=== PATIENT | female | born 1950 | race African-American/Black ===

== ENCOUNTER 2016-09-04 05:52 | Inpatient (IN) | payer MEDICARE, MEDICAID ==
--- NOTE | 2016-08-27 12:26 | HP ---
HISTORY AND PHYSICAL: * ADDENDUM: PHYSICAL EXAMINATION HEENT: Head is NC/AT. LUNGS: Clear with distant sounds. HEART: Regular. S1, S2 normal. No murmurs or gallops. ABDOMEN: Round, soft and nontender. I do not appreciate organomegaly. EXTREMITIES: She is able to do a straight leg raise on the right and the left. The right is painful. The right knee on extension 0 degrees slowly with pain, on flexion 90 degrees with pain. MCL and LCL were stable. The overall alignment is satisfactory and the dorsalis pedis pulse is 2+. NEUROLOGIC: Cranial nerves are grossly intact. IMPRESSION: Painful right total knee replacement. PLAN: Revision right total knee replacement and removal of extra bone lateral to the right patella. [id number] #: [id number] MTDD
--- NOTE | 2016-08-27 12:26 | HP ---
ADDENDUM NOW INCLUDED ON THIS REPORT HISTORY AND PHYSICAL: DATE OF ADMISSION: 09/04/16 She is coming in to the [facility] on 09/04/16. CHIEF COMPLAINT: Right knee pain, swelling, and limp. HISTORY OF PRESENT ILLNESS: This nice 66-year-old woman had a right total knee replacement years ago and in the past year it has become increasingly painful with pain anterior and anterolateral. A workup of the knee has included a negative culture for routine bacteria, AFB, and fungus. Her serum white blood count has been 7000, her sedimentation rate 38 and her C-reactive protein 5. A recent bone scan showed some positivity in the right patella region compared to the left and no findings consistent with infection. The plan is for a right total knee replacement revision of the patellar component and the tibial component, possibly the femoral component and there is some extra bone that may be causing problems lateral to the right patella that will be removed. PAST MEDICAL HISTORY: She has had a lot of medical problems with COPD, sleep apnea, obesity, diastolic heart failure, adrenal tumor, hypertension, type 2 diabetes, chronic pain, hyperlipidemia. She has not had a heart attack. She is not troubled with chest pain. She recently saw a physician learning support assistant, Kar, for her clearance. No bleeding tendencies. No smoking. No drinking. ALLERGIES: She has multiple allergies include PREDNISONE, but she has had Keflex and cefazolin in the past. REVIEW OF SYSTEMS: No abdominal pain. No recent stomach problems. PHYSICAL EXAMINATION GENERAL: She is overweight, not acutely distressed, but is limping on the right. VITAL SIGNS: Temperature 96.2 degrees. She is 5 feet 4 inches, 261 pounds. Blood pressure 190/90, pulse is 76. EXTREMITIES: The right knee has satisfactory overall alignment with marked tenderness anteriorly and anterolaterally. MCL and LCL are stable. Knee extension is near 0, flexion 90. The thigh and calf are soft. Dorsalis pedis pulses 2+. She has some swelling of her leg, ankle and foot on the right and left. IMPRESSION AND PLAN: Right total knee replacement that has been painful. The plan is for revision of the patellar component, possible revision of the tibial component and removal of extra bone lateral to the right patella. Risks and complications of surgical care have been reviewed with her and her questions were answered. Plans as above. ADDENDUM TO PHYSICAL EXAMINATION: HEENT: Head is NC/AT. LUNGS: Clear with distant sounds. HEART: Regular. S1, S2 normal. No murmurs or gallops. ABDOMEN: Round, soft and nontender. I do not appreciate organomegaly. EXTREMITIES: She is able to do a straight leg raise on the right and the left. The right is painful. The right knee on extension 0 degrees slowly with pain, on flexion 90 degrees with pain. MCL and LCL were stable. The overall alignment is satisfactory and the dorsalis pedis pulse is 2+. NEUROLOGIC: Cranial nerves are grossly intact. IMPRESSION: Painful right total knee replacement. PLAN: Revision right total knee replacement and removal of extra bone lateral to the right patella. [id number] #: [id number]/CPS #: [id number] MTDD
[~2016-09-04 05:52] MED LIST: Buffered Lidocaine 0.9% SYRIN* 5 ML/SYR SYRINGE INTRADERM ONE
[2016-09-04] MEDS ORDERED: Clindamycin 900 MG IVPREMIX(* 0 MG/0 ML SDV IV ONE (05:59)
[2016-09-04] MEDS ORDERED: Buffered Lidocaine 0.9% SYRIN* 5 ML/SYR SYRINGE ONE (05:59)
[2016-09-04] MEDS ORDERED: NS 0.9% 1000 ML* 1,000 ML IV SCH (06:00)
[2016-09-04] MEDS ORDERED: Midazolam* 1 MG/ML 2 ML VIAL (2 MG) ONE (07:08)
[2016-09-04] MEDS ORDERED: ceFAZolin 2 GM PREMIX(*) 2 GM/50 ML BAG IVPB ONE (07:15)
[2016-09-04] MEDS ORDERED: Lidocaine 2% PF * 5 ML VIAL ONE (07:35)
[2016-09-04] MEDS ORDERED: Dexamethasone IV* 4 MG/ML 1 ML (4 MG) ONE (07:35)
[2016-09-04] MEDS ORDERED: Succinylcholine* 20 MG/ML 10 ML VIAL ONE (07:35)
[2016-09-04] MEDS ORDERED: Propofol* 10 MG/ML 20 ML BTL IV PUSH ONE (07:35)
[2016-09-04] MEDS ORDERED: Famotidine IV* 10 MG/ML 2 ML (20 mg) ONE (07:35)
[2016-09-04] MEDS ORDERED: Cisatracurium* 2 MG/ML MDV 5 ML ONE (07:47)
[2016-09-04] MEDS ORDERED: HYDROmorphone* 1 MG/ML 1 ML SYR ONE ×3 (07:56→11:02)
[2016-09-04] MEDS ORDERED: Bupivacaine 0.5% W/EPI SDV* 30 ML VIAL ONE (08:14)
[2016-09-04] MEDS ORDERED: EPHEDrine (Pressors)* 50 MG/ML VIAL ONE (08:23)
[2016-09-04] MEDS ORDERED: Dexmedetomidine* 200 MCG/2 ML 2 ML VIAL ONE (08:56)
[2016-09-04] MEDS ORDERED: Ondansetron INJ* 2 MG/ML VIAL ONE (09:48)
[2016-09-04] MEDS ORDERED: Ketorolac INJ* 30 MG/ML 1 ML VIAL ONE (09:48)
[2016-09-04] MEDS ORDERED: oxyCODONE TAB* 5 MG TAB PO PRN (09:50)
[2016-09-04] MEDS ORDERED: oxyCODONE/Acetamin 5/325 MG* TAB PO PRN (09:50)
[2016-09-04] MEDS ORDERED: Nalbuphine* 20 MG/ML 1 ML VIAL IV PRN (09:50)
[2016-09-04] MEDS ORDERED: PROCHLORPERAZINE INJ 5 MG/ML 2 ML VIAL IV PRN (09:50)
[2016-09-04] MEDS ORDERED: Levalbuterol 0.63MG/3ML NEB INH PRN (09:50)
[2016-09-04] MEDS ORDERED: Ondansetron INJ* 2 MG/ML VIAL IV PRN ×2 (09:50→10:58)
[2016-09-04] MEDS ORDERED: HYDROmorphone* 1 MG/ML 1 ML SYR IV PRN (09:50)
[2016-09-04] MEDS ORDERED: diPHENhydraMINE IV* 50 MG/ML 1 ml VIAL (BENADRYL) IV PRN (09:50)
[2016-09-04] MEDS ORDERED: Acetaminophen TAB* 325 MG PO SCH (10:00)
[2016-09-04] MEDS ORDERED: Acetaminophen TAB* 325 MG PO PRN (10:58)
[2016-09-04] MEDS ORDERED: diPHENhydraMINE PO* 25 MG PO PRN (10:58)
[2016-09-04] MEDS: HYDROmorphone* 1 MG/ML 1 ML SYR IV PRN ×10 (11:07→22:21)
[2016-09-04] MEDS ORDERED: oxyCODONE TAB* 5 MG TAB ONE (11:09)
[2016-09-04] MEDS ORDERED: Acetaminophen TAB* 325 MG ONE (11:10)
--- NOTE | 2016-09-04 11:44 | RAD ---
Indication: Right knee replacement 2 views of the right knee demonstrates right knee replacement in satisfactory position. No loosening is noted. IMPRESSION: Right knee replacement in satisfactory position.
[2016-09-04] MEDS ORDERED: Cyclobenzaprine TAB* 10 MG PO PRN (12:11)
[2016-09-04] MEDS ORDERED: Albuterol 2.5 MG/3 ML NEB.SOL* (0.083%) INH PRN (12:40)
[2016-09-04] MEDS ORDERED: Ipratropium 0.5MG/2.5ML NEB* 0.5 MG/2.5 ML NEB.SOLN INH PRN (12:40)
[2016-09-04] MEDS ORDERED: Dextrose 50% Syringe 50 ML* 25 GM/50 ML SYRINGE IV PUSH PRN (12:44)
[2016-09-04] MEDS: oxyCODONE/Acetamin 5/325 MG* TAB PO PRN ×3 (13:04→20:16)
[2016-09-04] MEDS: Insulin LISPRO* 1 UNITS UNIT SUBCUT SCH (18:03)
--- NOTE | 2016-09-04 18:22 | CONS ---
CC: QUANG Hernandez * MEDICINE CONSULTATION: DATE OF CONSULT: 09/04/16 PROVIDER: Kobe Weber NP. CONSULTING PHYSICIAN: Mitch Salcedo MD (as dictated by Kobe Weber NP). REQUESTING PHYSICIAN: Dr. Matteo Bustamante, Orthopedic Surgery. PRIMARY CARE PROVIDER: QUANG Hernandez and Dr. Donavan Lara. PRIMARY ADVANCE SEAL DELIVERY SYSTEM MAINTAINER: Dr. Kimberly Avalos. REASON FOR CONSULTATION: Co-medical management in the postoperative period following right total knee revision. HISTORY OF PRESENT ILLNESS: Ms. Mike Phelps is a 66-year-old female with a past medical history significant for COPD, sleep apnea, diastolic heart failure, hypertension, diabetes, morbid obesity, chronic pain, and obstructive sleep apnea as well as a previous right total knee replacement, who presented today for an elective revision of the previous right total knee replacement. At the time of my assessment examination, the patient reports having significant pain and has been recently medicated. She does report persistent pain to the extremity as well as difficulty walking on the extremity. She denies any recent illness, fever, or chills at home, any cold or flu symptoms. She denies any chest pain, shortness of breath, abdominal pain, nausea, vomiting. She states "I felt fine, I am just here for my knee." PAST MEDICAL HISTORY: Includes: 1. COPD with nocturnal oxygen use, 2 L. 2. Severe obstructive sleep apnea, the patient does not use CPAP by choice, again uses nocturnal O2. 3. Hypertension. 4. Diabetes. 5. Diastolic heart failure. 6. Morbid obesity, BMI is 46.2. 7. Hyperlipidemia. 8. Chronic pain. 9. History of adrenal tumor. 10. Osteoarthritis. 11. Vocal cord dysfunction. 12. History of small bowel obstruction. 13. 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 14. Vitamin D deficiency. PAST SURGICAL HISTORY: The patient has had previous abdominal surgery for 1. Small bowel obstruction. 2. Bilateral total knee replacements. 3. Two breast biopsies. HOME MEDICATIONS: 1. Percocet 10/325 one tab q.4 hours p.r.n. 2. Oxycodone SR 10 mg q.12 hours. 3. Metformin 500 mg q.a.m. 4. Zolpidem 5 to 10 mg at bedtime p.r.n. 5. Valsartan 320 mg q.a.m. 6. Simvastatin 40 mg q.a.m. 7. Nystatin 1 application topical b.i.d. p.r.n. 8. Bystolic 10 mg b.i.d. 9. Metolazone 2.5 mg to be taken 30 minutes before furosemide if weight gain is above 257 pounds. 10. Atrovent nebulizer q.4 hours p.r.n. 11. Furosemide 20 mg daily. The patient needs to increase to 1 tab daily if weight is above 250 pounds. 12. Advair 1 puff inhaled b.i.d. 13. Esomeprazole 40 mg q.a.m. 14. Ergocalciferol 50,000 units q.14 days. 15. Duloxetine 40 mg q.a.m. 16. Ciclopirox 1 application topical daily p.r.n. 17. Soma 350 mg t.i.d. p.r.n. 18. Aspirin 81 mg q.a.m. 19. Albuterol inhaler 2 puffs inhaled q.i.d. p.r.n. 20. Albuterol nebulizer q.6 hours p.r.n. 21. Alprazolam 1 mg t.i.d. p.r.n. ALLERGIES: Include MORPHINE and PENICILLIN, which cause hives; FENTANYL, which causes hallucinations, and BACTRIM which causes muscle aching. FAMILY HISTORY: Significant for mother with lung cancer, hypertension and diabetes. Father with lung cancer, hypertension, diabetes, and coronary artery disease. The patient has 2 brothers with diabetes, a sister with diabetes and a brother who at a young age from a heart attack. SOCIAL HISTORY: The patient reports being a former smoker with a 15 to 20 pack year history. She quit over 12 years ago. She denies any current alcohol use, but reports previous heavy alcohol use when she was younger. She denies any illicit drug use. She is single. She lives alone. Her sister Michaela Coleman and her brother, Ashely Mckeon are her emergency contacts and surrogate decision makers in the event of emergency. REVIEW OF SYSTEMS: As per HPI, a 12-point review of systems was completed and is negative except for what is noted in the HPI. PHYSICAL EXAM: General: Ms. Mike Phelps is an female. She is lying in the hospital bed. She does appear to be uncomfortable and is grimacing with pain. Vital signs: Temperature 97.7, heart rate 88, respiratory rate 15, blood pressure 122/69, and O2 saturation is 98% on 3 L nasal cannula. HEENT: Head is atraumatic, normo-cephalic. Face is symmetrical. Pupils are equal, round, and reactive to light. Oral mucosa appears somewhat dry. Neck: Supple. No lymphadenopathy appreciated. No JVD noted. Cardiac: S1 and S2 heart sounds. Regular rate and rhythm. No murmurs, rubs, or gallops. Respiratory: Lungs are clear to auscultation and are slightly diminished. Abdomen: Soft, nontender, and nondistended. Bowel sounds are present. The patient with healed abdominal scars. Extremities: The patient has a clean, dry, and intact Damian bandage to the right knee with cryotherapy cuff. The patient with good movement bilaterally to the lower extremities and sensation is intact. Distal pulses are present at 1 to 2+ to both feet. Neuro: The patient is alert and oriented x3. She is able to move all extremities. She is following commands. No focal weakness noted. Speech is clear and appropriate. ASSESSMENT AND PLAN: The patient is a 66-year-old female who is status post revision of right total knee replacement. Disposition is per Ortho. We will follow along for assistance of co-medical management in a patient with multiple comorbidity. Management for the right knee revision is per ortho. 1. Chronic obstructive pulmonary disease: Continue home inhalers and nebulizer treatments p.r.n. She does not appear to be in acute exacerbation. Lungs are clear and she is in no respiratory distress. The patient was cleared by Pulmonology prior to her surgery because the patient does have a history of severe sleep apnea, but does not use CPAP at home. Again, she is without any wheezing or rhonchi or any significant cough. We will continue her on her home inhalers and closely monitor her oxygen saturation and respiratory status. 2. History of severe obstructive sleep apnea: The patient is in ICU for close monitoring in a postoperative period. I did encourage the patient to use the hospital CPAP, which I will order and offer to the patient; however, she is going to continue to use her home nocturnal oxygen at 2 L as she continues to refuse CPAP. She is at higher risk for respiratory complications given previously untreated sleep apnea. Again, continue to closely monitor. 3. Hypertension: She is currently normotensive. Continue pain management and we will continue her home medications of Diovan. I will order daily weights to monitor for weight gain. If the patient increases any fluids, we will resume her furosemide and Zaroxolyn as the patient becomes more medically stable. We will closely monitor her renal function and again resume these medication when medically appropriate. 4. Type 2 diabetes: We will hold her metformin and continue the patient on lispro insulin sliding scale. We will check her fingerstick blood glucose q.a.c. and h.s. 5. History of chronic diastolic congestive heart failure. The patient appears to be euvolemic at this time. Again, I will hold her home oral Lasix and reevaluate tomorrow and resume when appropriate. Continue Bystolic and valsartan. 6. History of gastroesophageal reflux disease: Continue omeprazole. 7. Chronic pain: Continue home oxycodone SR b.i.d. as well as p.r.n. medications, which are available via anesthesia and the orthopedic surgery group. She is currently ordered Percocet, which we will continue. We will also continue the patient's home Cymbalta. 8. FEN: At this time, continue IV fluids per Anesthesia. Continue to monitor the patient's volume status. The patient is currently n.p.o., but as her diet advances, we will continue her on a consistent carbohydrate diet again with lispro sliding scale insulin. 9. DVT prophylaxis: Per Ortho, the patient is ordered aspirin 325 mg currently , as well as SCDs. 10. Code status: The patient is a full code. TIME SPENT: Time spent on this consultation was approximately 45 minutes with over half that time spent [id number] with the patient obtaining history and physical, performing physical examination, and reviewing the plan of care. Plan of care was also reviewed with my attending, Dr. Salcedo, who is in agreement. KOBE WEBER, TRIAGE CLINICIAN [id number]/[facility] #: [id number] JAY
[2016-09-04] MEDS: ALPRAZolam TAB* 0.5 MG PO PRN (20:16)
[2016-09-04] MEDS ORDERED: Mometasone/Formoter 100/5 MDI INH SCH (21:00)
[2016-09-04] MEDS ORDERED: CMCS Nebivolol TAB (NF) 2.5 MG TAB PO SCH (21:00)
[2016-09-04] MEDS: Docusate CAP* 100 MG PO SCH (21:24)
[2016-09-04] MEDS: oxyCODONE SR TAB(*) 10 MG TAB.SR PO SCH (21:24)
[2016-09-04] MEDS: CMC: Nebivolol TAB (NF) 2.5 MG TAB PO SCH (21:25)
[2016-09-04] MEDS: Mometasone/Formoter 200/5 MDI INH SCH (21:37)
[2016-09-05] MEDS ORDERED: HYDROmorphone* 1 MG/ML 1 ML SYR IV ONE (00:48)
[2016-09-05] MEDS ORDERED: HYDROmorphone* 1 MG/ML 1 ML SYR ONE (00:53)
[2016-09-05] MEDS: oxyCODONE/Acetamin 5/325 MG* TAB PO PRN ×6 (00:56→17:45)
[2016-09-05] MEDS: ALPRAZolam TAB* 0.5 MG PO PRN ×2 (04:12→21:46)
--- NOTE | 2016-09-05 04:26 | OP ---
CC: Dr. Donavan Lara * DATE OF OPERATION: 09/04/16 - ROOM #ICU-01 DATE OF : 48 SURGICAL CARE: Right knee. SURGEON: Matteo Bustamante MD ASSISTANTS: 1. JOHN Clark, parking assistant. 2. Kiah Montano, surgical resident. ANESTHESIOLOGIST: Dr. Pawan Latif. ANESTHESIA: Endotracheal tube general. PRE-OP DIAGNOSIS: Painful right total knee replacement with possible looseness of the patellar component and/or the tibial component. Painful loose bone fragment lateral to the patella POST-OP DIAGNOSIS: Painful right total knee replacement with possible looseness of the patellar component and/or the tibial component; the tibial component was not loose. OPERATIVE PROCEDURE: Right knee arthrotomy with revision of the patellar component, exchange of the articular surface on the tibia, NexGen Legacy articular surface and removal of loose bony fragment lateral to the patella. INDICATIONS: Severe knee pain, the workup included blood testing, knee aspiration that was negative, and bone scan that did not show any increased uptake in the tibia or the femur, but did show increased uptake in the right patella. COMPLICATIONS: There were no complications. DRAINS: There were no drains. ESTIMATED BLOOD LOSS: 30 to 50 mL. REPLACEMENT: Crystalloid fluids. DESCRIPTION OF PROCEDURE: The patient was brought to the operating room and placed on the operating room table in the supine position. Following the administration of the anesthetic, a Madrid catheter was inserted. The patient was positioned on the operating room table. The right proximal thigh was wrapped with a tourniquet. The dorsalis pedis pulse was noted to be 2+ on the right foot. The right leg was given a preliminary chlorhexidine prep and then prepped and draped and sealed off in the usual fashion for arthroplasty of the knee with ChloraPrep. After prepping, draping, and sealing off, we did our universal protocol time-out confirming Dilma Mckeon and plan for right total knee replacement. We all agreed and we proceeded with that. The surgical care was done without tourniquet. The leg was acutely flexed and the foot was on a padded foot piece. The skin incision that was used previously was utilized and it went from approximately two fingerbreadths proximal to superior pole of the patella to the medial aspect of the tibial tubercle. The skin and subcu tissues were opened and at the distal end of the incision, there was some yellow fluid that was in a small sac and this was cultured and the sac was irrigated and I thought it was okay to proceed with the surgical care. The immediately used instruments were handed off the table. The knee was entered, medial parapatellar, dividing the quadriceps tendon at the junction of the vastus medialis and the rectus femoris going 4 to 5 cm proximal to superior pole of the patella. The knee fluid was clear. The anteromedial soft tissues on the tibia were elevated subperiosteally starting around to the MCL and then we just went a couple of centimeters there. The patella was made so that it could be everted. The patellar component was seen to be immediately loose and it was being held in with a small piece of bone from the inferior patella that was rongeured off and the patellar fragment was taken out, all 3 of the patellar pegs had been sheared off and they were loose as well and removed. A fragmnet of bone lateral to the patella and somewhat within the lateral retinaculum and dissected out with the patella everted. It was 2.5 by 3.5 by 1 cms and was irregular. Synovectomy was completed around the patella. The patellar component had migrated a little bit medially and there was some medial bone loss. The tibia was then explored especially laterally where there appeared to be some subsidence on radiographs and there was no evidence of irritation or looseness. There was no ability to lift up the tibial tray and there was no ability to penetrate the tibial tray. Between the tibial tray and the bone, was a Bovie blade. So, I felt that the tibial component was satisfactorily intact that required surgery. The tibial articular surfaces that was in there, it was a size 12 for a 3 tibia to go within an E femur, was removed, a little bit of synovectomy was completed in the medial and lateral compartments posteriorly. We irrigated with 2 L of saline and then a new NexGen tibial component size 12 mm for the 3 tibia and for the E femur was carefully inserted and snapped into position. We were then finishing our preparations on the patella, the lateral release was completed. The patella was everted, then I concentrated on using the remaining lateral, superior, and inferior bone. The patellar cutting guide for _the Persona knee was snapped into position. The remaining patella was cut flat and 32 was chosen. Three drill holes were made into the patella and the area of bone loss medially was carefully curetted down to good bleeding bone. I felt that the new patella had five-eighths of its circumferential bone to support it laterally, superiorly, and inferiorly, and this bone was 1.5 to 2 cm in width. The patella was cleaned and then down to good bleeding bone. All bony surfaces were irrigated with pulsed saline. All surfaces were then dried. The cement was mixed and the 32 component was cemented into position packing cement medially and seeing that it was flush laterally, superiorly, and inferiorly. Once it was hard, the knee was put through a range of movement several times. The knee was irrigated with pulsed saline irrigation, 2 to 3 L. We infiltrated the pericapsular tissues posteromedially with Marcaine 0.5% with epinephrine, also laterally, straight medially, and then the skin and subcu all in the incision. We irrigated several times during the closure with saline. The patella appeared to be in satisfactory overall alignment. The quadriceps mechanism reapproximated with interrupted #1 Polysorb's in figure-of-8 fashion down past the medial retinaculum and then 0 Polysorb was used distal to that. The deep subcu and bursa closed with 0 Polysorb. The superficial subcu closed with 3-0 Polysorb and the john closed with skin. The skin was washed and dried and covered with Betadine-soaked release followed by sterile gauze, sterile Webril, cryotherapy cuff, ABD pads, and then a 6-inch Damian bandage loosely applied. The dorsalis pedis pulse was 2+. The knee had the same alignment as preoperatively with slight hyperextension, stable ligaments, and as stated, we flexed and extended the knee several times during the closure with satisfactory patellar positioning. The patient was returned to the recovery room in stable and satisfactory condition having tolerated the procedure very well. Because the patient has severe sleep apnea and she does not agree to utilize CPAP, she will be observed in the intensive care unit for the first night. [id number]/[facility] #: [id number] JAY
[2016-09-05] MEDS: HYDROmorphone* 1 MG/ML 1 ML SYR IV PRN ×5 (05:11→21:46)
[2016-09-05 06:31] LABS: Hematocrit 35 % (35-47); Hemoglobin 11.2 g/dl (12.0-16.0)
[2016-09-05 06:49] LABS: BUN/Creatinine Ratio 21.7 (8-20); Calcium 8.6 mg/dL (8.6-10.3); EGFR African American 88.2 (>60); EGFR Non-African American 68.6 (>60); Potassium 3.7 mmol/L (3.5-5.0)
[2016-09-05] MEDS ORDERED: ceFAZolin VIAL(*) 1 GM in NS 0.9% 50 ML* 50 ML IVPB ONE ×2 (07:00→11:00)
[2016-09-05] MEDS ORDERED: Enoxaparin(*) 30 MG/0.3 ML SYR SUBCUT ONE (08:00)
[2016-09-05] MEDS: oxyCODONE SR TAB(*) 10 MG TAB.SR PO SCH ×2 (08:34→21:46)
[2016-09-05] MEDS: CMC: Nebivolol TAB (NF) 2.5 MG TAB PO SCH ×2 (08:36→21:46)
[2016-09-05] MEDS: Valsartan TAB* 160 MG PO SCH (08:36)
[2016-09-05] MEDS: Omeprazole CAP* 20 MG PO SCH (08:36)
[2016-09-05] MEDS: Docusate CAP* 100 MG PO SCH ×2 (08:36→21:46)
[2016-09-05] MEDS: Atorvastatin* 10 MG TAB PO SCH (08:36)
[2016-09-05] MEDS: DULoxetine DR CAP* 20 MG CAP.DR PO SCH (08:36)
[2016-09-05] MEDS: Insulin LISPRO* 1 UNITS UNIT SUBCUT SCH ×3 (08:37→18:00)
[2016-09-05] MEDS ORDERED: Aspirin TAB* 325 MG PO SCH (09:00)
[2016-09-05] MEDS ORDERED: Valsartan TAB* 160 MG PO SCH (09:00)
[2016-09-05] MEDS: Mometasone/Formoter 200/5 MDI INH SCH ×2 (09:15→21:45)
[2016-09-05] MEDS: Albuterol HFA INHALER* 8 gm MDI INH PRN ×2 (10:54→18:52)
--- NOTE | 2016-09-05 11:27 | PN ---
Subjective Date of Service: 09/05/16 Interval History: Patient seen and examined at bedside. She denies fever/chills, chest pain, SOB, n/v. She reports 8/10 pain to RLE that does improve with pain medication. Patient reports hospital bed exacerbates her chronic back pain. Patient is very concerned about discharge planning. She has previously been a patient in [facility] and is highly motivated to return and participate with the therapists and physiatrists there. Family History: Unchanged from Admission Social History: Unchanged from Admission Past Medical History: Unchanged from Admission Objective Active Medications: Acetaminophen (Tylenol Tab*) 650 mg PO Q4H PRN PRN Reason: pain and temp Albuterol (Ventolin Hfa Inhaler*) 2 puff INH QID PRN PRN Reason: SOB/WHEEZING Last Admin: 09/05/16 10:54 Dose: 2 puff Alprazolam (Xanax Tab*) 1 mg PO TID PRN PRN Reason: ANXIETY Last Admin: 09/05/16 04:12 Dose: 1 mg Atorvastatin Calcium (Lipitor*) 10 mg PO QAM [facility] Last Admin: 09/05/16 08:36 Dose: 10 mg Cyclobenzaprine HCl (Flexeril Tab*) 10 mg PO TID PRN PRN Reason: SPASMS - MUSCLE Dextrose (D50w Syringe 50 Ml*) 12.5 gm IV PUSH .FOR FS < 60 - SS PRN PRN Reason: FS < 60 Diphenhydramine HCl (Benadryl Po*) 25 mg PO Q6H PRN PRN Reason: itching Docusate Sodium (Colace Cap*) 100 mg PO BID [facility] Last Admin: 09/05/16 08:36 Dose: 100 mg Duloxetine HCl (Cymbalta Cap*) 20 mg PO QAM [facility] Last Admin: 09/05/16 08:36 Dose: 20 mg Hydromorphone HCl (Dilaudid Iv*) 1 mg IV Q4H PRN PRN Reason: PAIN Last Admin: 09/05/16 09:32 Dose: 1 mg Lactated Ringer's (Lactated Ringers 1000 Ml Bag*) 1,000 mls @ 100 mls/hr IV PER RATE [facility] Last Admin: 09/04/16 22:19 Dose: 100 mls/hr Insulin Human Lispro (Humalog*) 0 units SUBCUT AC [facility] PRN Reason: Protocol Last Admin: 09/05/16 08:37 Dose: Not Given Mometasone Furoate/Formoterol Fumar (Dulera 200/5 Mdi*) 2 puff INH BID [facility] Last Admin: 09/05/16 09:15 Dose: 2 puff Nebivolol (Bystolic Tab (Nf)) 10 mg PO BID [facility] Last Admin: 09/05/16 08:36 Dose: 10 mg Omeprazole ([facility]ilosec Cap*) [facility] Reason: Protocol Last Admin: 09/05/16 08:36 Dose: 20 mg Ondansetron HCl (Zofran Inj*) 4 mg IV Q6H PRN PRN Reason: nausea Oxycodone HCl (Oxycontin(*)) 10 mg PO Q12HR [facility] Last Admin: 09/05/16 08:34 Dose: 10 mg Oxycodone/Acetaminophen (Percocet 5/325 Tab*) 2 tab PO Q3H PRN PRN Reason: PAIN - MODERATE Last Admin: 09/05/16 08:35 Dose: 2 tab Valsartan (Diovan Tab*) [facility] [place] Last Admin: 09/05/16 08:36 Dose: 320 mg Warfarin Sodium (Coumadin Tab(*)) 5 mg PO 1700 [facility] Stop: 09/06/16 17:01 Vital Signs 09/04/16 09/04/16 09/04/16 11:29 11:30 11:40 Temperature Pulse Rate 89 87 Respiratory 16 16 16 Rate Blood Pressure 135/70 133/60 (mmHg) O2 Sat by Pulse 100 98 Oximetry 09/04/16 09/04/16 09/04/16 11:45 11:54 12:27 Temperature Pulse Rate 90 88 88 Respiratory 12 16 14 Rate Blood Pressure 119/72 122/69 (mmHg) O2 Sat by Pulse 98 98 98 Oximetry 09/04/16 09/04/16 09/04/16 12:28 12:30 12:45 Temperature 98.5 F Pulse Rate 91 85 86 Respiratory 13 12 12 Rate Blood Pressure 126/82 99/56 110/69 (mmHg) O2 Sat by Pulse 99 98 98 Oximetry 09/04/16 09/04/16 09/04/16 13:00 13:04 13:15 Temperature Pulse Rate 88 86 Respiratory 16 14 20 Rate Blood Pressure 112/51 102/90 (mmHg) O2 Sat by Pulse 98 99 Oximetry 09/04/16 09/04/16 09/04/16 13:31 13:45 13:57 Temperature Pulse Rate 89 83 Respiratory 20 15 16 Rate Blood Pressure 125/66 126/67 (mmHg) O2 Sat by Pulse 97 98 Oximetry 09/04/16 09/04/16 09/04/16 14:00 14:15 15:00 Temperature Pulse Rate 84 81 81 Respiratory 18 15 20 Rate Blood Pressure 130/62 130/71 125/60 (mmHg) O2 Sat by Pulse 99 97 99 Oximetry 09/04/16 09/04/16 09/04/16 15:13 15:53 16:00 Temperature 97.1 F Pulse Rate 77 Respiratory 18 16 Rate Blood Pressure 126/66 (mmHg) O2 Sat by Pulse 99 Oximetry 09/04/16 09/04/16 09/04/16 16:23 16:42 17:00 Temperature Pulse Rate 76 Respiratory 20 17 Rate Blood Pressure 128/74 (mmHg) O2 Sat by Pulse 97 99 Oximetry 09/04/16 09/04/16 09/04/16 17:32 18:00 18:03 Temperature Pulse Rate 85 Respiratory 16 18 18 Rate Blood Pressure 132/64 (mmHg) O2 Sat by Pulse 100 Oximetry 09/04/16 09/04/16 09/04/16 19:00 19:43 20:00 Temperature 98.4 F Pulse Rate 91 86 Respiratory 22 18 Rate Blood Pressure 135/53 135/75 (mmHg) O2 Sat by Pulse 97 97 Oximetry 09/04/16 09/04/16 09/04/16 20:16 21:00 21:24 Temperature Pulse Rate 85 84 Respiratory 22 17 19 Rate Blood Pressure 144/72 137/67 (mmHg) O2 Sat by Pulse 99 98 Oximetry 09/04/16 09/04/16 09/04/16 21:39 21:40 22:00 Temperature Pulse Rate 86 82 Respiratory 28 Rate Blood Pressure 133/68 (mmHg) O2 Sat by Pulse 98 98 97 Oximetry 09/04/16 09/04/16 09/04/16 22:17 22:21 23:00 Temperature Pulse Rate 89 Respiratory 20 20 13 Rate Blood Pressure 116/71 (mmHg) O2 Sat by Pulse 96 Oximetry 09/04/16 09/04/16 09/05/16 23:09 23:33 00:00 Temperature 97.7 F Pulse Rate 91 86 Respiratory 24 13 Rate Blood Pressure (mmHg) O2 Sat by Pulse 97 98 Oximetry 09/05/16 09/05/16 09/05/16 00:01 00:20 00:56 Temperature Pulse Rate 86 Respiratory 13 16 22 Rate Blood Pressure 121/62 (mmHg) O2 Sat by Pulse 98 97 Oximetry 09/05/16 09/05/16 09/05/16 01:00 01:01 02:00 Temperature Pulse Rate 88 96 84 Respiratory 16 17 15 Rate Blood Pressure 107/58 (mmHg) O2 Sat by Pulse 97 97 99 Oximetry 09/05/16 09/05/16 09/05/16 02:01 03:00 04:00 Temperature 97.3 F Pulse Rate 85 87 79 Respiratory 14 19 16 Rate Blood Pressure 135/61 129/69 114/67 (mmHg) O2 Sat by Pulse 98 98 97 Oximetry 09/05/16 09/05/16 09/05/16 04:12 04:17 05:00 Temperature Pulse Rate 79 Respiratory 14 14 21 Rate Blood Pressure 130/65 (mmHg) O2 Sat by Pulse 98 Oximetry 09/05/16 09/05/16 09/05/16 05:11 06:00 06:02 Temperature Pulse Rate 78 78 Respiratory 20 17 20 Rate Blood Pressure 112/90 (mmHg) O2 Sat by Pulse 100 99 Oximetry 09/05/16 09/05/16 09/05/16 07:00 07:41 08:00 Temperature 97.8 F Pulse Rate 79 71 Respiratory 18 15 Rate Blood Pressure 130/78 144/129 (mmHg) O2 Sat by Pulse 98 100 Oximetry 09/05/16 09/05/16 09/05/16 08:34 08:35 09:00 Temperature Pulse Rate 73 Respiratory 15 15 18 Rate Blood Pressure 141/83 (mmHg) O2 Sat by Pulse 97 Oximetry 09/05/16 09/05/16 09/05/16 09:15 09:32 10:27 Temperature 98.5 F Pulse Rate 74 78 Respiratory 20 20 Rate Blood Pressure 132/61 (mmHg) O2 Sat by Pulse 97 94 Oximetry 09/05/16 10:35 Temperature 98.5 F Pulse Rate 78 Respiratory 20 Rate Blood Pressure 132/61 (mmHg) O2 Sat by Pulse 94 Oximetry Oxygen Devices in Use Now: None Appearance: Female patient, lying in bed, pleasant, NAD Eyes: PERRLA Ears/Nose/Mouth/Throat: Mucous Membranes Moist Neck: NL Appearance and Movements; NL JVP Respiratory: Symmetrical Chest Expansion and Respiratory Effort, Clear to Auscultation Cardiovascular: RRR Abdominal: NL Sounds; No Tenderness; No Distention Extremities: - - distal pulses 2+, distally nvi Neurological: Alert and Oriented x 3 Lines/Tubes/Other Access: Clean, Dry and Intact Peripheral IV Result Diagrams: 09/05/16 06:00 09/05/16 06:00 Microbiology and Other Data: Microbiology 09/04/16 12:37 Nasal Screen MRSA (PCR)([facility]) - Final Nasal Mrsa Positive 09/04/16 08:28 Gram Stain - Final Wound - Knee Right Assess/Plan/Problems-Billing Assessment: This is a 66 yo female with a PMH significant for COPD, LUPE, HTN, DM, diastolic HF, morbid obesity, HLD, and chronic pain who is s/p revision of right total knee replacement. - Patient Problems (1) Status post revision of total replacement of right knee Code(s): Z96.651 - PRESENCE OF RIGHT ARTIFICIAL KNEE JOINT Comment: POD #1, management per ortho PT/OT Pain management (2) COPD (chronic obstructive pulmonary disease) Code(s): J44.9 - CHRONIC OBSTRUCTIVE PULMONARY DISEASE, UNSPECIFIED Comment: Not in acute exacerbation Continue home inhalers and prn nebulizer treatments Continue nocturnal O2 (3) HTN (hypertension) Code(s): I10 - ESSENTIAL (PRIMARY) HYPERTENSION Comment: SBP 130s-140s Continue nebivolol and valsartan. (4) CHF (congestive heart failure) Code(s): I50.9 - HEART FAILURE, UNSPECIFIED Comment: Chronic, diastolic, not in acute exacerbation Continue daily weights Holding home furosemide and Zaroxlyn in postoperative period Will resume tomorrow (5) Diabetes mellitus type 2, noninsulin dependent Code(s): E11.9 - TYPE 2 DIABETES MELLITUS WITHOUT COMPLICATIONS Comment: Controlled. Continue Lispro SSI. Hold home metformin. (6) Chronic pain Code(s): G89.29 - OTHER CHRONIC PAIN Comment: Continue home duloxetine, oxycontin, Soma. (7) LUPE (obstructive sleep apnea) Code(s): G47.33 - OBSTRUCTIVE SLEEP APNEA (ADULT) (PEDIATRIC) Comment: Does not use home CPAP Will offer hospital equipment if patient willing to use, otherwise continue nocturnal O2 2Lnc (8) GERD (gastroesophageal reflux disease) Code(s): K21.9 - GASTRO-ESOPHAGEAL REFLUX DISEASE WITHOUT ESOPHAGITIS Comment : Continue omeprazole. (9) DVT prophylaxis Comment: Per ortho Status and Disposition: Inpatient admission. Dispo per ortho. Hospitalist co-medical management.
[2016-09-05] MEDS: Carisoprodol TAB* 350 MG PO PRN ×2 (14:26→23:58)
[2016-09-05] MEDS ORDERED: Warfarin TAB(*) 5 MG PO SCH (17:00)
[2016-09-05] MEDS ORDERED: NS 0.9% 500 ML BAG* 500 ML IV SCH (17:00)
[2016-09-05] MEDS ORDERED: Magnesium Hydroxide LIQ* 30 ML UDC ONE (23:56)
[2016-09-06] MEDS: Magnesium Hydroxide LIQ* 30 ML UDC PO SCH ×2 (00:37→05:13)
[2016-09-06] MEDS: oxyCODONE/Acetamin 5/325 MG* TAB PO PRN ×3 (01:15→09:01)
[2016-09-06] MEDS: Albuterol HFA INHALER* 8 gm MDI INH PRN (01:15)
[2016-09-06] MEDS: HYDROmorphone* 1 MG/ML 1 ML SYR IV PRN ×3 (01:51→11:13)
[2016-09-06] MEDS: Insulin LISPRO* 1 UNITS UNIT SUBCUT SCH (08:54)
[2016-09-06 08:59] LABS: Hematocrit 33 % (35-47); Hemoglobin 10.6 g/dl (12.0-16.0)
[2016-09-06] MEDS ORDERED: Furosemide TAB* 40 MG PO SCH (09:00)
[2016-09-06] MEDS ORDERED: Metolazone TAB* 5 MG PO SCH (09:00)
[2016-09-06] MEDS: Docusate CAP* 100 MG PO SCH (09:01)
[2016-09-06] MEDS: CMC: Nebivolol TAB (NF) 2.5 MG TAB PO SCH (09:01)
[2016-09-06] MEDS: Valsartan TAB* 160 MG PO SCH (09:01)
[2016-09-06] MEDS: oxyCODONE SR TAB(*) 10 MG TAB.SR PO SCH (09:02)
[2016-09-06] MEDS: DULoxetine DR CAP* 20 MG CAP.DR PO SCH (09:02)
[2016-09-06] MEDS: Atorvastatin* 10 MG TAB PO SCH (09:02)
[2016-09-06] MEDS: Omeprazole CAP* 20 MG PO SCH (09:02)
[2016-09-06] MEDS: Mometasone/Formoter 200/5 MDI INH SCH (09:03)
[2016-09-06 10:06] VITALS: BP 130/53
== END 2016-09-06 11:28 | DRG 467 ==
LOC: AA 05:52 → ICU 12:03 → SSU 09-05 10:22
PROVIDERS: ADMIT Orthopaedic Surgery; ATTEND Orthopaedic Surgery
PROC: 0SRV0J9 Replacement of Right Knee Joint, Tibial Surface with Synthetic Substitute, Cemented, Open Approach (ICD-10-PCS; 2016-09-04)
PROC: 0SPC0JC Removal of Synthetic Substitute from Right Knee Joint, Patellar Surface, Open Approach (ICD-10-PCS; 2016-09-04)
PROC: 0SUC09C Supplement Right Knee Joint with Liner, Patellar Surface, Open Approach (ICD-10-PCS; 2016-09-04)
PROC: 0SPV0JZ Removal of Synthetic Substitute from Right Knee Joint, Tibial Surface, Open Approach (ICD-10-PCS; principal; 2016-09-04 07:30)
DX: T84.84XA Pain due to internal orthopedic prosthetic devices, implants and grafts, initial encounter (principal); I50.32 Chronic diastolic (congestive) heart failure; Z68.42 Body mass index [BMI] 45.0-49.9, adult; J44.9 Chronic obstructive pulmonary disease, unspecified; I11.0 Hypertensive heart disease with heart failure; D62 Acute posthemorrhagic anemia; T84.032A Mechanical loosening of internal right knee prosthetic joint, initial encounter; E11.9 Type 2 diabetes mellitus without complications; G89.29 Other chronic pain; E78.5 Hyperlipidemia, unspecified; Z88.8 Allergy status to other drugs, medicaments and biological substances; Z88.1 Allergy status to other antibiotic agents; M54.9 Dorsalgia, unspecified; E66.01 Morbid (severe) obesity due to excess calories; G47.33 Obstructive sleep apnea (adult) (pediatric); K21.9 Gastro-esophageal reflux disease without esophagitis; M81.0 Age-related osteoporosis without current pathological fracture; Z96.653 Presence of artificial knee joint, bilateral; Z88.0 Allergy status to penicillin; Z88.5 Allergy status to narcotic agent; Z82.49 Family history of ischemic heart disease and other diseases of the circulatory system; Z83.3 Family history of diabetes mellitus; Z80.1 Family history of malignant neoplasm of trachea, bronchus and lung; Z87.891 Personal history of nicotine dependence; F41.9 Anxiety disorder, unspecified; F32.9 Major depressive disorder, single episode, unspecified; Y79.3 Surgical instruments, materials and orthopedic devices (including sutures) associated with adverse incidents; Y92.9 Unspecified place or not applicable
CPT/HCPCS: 36415; 80048; 85014; 85018; 85610; 87070; 87073; 87205; 87641; 88304; 94640; 94760; A9270-GY; C1776; J0330; J0690; J1100; J1170; J1650; J1885; J2250; J2405; J2704

== ENCOUNTER 2016-09-06 09:43 | Inpatient (IN) | payer MEDICARE, MEDICAID ==
[2016-09-06] MEDS ORDERED: Bisacodyl SUPP* 10 MG SUPP PR PRN (11:52)
[2016-09-06] MEDS ORDERED: Acetaminophen TAB* 325 MG PO PRN (11:52)
[2016-09-06] MEDS ORDERED: Albuterol HFA INHALER* 8 gm MDI INH PRN (11:57)
[2016-09-06] MEDS ORDERED: oxyCODONE/Acetamin 5/325 MG* TAB PO PRN (12:02)
[2016-09-06] MEDS ORDERED: Dextrose 50% Syringe 50 ML* 25 GM/50 ML SYRINGE IV PUSH PRN (12:04)
[2016-09-06] MEDS: oxyCODONE/Acetamin 5/325 MG* TAB PO PRN ×2 (15:34→19:36)
[2016-09-06] MEDS ORDERED: Warfarin TAB(*) 4 MG PO SCH (17:00)
[2016-09-06] MEDS: Insulin LISPRO* 1 UNITS UNIT SUBCUT SCH ×2 (17:17→20:56)
[2016-09-06] MEDS ORDERED: HEMORRHOIDAL PR PRN (17:38)
[2016-09-06] MEDS: Magnesium Hydroxide LIQ* 30 ML UDC PO PRN (20:48)
[2016-09-06] MEDS: Senna TAB PO SCH (20:48)
[2016-09-06] MEDS: Docusate CAP* 100 MG PO SCH (20:48)
[2016-09-06] MEDS: oxyCODONE SR TAB(*) 20 MG TAB.SR PO SCH (20:48)
[2016-09-06] MEDS: HYDROmorphone TAB* 4 MG PO PRN (20:55)
[2016-09-06 21:54] LABS: Urine Bacteria Absent (Absent); Urine Bilirubin Negative (Negative); Urine Glucose Negative (Negative); Urine Nitrite Negative (Negative)
[2016-09-06] MEDS: Mometasone/Formoter 200/5 MDI INH SCH (22:07)
[2016-09-06] MEDS: CMCS Nebivolol TAB (NF) 2.5 MG TAB PO SCH (22:10)
[2016-09-07] MEDS: oxyCODONE/Acetamin 5/325 MG* TAB PO PRN ×2 (00:15→05:19)
--- NOTE | 2016-09-07 02:33 | HP ---
ADMISSION HISTORY AND PHYSICAL: DATE OF ADMISSION: 09/06/16 REASON FOR ADMISSION: Revision, right total knee replacement. HISTORY OF PRESENT ILLNESS: Dilma Mckeon is a 66-year-old female. She has a medical history significant for chronic pain. Normally, she takes Percocet and OxyContin at home. She also has a history of diabetes. She had a right total knee replacement done 10 years ago at another hospital. The patient began to have significant pain and limping in her right leg starting about a year ago. She saw Dr. Bustamante. Initial x-rays were negative. A bone scan was done, which showed some positivity in the right patella region. It was decided that she would have a right total knee replacement revision of the patella and tibial component. The patient underwent medical clearance with her primary care provider as well as with her computing systems mechanic that she sees for COPD and sleep apnea. She was admitted to [facility] on September 04. She underwent a right total knee revision of the patellar component, exchange of the articular surface of the tibia and removal of a loose bony fragment lateral to the patella. Postoperatively, she was started on Coumadin for DVT prophylaxis. The patient otherwise was felt to have physical therapy and occupational therapy needs. She is now being admitted for inpatient rehab so that she might return to independent living. PAST MEDICAL HISTORY: Includes the aforementioned COPD as well as diabetes mellitus. She has hypertension and chronic pain as mentioned previously. CURRENT MEDICATIONS: 1. Albuterol inhalers. 2. Xanax. 3. Lipitor. 4. Soma. 5. Cymbalta. 6. Lasix. 7. Zaroxolyn. 8. Dulera inhaler. 9. Bystolic. 10. Prilosec. 11. Percocet for pain control. 12. Diovan. 13. Coumadin for DVT prophylaxis. ALLERGIES: The patient has allergies to MORPHINE, PENICILLIN, FENTANYL, although her difficulty with FENTANYL was that she got hallucinations, that was more like a side effect. She also had problems with BACTRIM. SOCIAL HISTORY: She lives by herself in [facility]. She is a nonsmoker. Does not drink any alcohol. REVIEW OF SYSTEMS: The patient reports mild difficulties with constipation. PHYSICAL EXAMINATION VITAL SIGNS: The patient's temperature is 98.4, blood pressure is 110/74, pulse is 74, and respirations 14. HEENT: Her extraocular movements are intact. Tongue is midline. NECK: Neck is supple. LUNGS: Clear to auscultation bilaterally. HEART: Heart sounds are regular, S1 and S2 are audible. ABDOMEN: Soft and nontender. EXTREMITIES: Her right knee has a wound, which is clean and dry. Peripheral pulses are intact. No edema is noted. NEUROLOGIC: The patient is awake, alert, and oriented. Muscle strength is about 5/5 except the right leg which is 3/5 secondary to pain. FUNCTIONAL EXAM: She transfers with min to mod assistance. ASSESSMENT: Revision right total knee replacement. PLAN: Integrate her into a comprehensive therapeutic rehab program with the following goals. 1. Physical Therapy will work with the patient. They are going to work on functional transfer training, ambulation training with a walker. 2. Occupational Therapy will see the patient, work on her activities of daily living including toileting and toilet transfers. 3. Coumadin for DVT prophylaxis. 4. Adequate analgesia. 5. Her bowels will be regulated. 6. Marking Stitcher will be closely involved to make sure that any services and equipment the patient requires are in place prior to discharge. 7. For diabetes, we are going to restart her metformin, continue fingersticks 4 times a day with appropriate sliding scale insulin coverage. 8. For her sleep apnea, we will use supplemental oxygen at night as well as continuing her inhalers. 9. Family training as appropriate. 10. Home with appropriate services. 11. Advance directives: The patient is a full code. ESTIMATED LENGTH OF STAY: 7 to 9 days. [id number]/CPS #: [id number] JAY
[2016-09-07] MEDS: Omeprazole CAP* 20 MG PO SCH (05:20)
[2016-09-07 07:32] LABS: Hematocrit 34 % (35-47); Hemoglobin 10.8 g/dl (12.0-16.0); Mean Corpuscular HGB Conc 32 g/dl (31-36); Mean Corpuscular Hemoglobin 27 pg (27-31); Mean Corpuscular Volume 86 fL (80-97); Mean Platelet Volume 9 um3 (7.4-10.4); Red Blood Count 3.94 10^6/ul (4.0-5.4); Red Cell Distribution Width 14 % (10.5-15); White Blood Count 11.6 10^3/ul (3.5-10.8)
[2016-09-07 07:47] LABS: Albumin 3.4 g/dL (3.2-5.2); Calcium 9.1 mg/dL (8.6-10.3); EGFR African American 123.5 (>60); Globulin 3.4 g/dL (2-4); Potassium 3.2 mmol/L (3.5-5.0); Total Bilirubin 0.4 mg/dL (0.2-1.0); Total Protein 6.8 g/dL (6.4-8.9)
[2016-09-07] MEDS: Insulin LISPRO* 1 UNITS UNIT SUBCUT SCH ×4 (08:30→20:48)
[2016-09-07] MEDS: oxyCODONE SR TAB(*) 20 MG TAB.SR PO SCH ×2 (08:45→21:49)
[2016-09-07] MEDS: Mometasone/Formoter 200/5 MDI INH SCH ×3 (08:45→22:30)
[2016-09-07] MEDS: DULoxetine DR CAP* 20 MG CAP.DR PO SCH (08:45)
[2016-09-07] MEDS: Furosemide TAB* 40 MG PO SCH (08:47)
[2016-09-07] MEDS: Metolazone TAB* 5 MG PO SCH (08:47)
[2016-09-07] MEDS: Docusate CAP* 100 MG PO SCH ×2 (08:47→21:49)
[2016-09-07] MEDS: CMCS Nebivolol TAB (NF) 2.5 MG TAB PO SCH ×2 (08:47→21:49)
[2016-09-07] MEDS: Valsartan TAB* 160 MG PO SCH (08:47)
[2016-09-07] MEDS: HYDROmorphone TAB* 4 MG PO PRN ×2 (12:27→19:13)
--- NOTE | 2016-09-07 12:49 | PMRUTEAM ---
PMRU: Goals Current Status: Nursing: Current Status Skin Deviations [Right Knee] Incision Skin Deviation Description [ Dressing changed during midnight assessment d/t Right Knee] drainage, covered with telfa, 4x4, and kerri wrap Physical Therapy: Current Status Bed Mobility Assistance Mod Assist Transfer Moblility Assistance Contact guard Transfer/Bed Mobility Rolling Walker Recommended Devices Ambulation Assistance Contatct guard Ambulation Assistive Devices Rolling Walker Occupational Therapy: Current Status Upper Body Dressing Supervision Lower Body Dressing Max Asst Bathing Mod Assist Toileting Mod Assist Toilet Transfer Mod Assist Shower Transfer Max Asst Eating Independent 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 Training pt's family is involved and supportive Anticipated Discharge Home Destination Discharge With home care svs and family support Goals: Physical Therapy: Initial Goals Bed Mobility Assistance Independent Transfer Mobility Assistance Independent Transfer/Bed Mobility Rolling Walker Recommended Devices Ambulation Independent Ambulation Recommended Devices Rolling Walker Ambulation Distance 150 Home Exercise Program Independent Assistance Physical Therapy: Updated Goals Transfer/Bed Mobility Rolling Walker Recommended Devices Occupational Therapy: Initial Goals Goals to be Completed in (Days 7-10 ) Upper Body Bathing Routine Independent Lower Body Bathing Routine Modified Independent with Upper Body Dressing Routine Independent Lower Body Dressing Routine Modified Independent with Toilet Hygeine and Clothing Modified Independent with Management Routine Toilet Transfer Routine Modified Independent with Step-In Shower Transfer Modified Independent with Routine Tub Transfer Routine Modified Independent with Functional Transfers for ADL Modified Independent with Grooming Routine Independent Feeding Routine Independent Light Housekeeping Tasks Modified Independent with Social Work: Goals Discharge Plan return home with home care svs and family support Potential for Family Training pt's family is involved and supportive Anticipated Discharge Home Destination Discharge With home care svs and family support Care Plan: Care Plan ADL's - Improve/Maintain Start: 09/06/16 22:39 Freq: QSHIFT Status: Active Target: Activity Type Activity Date Activity User E-Sign Co-Sign Detail Recorded Client Recorded Date Recorded By Document 09/07/16 07:44 [id number] 09/07/16 07:45 [id number] 09/07/16 07:44 PMRU Outcome: ADL's/ADL Transfers Orders/Interventions Occupational Therapy Evaluation & Treatment Device Yes Patient to receive OT 5x/wk for 60-120 Therex min/day Self Care Management Group Therapy Neuromuscular ReEducation UE/LE ADL's with Assist Yes ADL Transfers with Assist Yes Toileting: Transfers,Clothing Management Yes ,Hygeine w/Assist Light Kitchen/Laundry w/Assist Yes Progression Toward Outcome/Goals Progressing Outcome/Goals Met Continue with treatment to increae ADL performance after R knee sx DVT Prophylaxis- Improve/Maintain Start: 09/06/16 22:39 Freq: QSHIFT Status: Active Target: Activity Type Activity Date Activity User E-Sign Co-Sign Detail Recorded Client Recorded Date Recorded By Document 09/07/16 09:43 [id number] 09/07/16 09:43 [id number] 09/07/16 09:43 PMRU Outcome: DVT Prophylaxis Outcome/Goals Remains Free of DVT Complies with DVT Prophylaxis /Treatment Demonstrates Knowledge of DVT Prevention/ Treatment TEDS Stockings on Every AM, Off at HS Progression Toward Outcome/Goals Progressing Discharge Planning - Improve/Maintain Start: 09/06/16 22:39 Freq: QSHIFT Status: Active Target: Activity Type Activity Date Activity User E-Sign Co-Sign Detail Recorded Client Recorded Date Recorded By Document 09/07/16 06:35 [id number] 09/07/16 06:35 [id number] 09/07/16 06:35 PMRU Outcome: Discharge Planning Identify Patient Needs yes Update Patient Family No Outcome/Goals Demonstrates Understanding of Discharge Plan Homecare Referral - See Comment Progression Toward Outcome/Goals Progressing Education-Improve/Maintain Start: 09/06/16 22:39 Freq: QSHIFT Status: Active Target: Activity Type Activity Date Activity User E-Sign Co-Sign Detail Recorded Client Recorded Date Recorded By Document 09/07/16 09:43 [id number] 09/07/16 09:43 [id number] 09/07/16 09:43 PMRU Outcome: Education Outcome/Goals Demonstrate/ Verbalize Understanding of Written Discharge Instructions Demonstrates Skills Encourage Questions Progression Toward Outcome/Goals Progressing /GI-Improve/Maintain Start: 09/06/16 22:39 Freq: QSHIFT Status: Active Target: Activity Type Activity Date Activity User E-Sign Co-Sign Detail Recorded Client Recorded Date Recorded By Document 09/07/16 09:43 [id number] 09/07/16 09:43 [id number] 09/07/16 09:43 PMRU Outcome: Genitourinary/ Gastrointestinal Genitourinary- Outcome/Goals Maintain/ Achieve Urinary Continence Gastrointestinal-Outcome/Goals Maintain/ Achieve Bowel Regularity in Accordance with Pt's Baseline Prevent Constipation Progression Toward Outcome/Goals - Not Progressing Progression Toward Outcome/Goals - GI Progressing Metabolic Status- Improve/Maintain Start: 09/06/16 22:39 Freq: QSHIFT Status: Active Target: Activity Type Activity Date Activity User E-Sign Co-Sign Detail Recorded Client Recorded Date Recorded By Document 09/07/16 09:43 [id number] 09/07/16 09:43 [id number] 09/07/16 09:43 PMRU Outcome: Metabolic Status Have Fingersticks Been Ordered Yes Fingerstick Order Frequency AC & HS Outcome/Goals Maintain/ Improve Metabolic Status Demonstrate Knowledge of Prevention/ Treatment of Metabolic Imbalances Progression Toward Outcome/Goals Progressing Mobility- Improve/Maintain Start: 09/06/16 11:43 Freq: QSHIFT Status: Active Target: Activity Type Activity Date Activity User E-Sign Co-Sign Detail Recorded Client Recorded Date Recorded By Document 09/06/16 11:43 [id number] 09/06/16 11:44 [id number] 09/06/16 11:43 PMRU Outcome: Mobility Physical Therapy Evaluation and Yes Treatment Activity OOB with Assistance Yes WBAT Yes Device Yes Assistance Yes Patient to be seen 5x/wk for 60-120 min/ Therex day for: Mobility Training Gait Training Balance Other Therapy Comment ROM Outcome/Goals Maintain/ Achieve Baseline Mobility Status Improve Mobility Status Demonstrates Proper Use of Assistive Devices Free from Complications of Immobility Bed Mobility Yes: Independent Transfers Yes: Modified independent with RW Gait x ft Yes: Modified independent 150 ' with RW W/C Mobility x ft No Up/Down Stairs No With HEP Yes: Independent Pain/Comfort- Improve/Maintain Start: 09/06/16 22:39 Freq: QSHIFT Status: Active Target: Activity Type Activity Date Activity User E-Sign Co-Sign Detail Recorded Client Recorded Date Recorded By Document 09/07/16 09:43 [id number] 09/07/16 09:43 [id number] 09/07/16 09:43 PMRU Outcome: Pain/Comfort Outcome/Goals Demonstrates Knowledge and Use of Available Comfort Measures Achieves Acceptable Comfort/Pain Level as Determined by Patient/Condit Maintain Comfort Level Allowing Patient to Fully Participate in Rehab Progression Toward Outcome/Goals Progressing Respiratory - Improve/Maintain Start: 09/06/16 22:39 Freq: QSHIFT Status: Active Target: Activity Type Activity Date Activity User E-Sign Co-Sign Detail Recorded Client Recorded Date Recorded By Document 09/07/16 09:43 [id number] 09/07/16 09:43 [id number] 09/07/16 09:43 PMRU Outcome: Respiratory Does Patient Have a Trach No Outcome/Goals Maintain/ Improve O2 Sat per MD Order Maintain/ Improve Baseline Respiratory Status Maintain/ Improve Activity Tolerance Progression Toward Outcome/Goals Progressing Safety- Improve/Maintain Start: 09/06/16 22:39 Freq: QSHIFT Status: Active Target: Activity Type Activity Date Activity User E-Sign Co-Sign Detail Recorded Client Recorded Date Recorded By Document 09/07/16 09:43 [id number] 09/07/16 09:43 [id number] 09/07/16 09:43 PMRU Outcome: Safety Outcome/Goals Remain Free of Injury or Harm Cooperates with Safety Measures for Least Restrictive Environment Prevent Falls/ Injury Progression Toward Outcome/Goals Progressing Skin- Improve/Maintain Start: 09/06/16 22:39 Freq: QSHIFT Status: Active Target: Activity Type Activity Date Activity User E-Sign Co-Sign Detail Recorded Client Recorded Date Recorded By Document 09/07/16 09:43 [id number] 09/07/16 09:43 [id number] 09/07/16 09:43 PMRU Outcome: Skin Skin Risk Level Medium Skin Orders Turn/Position q2hr While in Bed Outcome/Goals Maintain/ Improve Skin Intergrity Free from Decubitus Surgical Incisions Healing Progression Toward Outcome/Goals Progressing Medicine Note: Length of Stay: 7 days Anticipated Discharge Destination: Home Tentative Discharge Date: 09/14/16 Discharged to: Home
[2016-09-07] MEDS: ALPRAZolam TAB* 0.5 MG PO PRN ×2 (15:24→21:53)
[2016-09-07] MEDS: Atorvastatin* 10 MG TAB PO SCH (17:13)
[2016-09-07] MEDS: Warfarin TAB(*) 3 MG PO SCH (17:13)
[2016-09-07] MEDS: Potassium Chlor TAB* 20 MEQ TAB.ER PO SCH (21:49)
[2016-09-07] MEDS: Senna TAB PO SCH (21:49)
[2016-09-07] MEDS: Carisoprodol TAB* 350 MG PO PRN (21:52)
[2016-09-08] MEDS: Magnesium Hydroxide LIQ* 30 ML UDC PO PRN (01:15)
[2016-09-08] MEDS: oxyCODONE/Acetamin 5/325 MG* TAB PO PRN ×3 (01:15→18:16)
[2016-09-08] MEDS: Omeprazole CAP* 20 MG PO SCH (05:53)
[2016-09-08] MEDS: Insulin LISPRO* 1 UNITS UNIT SUBCUT SCH ×4 (08:19→21:10)
[2016-09-08] MEDS: Mometasone/Formoter 200/5 MDI INH SCH ×2 (08:29→21:29)
[2016-09-08] MEDS: Potassium Chlor TAB* 20 MEQ TAB.ER PO SCH ×2 (08:31→21:24)
[2016-09-08] MEDS: Valsartan TAB* 160 MG PO SCH (08:31)
[2016-09-08] MEDS: Metolazone TAB* 5 MG PO SCH (08:32)
[2016-09-08] MEDS: CMCS Nebivolol TAB (NF) 2.5 MG TAB PO SCH ×2 (08:32→21:26)
[2016-09-08] MEDS: Docusate CAP* 100 MG PO SCH ×2 (08:33→21:11)
[2016-09-08] MEDS: DULoxetine DR CAP* 20 MG CAP.DR PO SCH (08:34)
[2016-09-08] MEDS: oxyCODONE SR TAB(*) 20 MG TAB.SR PO SCH ×2 (08:34→21:25)
[2016-09-08] MEDS: HYDROmorphone TAB* 4 MG PO PRN ×3 (08:35→22:26)
[2016-09-08] MEDS: Furosemide TAB* 40 MG PO SCH (09:00)
[2016-09-08] MEDS: Carisoprodol TAB* 350 MG PO PRN (10:17)
[2016-09-08] MEDS: Warfarin TAB(*) 3 MG PO SCH (16:49)
[2016-09-08] MEDS: Atorvastatin* 10 MG TAB PO SCH (16:49)
[2016-09-08] MEDS: ALPRAZolam TAB* 0.5 MG PO PRN (20:41)
[2016-09-08] MEDS: Senna TAB PO SCH (21:24)
[2016-09-09] MEDS: oxyCODONE/Acetamin 5/325 MG* TAB PO PRN ×4 (00:18→21:26)
[2016-09-09] MEDS ORDERED: diPHENhydraMINE PO* 25 MG PO ONE (00:30)
[2016-09-09] MEDS: Carisoprodol TAB* 350 MG PO PRN ×2 (01:53→22:57)
[2016-09-09] MEDS: HYDROmorphone TAB* 4 MG PO PRN ×3 (04:24→19:19)
[2016-09-09] MEDS: Omeprazole CAP* 20 MG PO SCH (06:29)
[2016-09-09] MEDS: Furosemide TAB* 40 MG PO SCH (08:23)
[2016-09-09] MEDS: metFORMIN* 500 MG TAB PO SCH (08:23)
[2016-09-09] MEDS: DULoxetine DR CAP* 20 MG CAP.DR PO SCH (08:23)
[2016-09-09] MEDS: Metolazone TAB* 5 MG PO SCH (08:23)
[2016-09-09] MEDS: Docusate CAP* 100 MG PO SCH ×2 (08:23→21:55)
[2016-09-09] MEDS: Valsartan TAB* 160 MG PO SCH (08:24)
[2016-09-09] MEDS: Potassium Chlor TAB* 20 MEQ TAB.ER PO SCH ×2 (08:24→21:26)
[2016-09-09] MEDS: CMCS Nebivolol TAB (NF) 2.5 MG TAB PO SCH ×2 (08:24→21:25)
[2016-09-09] MEDS: oxyCODONE SR TAB(*) 20 MG TAB.SR PO SCH ×2 (08:24→21:25)
[2016-09-09] MEDS: Insulin LISPRO* 1 UNITS UNIT SUBCUT SCH ×4 (08:25→21:30)
[2016-09-09] MEDS: Mometasone/Formoter 200/5 MDI INH SCH ×2 (08:42→21:32)
[2016-09-09] MEDS: diPHENhydraMINE PO* 25 MG PO PRN ×2 (14:05→23:36)
[2016-09-09] MEDS: Warfarin TAB(*) 7.5 MG PO SCH (17:00)
[2016-09-09] MEDS: Atorvastatin* 10 MG TAB PO SCH (17:00)
[2016-09-09] MEDS: Senna TAB PO SCH (21:55)
[2016-09-10] MEDS: HYDROmorphone TAB* 4 MG PO PRN ×3 (01:32→17:07)
[2016-09-10] MEDS: oxyCODONE/Acetamin 5/325 MG* TAB PO PRN ×3 (03:58→21:16)
[2016-09-10] MEDS: Omeprazole CAP* 20 MG PO SCH (06:35)
[2016-09-10] MEDS: ALPRAZolam TAB* 0.5 MG PO PRN ×3 (06:35→18:28)
[2016-09-10] MEDS: Insulin LISPRO* 1 UNITS UNIT SUBCUT SCH ×4 (08:25→21:15)
[2016-09-10] MEDS: Docusate CAP* 100 MG PO SCH ×2 (08:26→20:24)
[2016-09-10] MEDS: CMCS Nebivolol TAB (NF) 2.5 MG TAB PO SCH ×2 (08:26→20:01)
[2016-09-10] MEDS: Mometasone/Formoter 200/5 MDI INH SCH ×2 (08:26→20:04)
[2016-09-10] MEDS: DULoxetine DR CAP* 20 MG CAP.DR PO SCH (08:26)
[2016-09-10] MEDS: Metolazone TAB* 5 MG PO SCH (08:27)
[2016-09-10] MEDS: Valsartan TAB* 160 MG PO SCH (08:27)
[2016-09-10] MEDS: metFORMIN* 500 MG TAB PO SCH (08:27)
[2016-09-10] MEDS: Furosemide TAB* 40 MG PO SCH (08:28)
[2016-09-10] MEDS: oxyCODONE SR TAB(*) 20 MG TAB.SR PO SCH (08:28)
[2016-09-10] MEDS: diPHENhydraMINE PO* 25 MG PO PRN ×2 (09:11→22:38)
[2016-09-10] MEDS: Carisoprodol TAB* 350 MG PO PRN ×2 (10:57→18:28)
[2016-09-10] MEDS: Warfarin TAB(*) 7.5 MG PO SCH (17:07)
[2016-09-10] MEDS: Atorvastatin* 10 MG TAB PO SCH (17:08)
[2016-09-10] MEDS: oxyCODONE SR TAB(*) 10 MG TAB.SR PO SCH (20:01)
[2016-09-10] MEDS: Senna TAB PO SCH (20:24)
[2016-09-11] MEDS: HYDROmorphone TAB* 4 MG PO PRN ×4 (03:08→21:46)
[2016-09-11] MEDS: oxyCODONE/Acetamin 5/325 MG* TAB PO PRN ×4 (05:05→23:21)
[2016-09-11] MEDS: Omeprazole CAP* 20 MG PO SCH (05:16)
[2016-09-11] MEDS: Carisoprodol TAB* 350 MG PO PRN ×2 (07:10→22:47)
[2016-09-11] MEDS: Insulin LISPRO* 1 UNITS UNIT SUBCUT SCH ×4 (08:02→21:43)
[2016-09-11 08:32] LABS: Hematocrit 32 % (35-47); Hemoglobin 10.8 g/dl (12.0-16.0); Mean Corpuscular HGB Conc 33 g/dl (31-36); Mean Corpuscular Hemoglobin 28 pg (27-31); Mean Corpuscular Volume 85 fL (80-97); Red Blood Count 3.82 10^6/ul (4.0-5.4); Red Cell Distribution Width 13 % (10.5-15); White Blood Count 8.9 10^3/ul (3.5-10.8)
[2016-09-11 08:33] LABS: Add Diff/Slide Review? Slide Review Added; Comments Flag Yes
[2016-09-11] MEDS: Mometasone/Formoter 200/5 MDI INH SCH ×2 (08:46→21:47)
[2016-09-11] MEDS: CMCS Nebivolol TAB (NF) 2.5 MG TAB PO SCH ×2 (08:46→21:00)
[2016-09-11] MEDS: Docusate CAP* 100 MG PO SCH ×2 (08:46→20:57)
[2016-09-11] MEDS: Valsartan TAB* 160 MG PO SCH (08:47)
[2016-09-11] MEDS: DULoxetine DR CAP* 20 MG CAP.DR PO SCH (08:47)
[2016-09-11] MEDS: Furosemide TAB* 40 MG PO SCH (08:47)
[2016-09-11] MEDS: oxyCODONE SR TAB(*) 10 MG TAB.SR PO SCH (08:47)
[2016-09-11] MEDS: Metolazone TAB* 5 MG PO SCH (08:47)
[2016-09-11] MEDS: metFORMIN* 500 MG TAB PO SCH (08:47)
[2016-09-11] MEDS: ALPRAZolam TAB* 0.5 MG PO PRN ×2 (10:36→20:56)
--- NOTE | 2016-09-11 12:28 | PMRUTEAM ---
PMRU: Goals Current Status: Nursing: Current Status Skin Deviations [right mid Incision flank] Skin Deviations [Back] Other Skin Deviations [Right Knee] Incision Skin Deviation Description [ [place] like velcro coming apart when moving arm away right mid flank] from body according to pt. No redness or skin discoloration. Cleaned area because texture felt different. No change. Skin Deviation Description [ ithchy no redness noted Back] Skin Deviation Description [ john small open area Right Knee] Bladder Current Status Continent, self care Bowel Current Status Continent, self care Nutrition Current Status Adequate, consistant carb Medication Current Status Pain control- Dilaudid, Percocet, Soma Routine Oxycodone Pt states not controlled well this AM Physical Therapy: Current Status Bed Mobility Assistance Supervision Transfer Moblility Assistance Supervision Transfer/Bed Mobility Rolling Walker Recommended Devices Ambulation Assistance Supervision Ambulation Assistive Devices Rolling Walker Number of Feet Patient 150 Ambulated Ambulation Comment step to to step through very slow. Occupational Therapy: Current Status Upper Body Dressing Independent Lower Body Dressing Supervision Bathing Supervision Toileting Supervision Toilet Transfer Supervision Shower Transfer Supervision Eating Independent Rec Therapy: Current Status Summary of Assessment and RT assessment complete and pt. is aware of RT Clinical Impression services. Pt. is open to continued leisure visits on the unit. Treatment Goals Pt. will engage in leisure activities while on the unit. Treatment Plan Provide RT services and encourage involvement. 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 Anticipated Discharge Home Destination Discharge With home care svs and family support Goals: Physical Therapy: Initial Goals Bed Mobility Assistance Independent Transfer Mobility Assistance Independent Transfer/Bed Mobility Rolling Walker Recommended Devices Ambulation Independent Ambulation Recommended Devices Rolling Walker Ambulation Distance 150 Home Exercise Program Independent Assistance Physical Therapy: Updated Goals Bed Mobility Assistance Independent Transfer Mobility Assistance Independent Transfer/Bed Mobility Rolling Walker Recommended Devices Ambulation Assistance Independent Ambulation Assistive Devices Rolling Walker Ambulation Distance (ft) 150 Home Exercise Program Independent Assistance Occupational Therapy: Initial Goals Goals to be Completed in (Days 7-10 ) Upper Body Bathing Routine Independent Lower Body Bathing Routine Modified Independent with Upper Body Dressing Routine Independent Lower Body Dressing Routine Modified Independent with Toilet Hygeine and Clothing Modified Independent with Management Routine Toilet Transfer Routine Modified Independent with Step-In Shower Transfer Modified Independent with Routine Tub Transfer Routine Modified Independent with Functional Transfers for ADL Modified Independent with Grooming Routine Independent Feeding Routine Independent Light Housekeeping Tasks Modified Independent with Nursing: Goals Bladder Goal Continent, self care Bowel Goal continent, self care Nutrition Goal consistant carb, aware fo FS and monitoring what she is eating Medication Goal Pain control, self administering medications, self administering insuling Nutrition: Goals Intervention Goals 1. Maintain adequate glycemic control per inpatient parameters. 2. Maintain adequate intake to support maintenance of lean body mass w/o contributing to undesirable weight gain. 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 Anticipated Discharge Home Destination Discharge With home care svs and family support Care Plan: Care Plan ADL's - Improve/Maintain Start: 09/06/16 22:39 Freq: DAILY Status: Active Target: Activity Type Activity Date Activity User E-Sign Co-Sign Detail Recorded Client Recorded Date Recorded By Document 09/08/16 07:55 [id number] 09/08/16 07:56 [id number] 09/08/16 07:55 PMRU Outcome: ADL's/ADL Transfers Orders/Interventions Occupational Therapy Evaluation & Treatment Device Yes Patient to receive OT 5x/wk for 60-120 Therex min/day Self Care Management Group Therapy Neuromuscular ReEducation UE/LE ADL's with Assist Yes ADL Transfers with Assist Yes Toileting: Transfers,Clothing Management Yes ,Hygeine w/Assist Light Kitchen/Laundry w/Assist Yes Progression Toward Outcome/Goals Progressing Outcome/Goals Met pt tolerating therapy sessions every well. Increasing ADL performance. Continue with AD/AE training, ADL/self care training, and transfer training. DVT Prophylaxis- Improve/Maintain Start: 09/06/16 22:39 Freq: DAILY Status: Complete Target: Activity Type Activity Date Activity User E-Sign Co-Sign Detail Recorded Client Recorded Date Recorded By Document 09/10/16 19:29 [id number] 09/10/16 19:30 [id number] 09/10/16 19:29 PMRU Outcome: DVT Prophylaxis Outcome/Goals Remains Free of DVT Complies with DVT Prophylaxis /Treatment Demonstrates Knowledge of DVT Prevention/ Treatment TEDS Stockings on Every AM, Off at HS Outcome/Goals Met Remains Free of DVT TEDS Stockings on Every AM, Off at HS Discharge Planning - Improve/Maintain Start: 09/06/16 22:39 Freq: DAILY Status: Active Target: Activity Type Activity Date Activity User E-Sign Co-Sign Detail Recorded Client Recorded Date Recorded By Document 09/11/16 10:08 [email or web address] 09/11/16 10:09 09/11/16 10:08 PMRU Outcome: Discharge Planning Identify Patient Needs yes Update Patient Family No Outcome/Goals Demonstrates Understanding of Discharge Plan Homecare Referral - See Comment Progression Toward Outcome/Goals Progressing Education-Improve/Maintain Start: 09/06/16 22:39 Freq: DAILY Status: Active Target: Activity Type Activity Date Activity User E-Sign Co-Sign Detail Recorded Client Recorded Date Recorded By Document 09/11/16 10:08 [email or web address] 09/11/16 10:09 09/11/16 10:08 PMRU Outcome: Education Outcome/Goals Demonstrate/ Verbalize Understanding of Written Discharge Instructions Demonstrates Skills Encourage Questions Progression Toward Outcome/Goals Progressing /GI-Improve/Maintain Start: 09/06/16 22:39 Freq: DAILY Status: Active Target: Activity Type Activity Date Activity User E-Sign Co-Sign Detail Recorded Client Recorded Date Recorded By Document 09/11/16 10:08 [email or web address] 09/11/16 10:09 09/11/16 10:08 PMRU Outcome: Genitourinary/ Gastrointestinal Genitourinary- Outcome/Goals Maintain/ Achieve Urinary Continence Gastrointestinal-Outcome/Goals Maintain/ Achieve Bowel Regularity in Accordance with Pt's Baseline Prevent Constipation Other Outcome/Goals pt very pleased that she had a BM today Progression Toward Outcome/Goals - Progressing Progression Toward Outcome/Goals - GI Progressing Metabolic Status- Improve/Maintain Start: 09/06/16 22:39 Freq: DAILY Status: Active Target: Activity Type Activity Date Activity User E-Sign Co-Sign Detail Recorded Client Recorded Date Recorded By Document 09/11/16 10:08 [id number] 09/11/16 10:09 [id number] 09/11/16 10:08 PMRU Outcome: Metabolic Status Have Fingersticks Been Ordered Yes Fingerstick Order Frequency AC & HS Outcome/Goals Maintain/ Improve Metabolic Status Demonstrate Knowledge of Prevention/ Treatment of Metabolic Imbalances Progression Toward Outcome/Goals Progressing Mobility- Improve/Maintain Start: 09/06/16 11:43 Freq: DAILY Status: Active Target: Activity Type Activity Date Activity User E-Sign Co-Sign Detail Recorded Client Recorded Date Recorded By Document 09/10/16 12:19 [id number] 09/10/16 12:19 [id number] 09/10/16 12:19 PMRU Outcome: Mobility Physical Therapy Evaluation and Yes Treatment Activity OOB with Assistance Yes WBAT Yes Device Yes Assistance Yes Patient to be seen 5x/wk for 60-120 min/ Therex day for: Mobility Training Gait Training Balance Other Therapy Comment ROM Outcome/Goals Maintain/ Achieve Baseline Mobility Status Improve Mobility Status Demonstrates Proper Use of Assistive Devices Free from Complications of Immobility Progression Toward Outcome/Goals Progressing Bed Mobility Yes: Independent Transfers Yes: Modified independent with RW Gait x ft Yes: Modified independent 150 ' with RW W/C Mobility x ft No Up/Down Stairs No With HEP Yes: Independent Pain/Comfort- Improve/Maintain Start: 09/06/16 22:39 Freq: DAILY Status: Active Target: Activity Type Activity Date Activity User E-Sign Co-Sign Detail Recorded Client Recorded Date Recorded By Document 09/11/16 10:08 [id number] 09/11/16 10:09 [id number] 09/11/16 10:08 PMRU Outcome: Pain/Comfort Outcome/Goals Demonstrates Knowledge and Use of Available Comfort Measures Achieves Acceptable Comfort/Pain Level as Determined by Patient/Condit Maintain Comfort Level Allowing Patient to Fully Participate in Rehab Progression Toward Outcome/Goals Progressing Outcome/Goals Met Comment alternating pain medications to help manage pain Respiratory - Improve/Maintain Start: 09/06/16 22:39 Freq: DAILY Status: Active Target: Activity Type Activity Date Activity User E-Sign Co-Sign Detail Recorded Client Recorded Date Recorded By Document 09/11/16 10:08 [id number] 09/11/16 10:09 [id number] 09/11/16 10:08 PMRU Outcome: Respiratory Does Patient Have a Trach No Outcome/Goals Maintain/ Improve O2 Sat per MD Order Maintain/ Improve Baseline Respiratory Status Maintain/ Improve Activity Tolerance Progression Toward Outcome/Goals Progressing Outcome/Goals Met Comment o2 2L placed at bedtime Safety- Improve/Maintain Start: 09/06/16 22:39 Freq: DAILY Status: Active Target: Activity Type Activity Date Activity User E-Sign Co-Sign Detail Recorded Client Recorded Date Recorded By Document 09/11/16 10:08 [id number] 09/11/16 10:09 [id number] 09/11/16 10:08 PMRU Outcome: Safety Outcome/Goals Remain Free of Injury or Harm Cooperates with Safety Measures for Least Restrictive Environment Prevent Falls/ Injury Progression Toward Outcome/Goals Progressing Skin- Improve/Maintain Start: 09/06/16 22:39 Freq: DAILY Status: Active Target: Activity Type Activity Date Activity User E-Sign Co-Sign Detail Recorded Client Recorded Date Recorded By Document 09/11/16 10:08 [id number] [id number] 09/11/16 10:09 [id number] 09/11/16 10:08 PMRU Outcome: Skin Skin Risk Level Medium Skin Orders Turn/Position q2hr While in Bed Outcome/Goals Maintain/ Improve Skin Intergrity Free from Decubitus Surgical Incisions Healing Progression Toward Outcome/Goals Progressing Outcome/Goals Met Comment kerri wrap in place Medicine Note: Length of Stay: 3 days Anticipated Discharge Destination: Home Tentative Discharge Date: September 14, 2016 Discharged to: Home
[2016-09-11 12:48] LABS: Mean Platelet Volume 8 um3 (7.4-10.4)
[2016-09-11] MEDS: Atorvastatin* 10 MG TAB PO SCH (17:17)
[2016-09-11] MEDS: Warfarin TAB(*) 7.5 MG PO SCH (17:18)
[2016-09-11] MEDS: Senna TAB PO SCH (20:57)
[2016-09-11] MEDS: oxyCODONE SR TAB(*) 20 MG TAB.SR PO SCH (20:57)
[2016-09-12] MEDS: diPHENhydraMINE PO* 25 MG PO PRN ×2 (02:32→17:14)
[2016-09-12] MEDS: HYDROmorphone TAB* 4 MG PO PRN ×4 (03:04→20:37)
[2016-09-12] MEDS: ALPRAZolam TAB* 0.5 MG PO PRN ×2 (04:06→18:03)
[2016-09-12] MEDS: Omeprazole CAP* 20 MG PO SCH (05:56)
[2016-09-12] MEDS: oxyCODONE/Acetamin 5/325 MG* TAB PO PRN ×3 (06:42→20:34)
[2016-09-12] MEDS: Insulin LISPRO* 1 UNITS UNIT SUBCUT SCH ×4 (08:18→20:51)
[2016-09-12] MEDS: Mometasone/Formoter 200/5 MDI INH SCH ×2 (08:32→20:54)
[2016-09-12] MEDS: Metolazone TAB* 5 MG PO SCH (08:33)
[2016-09-12] MEDS: metFORMIN* 500 MG TAB PO SCH (08:34)
[2016-09-12] MEDS: CMCS Nebivolol TAB (NF) 2.5 MG TAB PO SCH ×2 (08:34→20:56)
[2016-09-12] MEDS: Furosemide TAB* 40 MG PO SCH (08:34)
[2016-09-12] MEDS: Docusate CAP* 100 MG PO SCH ×2 (08:34→20:34)
[2016-09-12] MEDS: Valsartan TAB* 160 MG PO SCH (08:34)
[2016-09-12] MEDS: DULoxetine DR CAP* 20 MG CAP.DR PO SCH (08:34)
[2016-09-12] MEDS: oxyCODONE SR TAB(*) 20 MG TAB.SR PO SCH ×2 (08:34→20:34)
[2016-09-12] MEDS: Carisoprodol TAB* 350 MG PO PRN (12:47)
[2016-09-12] MEDS: Atorvastatin* 10 MG TAB PO SCH (18:00)
[2016-09-12] MEDS: Warfarin TAB(*) 7.5 MG PO SCH (18:00)
[2016-09-12] MEDS: Senna TAB PO SCH (20:55)
[2016-09-13] MEDS: Carisoprodol TAB* 350 MG PO PRN ×3 (02:32→18:57)
[2016-09-13] MEDS: HYDROmorphone TAB* 4 MG PO PRN ×4 (02:32→21:35)
[2016-09-13] MEDS: Omeprazole CAP* 20 MG PO SCH (04:51)
[2016-09-13] MEDS: ALPRAZolam TAB* 0.5 MG PO PRN ×2 (04:51→18:55)
[2016-09-13] MEDS: oxyCODONE/Acetamin 5/325 MG* TAB PO PRN ×4 (04:52→23:53)
[2016-09-13] MEDS: Insulin LISPRO* 1 UNITS UNIT SUBCUT SCH ×4 (07:33→21:37)
[2016-09-13] MEDS: Metolazone TAB* 5 MG PO SCH (08:24)
[2016-09-13] MEDS: DULoxetine DR CAP* 20 MG CAP.DR PO SCH (08:25)
[2016-09-13] MEDS: metFORMIN* 500 MG TAB PO SCH (08:25)
[2016-09-13] MEDS: diPHENhydraMINE PO* 25 MG PO PRN ×2 (08:25→15:59)
[2016-09-13] MEDS: Mometasone/Formoter 200/5 MDI INH SCH ×2 (08:25→21:37)
[2016-09-13] MEDS: Furosemide TAB* 40 MG PO SCH (08:26)
[2016-09-13] MEDS: Valsartan TAB* 160 MG PO SCH (08:26)
[2016-09-13] MEDS: CMCS Nebivolol TAB (NF) 2.5 MG TAB PO SCH ×2 (08:26→21:36)
[2016-09-13] MEDS: oxyCODONE SR TAB(*) 20 MG TAB.SR PO SCH ×2 (08:26→21:36)
[2016-09-13] MEDS: Docusate CAP* 100 MG PO SCH ×2 (08:27→21:36)
[2016-09-13] MEDS: Warfarin TAB(*) 7.5 MG PO SCH (17:06)
[2016-09-13] MEDS: Atorvastatin* 10 MG TAB PO SCH (17:06)
[2016-09-13] MEDS: Senna TAB PO SCH (21:36)
[2016-09-14] MEDS: Carisoprodol TAB* 350 MG PO PRN ×2 (01:57→08:11)
[2016-09-14] MEDS: HYDROmorphone TAB* 4 MG PO PRN ×2 (03:13→09:44)
[2016-09-14] MEDS: oxyCODONE/Acetamin 5/325 MG* TAB PO PRN ×2 (05:02→12:30)
[2016-09-14] MEDS: Omeprazole CAP* 20 MG PO SCH (05:16)
[2016-09-14 05:52] LABS: Hematocrit 30 % (35-47); Hemoglobin 9.9 g/dl (12.0-16.0); Mean Corpuscular HGB Conc 33 g/dl (31-36); Mean Corpuscular Hemoglobin 29 pg (27-31); Mean Corpuscular Volume 86 fL (80-97); Mean Platelet Volume 8 um3 (7.4-10.4); Red Blood Count 3.48 10^6/ul (4.0-5.4); Red Cell Distribution Width 13 % (10.5-15); White Blood Count 7.7 10^3/ul (3.5-10.8)
[2016-09-14 06:09] LABS: Albumin 3.3 g/dL (3.2-5.2); BUN/Creatinine Ratio 45.7 (8-20); Calcium 8.9 mg/dL (8.6-10.3); EGFR African American 76.4 (>60); EGFR Non-African American 59.4 (>60); Globulin 3.4 g/dL (2-4); Potassium 3.5 mmol/L (3.5-5.0); Total Bilirubin 0.2 mg/dL (0.2-1.0); Total Protein 6.7 g/dL (6.4-8.9)
[2016-09-14 06:26] VITALS: BP 145/65
[2016-09-14] MEDS: metFORMIN* 500 MG TAB PO SCH (08:09)
[2016-09-14] MEDS: Docusate CAP* 100 MG PO SCH (08:09)
[2016-09-14] MEDS: Mometasone/Formoter 200/5 MDI INH SCH (08:09)
[2016-09-14] MEDS: Metolazone TAB* 5 MG PO SCH (08:10)
[2016-09-14] MEDS: DULoxetine DR CAP* 20 MG CAP.DR PO SCH (08:10)
[2016-09-14] MEDS: Valsartan TAB* 160 MG PO SCH (08:11)
[2016-09-14] MEDS: CMCS Nebivolol TAB (NF) 2.5 MG TAB PO SCH (08:11)
[2016-09-14] MEDS: Furosemide TAB* 40 MG PO SCH (08:11)
[2016-09-14] MEDS: Insulin LISPRO* 1 UNITS UNIT SUBCUT SCH ×2 (08:13→12:24)
[2016-09-14] MEDS: oxyCODONE SR TAB(*) 20 MG TAB.SR PO SCH (08:19)
--- NOTE | 2016-09-15 13:34 | DS ---
CC: Dr. Bustamante; Dr. Donavan Lara REHABILITATION DISCHARGE SUMMARY: DATE OF ADMISSION: 09/06/16 DATE OF DISCHARGE: 09/14/16 REASON FOR ADMISSION: Right total knee replacement. SURGEON: Dr. Bustamante. PRIMARY CARE PROVIDER: Dr. Donavan Lara. HISTORY OF PRESENT ILLNESS: For full details of her acute hospitalization leading up to her admission, please see the note dictated by Dr. Brothers on . REHABILITATION COURSE: During her time on the PMRU, she required additional pain medication of Dilaudid orally. This was added to her home regimen of OxyContin and Percocet 10/325. Actually for a period of time she was getting higher doses of OxyContin at 20 mg b.i.d., but that is going back to her home dose of 10 mg b.i.d. at discharge and she will resume prescriptions through Dr. Lara. She was given a prescription for Dilaudid 4 mg tablets, however. She did require 2 doses of lactulose for constipation. She participated well with physical therapy and at the time discharge was independent with bed mobility, transfers with a rollator or a quad cane. Ambulation with a rollator to 150 feet, but in the bathroom with a quad cane. She will work on stairs with home PT. She has a home exercise program. She also participated well with occupational therapy. At the time of discharge she is independent with eating, bathing, tub transfers, dressing, toileting, and toilet transfers. She does have an aide that comes to supervise for bathing on a regular basis and assist with home chores. She uses the quad cane to get in and out of her bathroom as the doorway is not wide enough for her walker. DISCHARGE MEDICATIONS: 1. Alprazolam 1 mg t.i.d. p.r.n. 2. Albuterol inhaler 2 puffs q.6 hours p.r.n. 3. Soma 350 mg t.i.d. p.r.n. 4. Duloxetine 40 mg daily. 5. Furosemide 40 mg daily. 6. Dilaudid 4 mg q.6 hours p.r.n., not to exceed 4 per day. 7. Preparation H hemorrhoid ointment as needed. 8. Zaroxolyn 2.5 mg daily. 9. Bystolic 10 mg b.i.d. 10. Valsartan 320 mg daily. 11. Warfarin currently 7.5 mg daily for DVT prophylaxis. Her INR today was 1.97. 12. Metformin 500 mg daily. 13. Ergocalciferol 50,000 units every 14 days. 14. Simvastatin 40 mg daily. 15. Nexium 40 mg daily. 16. Percocet 10/325 one tablet q.4 hours p.r.n. pain. 17. OxyContin 10 mg q.12 hours. 18. Advair 115/21 one puff b.i.d. 19. Albuterol nebulizer q.6 hours p.r.n. 20. Nystatin topically b.i.d. p.r.n. 21. Oxygen 2 L per minute p.r.n., typically at bedtime. She is off of aspirin while she is on Warfarin. DISCHARGE CONDITION: Good. DISCHARGE DIET: Consistent carbohydrate. DISCHARGE DISPOSITION: Home. FOLLOWUP: 1. A referral has been sent to visiting nurse services for home therapies, home health aide, and to have her john removed between 09/17/16 and 09/19/16. 2. She is to follow up with Dr. Bustamante on 10/03/[address] Lara as routine. DISCHARGE DIAGNOSES: 1. 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 2. Chronic obstructive pulmonary disease. 3. Diabetes mellitus. 4. Hypertension. 5. Chronic pain. [id number]/[facility] #: [id number] JAY
== END 2016-09-14 13:30 | disposition home health service (06) | DRG 561 ==
LOC: PMRU 11:28
PROVIDERS: ADMIT Physical Medicine & Rehabilitation; ATTEND Physical Medicine & Rehabilitation
PROC: F07Z5ZZ Bed Mobility Treatment (ICD-10-PCS; principal; 2016-09-06)
PROC: F07Z9ZZ Gait Training/Functional Ambulation Treatment (ICD-10-PCS; 2016-09-06)
PROC: F07Z8ZZ Transfer Training Treatment (ICD-10-PCS; 2016-09-06)
PROC: F08Z0ZZ Bathing/Showering Techniques Treatment (ICD-10-PCS; 2016-09-06)
PROC: F08Z1ZZ Dressing Techniques Treatment (ICD-10-PCS; 2016-09-06)
PROC: F08Z3ZZ Feeding/Eating Treatment (ICD-10-PCS; 2016-09-06)
DX: Z47.1 Aftercare following joint replacement surgery (principal); J44.9 Chronic obstructive pulmonary disease, unspecified; I10 Essential (primary) hypertension; Z96.651 Presence of right artificial knee joint; E11.9 Type 2 diabetes mellitus without complications; G89.29 Other chronic pain; G47.33 Obstructive sleep apnea (adult) (pediatric); Z79.84 Long term (current) use of oral hypoglycemic drugs; Z79.01 Long term (current) use of anticoagulants; Z79.899 Other long term (current) drug therapy; Z88.5 Allergy status to narcotic agent; Z88.0 Allergy status to penicillin; Z88.8 Allergy status to other drugs, medicaments and biological substances; K59.00 Constipation, unspecified
CPT/HCPCS: 36415; 80053; 81003; 81015; 85025; 85049; 85610; 94640; 94760; A9270-GY

== ENCOUNTER 2016-10-23 17:23 | Emergency (ER) | payer MEDICARE, MEDICAID ==
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
[2016-10-23 17:44] VITALS: BP 119/64
--- NOTE | 2016-10-23 18:35 | RAD ---
INDICATION: Right knee pain after multiple falls COMPARISON: Most recent knee radiograph is dated September 24, 2016 TECHNIQUE: 3 view radiograph of the right knee. FINDINGS: The right knee prosthesis is anatomically aligned in the AP and lateral projections. No large joint effusion is seen. There is no periprostatic fracture or signs of loosening. IMPRESSION: Anatomic alignment of right knee prosthesis. If the patient's symptoms persist, follow-up imaging is recommended.
== END 2016-10-23 19:05 | disposition home or self-care (01) ==
LOC: UCEAST 17:23
DX: M25.561 Pain in right knee (principal); Z88.5 Allergy status to narcotic agent; Z88.0 Allergy status to penicillin; E11.9 Type 2 diabetes mellitus without complications; J45.909 Unspecified asthma, uncomplicated; I25.10 Atherosclerotic heart disease of native coronary artery without angina pectoris; E78.00 Pure hypercholesterolemia, unspecified; I11.0 Hypertensive heart disease with heart failure; I50.9 Heart failure, unspecified; J44.9 Chronic obstructive pulmonary disease, unspecified; Z99.81 Dependence on supplemental oxygen; G47.33 Obstructive sleep apnea (adult) (pediatric); K21.9 Gastro-esophageal reflux disease without esophagitis; M17.0 Bilateral primary osteoarthritis of knee; E66.01 Morbid (severe) obesity due to excess calories; F41.9 Anxiety disorder, unspecified; F32.9 Major depressive disorder, single episode, unspecified; Z96.653 Presence of artificial knee joint, bilateral; Z87.891 Personal history of nicotine dependence
CPT/HCPCS: 99212; G0463

== ENCOUNTER 2016-11-08 11:41 | Emergency (ER) | payer MEDICARE, MEDICAID ==
[2016-11-08 12:24] VITALS: BP 150/74
[2016-11-08] MEDS ORDERED: methylPREDNISolone 125 MG* 2 ML VIAL IM ONE (13:18)
--- NOTE | 2016-11-08 13:53 | UC ---
Skin Complaint HPI - HPI Summary HPI Summary: YESTERDAY PT USED A NEW PRODUCT ON HER HAIR TO ENCOURAGE MORE HAIR GROWTH. SHORTLY THEREAFTER PT DEVELOPED AND ITCHY, RED RASH ON HER FACE. PT WASHED HER HAIR X2 TO REMOVE ANY OF THE PRODUCT. ITCH RASH PERSISTED AND THIS MORNING WAS SLIGHTLY WORSE WITH SWELLING AROUND HER LEFT EYE AND THE RASH SPREADING DOWN ONTO HER CHEST. PT DENIES SWELLING OF LIPS/TONGUE/THROAT, NAUSEA/VOMITING/ DIARRHEA/ABDOMINAL PAIN, DIZZINESS/CONFUSION, CHESTPAIN/DIFFICULTY BREATHING - History of Current Complaint Chief Complaint: UCRash Time Seen by Provider: 11/08/16 13:09 Stated Complaint: RASH Hx Obtained From: Patient Onset/Duration: Sudden Onset, Lasting Days - 1, Still Present, Worse Since - THIS AM Timing: Constant Onset Severity: Moderate Current Severity: Moderate Location: Face, Other - CHEST Character: Pruritus, Redness Aggravating: Nothing Alleviating: Nothing Associated Signs & Symptoms: Positive: Rash. Negative: Nausea, Vomiting, Difficulty Breathing, Fever, Chills, Cough, Wheezing, Chest Pain, Hoarseness, Throat Tightening, Abdominal Pain, Lightheadedness, Syncope, Drainage, Bruising , Tenderness - Allergy/Home Medications Allergies/Adverse Reactions: Allergies Allergy/AdvReac Type Severity Reaction Status Date / Time Morphine [From Sybil] Allergy Hives Verified 11/08/16 12:19 Penicillins Allergy Hives Verified 11/08/16 12:19 Ethanol AdvReac Hallucinati Verified 11/08/16 12:19 [From Duragesic Disc ons Transdermal System] Fentanyl AdvReac Hallucinati Verified 11/08/16 12:19 [From Duragesic Disc ons Transdermal System] Sulfamethoxazole AdvReac Muscle Ache Verified 11/08/16 12:19 w/Trimethoprim [From Bactrim] Home Medications: Home Medications diPHENhydraMINE PO* [Benadryl PO 25 MG TAB*] 11/08/16 [History] Review of Systems Constitutional: Negative Skin: Rash Eyes: Drainage - clear, Eye Redness, Other - itchy rt eye ENT: Negative Respiratory: Negative Cardiovascular: Negative Gastrointestinal: Negative Neurological: Negative All Other Systems Reviewed And Are Negative: Yes PMH/Surg Hx/FS Hx/Imm Hx Endocrine History: Diabetes Cardiovascular History: Hypertension Respiratory History: COPD, Asthma - Surgical History Surgical History: None Surgery Procedure, Year, and Place: 2000 & 2013 bowel obstruction [facility]. 2008 & 2014 bilateral total knee arthroplasty, [facility] [place]. [place] hysterectomy, [facility] [place]. 2005 LYSIS OF ADHESIONS. [facility] [place] - Family History Known Family History: Positive: Cardiac Disease, Hypertension, Diabetes - Social History Occupation: Retired Lives: Assisted Living Alcohol Use: None Substance Use Type: None Smoking Status (MU): Former Smoker Type: Cigarettes Amount Used/How Often: 1-2PP WEEK Length of Time of Smoking/Using Tobacco: off and on for 40 years Have You Smoked in the Last Year: No When Did the Patient Quit Smoking/Using Tobacco: 2007 - Immunization History Most Recent Influenza Vaccination: season Most Recent Tetanus Shot: UNK Most Recent Pneumonia Vaccination: 2012 Physical Exam Triage Information Reviewed: Yes Appearance: Well-Appearing, No Pain Distress, Obese Vital Signs: Initial Vital Signs Temp 98.7 F 11/08/16 12:22 Pulse 75 11/08/16 12:22 Resp 16 11/08/16 12:22 BP 150/74 11/08/16 12:22 Pulse Ox 97 11/08/16 12:22 Vital Signs Reviewed: Yes Eyes: Positive: Conjunctiva Inflamed - rt, Discharge - clear ENT: Positive: Hearing grossly normal, Pharynx normal, TMs normal. Negative: Nasal congestion, Nasal drainage, Tonsillar swelling, Trismus, Muffled/hoarse voice Neck: Positive: Supple, Nontender, No Lymphadenopathy Respiratory: Positive: Lungs clear, Normal breath sounds, Expiration - prolonged exp Cardiovascular: Positive: RRR, No Murmur Abdomen Description: Positive: Nontender, Soft Bowel Sounds: Positive: Present Musculoskeletal Exam: Normal Neurological: Positive: Alert, Muscle Tone Normal Psychological: Positive: Age Appropriate Behavior Skin: Positive: rashes - puritic erythemaous macular rash on face and chest Course/Dx - Differential Diagnoses - Skin Complaint Differential Diagnoses: Allergic Reaction, Drug Rash, Poison Marlyn, Urticaria - Diagnoses Provider Diagnoses: allergic reaction Discharge - Discharge Plan Condition: Stable Disposition: HOME Prescriptions: predniSONE TAB* [Deltasone TAB*] 40 mg PO DAILY #8 tab Patient Education Materials: General Allergic Reaction (ED), Diphenhydramine ( By mouth) Referrals: Donavan Lara MD [Primary Care Provider] - 3 Days (FOLLOW UP SOONER IF SYMPTOMS WORSEN OR NEW ONES DEVELOP - SWELLING OF LIPS/TONGUE/THROAT, NAUSEA/ VOMITING/DIARRHEA/ABDOMINAL PAIN, DIZZINESS/CONFUSION, CHESTPAIN/DIFFICULTY BREATHING.) Additional Instructions: CORTICOSTEROID MEDICATION: You have been given a medicine of the cortisone class. This medication is used to control inflammation or allergy. It is usually only given for a short period of time, until the acute process subsides. There are usually no side effects from short-term use of cortisone-like medications. Some persons feel an increased sense of well-being and are not sleepy at bedtime. Long-term use of cortisone medications is best avoided, unless required for a severe condition. If your condition does not remit, or relapses after the course of corticosteroid medication, you should consult your physician. Contact the physician if you develop lightheadedness, black or tarry stools , swelling of the legs, or significant rapid change in weight.
== END 2016-11-08 13:30 | disposition home or self-care (01) ==
LOC: UCEAST 11:41
DX: L23.89 Allergic contact dermatitis due to other agents (principal); I10 Essential (primary) hypertension; E11.9 Type 2 diabetes mellitus without complications; J44.9 Chronic obstructive pulmonary disease, unspecified
CPT/HCPCS: 96372; 99212; G0463; J2930

== ENCOUNTER 2017-03-03 12:03 | Inpatient (IN) | payer MEDICARE, MEDICAID ==
[2017-03-03] MEDS ORDERED: Dexamethasone IV* 4 MG/ML 1 ML (4 MG) ONE (12:14)
[2017-03-03] MEDS ORDERED: Furosemide IV* 10 MG/ML VIAL (40 MG) ONE (12:14)
[2017-03-03] MEDS ORDERED: Dexamethasone IV* 10 MG in NS 0.9% 50 ML* 50 ML IVPB ONE (12:20)
[2017-03-03] MEDS ORDERED: Albuterol/Ipratropium NEB.SOL* Albuterol 2.5 MG/Ipratropium 0.5 MG 3 ML INH ONE (12:20)
[2017-03-03] MEDS ORDERED: Furosemide IV* 10 MG/ML VIAL (40 MG) IV ONE (12:20)
[2017-03-03] MEDS ORDERED: Albuterol (2.5 MG) 0.5 % CONC 2.5 MG/0.5 ML NEB.SOLN (ICU and ED only) INH ONE (12:22)
[2017-03-03 12:49] LABS: Hematocrit 38 % (35-47); Hemoglobin 12.5 g/dl (12.0-16.0); Mean Corpuscular HGB Conc 33 g/dl (31-36); Mean Corpuscular Hemoglobin 28 pg (27-31); Mean Corpuscular Volume 84 fL (80-97); Mean Platelet Volume 9 um3 (7.4-10.4); Red Blood Count 4.46 10^6/ul (4.0-5.4); Red Cell Distribution Width 15 % (10.5-15); White Blood Count 8.8 10^3/ul (3.5-10.8)
--- NOTE | 2017-03-03 13:01 | RAD ---
HISTORY: Shortness of breath, cough COMPARISONS: August 28, 2016 VIEWS: 1: frontal portable view of the chest at 12:45 PM FINDINGS: LINES AND TUBES: None. CARDIOMEDIASTINAL SILHOUETTE: The cardiomediastinal silhouette is normal for portable technique. PLEURA: The costophrenic angles are sharp. No pleural abnormalities are noted. LUNG PARENCHYMA: The lung volumes are low. ABDOMEN: The upper abdomen is clear. There is no subphrenic gas. BONES AND SOFT TISSUES: Mild degenerative changes are noted. IMPRESSION: LOW LUNG VOLUMES. NO ACTIVE CARDIOPULMONARY DISEASE.
[2017-03-03 13:25] LABS: Albumin 4.3 g/dL (3.2-5.2); BUN/Creatinine Ratio 11.8 (8-20); C Reactive Protein 48.69 mg/L (< 5.00); Calcium 9.6 mg/dL (8.6-10.3); EGFR African American 77.1 (>60); Magnesium 1.4 mg/dL (1.9-2.7); Potassium 3.9 mmol/L (3.5-5.0); Total Bilirubin 0.4 mg/dL (0.2-1.0); Total Protein 8.3 g/dL (6.4-8.9)
[2017-03-03 13:27] LABS: Troponin I 0.01 ng/mL (<0.04)
[2017-03-03 13:40] LABS: TSH (Thyroid Stimulating Horm) 0.39 mcIU/mL (0.34-5.60)
[2017-03-03 14:25] LABS: Urine Bacteria Absent (Absent); Urine Bilirubin Negative (Negative); Urine Glucose Negative (Negative); Urine Nitrite Negative (Negative)
[2017-03-03] MEDS ORDERED: Ondansetron INJ* 2 MG/ML VIAL IV PRN (14:56)
[2017-03-03] MEDS ORDERED: Acetaminophen TAB* 325 MG PO PRN (14:56)
[2017-03-03] MEDS ORDERED: Ketorolac INJ* 30 MG/ML 1 ML VIAL IV PUSH ONE (14:56)
[2017-03-03] MEDS ORDERED: Ketorolac INJ* 30 MG/ML 1 ML VIAL IV PUSH PRN (14:56)
[2017-03-03] MEDS ORDERED: Dextrose 50% Syringe 50 ML* 25 GM/50 ML SYRINGE IV PUSH PRN (15:01)
[2017-03-03] MEDS ORDERED: Magnesium Sulf 4 GM/100 ML IV* 4,000 MG/100 ML BAG IVPB ONE (15:04)
--- NOTE | 2017-03-03 15:18 | RAD ---
HISTORY: Difficulty breathing, small bowel obstruction COMPARISONS: December 04, 2012 VIEWS: Frontal views of the abdomen. FINDINGS: BOWEL: There is a nonspecific bowel gas pattern, with nondilated small bowel gas noted. There is a large amount of stool within the colon. CALCULI: There are no abnormal calculi. BONES AND SOFT TISSUES: There are no osseous abnormalities. OTHER FINDINGS: The lung bases are clear. There is no subphrenic gas. IMPRESSION: NONSPECIFIC BOWEL GAS PATTERN. LARGE AMOUNT OF STOOL THROUGHOUT THE COLON.
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
[2017-03-03] MEDS: Polyethylene Glycol 3350* 17 GM PACKET PO SCH (16:16)
[2017-03-03] MEDS: Oseltamivir CAP* 75 MG PO SCH ×2 (16:39→20:54)
[2017-03-03] MEDS: Enoxaparin(*) 40 MG/0.4 ML SYR SUBCUT SCH (16:39)
[2017-03-03] MEDS: Insulin LISPRO* 1 UNITS UNIT SUBCUT SCH (17:19)
[2017-03-03] MEDS: HYDROmorphone INJ* 1 MG/ML CARPUJECT SYRINGE IV SLOW PU PRN ×2 (17:24→22:21)
[2017-03-03] MEDS ORDERED: Hemorrhoidal OINT PR PRN (18:16)
[2017-03-03] MEDS ORDERED: Carisoprodol TAB* 350 MG PO PRN (18:16)
[2017-03-03] MEDS ORDERED: ALPRAZolam TAB* 0.5 MG PO PRN (18:16)
[2017-03-03] MEDS: Albuterol/Ipratropium NEB.SOL* Albuterol 2.5 MG/Ipratropium 0.5 MG 3 ML INH SCH ×3 (18:48→23:21)
[2017-03-03] MEDS: Mometasone/Formoter 200/5 MDI INH SCH (19:31)
[2017-03-03] MEDS: Zolpidem TAB* 10 MG PO PRN (20:53)
[2017-03-03] MEDS: CMC:Nebivolol TAB (NF) 2.5 MG TAB PO SCH (20:55)
[2017-03-03] MEDS: oxyCODONE SR TAB(*) 10 MG TAB.SR PO SCH (20:55)
--- NOTE | 2017-03-03 23:09 | HP ---
CC: QUANG Hernandez * MEDICINE HISTORY AND PHYSICAL: DATE OF ADMISSION: 03/03/17 PROVIDER: Kobe Weber NP. ATTENDING PHYSICIAN: Dr. Smith Ortega * (dictated by Kobe Weber NP). PRIMARY CARE PROVIDER: Dr. Donavan Lara. PRIMARY DIRECTOR OF FIELD SALES: Dr. Kimberly Avalos. CHIEF COMPLAINT: Shortness of breath. HISTORY OF PRESENT ILLNESS: Ms. Mckeon is a 67-year-old female who came into the ED for evaluation of shortness of breath and cough for approximately 2 to 3 days. She states that she was seen by her primary care provider last week where she received prescription for Tessalon Perles and Robitussin. She says that these were ineffective for her cough. She also states that she was started on azithromycin, which she did finish, but states that that was also not effective as she feels no difference. She states that approximately 2 days ago, her shortness of breath and cough were worsened and she noticed that she had some subjective fever symptoms such as sweating as well as generalized achiness particularly in the head, chest and back and sore throat. She denies chest pain, but does endorse generalized achiness. She denies orthopnea, lower extremity edema or weight gain. She has a cough that is mostly nonproductive though occasionally she coughs up some sputum. She does endorse decreased p.o. intake, but she has been able to keep down liquids. She reports that she has had some left-sided abdominal discomfort that she attributes to coughing as well as a few episodes of diarrhea yesterday and today. Here in the ED, the patient's chest x-ray did not show any acute pathology. Her labs showed low magnesium of 1.4 and a CRP of 48. However, the patient has been audibly wheezing and requiring oxygen for comfort. At baseline, she does utilize oxygen at nighttime for her history of COPD and LUPE. She has received a DuoNeb and albuterol treatment here in the ER as well as Lasix 40 mg IV and Decadron, but states that she has not noticed any difference in her symptoms. PAST MEDICAL HISTORY: Includes: 1. COPD with nocturnal oxygen use, 2 L nasal cannula. 2. History of severe obstructive sleep apnea, but the patient does not use CPAP by choice, again uses nocturnal O2. 3. Diastolic heart failure. 4. Asthma. 5. Hypertension. 6. Type 2 diabetes. 7. Hyperlipidemia. 8. Chronic pain. 9. History of adrenal tumor. 10. Osteoarthritis. 11. Vocal cord dysfunction. 12. History of small bowel obstruction. 13. 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 14. Vitamin D deficiency. 15. Morbid obesity with a BMI of approximately 46. PAST SURGICAL HISTORY: Includes abdominal surgery in the past for small bowel obstruction, bilateral total knee replacements, and 2 breast biopsies. HOME MEDICATIONS: 1. Duloxetine 20 mg daily. 2. Ciclopirox 1 application topical daily p.r.n. 3. Carisoprodol 350 mg t.i.d. p.r.n. 4. Aspirin 81 mg q.a.m. 5. Albuterol inhaler 2 puffs inhaled q.6 hours p.r.n. 6. Albuterol nebulizer 1 inhalation q.6 hours p.r.n. 7. Alprazolam 1 mg t.i.d. p.r.n. 8. Nebivolol 10 mg b.i.d. 9. Hemorrhoid ointment 1 application per rectum q.i.d. p.r.n. 10. Furosemide 40 mg daily. 11. Advair 115/21 one puff inhaled b.i.d. 12. Esomeprazole 40 mg q.a.m. 13. Ergocalciferol 50,000 units q.14 days. 14. Metformin 500 mg daily. 15. Zolpidem 5 to 10 mg at bedtime p.r.n. 16. Valsartan 320 mg daily. 17. Simvastatin 40 mg q.a.m. 18. Prednisone 40 mg daily. 19. Percocet 10/325 one tab q. 4 hours p.r.n. 20. Oxycodone SR 10 mg q.12 hours. Please note that the patient's prednisone appears to be from a previous urgent care visit and this will need to be confirmed with her PCP office as I do not feel that she is on chronic prednisone at home. ALLERGIES: Include MORPHINE, PENICILLIN, ETHANOL, FENTANYL, and BACTRIM. FAMILY HISTORY: Significant for mother with lung cancer, hypertension and diabetes. Father has a history of lung cancer, hypertension, diabetes, and coronary artery disease. The patient has two brothers with diabetes, a sister with diabetes and a brothreyna who at a young age from heart attack. SOCIAL HISTORY: She is a former smoker with a 15 to 20 pack-year history, she quit over 12 years ago. She denies any current alcohol use. She denies any illicit drug use. She is single. She lives alone. Her sister Stephani Coleman and her brother, Ashely Mckeon are her emergency contacts and surrogate decision makers in the event of emergency. Stephani Coleman is the primary surrogate decision maker. REVIEW OF SYSTEMS: As per HPI, a 14-point review of systems was completed and all pertinent positives are included in the HPI. PHYSICAL EXAMINATION GENERAL: This is an female. She appears to be in mild-to- moderate distress. She is audibly wheezing. VITAL SIGNS: Temperature 98.7, heart rate 104, respiratory rate 24, blood pressure 120/67, and O2 saturation 97% on 2 L nasal cannula. HEENT: Head is atraumatic, normocephalic. Face is symmetrical. Pupils are equal, round and reactive to light. Extraocular movements are intact. Oral mucosa is moist. NECK: Supple. No lymphadenopathy appreciated. No JVD noted. LUNGS: Clear to auscultation, but there is expiratory wheezing noted throughout all lung sánchez. CARDIAC: S1 and S2 heart sounds, regular rate and rhythm. No murmurs, rubs, or gallops. ABDOMEN: Soft, nontender, nondistended. Bowel sounds are present and normoactive. There are healed abdominal scars to the patient's abdomen. No CVA tenderness. EXTREMITIES: Distal pulses are present. No clubbing or cyanosis noted. There is some trace pretibial edema to the lower extremities. SKIN: Limited assessment, but appears grossly intact. It is warm and dry. NEUROLOGIC: The patient is alert and oriented x3. She is able to move all extremities. Cranial nerves II through XII are grossly intact. The patient follows commands. No focal deficits or weakness noted. Speech is clear. LABORATORY DATA AND DIAGNOSTIC STUDIES: CBC: WBC 8.8, hemoglobin 12.5, hematocrit 38, and platelet count 252. INR is 0.98. Chemistry: Sodium 136, potassium 3.9, chloride 100, carbon dioxide 28, BUN 11, creatinine 0.93, glucose 111, lactic acid 1.9, calcium 9.6, magnesium 1.4. Total bilirubin 0.4, AST 17, ALT 8, alk phos 100. Troponin 0.01. CRP 48.69. BNP 114. Albumin 4.3. TSH 0.39. Urinalysis showed 2+ blood. Chest x-ray shows low lung volumes. No active cardiopulmonary disease. EKG was reviewed, shows sinus tachycardia, but no significant ST or T wave inversions or changes. Old medical records were reviewed. ASSESSMENT AND PLAN: This is a 67-year-old female who presents today with shortness of breath and respiratory distress that appears to be secondary to chronic obstructive pulmonary disease exacerbation, likely with a viral etiology. She will be admitted under observation to medicine floor. Plan is as follows: 1. Chronic obstructive pulmonary disease with exacerbation. I suspect that the patient has developing viral bronchitis and I do wonder with her reports of body aches and subjective fevers at home if she may have influenza. She does state that she had her flu shot earlier this year, but it may be beneficial to screen her for influenza and if she does indeed test positive, start her on Tamiflu. Again, I looked in her history for azithromycin prescription, which I do see she had in late January, but she does claim that she had azithromycin this past week. So, I will hold off on starting any azithromycin at this time and continue with supportive care. Again, the prednisone that I see at her med rec appears to be from the urgent care and she denies being started on steroids recently. The patient was not previously on steroid therapy in the past. So, we will continue her on prednisone 40 mg for a 5-day course as she does not have a history of long-term corticosteroid use. We will confirm this with her PCP tomorrow. Additionally, continue with nebulizers and home inhalers. 2. Acute hypoxic respiratory failure. This is likely secondary to the patient' s chronic obstructive pulmonary disease exacerbation and viral bronchitis. We should also consider that this may also represent pulmonary embolus if the patient fails to improve given her pleuritic reports, body aches, tachycardia and tachypnea. The patient is requiring daytime oxygen beyond her baseline to maintain her O2 sats. We will try to wean her from her oxygen. As stated, it is safe for the patient to do so. Again, we will continue with steroids and breathing treatments. 3. History of diastolic heart failure. The patient does not appear to be in acute exacerbation. She states that her weights have been stable. However, the patient does not weigh herself regularly at home. In any event, I do not note that she has any significant edema or rales to indicate severe congestive heart failure exacerbation. She did receive a dose of IV Lasix in the ED with good urinary output and she likely to be continued on her home furosemide dosing at this time. Continue to monitor. The patient is ordered daily weights. 4. Hypomagnesemia, likely secondary to home diuretic use. We will replete with IV magnesium. 5. Abdominal pain. The patient complains of left-sided abdominal pain that I cannot elicit with palpation, but it does appear that this may also be pleuritic in nature. However, she does report that she had a few episodes of diarrhea and she does have a history significant for small bowel obstructions with abdominal surgery. Given her lack of p.o. intake and recent illness, she may be at risk for further obstruction and may be leaking around obstruction. So , we will plan to check a KUB and follow up with these results. 6. For sleep apnea, continue nocturnal O2 per home settings. 7. Hypertension. Continue home medication regimen. 8. Diabetes. Hold home metformin and continue lispro sliding scale insulin with a.c. and h.s. blood sugar checks. 9. Chronic pain. Continue home medication regimen. 10. FEN. The patient is ordered consistent carbohydrate diet. 11. DVT prophylaxis. She is ordered SCDs and Lovenox. 12. Code status. She is a full code. TIME SPENT: Greater than 60 minutes was spent on this admission, with more than half of that time was spent [id number] with the patient obtaining history and physical, performing physical examination, and reviewing the plan of care. Plan of care was also reviewed with my attending, Dr. Ortega, he is in agreement. KOBE WEBER, TRANSITION ASSISTANT [id number]/[facility] #: [id number] JAY
[2017-03-04] MEDS: HYDROmorphone INJ* 1 MG/ML CARPUJECT SYRINGE IV SLOW PU PRN ×2 (02:38→06:47)
[2017-03-04] MEDS: Albuterol/Ipratropium NEB.SOL* Albuterol 2.5 MG/Ipratropium 0.5 MG 3 ML INH SCH ×3 (03:20→10:24)
[2017-03-04] MEDS: Albuterol 2.5 MG/3 ML NEB.SOL* (0.083%) INH PRN (05:05)
[2017-03-04 07:06] LABS: Hematocrit 35 % (35-47); Hemoglobin 11.4 g/dl (12.0-16.0); Mean Corpuscular HGB Conc 33 g/dl (31-36); Mean Corpuscular Hemoglobin 28 pg (27-31); Mean Corpuscular Volume 85 fL (80-97); Mean Platelet Volume 8 um3 (7.4-10.4); Red Blood Count 4.12 10^6/ul (4.0-5.4); Red Cell Distribution Width 15 % (10.5-15); White Blood Count 5.9 10^3/ul (3.5-10.8)
[2017-03-04 07:33] LABS: BUN/Creatinine Ratio 24.2 (8-20); EGFR African American 71.7 (>60); EGFR Non-African American 55.8 (>60); Potassium 4.2 mmol/L (3.5-5.0)
[2017-03-04] MEDS: CMC:Nebivolol TAB (NF) 2.5 MG TAB PO SCH ×2 (08:26→20:52)
[2017-03-04] MEDS: Omeprazole CAP* 20 MG PO SCH (08:28)
[2017-03-04] MEDS: Atorvastatin* 20 MG TAB PO SCH (08:28)
[2017-03-04] MEDS: DULoxetine DR CAP* 20 MG CAP.DR PO SCH (08:28)
[2017-03-04] MEDS: Valsartan TAB* 160 MG PO SCH (08:28)
[2017-03-04] MEDS: oxyCODONE/Acetamin 5/325 MG* TAB PO PRN (08:28)
[2017-03-04] MEDS: Furosemide TAB* 40 MG PO SCH (08:29)
[2017-03-04] MEDS: oxyCODONE TAB* 5 MG TAB PO PRN (08:29)
[2017-03-04] MEDS: Aspirin EC Low Dose* 81 MG TAB.EC PO SCH (08:29)
[2017-03-04] MEDS: predniSONE TAB* 20 MG PO SCH (08:30)
[2017-03-04] MEDS: Oseltamivir CAP* 75 MG PO SCH ×2 (08:30→20:53)
[2017-03-04] MEDS: Insulin LISPRO* 1 UNITS UNIT SUBCUT SCH ×3 (08:33→17:47)
[2017-03-04] MEDS: Polyethylene Glycol 3350* 17 GM PACKET PO SCH (08:35)
--- NOTE | 2017-03-04 09:12 | PN ---
Subjective Date of Service: 03/04/17 Interval History: Patient seen and examined at bedside. Denies fever, chills, chest discomfort, N /V/D. Pt states that she was sweaty this AM, continues to have shortness of breath. She reports moving her bowels twice yesterday, but continues to have abdominal discomfort from coughing. Tele: Sinus rhythm, rate 70's Family History: Unchanged from Admission Social History: Unchanged from Admission Past Medical History: Unchanged from Admission Objective Active Medications: Acetaminophen (Tylenol Tab*) 650 mg PO Q4H PRN Reason: FEVER/PAIN Albuterol (Ventolin 2.5 Mg/3 Ml Neb.Rosalie*) 2.5 mg INH Q2H PRN Reason: SOB/ WHEEZING Albuterol/Ipratropium (Duoneb (Albuterol 2.5 Mg/Ipratropium 0.5 Mg)) 1 neb INH RT.N0MI-PHERY AWAKE YUE Stop: 03/04/17 11:01 Alprazolam (Xanax Tab*) 1 mg PO TID PRN Reason: ANXIETY Aspirin (Aspirin Ec Low Dose*) 81 mg PO QAM YUE Atorvastatin Calcium (Lipitor*) 20 mg PO QAM [facility] Carisoprodol (Soma Tab*) 350 mg PO TID PRN Reason: SPASMS Dextrose (D50w Syringe 50 Ml*) 12.5 gm IV PUSH .FOR FS < 60 - SS PRN Reason: FS < 60 Duloxetine HCl (Cymbalta Cap*) 20 mg PO DAILY [facility] Enoxaparin Sodium (Lovenox(*)) 40 mg SUBCUT Q24H YUE Furosemide (Lasix Tab*) 40 mg PO DAILY [facility] Insulin Human Lispro (Humalog*) 0 units SUBCUT AC [facility] Ketorolac Tromethamine (Toradol Inj*) 15 mg IV PUSH Q6H PRN Reason: PAIN Mometasone Furoate/Formoterol Fumar (Dulera 200/5 Mdi*) 1 puff INH BID YUE Nebivolol (Bystolic Tab (Nf)) 10 mg PO BID YUE (Ciclopirox Olamine (1 Applic)) 1 applic TOPICAL DAILY PRN Reason: APPLY TO FEET Omeprazole (Prilosec Cap*) 20 mg PO QAM [facility] Ondansetron HCl (Zofran Inj*) 4 mg IV Q6H PRN Reason: NAUSEA/VOMITING Oseltamivir Phosphate (Tamiflu Cap*) 75 mg PO BID [facility] Stop: 03/07/17 21:01 Oxycodone HCl (Oxycontin(*)) 10 mg PO Q12HR [facility] Oxycodone HCl (Roxycodone Tab*) 5 mg PO Q4H PRN Reason: PAIN Oxycodone/Acetaminophen (Percocet 5/325 Tab*) 1 tab PO Q4HR PRN Reason: PAIN Phenyleph/Shark Oil/Min Oil/Petrol (Preparation H*) 1 applic UT QID PRN Reason : hemorrhoids Polyethylene Glycol/Electrolytes (Miralax*) 17 gm PO DAILY [facility] Prednisone (Deltasone Tab*) 40 mg PO DAILY [facility] Stop: 03/08/17 09:01 Valsartan (Diovan Tab*) 320 mg PO DAILY [facility] Zolpidem Tartrate (Ambien Tab*) 10 mg PO BEDTIME PRN Reason: INSOMNIA Vital Signs - 8 hr 03/04/17 03/04/17 03/04/17 01:40 02:23 02:38 Temperature 97.4 F Pulse Rate 81 Respiratory 16 22 16 Rate Blood Pressure 138/68 (mmHg) O2 Sat by Pulse 97 Oximetry 03/04/17 03/04/17 03/04/17 03:31 05:06 05:27 Temperature Pulse Rate 76 Respiratory 16 20 16 Rate Blood Pressure (mmHg) O2 Sat by Pulse 97 Oximetry 03/04/17 03/04/17 03/04/17 06:47 08:00 08:20 Temperature 97.7 F Pulse Rate 72 Respiratory 16 18 18 Rate Blood Pressure 141/74 (mmHg) O2 Sat by Pulse 98 Oximetry 03/04/17 03/04/17 08:28 08:29 Temperature Pulse Rate Respiratory 18 18 Rate Blood Pressure (mmHg) O2 Sat by Pulse Oximetry Oxygen Devices in Use Now: Nasal Cannula - 2L Appearance: NAD, laying in bed Ears/Nose/Mouth/Throat: Mucous Membranes Moist Respiratory: Symmetrical Chest Expansion and Respiratory Effort, - - Lungs dimminished with audible expiratory wheezing Cardiovascular: NL Sounds; No Murmurs; No JVD, RRR Abdominal: NL Sounds; No Tenderness; No Distention Extremities: No Edema Skin: No Rash or Ulcers Neurological: Alert and Oriented x 3, NL Muscle Strength and Tone Lines/Tubes/Other Access: Clean, Dry and Intact Peripheral IV - site benign Nutrition: Taking PO's Result Diagrams: 03/04/17 06:41 03/04/17 06:41 Additional Lab and Data: Microbiology and Other Data: Microbiology 03/03/17 15:36 Influenza Types A,B Antigen (OLIVER) - Final Nasal Specimen received for Influenza A/B Molecular testing Assess/Plan/Problems-Billing Assessment: Ms. Mckeon is a 67 yo female with PMH significant for COPD, diastolic HF, asthma, HTN, DM, HLD, chronic pain and morbid obesity who presented to the emergency room with complaints of shortness of breath and respiratory distress and was found to have a COPD exacerbation and Influenza A. - Patient Problems (1) COPD exacerbation Code(s): J44.1 - CHRONIC OBSTRUCTIVE PULMONARY DISEASE W (ACUTE) EXACERBATION SNOMED Code(s): 505279941398622 Comment: - Wean O2 as able as she was only on nocturnal oxygen at home. - Continue oral prednisone, ATC/prn nebs, spiriva. - Will start Azithromycin 500mg IV (2) Influenza A Code(s): J10.1 - FLU DUE TO OTH IDENT INFLUENZA VIRUS W OTH RESP MANIFEST SNOMED Code(s): 132222263 Comment: - Blood cultures 1/4 positive for gram positive cocci resembling staph, likely contaminate - Continue Tamiflu (3) Acute respiratory failure with hypoxia Code(s): J96.01 - ACUTE RESPIRATORY FAILURE WITH HYPOXIA SNOMED Code(s): 86608251 Comment: - Pt only uses O2 at night (4) Electrolyte abnormality Code(s): E87.8 - OTH DISORDERS OF ELECTROLYTE AND FLUID BALANCE, NEC SNOMED Code(s): 196023671 Comment: - Hypomagnesemia - Received magnesium yesterday, will add MG to this AM labs (5) Abdominal pain Code(s): R10.9 - UNSPECIFIED ABDOMINAL PAIN SNOMED Code(s): 34872277 Comment: - ABD xray shows large amount of stool throughout the colon - Suspect secondary to constipation and coughing - Will start a bowel regimen (6) HTN (hypertension) Code(s): I10 - ESSENTIAL (PRIMARY) HYPERTENSION SNOMED Code(s): 64203449 Comment: - Normotensive, SBP 130s-140s - Continue nebivolol and valsartan (7) CHF (congestive heart failure) Code(s): I50.9 - HEART FAILURE, UNSPECIFIED SNOMED Code(s): 23765949 Comment: - Chronic, diastolic, not in acute exacerbation - Continue daily weights and stric I+O's - Continue furosemide, valsartan, Bystolic (8) Chronic pain Code(s): G89.29 - OTHER CHRONIC PAIN SNOMED Code(s): 63512176 Comment: Continue home duloxetine, oxycontin, Soma. (9) Diabetes mellitus type 2, noninsulin dependent Code(s): E11.9 - TYPE 2 DIABETES MELLITUS WITHOUT COMPLICATIONS SNOMED Code(s) : 17097952 Comment: - Controlled, glucose 130-140's - Hold home metformin - Continue Lispro SSI (10) GERD (gastroesophageal reflux disease) Code(s): K21.9 - GASTRO-ESOPHAGEAL REFLUX DISEASE WITHOUT ESOPHAGITIS SNOMED Code(s): 494667499 Comment: - Continue omeprazole. (11) LUPE (obstructive sleep apnea) Code(s): G47.33 - OBSTRUCTIVE SLEEP APNEA (ADULT) (PEDIATRIC) SNOMED Code(s): 42604419 Comment: - Does not use home CPAP - Continue nocturnal O2 2Lnc (12) DVT prophylaxis Code(s): YWK6869 - SNOMED Code(s): 500597776 Comment: - Lovenox SQ and SCDs (13) Full code status Code(s): Z78.9 - OTHER SPECIFIED HEALTH STATUS SNOMED Code(s): 351724784 Status and Disposition: OBV to Inpatient. Discharge to home when medically stable.
[2017-03-04] MEDS: oxyCODONE SR TAB(*) 10 MG TAB.SR PO SCH ×2 (09:26→20:53)
[2017-03-04] MEDS ORDERED: Magnesium Hydroxide LIQ* 30 ML UDC PO PRN (09:59)
[2017-03-04] MEDS: Mometasone/Formoter 200/5 MDI INH SCH ×2 (10:26→21:24)
[2017-03-04] MEDS: guaiFENesin ER TAB 600 MG PO SCH ×2 (11:26→20:53)
[2017-03-04] MEDS: Azithromycin IV(*) 500 MG in NS 0.9% 250 ML* 250 ML IVPB SCH (11:27)
[2017-03-04] MEDS: HYDROmorphone INJ* 2 MG/ML CARPUJECT SYRINGE IV SLOW PU PRN ×3 (11:30→20:54)
[2017-03-04 13:35] LABS: Magnesium 2.4 mg/dL (1.9-2.7)
[2017-03-04] MEDS: Enoxaparin(*) 40 MG/0.4 ML SYR SUBCUT SCH (16:27)
[2017-03-05] MEDS: HYDROmorphone INJ* 2 MG/ML CARPUJECT SYRINGE IV SLOW PU PRN ×4 (01:00→21:07)
[2017-03-05] MEDS: Zolpidem TAB* 10 MG PO PRN (01:09)
[2017-03-05] MEDS: Aspirin EC Low Dose* 81 MG TAB.EC PO SCH (08:01)
[2017-03-05] MEDS: CMC:Nebivolol TAB (NF) 2.5 MG TAB PO SCH ×2 (08:01→20:10)
[2017-03-05] MEDS: Oseltamivir CAP* 75 MG PO SCH ×2 (08:01→20:09)
[2017-03-05] MEDS: oxyCODONE SR TAB(*) 10 MG TAB.SR PO SCH ×2 (08:02→20:09)
[2017-03-05] MEDS: Atorvastatin* 20 MG TAB PO SCH (08:02)
[2017-03-05] MEDS: predniSONE TAB* 20 MG PO SCH (08:03)
[2017-03-05] MEDS: DULoxetine DR CAP* 20 MG CAP.DR PO SCH (08:03)
[2017-03-05] MEDS: Valsartan TAB* 160 MG PO SCH (08:03)
[2017-03-05] MEDS: Omeprazole CAP* 20 MG PO SCH (08:03)
[2017-03-05] MEDS: Furosemide TAB* 40 MG PO SCH (08:03)
[2017-03-05] MEDS: Insulin LISPRO* 1 UNITS UNIT SUBCUT SCH ×3 (08:04→18:16)
[2017-03-05] MEDS: guaiFENesin ER TAB 600 MG PO SCH ×2 (08:04→20:10)
[2017-03-05] MEDS: Polyethylene Glycol 3350* 17 GM PACKET PO SCH (08:04)
[2017-03-05] MEDS: Mometasone/Formoter 200/5 MDI INH SCH ×2 (09:21→20:47)
[2017-03-05] MEDS: Azithromycin IV(*) 500 MG in NS 0.9% 250 ML* 250 ML IVPB SCH (11:17)
[2017-03-05] MEDS: Enoxaparin(*) 40 MG/0.4 ML SYR SUBCUT SCH (15:43)
--- NOTE | 2017-03-05 16:28 | PN ---
Subjective Date of Service: 03/05/17 Interval History: Patient seen and examined at bedside. Denies fever, chills, shortness of breath , chest discomfort, N/V/D. Pt states that her pain is not well controlled with her home medications. Pt continues to have upper ABD pain from coughing. Tele: Sinus rhythm, rate 60-80's. Family History: Unchanged from Admission Social History: Unchanged from Admission Past Medical History: Unchanged from Admission Objective Active Medications: Acetaminophen (Tylenol Tab*) 650 mg PO Q4H PRN Reason: FEVER/PAIN Albuterol (Ventolin 2.5 Mg/3 Ml Neb.Rosalie*) 2.5 mg INH Q2H PRN Reason: SOB/ WHEEZING Alprazolam (Xanax Tab*) 1 mg PO TID PRN Reason: ANXIETY Aspirin (Aspirin Ec Low Dose*) 81 mg PO QAM YUE Atorvastatin Calcium (Lipitor*) 20 mg PO QAM YUE Carisoprodol (Soma Tab*) 350 mg PO TID PRN Reason: SPASMS Dextrose (D50w Syringe 50 Ml*) 12.5 gm IV PUSH .FOR FS < 60 - SS PRN Reason: FS < 60 Duloxetine HCl (Cymbalta Cap*) 20 mg PO DAILY [facility] Enoxaparin Sodium (Lovenox(*)) 40 mg SUBCUT Q24H YUE Furosemide (Lasix Tab*) 40 mg PO DAILY YUE Guaifenesin (Mucinex*) 600 mg PO BID YUE Hydromorphone HCl (Dilaudid Inj*) 1 mg IV SLOW PU Q4H PRN Reason: PAIN - SEVERE Azithromycin 500 mg/ Sodium (Chloride) 250 mls @ 250 mls/hr IVPB Q24H YUE Insulin Human Lispro (Humalog*) 0 units SUBCUT AC YUE Ketorolac Tromethamine (Toradol Inj*) 15 mg IV PUSH Q6H PRN Reason: PAIN Magnesium Hydroxide (Milk Of Magnesia Liq*) 30 ml PO Q6H PRN Reason: CONSTIPATION Mometasone Furoate/Formoterol Fumar (Dulera 200/5 Mdi*) 1 puff INH BID YUE Nebivolol (Bystolic Tab (Nf)) 10 mg PO BID YUE (Ciclopirox Olamine (1 Applic)) 1 applic TOPICAL DAILY PRN Reason: APPLY TO FEET Omeprazole (Prilosec Cap*) 20 mg PO QAM [facility] Reason: Protocol Ondansetron HCl (Zofran Inj*) 4 mg IV Q6H PRN Reason: NAUSEA/VOMITING Oseltamivir Phosphate (Tamiflu Cap*) 75 mg PO BID [facility] Stop: 03/07/17 21:01 Oxycodone HCl (Oxycontin(*)) 10 mg PO Q12HR [facility] Oxycodone HCl (Roxycodone Tab*) 5 mg PO Q4H PRN Reason: PAIN Oxycodone/Acetaminophen (Percocet 5/325 Tab*) 1 tab PO Q4HR PRN Reason: PAIN Phenyleph/Shark Oil/Min Oil/Petrol (Preparation H*) 1 applic [place] QID PRN Reason : hemorrhoids Polyethylene Glycol/Electrolytes (Miralax*) 17 gm PO DAILY [facility] Prednisone (Deltasone Tab*) 40 mg PO DAILY [facility] Stop: 03/08/17 09:01 Valsartan (Diovan Tab*) 320 mg PO DAILY [facility] Zolpidem Tartrate (Ambien Tab*) 10 mg PO BEDTIME PRN Reason: INSOMNIA Vital Signs - 8 hr 03/05/17 03/05/17 03/05/17 09:24 11:56 12:28 Pulse Rate 66 Respiratory 22 20 20 Rate O2 Sat by Pulse 98 Oximetry Oxygen Devices in Use Now: Nasal Cannula Result Diagrams: 03/04/17 06:41 03/04/17 06:41 Additional Lab and Data: Microbiology and Other Data: Microbiology 03/03/17 15:36 Influenza Types A,B Antigen (OLIVER) - Final Nasal Specimen received for Influenza A/B Molecular testing Assess/Plan/Problems-Billing Assessment: Ms. Mckeon is a 67 yo female with PMH significant for COPD, diastolic HF, asthma, HTN, DM, HLD, chronic pain and morbid obesity who presented to the emergency room with complaints of shortness of breath and respiratory distress and was found to have a COPD exacerbation and Influenza A. - Patient Problems (1) COPD exacerbation Code(s): J44.1 - CHRONIC OBSTRUCTIVE PULMONARY DISEASE W (ACUTE) EXACERBATION SNOMED Code(s): 853473981387303 Comment: - Wean O2 as able as she was only on nocturnal oxygen at home. - Continue oral prednisone, ATC/prn nebs, spiriva. - Continue Azithromycin 500mg IV (2) Influenza A Code(s): J10.1 - FLU DUE TO OTH IDENT INFLUENZA VIRUS W OTH RESP MANIFEST SNOMED Code(s): 703581835 Comment: - Blood cultures 1/4 positive for gram positive staph epidermiditis and staph hominis, likely contaminate - Continue Tamiflu (3) Acute respiratory failure with hypoxia Code(s): J96.01 - ACUTE RESPIRATORY FAILURE WITH HYPOXIA SNOMED Code(s): 84106819 Comment: - Suspect in the setting of Influenza and COPD exacerbation - Wean O2 as able - Pt only uses O2 at night at home (4) Electrolyte abnormality Code(s): E87.8 - OTH DISORDERS OF ELECTROLYTE AND FLUID BALANCE, NEC SNOMED Code(s): 579122004 Comment: - Hypomagnesemia - Resolved (5) Abdominal pain Code(s): R10.9 - UNSPECIFIED ABDOMINAL PAIN SNOMED Code(s): 82332217 Comment: - ABD xray shows large amount of stool throughout the colon - Suspect secondary to constipation and coughing - Continue bowel regimen (6) HTN (hypertension) Code(s): I10 - ESSENTIAL (PRIMARY) HYPERTENSION SNOMED Code(s): 56626331 Comment: - Normotensive, SBP 100s-140s - Continue nebivolol and valsartan (7) CHF (congestive heart failure) Code(s): I50.9 - HEART FAILURE, UNSPECIFIED SNOMED Code(s): 01148525 Comment: - Chronic, diastolic, not in acute exacerbation - Continue daily weights and stric I+O's - Continue furosemide, valsartan, Bystolic (8) Chronic pain Code(s): G89.29 - OTHER CHRONIC PAIN SNOMED Code(s): 12017175 Comment: Continue home duloxetine, oxycontin, oxycodone and Soma. (9) Diabetes mellitus type 2, noninsulin dependent Code(s): E11.9 - TYPE 2 DIABETES MELLITUS WITHOUT COMPLICATIONS SNOMED Code(s) : 19684279 Comment: - Controlled, glucose 100-160's - Hold home metformin - Continue Lispro SSI (10) GERD (gastroesophageal reflux disease) Code(s): K21.9 - GASTRO-ESOPHAGEAL REFLUX DISEASE WITHOUT ESOPHAGITIS SNOMED Code(s): 875409532 Comment: - Continue omeprazole. (11) LUPE (obstructive sleep apnea) Code(s): G47.33 - OBSTRUCTIVE SLEEP APNEA (ADULT) (PEDIATRIC) SNOMED Code(s): 45841814 Comment: - Does not use home CPAP - Continue nocturnal O2 2Lnc (12) DVT prophylaxis Code(s): ZPE2057 - SNOMED Code(s): 929170679 Comment: - Lovenox SQ and SCDs (13) Full code status Code(s): Z78.9 - OTHER SPECIFIED HEALTH STATUS SNOMED Code(s): 851293284 Status and Disposition: Inpatient. Discharge to home when medically stable, likely in 1-2 day.
[2017-03-05] MEDS: Albuterol 2.5 MG/3 ML NEB.SOL* (0.083%) INH PRN (20:47)
[2017-03-05] MEDS: Ketorolac INJ* 15 MG/ML 1 ML VIAL IV PUSH PRN (22:23)
[2017-03-06] MEDS: HYDROmorphone INJ* 2 MG/ML CARPUJECT SYRINGE IV SLOW PU PRN ×2 (01:07→09:23)
[2017-03-06 08:27] LABS: Hematocrit 35 % (35-47); Hemoglobin 11.6 g/dl (12.0-16.0); Mean Corpuscular HGB Conc 33 g/dl (31-36); Mean Corpuscular Hemoglobin 28 pg (27-31); Mean Corpuscular Volume 85 fL (80-97); Mean Platelet Volume 8 um3 (7.4-10.4); Red Blood Count 4.15 10^6/ul (4.0-5.4); Red Cell Distribution Width 15 % (10.5-15); White Blood Count 5.8 10^3/ul (3.5-10.8)
[2017-03-06] MEDS: Mometasone/Formoter 200/5 MDI INH SCH ×2 (08:43→19:49)
[2017-03-06 08:44] LABS: BUN/Creatinine Ratio 36.4 (8-20); Calcium 8.7 mg/dL (8.6-10.3); EGFR African American 82.2 (>60); EGFR Non-African American 63.9 (>60); Potassium 4.4 mmol/L (3.5-5.0)
[2017-03-06] MEDS: guaiFENesin ER TAB 600 MG PO SCH ×2 (09:24→19:50)
[2017-03-06] MEDS: predniSONE TAB* 20 MG PO SCH (09:24)
[2017-03-06] MEDS: Furosemide TAB* 40 MG PO SCH (09:24)
[2017-03-06] MEDS: Atorvastatin* 20 MG TAB PO SCH (09:25)
[2017-03-06] MEDS: Aspirin EC Low Dose* 81 MG TAB.EC PO SCH (09:25)
[2017-03-06] MEDS: DULoxetine DR CAP* 20 MG CAP.DR PO SCH (09:25)
[2017-03-06] MEDS: Valsartan TAB* 160 MG PO SCH (09:25)
[2017-03-06] MEDS: CMC:Nebivolol TAB (NF) 2.5 MG TAB PO SCH ×2 (09:26→19:50)
[2017-03-06] MEDS: oxyCODONE SR TAB(*) 10 MG TAB.SR PO SCH ×2 (09:27→19:50)
[2017-03-06] MEDS: Omeprazole CAP* 20 MG PO SCH (09:27)
[2017-03-06] MEDS: Oseltamivir CAP* 75 MG PO SCH ×2 (09:27→19:51)
[2017-03-06] MEDS: Polyethylene Glycol 3350* 17 GM PACKET PO SCH (09:31)
[2017-03-06] MEDS: Azithromycin IV(*) 500 MG in NS 0.9% 250 ML* 250 ML IVPB SCH (09:31)
[2017-03-06] MEDS: Insulin LISPRO* 1 UNITS UNIT SUBCUT SCH ×3 (10:01→17:12)
--- NOTE | 2017-03-06 12:14 | PN ---
Subjective Date of Service: 03/06/17 Interval History: Patient seen and examined at bedside. Denies fever, chills, chest discomfort, N/ V/D. Pt states that she continues to have shortness of breath, but this is improving. Pt also continues to have upper ABD pain from coughing, but this is improving. Pt reports that she is very tired today. Pt will attempt to only use PO pain medication today in preparation for discharge in the AM. Tele: Sinus rhythm, rate 60-70's. Pt noted to have an 11 beat run of non- sustained V tach overnight. Family History: Unchanged from Admission Social History: Unchanged from Admission Past Medical History: Unchanged from Admission Objective Active Medications: Acetaminophen (Tylenol Tab*) 650 mg PO Q4H PRN Reason: FEVER/PAIN Albuterol (Ventolin 2.5 Mg/3 Ml Neb.Rosalie*) 2.5 mg INH Q2H PRN Reason: SOB/ WHEEZING Alprazolam (Xanax Tab*) 1 mg PO TID PRN Reason: ANXIETY Aspirin (Aspirin Ec Low Dose*) 81 mg PO QAM YUE Atorvastatin Calcium (Lipitor*) 20 mg PO QAM YUE Carisoprodol (Soma Tab*) 350 mg PO TID PRN Reason: SPASMS Dextrose (D50w Syringe 50 Ml*) 12.5 gm IV PUSH .FOR FS < 60 - SS PRN Reason: FS < 60 Duloxetine HCl (Cymbalta Cap*) 20 mg PO DAILY YUE Enoxaparin Sodium (Lovenox(*)) 40 mg SUBCUT Q24H YUE Furosemide (Lasix Tab*) 40 mg PO DAILY YUE Guaifenesin (Mucinex*) 600 mg PO BID YUE Hydromorphone HCl (Dilaudid Inj*) 1 mg IV SLOW PU Q4H PRN Reason: PAIN - SEVERE Azithromycin 500 mg/ Sodium (Chloride) 250 mls @ 250 mls/hr IVPB Q24H YUE Insulin Human Lispro (Humalog*) 0 units SUBCUT AC YUE Ketorolac Tromethamine (Toradol Inj*) 15 mg IV PUSH Q6H PRN Reason: PAIN Magnesium Hydroxide (Milk Of Magnesia Liq*) 30 ml PO Q6H PRN Reason: CONSTIPATION Mometasone Furoate/Formoterol Fumar (Dulera 200/5 Mdi*) 1 puff INH BID YUE Nebivolol (Bystolic Tab (Nf)) 10 mg PO BID YUE (Ciclopirox Olamine (1 Applic)) 1 applic TOPICAL DAILY PRN Reason: APPLY TO FEET Omeprazole (Prilosec Cap*) 20 mg PO QAM YUE Ondansetron HCl (Zofran Inj*) 4 mg IV Q6H PRN Reason: NAUSEA/VOMITING Oseltamivir Phosphate (Tamiflu Cap*) 75 mg PO BID YUE Stop: 03/07/17 21:01 Oxycodone HCl (Oxycontin(*)) 10 mg PO Q12HR YUE Oxycodone HCl (Roxycodone Tab*) 5 mg PO Q4H PRN Reason: PAIN Oxycodone/Acetaminophen (Percocet 5/325 Tab*) 1 tab PO Q4HR PRN Reason: PAIN Phenyleph/Shark Oil/Min Oil/Petrol (Preparation H*) 1 applic MT QID PRN Reason : hemorrhoids Polyethylene Glycol/Electrolytes (Miralax*) 17 gm PO DAILY [facility] Prednisone (Deltasone Tab*) 40 mg PO DAILY [facility] Stop: 03/08/17 09:01 Valsartan (Diovan Tab*) 320 mg PO DAILY [facility] Zolpidem Tartrate (Ambien Tab*) 10 mg PO BEDTIME PRN Reason: INSOMNIA Vital Signs - 8 hr 03/06/17 03/06/17 03/06/17 04:12 09:23 09:27 Temperature 98.1 F Pulse Rate 71 Respiratory 18 19 Rate Blood Pressure 131/63 (mmHg) O2 Sat by Pulse 92 Oximetry Oxygen Devices in Use Now: None, Nasal Cannula - 2L overnight Appearance: NAD, laying in bed Ears/Nose/Mouth/Throat: Mucous Membranes Moist Respiratory: Symmetrical Chest Expansion and Respiratory Effort, Clear to Auscultation - , diminished Cardiovascular: NL Sounds; No Murmurs; No JVD, RRR Abdominal: NL Sounds; No Tenderness; No Distention Extremities: No Edema Skin: No Rash or Ulcers Neurological: Alert and Oriented x 3, NL Muscle Strength and Tone Lines/Tubes/Other Access: Clean, Dry and Intact Peripheral IV - site benign Nutrition: Taking PO's Result Diagrams: 03/06/17 07:54 03/06/17 07:54 Additional Lab and Data: Microbiology and Other Data: Microbiology 03/03/17 15:36 Influenza Types A,B Antigen ([facility]IVER) - Final Nasal Specimen received for Influenza A/B Molecular testing Assess/Plan/Problems-Billing Assessment: Ms. Mckeon is a 67 yo female with PMH significant for COPD, diastolic HF, asthma, HTN, DM, HLD, chronic pain and morbid obesity who presented to the emergency room with complaints of shortness of breath and respiratory distress and was found to have a COPD exacerbation and Influenza A. - Patient Problems (1) COPD exacerbation Code(s): J44.1 - CHRONIC OBSTRUCTIVE PULMONARY DISEASE W (ACUTE) EXACERBATION SNOMED Code(s): 592761168698375 Comment: - Continue oral prednisone, ATC/prn nebs, spiriva. - Continue Azithromycin 500mg (change to PO), day 3/ (2) Influenza A Code(s): J10.1 - FLU DUE TO OTH IDENT INFLUENZA VIRUS W OTH RESP MANIFEST SNOMED Code(s): 466309126 Comment: - Blood cultures / positive for gram positive staph epidermiditis and staph hominis, likely contaminate - Continue Tamiflu (3) Acute respiratory failure with hypoxia Code(s): J96.01 - ACUTE RESPIRATORY FAILURE WITH HYPOXIA SNOMED Code(s): 05252968 Comment: - resolved - Suspect in the setting of Influenza and COPD exacerbation - Pt only uses O2 at night at home (4) Electrolyte abnormality Code(s): E87.8 - OTH DISORDERS OF ELECTROLYTE AND FLUID BALANCE, NEC SNOMED Code(s): 299023967 Comment: - Hypomagnesemia - Resolved (5) Abdominal pain Code(s): R10.9 - UNSPECIFIED ABDOMINAL PAIN SNOMED Code(s): 28575499 Comment: - Improving - ABD xray shows large amount of stool throughout the colon - Suspect secondary to constipation and coughing - Continue bowel regimen (6) HTN (hypertension) Code(s): I10 - ESSENTIAL (PRIMARY) HYPERTENSION SNOMED Code(s): 43403848 Comment: - Normotensive, SBP 110s-130s - Continue nebivolol and valsartan (7) CHF (congestive heart failure) Code(s): I50.9 - HEART FAILURE, UNSPECIFIED SNOMED Code(s): 18819219 Comment: - Chronic, diastolic, not in acute exacerbation - Continue daily weights and strict I+O's - Continue furosemide, valsartan, Bystolic (8) Chronic pain Code(s): G89.29 - OTHER CHRONIC PAIN SNOMED Code(s): 89237534 Comment: - Continue home duloxetine, oxycontin, oxycodone and Soma. (9) Diabetes mellitus type 2, noninsulin dependent Code(s): E11.9 - TYPE 2 DIABETES MELLITUS WITHOUT COMPLICATIONS SNOMED Code(s) : 94457514 Comment: - Controlled, glucose 90-130's - Hold home metformin - Continue Lispro SSI (10) GERD (gastroesophageal reflux disease) Code(s): K21.9 - GASTRO-ESOPHAGEAL REFLUX DISEASE WITHOUT ESOPHAGITIS SNOMED Code(s): 256601720 Comment: - Continue omeprazole. (11) LUPE (obstructive sleep apnea) Code(s): G47.33 - OBSTRUCTIVE SLEEP APNEA (ADULT) (PEDIATRIC) SNOMED Code(s): 11818198 Comment: - Does not use home CPAP - Continue nocturnal O2 2Lnc (12) DVT prophylaxis Code(s): NRG3183 - SNOMED Code(s): 464850121 Comment: - Lovenox SQ and SCDs (13) Full code status Code(s): Z78.9 - OTHER SPECIFIED HEALTH STATUS SNOMED Code(s): 266839410 Status and Disposition: Inpatient. Discharge to home when medically stable, likely in the AM.
[2017-03-06] MEDS: Enoxaparin(*) 40 MG/0.4 ML SYR SUBCUT SCH (17:12)
[2017-03-06] MEDS: oxyCODONE TAB* 5 MG TAB PO PRN (17:12)
[2017-03-06 19:06] LABS: Rapid HIV INT CONT QC Line Present
[2017-03-06] MEDS: Ketorolac INJ* 15 MG/ML 1 ML VIAL IV PUSH PRN (19:52)
[2017-03-06 20:26] LABS: Rapid HIV Kit Lot# H080007
[2017-03-06] MEDS: oxyCODONE/Acetamin 5/325 MG* TAB PO PRN (20:29)
[2017-03-06] MEDS: Zolpidem TAB* 10 MG PO PRN (21:34)
[2017-03-07] MEDS: Mometasone/Formoter 200/5 MDI INH SCH ×2 (08:27→19:52)
[2017-03-07] MEDS: guaiFENesin ER TAB 600 MG PO SCH ×2 (08:40→20:05)
[2017-03-07] MEDS: Atorvastatin* 20 MG TAB PO SCH (08:40)
[2017-03-07] MEDS: predniSONE TAB* 20 MG PO SCH (08:40)
[2017-03-07] MEDS: Omeprazole CAP* 20 MG PO SCH (08:40)
[2017-03-07] MEDS: CMC:Nebivolol TAB (NF) 2.5 MG TAB PO SCH ×2 (08:41→21:51)
[2017-03-07] MEDS: oxyCODONE SR TAB(*) 10 MG TAB.SR PO SCH ×2 (08:41→20:08)
[2017-03-07] MEDS: Aspirin EC Low Dose* 81 MG TAB.EC PO SCH (08:41)
[2017-03-07] MEDS: Valsartan TAB* 160 MG PO SCH (08:42)
[2017-03-07] MEDS: DULoxetine DR CAP* 20 MG CAP.DR PO SCH (08:42)
[2017-03-07] MEDS: Oseltamivir CAP* 75 MG PO SCH ×2 (08:42→20:06)
[2017-03-07] MEDS: Furosemide TAB* 40 MG PO SCH (08:42)
[2017-03-07] MEDS: Azithromycin TAB* 250 MG PO SCH (08:42)
[2017-03-07] MEDS: Insulin LISPRO* 1 UNITS UNIT SUBCUT SCH ×3 (08:47→17:07)
[2017-03-07] MEDS: Polyethylene Glycol 3350* 17 GM PACKET PO SCH (08:47)
[2017-03-07] MEDS: oxyCODONE/Acetamin 5/325 MG* TAB PO PRN ×3 (09:16→20:09)
[2017-03-07] MEDS: Ketorolac INJ* 15 MG/ML 1 ML VIAL IV PUSH PRN (09:17)
--- NOTE | 2017-03-07 10:33 | PN ---
Subjective Date of Service: 03/07/17 Interval History: Patient seen and examined at bedside. Ms. Mckeon reports improvement but is concerned that she feels short of breath and more wheezy this morning. She is afraid to go home this evening because no one will be able to check in on her. She denies fever/chills; body aches and abd pain are improving. She endorses a more productive cough. Denies CP. No other complaints. Family History: Unchanged from Admission Social History: Unchanged from Admission Past Medical History: Unchanged from Admission Objective Active Medications: Acetaminophen (Tylenol Tab*) 650 mg PO Q4H PRN PRN Reason: FEVER/PAIN Last Admin: 03/03/17 16:39 Dose: 650 mg Albuterol (Ventolin 2.5 Mg/3 Ml Neb.Rosalie*) 2.5 mg INH Q2H PRN PRN Reason: SOB/WHEEZING Last Admin: 03/05/17 20:47 Dose: 2.5 mg Alprazolam (Xanax Tab*) 1 mg PO TID PRN PRN Reason: ANXIETY Aspirin (Aspirin Ec Low Dose*) 81 mg PO QAM [facility] Last Admin: 03/07/17 08:41 Dose: 81 mg Atorvastatin Calcium (Lipitor*) 20 mg PO QAM [facility] Last Admin: 03/07/17 08:40 Dose: 20 mg Azithromycin (Zithromax Tab*) 500 mg PO DAILY [facility] Stop: 03/09/17 08:59 Last Admin: 03/07/17 08:42 Dose: 500 mg Carisoprodol (Soma Tab*) 350 mg PO TID PRN PRN Reason: SPASMS Dextrose (D50w Syringe 50 Ml*) 12.5 gm IV PUSH .FOR FS < 60 - SS PRN PRN Reason: FS < 60 Duloxetine HCl (Cymbalta Cap*) 20 mg PO DAILY [facility] Last Admin: 03/07/17 08:42 Dose: 20 mg Enoxaparin Sodium (Lovenox(*)) 40 mg SUBCUT Q24H [facility] Last Admin: 03/06/17 17:12 Dose: 40 mg Furosemide (Lasix Tab*) 40 mg PO DAILY [facility] Last Admin: 03/07/17 08:42 Dose: 40 mg Guaifenesin (Mucinex*) 600 mg PO BID [facility] Last Admin: 03/07/17 08:40 Dose: 600 mg Insulin Human Lispro (Humalog*) 0 units SUBCUT AC [facility] PRN Reason: Protocol Last Admin: 03/07/17 08:47 Dose: Not Given Ketorolac Tromethamine (Toradol Inj*) 15 mg IV PUSH Q6H PRN PRN Reason: PAIN Last Admin: 03/07/17 09:17 Dose: 15 mg Magnesium Hydroxide (Milk Of Magnesia Liq*) 30 ml PO Q6H PRN PRN Reason: CONSTIPATION Last Admin: 03/04/17 20:50 Dose: 30 ml Mometasone Furoate/Formoterol Fumar (Dulera 200/5 Mdi*) 1 puff INH BID [facility] PRN Reason: Protocol Last Admin: 03/07/17 08:27 Dose: Not Given Nebivolol (Bystolic Tab (Nf)) 10 mg PO BID [facility] Last Admin: 03/07/17 08:41 Dose: 10 mg (Ciclopirox Olamine (1 Applic)) 1 applic TOPICAL DAILY PRN PRN Reason: APPLY TO FEET Omeprazole (Prilosec Cap*) 20 mg PO QAM [facility] PRN Reason: Protocol Last Admin: 03/07/17 08:40 Dose: 20 mg Ondansetron HCl (Zofran Inj*) 4 mg IV Q6H PRN PRN Reason: NAUSEA/VOMITING Oseltamivir Phosphate (Tamiflu Cap*) 75 mg PO BID [facility] Stop: 03/07/17 21:01 Last Admin: 03/07/17 08:42 Dose: 75 mg Oxycodone HCl (Oxycontin(*)) 10 mg PO Q12HR [facility] Last Admin: 03/07/17 08:41 Dose: 10 mg Oxycodone HCl (Roxycodone Tab*) 5 mg PO Q4H PRN PRN Reason: PAIN Last Admin: 03/06/17 17:12 Dose: 5 mg Oxycodone/Acetaminophen (Percocet 5/325 Tab*) 1 tab PO Q4HR PRN PRN Reason: PAIN Last Admin: 03/07/17 09:16 Dose: 1 tab Phenyleph/Shark Oil/Min Oil/Petrol (Preparation H*) 1 applic UT QID PRN PRN Reason: hemorrhoids Polyethylene Glycol/Electrolytes (Miralax*) 17 gm PO DAILY [facility] Last Admin: 03/07/17 08:47 Dose: Not Given Prednisone (Deltasone Tab*) 40 mg PO DAILY [facility] Stop: 03/08/17 09:01 Last Admin: 03/07/17 08:40 Dose: 40 mg Valsartan (Diovan Tab*) 320 mg PO DAILY YUE Last Admin: 03/07/17 08:42 Dose: 320 mg Zolpidem Tartrate (Ambien Tab*) 10 mg PO BEDTIME PRN PRN Reason: INSOMNIA Last Admin: 03/06/17 21:34 Dose: 10 mg Vital Signs - 8 hr 03/07/17 03/07/17 03/07/17 08:08 08:41 09:16 Temperature 98.4 F Pulse Rate 75 Respiratory 16 16 18 Rate Blood Pressure 141/76 (mmHg) O2 Sat by Pulse 96 Oximetry Oxygen Devices in Use Now: Nasal Cannula - 2Lnc overnight Appearance: Older female, lying in bed, NAD Eyes: No Scleral Icterus Ears/Nose/Mouth/Throat: Clear Oropharnyx, Mucous Membranes Moist Neck: NL Appearance and Movements; NL JVP Respiratory: Symmetrical Chest Expansion and Respiratory Effort, Clear to Auscultation - diminished Cardiovascular: NL Sounds; No Murmurs; No JVD, RRR Abdominal: NL Sounds; No Tenderness; No Distention Extremities: No Edema, No Clubbing, Cyanosis Neurological: Alert and Oriented x 3 Lines/Tubes/Other Access: Clean, Dry and Intact Peripheral IV Nutrition: Taking PO's Result Diagrams: 03/06/17 07:54 03/06/17 07:54 Additional Lab and Data: Microbiology and Other Data: Microbiology 03/03/17 15:36 Influenza Types A,B Antigen ([facility]) - Final Nasal Specimen received for Influenza A/B Molecular testing Assess/Plan/Problems-Billing Assessment: Ms. Mckeon is a 67 yo female with PMH significant for COPD, diastolic HF, asthma, HTN, DM, HLD, chronic pain and morbid obesity who presented to the emergency room with complaints of shortness of breath and respiratory distress and was found to have a COPD exacerbation and Influenza A. - Patient Problems (1) COPD exacerbation Code(s): J44.1 - CHRONIC OBSTRUCTIVE PULMONARY DISEASE W (ACUTE) EXACERBATION Comment: - Continue oral prednisone, ATC/prn nebs, spiriva. - Continue Azithromycin 500mg (change to PO), day 4/5 (2) Influenza A Code(s): J10.1 - FLU DUE TO OTH IDENT INFLUENZA VIRUS W OTH RESP MANIFEST Comment: - Blood cultures 1/4 positive for gram positive staph epidermiditis and staph hominis, likely contaminate - Continue Tamiflu (3) Acute respiratory failure with hypoxia Code(s): J96.01 - ACUTE RESPIRATORY FAILURE WITH HYPOXIA Comment: - resolved - Suspect in the setting of Influenza and COPD exacerbation - Pt only uses O2 at night at home (4) Electrolyte abnormality Code(s): E87.8 - OTH DISORDERS OF ELECTROLYTE AND FLUID BALANCE, NEC Comment: - Hypomagnesemia - Resolved (5) Abdominal pain Code(s): R10.9 - UNSPECIFIED ABDOMINAL PAIN Comment: - Improving - ABD xray shows large amount of stool throughout the colon - Suspect secondary to constipation and coughing - Continue bowel regimen (6) HTN (hypertension) Code(s): I10 - ESSENTIAL (PRIMARY) HYPERTENSION Comment: - Normotensive, SBP 110s-130s - Continue nebivolol and valsartan (7) CHF (congestive heart failure) Code(s): I50.9 - HEART FAILURE, UNSPECIFIED Comment: - Chronic, diastolic, not in acute exacerbation - Continue daily weights and strict I+O's - Continue furosemide, valsartan, Bystolic (8) Chronic pain Code(s): G89.29 - OTHER CHRONIC PAIN Comment: - Continue home duloxetine, oxycontin, oxycodone and Soma. (9) Diabetes mellitus type 2, noninsulin dependent Code(s): E11.9 - TYPE 2 DIABETES MELLITUS WITHOUT COMPLICATIONS Comment: - Controlled, glucose 90-130's - Hold home metformin - Continue Lispro SSI (10) GERD (gastroesophageal reflux disease) Code(s): K21.9 - GASTRO-ESOPHAGEAL REFLUX DISEASE WITHOUT ESOPHAGITIS Comment : - Continue omeprazole. (11) LUPE (obstructive sleep apnea) Code(s): G47.33 - OBSTRUCTIVE SLEEP APNEA (ADULT) (PEDIATRIC) Comment: - Does not use home CPAP - Continue nocturnal O2 2Lnc (12) DVT prophylaxis Priority: Medium Comment: - Lovenox SQ and SCDs (13) Full code status Code(s): Z78.9 - OTHER SPECIFIED HEALTH STATUS Status and Disposition: Inpatient. Anticipate d/c to home tomorrow.
[2017-03-07] MEDS: oxyCODONE TAB* 5 MG TAB PO PRN ×2 (13:02→20:13)
[2017-03-07] MEDS: Enoxaparin(*) 40 MG/0.4 ML SYR SUBCUT SCH (15:54)
[2017-03-07] MEDS: Zolpidem TAB* 10 MG PO PRN (21:50)
[2017-03-08 07:56] VITALS: BP 158/75
[2017-03-08] MEDS: Mometasone/Formoter 200/5 MDI INH SCH (08:49)
[2017-03-08] MEDS: Insulin LISPRO* 1 UNITS UNIT SUBCUT SCH ×2 (08:57→12:56)
[2017-03-08] MEDS: oxyCODONE TAB* 5 MG TAB PO PRN (09:54)
[2017-03-08] MEDS: oxyCODONE/Acetamin 5/325 MG* TAB PO PRN (09:55)
[2017-03-08] MEDS: oxyCODONE SR TAB(*) 10 MG TAB.SR PO SCH (09:55)
[2017-03-08] MEDS: Atorvastatin* 20 MG TAB PO SCH (09:56)
[2017-03-08] MEDS: CMC:Nebivolol TAB (NF) 2.5 MG TAB PO SCH (09:56)
[2017-03-08] MEDS: guaiFENesin ER TAB 600 MG PO SCH (09:56)
[2017-03-08] MEDS: Valsartan TAB* 160 MG PO SCH (09:56)
[2017-03-08] MEDS: DULoxetine DR CAP* 20 MG CAP.DR PO SCH (09:56)
[2017-03-08] MEDS: Aspirin EC Low Dose* 81 MG TAB.EC PO SCH (09:56)
[2017-03-08] MEDS: Furosemide TAB* 40 MG PO SCH (09:56)
[2017-03-08] MEDS: Omeprazole CAP* 20 MG PO SCH (09:57)
[2017-03-08] MEDS: Azithromycin TAB* 250 MG PO SCH (09:57)
[2017-03-08] MEDS: predniSONE TAB* 20 MG PO SCH (09:57)
[2017-03-08] MEDS: Polyethylene Glycol 3350* 17 GM PACKET PO SCH (09:59)
--- NOTE | 2017-03-08 10:40 | DCNOTE ---
Subjective Date of Service: 03/08/17 Interval History: Patient seen and examined at bedside. Patient reports continued cough at time uncontrollable. She feels slight better than yesterday and agreeable for discharge. Family History: Unchanged from Admission Social History: Unchanged from Admission Past Medical History: Unchanged from Admission Objective Active Medications: Acetaminophen (Tylenol Tab*) 650 mg PO Q4H PRN Albuterol (Ventolin 2.5 Mg/3 Ml Neb.Rosalie*) 2.5 mg INH Q2H PRN Alprazolam (Xanax Tab*) 1 mg PO TID PRN Aspirin (Aspirin Ec Low Dose*) 81 mg PO QAM YUE Atorvastatin Calcium (Lipitor*) 20 mg PO QAM YUE Azithromycin (Zithromax Tab*) 500 mg PO DAILY YUE Carisoprodol (Soma Tab*) 350 mg PO TID PRN Duloxetine HCl (Cymbalta Cap*) 20 mg PO DAILY YUE Enoxaparin Sodium (Lovenox(*)) 40 mg SUBCUT Q24H YUE Furosemide (Lasix Tab*) 40 mg PO DAILY YUE Guaifenesin (Mucinex*) 600 mg PO BID YUE Insulin Human Lispro (Humalog*) 0 units SUBCUT AC YUE Ketorolac Tromethamine (Toradol Inj*) 15 mg IV PUSH Q6H PRN Magnesium Hydroxide (Milk Of Magnesia Liq*) 30 ml PO Q6H PRN Mometasone Furoate/Formoterol Fumar (Dulera 200/5 Mdi*) 1 puff INH BID YUE Nebivolol (Bystolic Tab (Nf)) 10 mg PO BID YUE (Ciclopirox Olamine (1 Applic)) 1 applic TOPICAL DAILY PRN Omeprazole (Prilosec Cap*) 20 mg PO QAM YUE Ondansetron HCl (Zofran Inj*) 4 mg IV Q6H PRN Oxycodone HCl (Oxycontin(*)) 10 mg PO Q12HR YEU Oxycodone HCl (Roxycodone Tab*) 5 mg PO Q4H PRN Oxycodone/Acetaminophen (Percocet 5/325 Tab*) 1 tab PO Q4HR PRN Phenyleph/Shark Oil/Min Oil/Petrol (Preparation H*) 1 applic HI QID PRN Polyethylene Glycol/Electrolytes (Miralax*) 17 gm PO DAILY YUE Valsartan (Diovan Tab*) 320 mg PO DAILY YUE Zolpidem Tartrate (Ambien Tab*) 10 mg PO BEDTIME PRN Vital Signs Temp Pulse Resp BP Pulse Ox 98.0 F 66 16 158/75 99 03/08/17 07:48 03/08/17 07:48 03/08/17 09:55 03/08/17 07:48 03/08/17 07:48 Oxygen Devices in Use Now: Nasal Cannula Appearance: sitting up in chair, NAD Eyes: No Scleral Icterus, PERRLA Ears/Nose/Mouth/Throat: NL Teeth, Lips, Gums Neck: NL Appearance and Movements; NL JVP Respiratory: Symmetrical Chest Expansion and Respiratory Effort, - - wheeze heard bilaterally Cardiovascular: NL Sounds; No Murmurs; No JVD, RRR Abdominal: NL Sounds; No Tenderness; No Distention Extremities: No Edema Skin: No Rash or Ulcers Neurological: Alert and Oriented x 3, NL Muscle Strength and Tone Lines/Tubes/Other Access: Clean, Dry and Intact Peripheral IV Nutrition: Taking PO's Result Diagrams: 03/06/17 07:54 03/06/17 07:54 Additional Lab and Data: . Microbiology and Other Data: . Assess/Plan/Problems-Billing Ms. Mckeon is a 67 yo female with PMH significant for COPD, diastolic HF, asthma, HTN, DM, HLD, chronic pain and morbid obesity who presented to the emergency room with complaints of shortness of breath and respiratory distress and was found to have a COPD exacerbation and Influenza A. - Patient Problems (1) COPD exacerbation (2) Influenza A Comment: Blood cultures 1/4 positive for gram positive staph epidermidis and staph hominis, likely contaminate. Continue Tamiflu (3) Acute respiratory failure with hypoxia Current Visit: Yes Comment: Resolved. Suspect in the setting of Influenza and COPD exacerbation. Pt only uses O2 at night at home (4) Abdominal pain Comment: Improved. Moving bowels. Continue bowel regimen. (5) Electrolyte abnormality Comment: Hypomagnesemia - Resolved (6) HTN (hypertension) Comment: Normotensive, SBP 110s-130s. Continue nebivolol and valsartan (7) CHF (congestive heart failure) Comment: Chronic, diastolic, not in acute exacerbation. Continue daily weights and strict I+O's. Continue furosemide, valsartan, Bystolic (8) Chronic pain Comment: Continue home duloxetine, oxycontin, oxycodone and Soma. (9) Diabetes mellitus type 2, noninsulin dependent Comment: Controlled, glucose 90-130's. Hold home metformin. Continue Lispro SSI (10) GERD (gastroesophageal reflux disease) Comment: Continue omeprazole. (11) LUPE (obstructive sleep apnea) Comment: Does not use home CPAP. Continue nocturnal O2 2Lnc (12) DVT prophylaxis Comment: Lovenox SQ and SCDs (13) Full code status Status and Disposition: Inpatient. Stable to be discharged home.
--- NOTE | 2017-03-09 02:50 | DS ---
CC: Dr. Lara; Dr. Avalos * DISCHARGE SUMMARY: DATE OF ADMISSION: 03/03/17 DATE OF DISCHARGE: 03/08/17 PRIMARY CARE PROVIDER: Dr. Donavan Lara. SECURITIES SUPERVISOR: Dr. Avalos. ATTENDING PHYSICIAN: Dr. Sharon Burton * (report dictated by Darshana Hogue NP) PRIMARY DIAGNOSES: 1. Chronic obstructive pulmonary disease exacerbation. 2. Influenza A. SECONDARY DIAGNOSES: 1. Severe obstructive sleep apnea on nocturnal oxygen. 2. Diastolic heart failure. 3. Asthma. 4. Hypertension. 5. Type 2 diabetes. 6. Hyperlipidemia. 7. Chronic pain. 8. Osteoarthritis. STUDIES WHILE IN THE HOSPITAL: 1. Chest x-ray portable 03/03/17: Low lung volumes, no active cardiopulmonary disease. 2. Abdomen KUB 03/03/17: Nonspecific bowel gas pattern with large amount of stool throughout the colon. MEDICATIONS AT DISCHARGE: New medications: 1. Mucinex 600 mg oral twice daily. 2. MiraLax 17 g oral daily. 3. Prednisone 10 mg tablets 4 tablets for 2 days, 3 tablets for 2 days, 2 tablets for 2 days and 1 tablet for 2 days and then stop. The following are medications the patient came in on: 1. Aspirin 81 mg oral daily. 2. Ambien 5-10 mg oral at bedtime as needed. 3. Drisdol 52009 units oral every 2 weeks. 4. Zocor 40 mg oral daily. 5. Nexium 40 mg oral daily. 6. Percocet 10/325 one tablet oral as needed. 7. OxyContin 10 mg oral 12 hours. 8. Advair HFA 115/21 one puff inhaled twice daily. 9. Ventolin nebulizer 1 neb every 6 hours as needed. 10. Ciclopirox olamine one application topical every day as needed. 11. Xanax 1 mg oral 3 times daily as needed. 12. Ventolin HFA 2 puffs inhaled every 6 hours as needed. 13. Soma 350 mg oral 3 times daily as needed. 14. Cymbalta 20 mg oral daily. 15. Lasix 40 mg oral daily. 16. Preparation H, one application rectal 4 times daily as needed. 17. Bystolic 10 mg oral twice daily. 18. Diovan 320 mg oral daily. HISTORY OF PRESENT ILLNESS AND HOSPITAL COURSE: Ms. Mckeon is a 67-year- old female with a history of COPD, who presented to the emergency room on with a complaint of worsening shortness of breath and cough. In the emergency room, the patient's chest x-ray did not show any acute pathology, yet she was hypoxic. She received DuoNeb and albuterol and Lasix and was admitted to the medical floor further treatment. The patient was hollingsworth cultured upon admission. The patient was found to be positive for influenza A and started on Tamiflu. In addition, the patient was also started on oral prednisone and Zithromax. The patient was supplied with supplemental oxygen as needed. The patient completed a 5-day course of Zithromax as well as 4 days of 40 mg of prednisone. With this therapy, the patient's respiratory rate and breathing gradually improved. She was continued on nebulizer treatment. She was given Mucinex to help with her cough. On 03/08, the patient's breathing had improved significantly and she was stable to be discharged home. During the patient's hospitalization, the patient was maintained on oral Lasix for diastolic heart failure. She was not in a heart failure exacerbation and weight remained stable. She was hypomagnesemic upon admission and magnesium was repleted. The patient also complained of left- sided abdominal pain and appeared to have severe constipation. She is at high risk of this given her regular use of narcotics. Milk of magnesia and MiraLax allowed her to start having regular bowel movements and I have recommended she continue MiraLax at home daily. For her hypertension, her Diovan was continued and blood pressure was controlled. For diabetes, oral medication regimen was held during the hospitalization and blood sugar was controlled with Lispro coverage. Oral medications will be started at discharge. For her chronic pain, OxyContin was continued and she received her home dose of Percocet as needed. On 03/08/17, vitals were as follows: Temperature 98, heart rate 99, respiratory rate 16, oxygen saturation 99% on room air, blood pressure 158/75. At this point, she was stable for discharge. DISCHARGE PLAN: The patient was discharged on a consistent carb diet. The patient can have activity as tolerated. The patient should follow up with her primary care provider Dr. Lara within 5 to 7 days. The patient has been instructed to return to the hospital if she experiences worsening shortness of breath or high fever. I have reviewed all the instructions with the patient, she is agreeable with her discharge today. This is a summarized report of a complex medical history and hospital stay. For more details, please see the entire medical record. TIME SPENT: Time for this discharge was 60 minutes and 35 minutes were spent with the patient discussing medications at discharge and followup instructions. CONDITION ON DISCHARGE: Stable. DARSHANA HOGUE NP [id number]/CPS #: [id number] JAY
== END 2017-03-08 12:35 | disposition home or self-care (01) | DRG 189 ==
LOC: ED 12:03 → MED 14:52 → OBSVTOIN 03-04 09:58
PROVIDERS: ADMIT Internal Medicine; ATTEND Hospitalist
DX: J96.01 Acute respiratory failure with hypoxia (principal); I50.32 Chronic diastolic (congestive) heart failure; I11.0 Hypertensive heart disease with heart failure; E66.01 Morbid (severe) obesity due to excess calories; Z99.81 Dependence on supplemental oxygen; Z68.42 Body mass index [BMI] 45.0-49.9, adult; J44.1 Chronic obstructive pulmonary disease with (acute) exacerbation; G47.33 Obstructive sleep apnea (adult) (pediatric); E11.9 Type 2 diabetes mellitus without complications; I25.10 Atherosclerotic heart disease of native coronary artery without angina pectoris; E78.00 Pure hypercholesterolemia, unspecified; M19.90 Unspecified osteoarthritis, unspecified site; K21.9 Gastro-esophageal reflux disease without esophagitis; Z96.653 Presence of artificial knee joint, bilateral; E55.9 Vitamin D deficiency, unspecified; M81.0 Age-related osteoporosis without current pathological fracture; F41.9 Anxiety disorder, unspecified; K59.00 Constipation, unspecified; F32.9 Major depressive disorder, single episode, unspecified; G89.29 Other chronic pain; M54.5 Low back pain; H26.9 Unspecified cataract; H91.90 Unspecified hearing loss, unspecified ear; E83.42 Hypomagnesemia; E78.5 Hyperlipidemia, unspecified; J10.1 Influenza due to other identified influenza virus with other respiratory manifestations; Z82.49 Family history of ischemic heart disease and other diseases of the circulatory system; Z83.3 Family history of diabetes mellitus; Z80.1 Family history of malignant neoplasm of trachea, bronchus and lung; Z88.5 Allergy status to narcotic agent; Z88.0 Allergy status to penicillin; Z88.2 Allergy status to sulfonamides; Z88.8 Allergy status to other drugs, medicaments and biological substances; Z87.891 Personal history of nicotine dependence
CPT/HCPCS: 36415; 71010; 74000; 80048; 80053; 81003; 81015; 83605; 83735; 83880; 84443; 84484; 85025; 85379; 85610; 85730; 86140; 86703; 86803; 87040; 87077; 87150; 87205; 87340; 87502; 93005; 94640; 94760; 96365; 96366; 96375; 96376; 99284; A9270-GY; G0378; J0456; J1100; J1170; J1650; J1885; J1940; J3475; J7512

== ENCOUNTER 2017-05-30 11:00 | Inpatient (IN) | payer MEDICARE, MEDICAID ==
[2017-05-30] MEDS ORDERED: methylPREDNISolone 125 MG* 2 ML VIAL IV ONE (11:45)
[2017-05-30] MEDS: Albuterol/Ipratropium NEB.SOL* Albuterol 2.5 MG/Ipratropium 0.5 MG 3 ML INH SCH ×2 (11:58→19:32)
[2017-05-30] MEDS ORDERED: Ketorolac INJ* 30 MG/ML 1 ML VIAL IV PUSH ONE (12:58)
[2017-05-30 13:00] LABS: ABS Basophils 0 10^3/ul (0-0.2); ABS Eosinophils 0.4 10^3/ul (0-0.6); ABS Lymphocytes 2.9 10^3/ul (1.0-4.8); ABS Monocytes 0.9 10^3/ul (0-0.8); ABS Neutrophils 4.8 10^3/ul (1.5-7.7); ABS Nucleated RBC 0 10^3/ul; Eosinophil % 3.9 % (0-6); Hematocrit 34 % (35-47); Hemoglobin 11.2 g/dl (12.0-16.0); Mean Corpuscular HGB Conc 33 g/dl (31-36); Mean Corpuscular Hemoglobin 28 pg (27-31); Mean Corpuscular Volume 87 fL (80-97); Mean Platelet Volume 8 um3 (7.4-10.4); Nucleated Red Blood Cells % 0; Platelet Count 217 10^3/ul (150-450); Red Blood Count 3.96 10^6/ul (4.0-5.4); Red Cell Distribution Width 14 % (10.5-15)
--- NOTE | 2017-05-30 13:00 | RAD ---
INDICATION: Short of breath COMPARISON: March 03, 2017 TECHNIQUE: An AP portable view obtained at 1230 hours is submitted. FINDINGS: Bones/Soft Tissues: There are no acute bony findings. Cardiomediastinal: The cardiomediastinal silhouette is normal. Lungs: There is mild bibasilar airspace disease likely related to hypoventilation. Pleura: There are no pleural effusions. Other: None IMPRESSION: MILD BIBASILAR HYPOVENTILATION. NO DEFINITE INFILTRATES.
[2017-05-30 13:17] LABS: EGFR Non-African American 71.3 (>60)
[2017-05-30] MEDS ORDERED: HYDROcodone/ACETAMIN 5-325 MG* 1 TAB PO ONE (13:37)
[2017-05-30] MEDS ORDERED: HYDROcodone/ACETAMIN 5-325 MG* 1 TAB ONE (14:47)
[2017-05-30] MEDS ORDERED: oxyCODONE/Acetamin 10/325(NF) TAB PO PRN (15:26)
[2017-05-30] MEDS ORDERED: Albuterol HFA INHALER* 8 gm MDI INH PRN (15:26)
[2017-05-30] MEDS ORDERED: Hemorrhoidal OINT PR PRN (15:26)
[2017-05-30] MEDS ORDERED: Dextrose 50% Syringe 50 ML* 25 GM/50 ML SYRINGE IV PUSH PRN (15:52)
[2017-05-30] MEDS: Levofloxacin 500 MG IVPREMIX(* 500 MG/100 ML BAG IVPB SCH (16:40)
[2017-05-30] MEDS: Heparin VIAL(*) 5000 UNITS/ML VIAL (FIVE THOUSAND) SUBCUT SCH ×2 (16:41→21:55)
[2017-05-30] MEDS: oxyCODONE TAB* 5 MG TAB PO PRN (16:42)
[2017-05-30] MEDS: Insulin LISPRO* 1 UNITS UNIT SUBCUT SCH ×2 (17:57→21:54)
[2017-05-30] MEDS: Mometasone/Formoter 200/5 MDI INH SCH (19:33)
--- NOTE | 2017-05-30 21:43 | HP ---
CC: Dr. Lara* ADMISSION HISTORY AND PHYSICAL: DATE OF ADMISSION: 05/30/17 ATTENDING FOR THIS ADMISSION: Smith Ortega MD* (dictated by Jeannie Witt NP). PRIMARY CARE PHYSICIAN: Donavan Lara MD PRIMARY GAS FITTER APPRENTICE: Kimberly Avalos MD CHIEF COMPLAINT: Shortness of breath x3 days. HISTORY OF PRESENT ILLNESS: This is a very pleasant -[place] female, age 67 years, who has a longstanding history of COPD and hypoxic respiratory failure. The patient is a known patient of Dr. Avalos. She is oxygen dependent at home at night; however, for the past 3 days, she felt like her shortness of breath was increasing as was her sputum production. She was having trouble sleeping. She does have documented obstructive sleep apnea, but has consistently refused CPAP. The patient states she did not increase her oxygen and start wearing it during the day. She was just trying to get through with increasing her albuterol treatments, nebulizer treatments, etc. The patient does state that she has had the flu 2 months ago and that she feels like her breathing has been a bit off since having the flu and being treated for that. She did have an exacerbation of COPD back in February of this year and then influenza 2 months ago and then now having some shortness of breath again. At this point, she reports significant shortness of breath with wheezing, relieved by nothing, aggravated with exertion. She denies any chest pain, although she did state she woke up this morning with a right-sided shoulder pain, which was new that was limiting her range of motion. She denies any stuffy nose of rhinorrhea. She does have a cough productive of sputum intermittently. Denies any fever, fatigue, or chills. Denies nausea, vomiting. No abdominal pain. No urinary complaints and no further constitutional complaints. The patient came to the emergency department to be evaluated because she stated that her shortness of breath was so bad that she could not remain at home. Her chest x- ray does not reveal any acute infectious process. It does not appear that she has any infiltrates. She does not have a white count and no fevers. It would seem that her increase in her shortness of breath is secondary to her COPD likely and acute exacerbation and also noncompliance with recommendations for use of CPAP at night. PAST MEDICAL HISTORY: Again significant for COPD; hypoxic respiratory rate with oxygen use 2 L of nasal cannula q.h.s.; obstructive sleep apnea, not using CPAP; heart failure with preserved systolic function; history of hypertension; type 2 diabetes; hyperlipidemia; chronic pain syndrome, does treat with pain management; chronic osteoarthritis, which is likely the culprit for her chronic pain; history of small bowel obstruction in the past; osteoporosis and morbid obesity with BMI of a 45.3. PAST SURGICAL HISTORY: Includes resection for bowel obstruction and bilateral total knee replacements and benign breast biopsies. MEDICATIONS: At home include: 1. Metolazone 2.5 mg daily. 2. Ipratropium 0.5 mg q.4 hours as needed. 3. Albuterol sulfate q.6 hours as needed. 4. Codeine with guaifenesin 5 to 10 mL p.o. q.4 hours as needed. 5. Mucinex tablets 600 mg 2 times a day as needed. 6. MiraLAX 17 g daily. 7. Preparation H 4 times a day as needed. 8. Low-dose aspirin 81 mg a day. 9. Albuterol metered dose inhaler 2 puffs q.6 hours as needed for shortness of breath. 10. Valsartan 320 mg daily. 11. Ergocalciferol 50,000 units every 14 days. 12. Nexium 40 mg daily. 13. Alendronate 70 mg p.o. weekly. 14. Lasix 40 mg daily. 15. Metformin 500 mg daily. 16. Bystolic 10 mg 2 times a day. 17. Zocor 40 mg daily. 18. Advair 115/21 one puff 2 times a day. 19. Cymbalta 40 mg daily. 20. Loprox 0.77% topical daily as needed. 21. Terbinafine 250 mg daily. 22. Xanax 1 mg 3 times a day as needed. 23. Oxycodone/acetaminophen dosage is 10/325 one tablet every 4 hours as needed. 24. Sustained release oxycodone 10 mg q.12 hours. 25. Ambien 5 mg at bedtime. 26. Soma 350 mg 3 times a day as needed. ALLERGIES: The patient has allergies to FENTANYL, MORPHINE, PENICILLIN, SULFAS , BACTRIM, and ETHANOL. SOCIAL HISTORY: The patient reports [id number] history in the past. She quit approximately 13 to 14 years ago. Denies any alcohol use. No illicit drug use. Her sister, Michaela, is her emergency contact and her surrogate decision maker. FAMILY HISTORY: Significant for mother with lung cancer, hypertension, diabetes. Father also with lung cancer, hypertension, and diabetes, also with coronary artery disease. Also, the patient has direct siblings with diabetes and a brother with sudden cardiac secondary to IA under the age of 50. REVIEW OF SYSTEMS: A 10-point review of systems is negative except as noted in the HPI. PHYSICAL EXAMINATION GENERAL: The patient is awake and alert, work of breath is increasing. She seems anxious and wheezy. VITAL SIGNS: Currently, blood pressure 119/63, heart rate 84, respiratory rate 14 to 20, satting at 98% on 4 L nasal cannula. HEENT: The patient is atraumatic, normocephalic. PERRLA with nonicteric sclerae. Of significance, her dentition is poor. She is edentulous. NECK: Supple, nontender. No JVD noted. No thyromegaly appreciated. LUNGS: Severely diminished bilaterally, half way up the bases with an audible wheeze up through the apices primarily upon expiration. CARDIOVASCULAR: S1, S2 are present. No murmurs, gallops, or rubs. Rate and rhythm are regular. No ectopy noted on telemetry. ABDOMEN: Soft, nontender, nondistended, obese. No organomegaly noted. No abdominal pains with palpation. : Deferred. MUSCULOSKELETAL: There is no clubbing and no cyanosis. She has trace bipedal edema. Some point tenderness bilaterally over the knees. This is her baseline. She has +2 distal pulses palpable. NEUROLOGIC: She is grossly intact with no focal deficits. She is alert and oriented x3. PSYCHIATRIC: She is cooperative and appropriate. LABORATORY DATA: Laboratories on this admission: WBC is 9.0, RBC is 3.96, hemoglobin 12.2, hematocrit 34, platelets 217. Sodium 138, potassium 4.3, chloride 103, CO2 29, BUN 18, creatinine 0.8, GFR is 91.7, glucose 119. Lactic acid 1.3. Calcium 8.8. Bilirubin 0.3, AST 20, ALT 11, alk phos 96. Creatine kinase 427, CK- MB is 2.6. Myoglobin 24.8. Troponin is negative at 0.00. CRP is 8.08. BNP is 46. Total protein 7.1. Albumin 3.9, globulin 3.2. IMAGING: Chest x-ray has noted no acute cardiopulmonary process. IMPRESSION: This is a 67-year-old female with severe restrictive lung disease and also history of diastolic heart disease. The patient has had consistent shortness of breath, which is likely due to exacerbation of her chronic obstructive pulmonary disease. PLAN: The patient has been admitted to inpatient service. She has received in the ER at this point 125 mg of Solu-Medrol, pain medication, and breathing treatment. At this point, I am not convinced that she has viral bronchitis; however, I think she is probably lingering since having her flu 2 months ago. As such and also with these body aches but without fever, I feel that it would be warranted to keep her on an antibiotic. She has been on azithromycin several times in the past, which has not helped her at all, so we will place her on Levaquin 500 mg daily IV. Continue her on IV steroids with Solu-Medrol 40 mg q.8 hours and then transition her to p.o. prednisone for taper dose. I will change her to DuoNebs q.6 hours scheduled, albuterol q.4 hours as needed for rescue inhaler. Continue her Mucinex 600 mg 2 times a day. Continue her on oxygen for her diagnosis of acute hypoxic respiratory failure. Again, the patient has refused CPAP in the past. I think it is warranted to continue to monitor her respiratory status closely for apnea and continue her on oxygen round the clock as opposed to just at nighttime and titrate and wean as we can. For her history of diastolic heart failure, she is on metolazone and Lasix. These will be continued. Her BNP is below 100 and her chest x-ray does not appear to be showing any pulmonary congestion. So, we will just continue her on her maintenance meds and follow her daily weights to ensure she does not have some flash failure. For her chronic pain, she will be continued on her home medications. For her diabetes, we will hold her metformin, place her on lispro sliding scale with consistent carb diet and blood sugars a.c., h.s. DVT prophylaxis: She will be on heparin 5000 q.8 hours and of significant note, she is a full code and as stated earlier, her sister, Michaela, is her medical proxy. The rest of the patient's course will be determined by further diagnostics, laboratories and any other input from other providers as warranted during this admission. We will continue to follow the patient closely. If she does not begin to improve in the next 24 hours, we should consider consulting Pulmonology to see if the patient's medications need to be titrated per Pulmonology recommendations. TIME SPENT: Time spent on this has been greater than 60 minutes, most of which has been [id number] with the patient, evaluating the chart and implementing plan of care. This plan of care has been discussed with Dr. Smith Ortega, the attending on this case, and he is in agreement with this plan. JEANNIE WITT NP [id number]/CPS #: [id number] MTDD
[2017-05-30] MEDS: oxyCODONE SR TAB(*) 10 MG TAB.SR PO SCH (21:54)
[2017-05-30] MEDS: methylPREDNISolone SOD 40 MG* 1 ML VIAL IV SCH (21:54)
[2017-05-30] MEDS: guaiFENesin ER TAB 600 MG PO SCH (21:54)
[2017-05-30] MEDS: NEBIVOLOL 10 MG PO SCH (21:56)
[2017-05-30] MEDS: oxyCODONE/Acetamin 5/325 MG* TAB PO PRN (22:07)
[2017-05-31] MEDS: Albuterol/Ipratropium NEB.SOL* Albuterol 2.5 MG/Ipratropium 0.5 MG 3 ML INH SCH ×4 (00:30→19:50)
[2017-05-31] MEDS ORDERED: CMCS: Melatonin (NF) 3 MG TAB PO PRN (01:31)
[2017-05-31] MEDS: oxyCODONE TAB* 5 MG TAB PO PRN ×3 (01:56→20:16)
[2017-05-31] MEDS: ALPRAZolam TAB* 0.5 MG PO PRN ×3 (02:04→22:03)
[2017-05-31] MEDS ORDERED: Benzocaine/Menthol LOZ* 1 LOZENGE MT PRN (02:14)
[2017-05-31] MEDS: methylPREDNISolone SOD 40 MG* 1 ML VIAL IV SCH (05:53)
[2017-05-31] MEDS: Heparin VIAL(*) 5000 UNITS/ML VIAL (FIVE THOUSAND) SUBCUT SCH ×3 (05:53→22:04)
[2017-05-31] MEDS: oxyCODONE/Acetamin 5/325 MG* TAB PO PRN ×3 (05:53→20:17)
[2017-05-31] MEDS: Mometasone/Formoter 200/5 MDI INH SCH ×2 (07:13→19:51)
[2017-05-31 07:34] LABS: Hematocrit 37 % (35-47); Hemoglobin 11.5 g/dl (12.0-16.0); Mean Corpuscular HGB Conc 31 g/dl (31-36); Mean Corpuscular Hemoglobin 29 pg (27-31); Mean Corpuscular Volume 92 fL (80-97); Mean Platelet Volume 9 um3 (7.4-10.4); Platelet Count 173 10^3/ul (150-450); Red Blood Count 3.99 10^6/ul (4.0-5.4); Red Cell Distribution Width 15 % (10.5-15); White Blood Count 7.2 10^3/ul (3.5-10.8)
[2017-05-31 08:07] LABS: EGFR Non-African American 75.7 (>60)
[2017-05-31 08:11] LABS: ABS Basophils 0 10^3/ul (0-0.2); ABS Eosinophils 0 10^3/ul (0-0.6); ABS Lymphocytes 0.9 10^3/ul (1.0-4.8); ABS Monocytes 0.3 10^3/ul (0-0.8); ABS Nucleated RBC 0 10^3/ul; Eosinophil % 0.1 % (0-6); Lymphocyte % 12.2 % (25-47); Nucleated Red Blood Cells % 0
[2017-05-31] MEDS ORDERED: Ergocalciferol CAP* 50000 UNIT PO SCH (09:00)
[2017-05-31] MEDS: Insulin LISPRO* 1 UNITS UNIT SUBCUT SCH ×4 (10:02→21:54)
[2017-05-31] MEDS: Valsartan TAB* 160 MG PO SCH (10:07)
[2017-05-31] MEDS: Metolazone TAB* 5 MG PO SCH (10:07)
[2017-05-31] MEDS: Aspirin EC Low Dose* 81 MG TAB.EC PO SCH (10:08)
[2017-05-31] MEDS: guaiFENesin ER TAB 600 MG PO SCH ×2 (10:08→20:18)
[2017-05-31] MEDS: DULoxetine DR CAP* 20 MG CAP.DR PO SCH (10:09)
[2017-05-31] MEDS: Furosemide TAB* 40 MG PO SCH (10:09)
[2017-05-31] MEDS: oxyCODONE SR TAB(*) 10 MG TAB.SR PO SCH ×2 (10:09→22:03)
[2017-05-31] MEDS: Polyethylene Glycol 3350* 17 GM PACKET PO SCH (10:11)
[2017-05-31 10:17] LABS: Urine Appearance Clear; Urine Blood Negative (Negative); Urine Color Yellow; Urine Ketones Negative (Negative); Urine Protein Negative (Negative); Urine Urobilinogen Negative (Negative)
[2017-05-31] MEDS: NEBIVOLOL 10 MG PO SCH ×2 (12:15→22:05)
--- NOTE | 2017-05-31 13:26 | PN ---
Subjective Date of Service: 05/31/17 Interval History: Non-productive cough. No subj change overnight. Objective Active Medications: Albuterol (Ventolin Hfa Inhaler*) 2 puff INH Q6H PRN PRN Reason: SOB/WHEEZING Albuterol/Ipratropium (Duoneb (Albuterol 2.5 Mg/Ipratropium 0.5 Mg)) 1 neb INH [id number] AWAKE [facility] Last Admin: 05/31/17 07:13 Dose: 1 neb Alprazolam (Xanax Tab*) 1 mg PO TID PRN PRN Reason: ANXIETY Last Admin: 05/31/17 02:04 Dose: 1 mg Aspirin (Aspirin Ec Low Dose*) 81 mg PO QAM [facility] Last Admin: 05/31/17 10:08 Dose: 81 mg Benzonatate (Tessalon Cap*) 200 mg PO BID [facility] Carisoprodol (Soma Tab*) 350 mg PO TID PRN PRN Reason: SPASMS Dextrose (D50w Syringe 50 Ml*) 12.5 gm IV PUSH .FOR FS < 60 - SS PRN PRN Reason: FS < 60 Duloxetine HCl (Cymbalta Cap*) 40 mg PO DAILY [facility] Last Admin: 05/31/17 10:09 Dose: 40 mg Ergocalciferol (Drisdol Cap*) 50,000 unit PO Q14D [facility] Last Admin: 05/31/17 10:10 Dose: 50,000 unit Furosemide (Lasix Tab*) 40 mg PO DAILY [facility] Last Admin: 05/31/17 10:09 Dose: 40 mg Guaifenesin (Mucinex*) 600 mg PO BID [facility] Last Admin: 05/31/17 10:08 Dose: 600 mg Heparin Sodium (Porcine) (Heparin Vial(*)) 5,000 units SUBCUT Q8HR [facility] Last Admin: 05/31/17 05:53 Dose: 5,000 units Levofloxacin/Dextrose (Levaquin 500 Mg Ivpremix(*)) 500 mg in 100 mls @ 100 mls /hr IVPB Q24H [facility] Last Admin: 05/30/17 16:40 Dose: 100 mls/hr Insulin Human Lispro (Humalog*) 0 units SUBCUT ACHS YUE PRN Reason: Protocol Last Admin: 05/31/17 13:03 Dose: 3 units Methylprednisolone Sodium Succinate (Solu-Medrol 40 Mg) 40 mg IV Q8H [facility] Last Admin: 05/31/17 05:53 Dose: 40 mg Metolazone (Zaroxolyn Tab*) 2.5 mg PO DAILY [facility] Last Admin: 05/31/17 10:07 Dose: 2.5 mg Mometasone Furoate/Formoterol Fumar (Dulera 200/5 Mdi*) 1 puff INH BID [facility] PRN Reason: Protocol Last Admin: 05/31/17 07:13 Dose: 1 puff Nebivolol (Bystolic (Nf)) 10 mg PO BID [facility] Last Admin: 05/31/17 12:15 Dose: Not Given (Terbinafine Hcl [ Terbinafine Hcl] 250 Mg) 250 mg PO DAILY [facility] Oxycodone HCl (Oxycontin(*)) 10 mg PO Q12HR [facility] Last Admin: 05/31/17 10:09 Dose: 10 mg Oxycodone HCl (Roxycodone Tab*) 5 mg PO Q4H PRN PRN Reason: PAIN Last Admin: 05/31/17 13:03 Dose: 5 mg Oxycodone/Acetaminophen (Percocet 5/325 Tab*) 1 tab PO Q4H PRN PRN Reason: PAIN Last Admin: 05/31/17 13:02 Dose: 1 tab Phenyleph/Shark Oil/Min Oil/Petrol (Preparation H*) 1 applic KS QID PRN PRN Reason: hemorrhoids Polyethylene Glycol/Electrolytes (Miralax*) 17 gm PO DAILY [facility] Last Admin: 05/31/17 10:11 Dose: Not Given Throat Lozenges (Chloraseptic Delphine*) 1 delphine MT Q6H PRN PRN Reason: SORE THROAT Last Admin: 05/31/17 03:03 Dose: 1 delphine Valsartan (Diovan Tab*) 320 mg PO DAILY [facility] Last Admin: 05/31/17 10:07 Dose: 320 mg Vital Signs - 8 hr 05/31/17 05/31/17 05/31/17 05:53 07:10 07:40 Temperature 97.4 F Pulse Rate 84 91 Respiratory 20 20 Rate Blood Pressure 146/80 (mmHg) O2 Sat by Pulse 97 99 Oximetry 05/31/17 05/31/17 05/31/17 08:00 10:09 10:16 Temperature Pulse Rate Respiratory 20 20 20 Rate Blood Pressure (mmHg) O2 Sat by Pulse Oximetry 05/31/17 05/31/17 05/31/17 13:02 13:03 13:05 Temperature Pulse Rate Respiratory 22 22 22 Rate Blood Pressure (mmHg) O2 Sat by Pulse Oximetry Oxygen Devices in Use Now: Nasal Cannula Appearance: Alert, partly up in bed enjoying her lunch. In good spirits. Looks comfortable. Eyes: No Scleral Icterus Neck: NL Appearance and Movements; NL JVP, No Thyroid Enlargement, Masses Respiratory: Symmetrical Chest Expansion and Respiratory Effort, Clear to Percussion, - - moderated wheezing ? from upper airway Extremities: No Edema, No Clubbing, Cyanosis, - Skin: No Rash or Ulcers, No Nodules or Sclerosis, - Neurological: Alert and Oriented x 3, NL Sensation Result Diagrams: 05/31/17 06:36 05/31/17 09:23 Assess/Plan/Problems-Billing Assessment: - Patient Problems (1) COPD exacerbation Current Visit: No Status: Acute Priority: High Onset Date: 05/29/14 Code (s): J44.1 - CHRONIC OBSTRUCTIVE PULMONARY DISEASE W (ACUTE) EXACERBATION SNOMED Code(s): 167749116432474 Comment: Continue bronchodilators, levofloxacin. Change to po prednisone. (2) LUPE (obstructive sleep apnea) Current Visit: No Status: Chronic Code(s): G47.33 - OBSTRUCTIVE SLEEP APNEA (ADULT) (PEDIATRIC) SNOMED Code(s): 82922954 Comment: Does not use home CPAP. Continue nocturnal O2 2Lnc (3) Diabetes mellitus type 2, noninsulin dependent Current Visit: No Status: Chronic Priority: Medium Code(s): E11.9 - TYPE 2 DIABETES MELLITUS WITHOUT COMPLICATIONS SNOMED Code(s): 34217940 Comment: Hold home metformin. Continue Lispro SSI (4) Chronic pain Current Visit: No Status: Chronic Priority: Medium Code(s): G89.29 - OTHER CHRONIC PAIN SNOMED Code(s): 45437050 Comment: Continue home duloxetine, oxycontin, oxycodone and Soma. (5) Morbid obesity Current Visit: Yes Status: Acute Code(s): E66.01 - MORBID (SEVERE) OBESITY DUE TO EXCESS CALORIES SNOMED Code(s): 764813211 Comment: BMI 47.4
[2017-05-31] MEDS: Levofloxacin 500 MG IVPREMIX(* 500 MG/100 ML BAG IVPB SCH (15:52)
[2017-05-31] MEDS: (Terbinafine Hcl [Terbinafine Hcl] 250 MG) PO SCH (15:58)
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
[2017-05-31] MEDS: Benzonatate CAP* 100 MG PO SCH (20:16)
[2017-05-31] MEDS ORDERED: MELATONIN 3 MG PO SCH (22:00)
[2017-06-01] MEDS: Albuterol/Ipratropium NEB.SOL* Albuterol 2.5 MG/Ipratropium 0.5 MG 3 ML INH SCH ×4 (00:58→19:25)
[2017-06-01] MEDS: oxyCODONE TAB* 5 MG TAB PO PRN ×5 (02:27→21:51)
[2017-06-01] MEDS: oxyCODONE/Acetamin 5/325 MG* TAB PO PRN ×5 (02:28→21:52)
[2017-06-01] MEDS: Heparin VIAL(*) 5000 UNITS/ML VIAL (FIVE THOUSAND) SUBCUT SCH ×3 (05:59→21:54)
[2017-06-01 07:07] LABS: EGFR Non-African American 84.6 (>60)
[2017-06-01 07:11] LABS: ABS Basophils 0 10^3/ul (0-0.2); ABS Eosinophils 0 10^3/ul (0-0.6); ABS Lymphocytes 1.3 10^3/ul (1.0-4.8); ABS Nucleated RBC 0 10^3/ul; Eosinophil % 0.5 % (0-6); Hematocrit 33 % (35-47); Hemoglobin 11.1 g/dl (12.0-16.0); Mean Corpuscular HGB Conc 34 g/dl (31-36); Mean Corpuscular Hemoglobin 29 pg (27-31); Mean Corpuscular Volume 85 fL (80-97); Mean Platelet Volume 8 um3 (7.4-10.4); Nucleated Red Blood Cells % 0.1; Platelet Count 223 10^3/ul (150-450); Red Blood Count 3.87 10^6/ul (4.0-5.4); Red Cell Distribution Width 14 % (10.5-15); White Blood Count 8.3 10^3/ul (3.5-10.8)
[2017-06-01] MEDS: Mometasone/Formoter 200/5 MDI INH SCH ×2 (07:38→19:25)
[2017-06-01] MEDS: Insulin LISPRO* 1 UNITS UNIT SUBCUT SCH ×4 (07:42→20:54)
[2017-06-01] MEDS ORDERED: predniSONE TAB* 20 MG PO SCH (09:00)
[2017-06-01] MEDS ORDERED: predniSONE TAB* 50 MG PO ONE (09:02)
--- NOTE | 2017-06-01 09:06 | PN ---
Subjective Date of Service: 06/01/17 Interval History: C/O annoying dry cough that interferes with her sleep. She has only gotten OOB to go to the [place]. Objective Active Medications: Albuterol (Ventolin Hfa Inhaler*) 2 puff INH Q6H PRN PRN Reason: SOB/WHEEZING Albuterol/Ipratropium (Duoneb (Albuterol 2.5 Mg/Ipratropium 0.5 Mg)) 1 neb INH [id number] AWAKE [facility] Last Admin: 06/01/17 07:37 Dose: 1 neb Alprazolam (Xanax Tab*) 1 mg PO TID PRN PRN Reason: ANXIETY Last Admin: 05/31/17 22:03 Dose: 1 mg Aspirin (Aspirin Ec Low Dose*) 81 mg PO QAM [facility] Last Admin: 05/31/17 10:08 Dose: 81 mg Benzonatate (Tessalon Cap*) 200 mg PO BID [facility] Last Admin: 05/31/17 20:16 Dose: 200 mg Carisoprodol (Soma Tab*) 350 mg PO TID PRN PRN Reason: SPASMS Dextrose (D50w Syringe 50 Ml*) 12.5 gm IV PUSH .FOR FS < 60 - SS PRN PRN Reason: FS < 60 Duloxetine HCl (Cymbalta Cap*) 40 mg PO DAILY [facility] Last Admin: 05/31/17 10:09 Dose: 40 mg Ergocalciferol (Drisdol Cap*) 50,000 unit PO Q14D [facility] Last Admin: 05/31/17 10:10 Dose: 50,000 unit Furosemide (Lasix Tab*) 40 mg PO DAILY [facility] Last Admin: 05/31/17 10:09 Dose: 40 mg Guaifenesin (Mucinex*) 600 mg PO BID [facility] Last Admin: 05/31/17 20:18 Dose: 600 mg Heparin Sodium (Porcine) (Heparin Vial(*)) 5,000 units SUBCUT Q8HR [facility] Last Admin: 06/01/17 05:59 Dose: 5,000 units Levofloxacin/Dextrose (Levaquin 500 Mg Ivpremix(*)) 500 mg in 100 mls @ 100 mls /hr IVPB Q24H [facility] Last Admin: 05/31/17 15:52 Dose: 100 mls/hr Insulin Human Lispro (Humalog*) 0 units SUBCUT ACHS [facility] PRN Reason: Protocol Last Admin: 06/01/17 07:42 Dose: Not Given Metolazone (Zaroxolyn Tab*) 2.5 mg PO DAILY [facility] Last Admin: 05/31/17 10:07 Dose: 2.5 mg Mometasone Furoate/Formoterol Fumar (Dulera 200/5 Mdi*) 1 puff INH BID [facility] PRN Reason: Protocol Last Admin: 06/01/17 07:38 Dose: 1 puff Nebivolol (Bystolic (Nf)) 10 mg PO BID [facility] Last Admin: 05/31/17 22:05 Dose: Not Given (Terbinafine Hcl [ Terbinafine Hcl] 250 Mg) 250 mg PO DAILY [facility] Last Admin: 05/31/17 15:58 Dose: Not Given Oxycodone HCl (Oxycontin(*)) 10 mg PO Q12HR [facility] Last Admin: 05/31/17 22:03 Dose: 10 mg Oxycodone HCl (Roxycodone Tab*) 5 mg PO Q4H PRN PRN Reason: PAIN Last Admin: 06/01/17 06:36 Dose: 5 mg Oxycodone/Acetaminophen (Percocet 5/325 Tab*) 1 tab PO Q4H PRN PRN Reason: PAIN Last Admin: 06/01/17 06:36 Dose: 1 tab Phenyleph/Shark Oil/Min Oil/Petrol (Preparation H*) 1 applic SD QID PRN PRN Reason: hemorrhoids Polyethylene Glycol/Electrolytes (Miralax*) 17 gm PO DAILY [facility] Last Admin: 05/31/17 10:11 Dose: Not Given Prednisone (Deltasone Tab*) 60 mg PO DAILY [facility] Throat Lozenges (Chloraseptic Delphine*) 1 delphine MT Q6H PRN PRN Reason: SORE THROAT Last Admin: 05/31/17 03:03 Dose: 1 delphine Valsartan (Diovan Tab*) 320 mg PO DAILY [facility] Last Admin: 05/31/17 10:07 Dose: 320 mg Vital Signs - 8 hr 06/01/17 06/01/17 06/01/17 02:23 02:27 02:28 Temperature 97.8 F Pulse Rate 94 Respiratory 20 16 16 Rate Blood Pressure 148/96 (mmHg) O2 Sat by Pulse 93 Oximetry 06/01/17 06/01/17 06/01/17 02:29 06:01 06:36 Temperature Pulse Rate Respiratory 16 16 16 Rate Blood Pressure (mmHg) O2 Sat by Pulse Oximetry 06/01/17 06/01/17 07:18 07:39 Temperature 97.8 F Pulse Rate 75 81 Respiratory 16 20 Rate Blood Pressure 146/80 (mmHg) O2 Sat by Pulse 97 96 Oximetry Oxygen Devices in Use Now: Nasal Cannula Appearance: Alert, partly up in bed. In fair spirits. Looks comfortable. Eyes: No Scleral Icterus Neck: NL Appearance and Movements; NL JVP, No Thyroid Enlargement, Masses Respiratory: Symmetrical Chest Expansion and Respiratory Effort, Clear to Percussion, - - upper airway wheezing sounds Cardiovascular: NL Sounds; No Murmurs; No JVD, RRR, No Edema, - Extremities: No Edema, No Clubbing, Cyanosis, - Skin: No Rash or Ulcers, No Nodules or Sclerosis, - Neurological: Alert and Oriented x 3, NL Sensation Result Diagrams: 06/01/17 06:44 06/01/17 06:40 Assess/Plan/Problems-Billing Assessment: - Patient Problems (1) COPD exacerbation Current Visit: No Status: Acute Priority: High Onset Date: 05/29/14 Code (s): J44.1 - CHRONIC OBSTRUCTIVE PULMONARY DISEASE W (ACUTE) EXACERBATION SNOMED Code(s): 762598293315847 Comment: Continue bronchodilators, levofloxacin. Rapid taper po prednisone. Add scheduled gauifenesin DM. (2) LUPE (obstructive sleep apnea) Current Visit: No Status: Chronic Code(s): G47.33 - OBSTRUCTIVE SLEEP APNEA (ADULT) (PEDIATRIC) SNOMED Code(s): 51837662 Comment: Does not use home CPAP. Continue nocturnal O2 2Lnc (3) Diabetes mellitus type 2, noninsulin dependent Current Visit: No Status: Chronic Priority: Medium Code(s): E11.9 - TYPE 2 DIABETES MELLITUS WITHOUT COMPLICATIONS SNOMED Code(s): 30979793 Comment: Hold home metformin. Continue Lispro SSI (4) Chronic pain Current Visit: No Status: Chronic Priority: Medium Code(s): G89.29 - OTHER CHRONIC PAIN SNOMED Code(s): 52574111 Comment: Continue home duloxetine, oxycontin, oxycodone and Soma. (5) Morbid obesity Current Visit: Yes Status: Acute Code(s): E66.01 - MORBID (SEVERE) OBESITY DUE TO EXCESS CALORIES SNOMED Code(s): 197882589 Comment: BMI 47.4
[2017-06-01] MEDS: guaiFENesin ER TAB 600 MG PO SCH ×2 (09:32→21:51)
[2017-06-01] MEDS: DULoxetine DR CAP* 20 MG CAP.DR PO SCH (09:33)
[2017-06-01] MEDS: Valsartan TAB* 160 MG PO SCH (09:33)
[2017-06-01] MEDS: Benzonatate CAP* 100 MG PO SCH ×2 (09:33→20:16)
[2017-06-01] MEDS: oxyCODONE SR TAB(*) 10 MG TAB.SR PO SCH ×2 (09:33→20:16)
[2017-06-01] MEDS: NEBIVOLOL 10 MG PO SCH ×2 (09:34→20:17)
[2017-06-01] MEDS: Metolazone TAB* 5 MG PO SCH (09:34)
[2017-06-01] MEDS: Aspirin EC Low Dose* 81 MG TAB.EC PO SCH (09:34)
[2017-06-01] MEDS: Furosemide TAB* 40 MG PO SCH (09:34)
[2017-06-01] MEDS: Polyethylene Glycol 3350* 17 GM PACKET PO SCH (09:39)
[2017-06-01] MEDS: (Terbinafine Hcl [Terbinafine Hcl] 250 MG) PO SCH (09:39)
[2017-06-01] MEDS: GuaiFENesin DM sugar free* 5 ML UDC PO SCH ×3 (11:20→21:51)
[2017-06-01] MEDS: Carisoprodol TAB* 350 MG PO PRN (12:31)
[2017-06-01] MEDS: Levofloxacin 500 MG IVPREMIX(* 500 MG/100 ML BAG IVPB SCH (16:14)
[2017-06-01] MEDS: Zolpidem TAB* 10 MG PO PRN (21:53)
[2017-06-01] MEDS: ALPRAZolam TAB* 0.5 MG PO PRN (21:53)
[2017-06-02] MEDS: Albuterol/Ipratropium NEB.SOL* Albuterol 2.5 MG/Ipratropium 0.5 MG 3 ML INH SCH ×4 (00:59→19:25)
[2017-06-02] MEDS: GuaiFENesin DM sugar free* 5 ML UDC PO SCH ×4 (03:27→22:03)
[2017-06-02] MEDS: oxyCODONE/Acetamin 5/325 MG* TAB PO PRN ×4 (03:28→21:28)
[2017-06-02] MEDS: oxyCODONE TAB* 5 MG TAB PO PRN ×4 (03:28→21:27)
[2017-06-02] MEDS: ALPRAZolam TAB* 0.5 MG PO PRN ×2 (04:42→21:27)
[2017-06-02] MEDS: Heparin VIAL(*) 5000 UNITS/ML VIAL (FIVE THOUSAND) SUBCUT SCH ×3 (05:32→21:28)
[2017-06-02] MEDS: Mometasone/Formoter 200/5 MDI INH SCH ×2 (07:26→19:26)
[2017-06-02] MEDS ORDERED: predniSONE TAB* 20 MG PO SCH (09:00)
[2017-06-02] MEDS: Insulin LISPRO* 1 UNITS UNIT SUBCUT SCH ×4 (09:04→22:01)
[2017-06-02] MEDS: NEBIVOLOL 10 MG PO SCH ×2 (09:16→21:26)
[2017-06-02] MEDS: Metolazone TAB* 5 MG PO SCH (09:17)
[2017-06-02] MEDS: Benzonatate CAP* 100 MG PO SCH ×2 (09:18→20:32)
[2017-06-02] MEDS: DULoxetine DR CAP* 20 MG CAP.DR PO SCH (09:19)
[2017-06-02] MEDS: Furosemide TAB* 40 MG PO SCH (09:19)
[2017-06-02] MEDS: guaiFENesin ER TAB 600 MG PO SCH ×2 (09:20→20:33)
[2017-06-02] MEDS: Valsartan TAB* 160 MG PO SCH (09:20)
[2017-06-02] MEDS: Aspirin EC Low Dose* 81 MG TAB.EC PO SCH (09:21)
[2017-06-02] MEDS: oxyCODONE SR TAB(*) 10 MG TAB.SR PO SCH ×2 (09:22→20:33)
[2017-06-02] MEDS: Polyethylene Glycol 3350* 17 GM PACKET PO SCH (09:24)
--- NOTE | 2017-06-02 10:14 | PN ---
Subjective Date of Service: 06/02/17 Interval History: Somewhat better today. Still some cough and chronic VILLA. No new c/o. Objective Active Medications: Albuterol (Ventolin Hfa Inhaler*) 2 puff INH Q6H PRN PRN Reason: SOB/WHEEZING Albuterol/Ipratropium (Duoneb (Albuterol 2.5 Mg/Ipratropium 0.5 Mg)) 1 neb INH [id number] [facility]WAKE [facility] Last Admin: 06/02/17 07:26 Dose: 1 neb Alprazolam (Xanax Tab*) 1 mg PO TID PRN PRN Reason: ANXIETY Last Admin: 06/02/17 04:42 Dose: 1 mg Aspirin (Aspirin Ec Low Dose*) 81 mg PO QAM [facility] Last Admin: 06/02/17 09:21 Dose: 81 mg Benzonatate (Tessalon Cap*) 200 mg PO BID [facility] Last Admin: 06/02/17 09:18 Dose: 200 mg Carisoprodol (Soma Tab*) 350 mg PO TID PRN PRN Reason: SPASMS Last Admin: 06/01/17 12:31 Dose: 350 mg Dextrose (D50w Syringe 50 Ml*) 12.5 gm IV PUSH .FOR FS < 60 - SS PRN PRN Reason: FS < 60 Duloxetine HCl (Cymbalta Cap*) 40 mg PO DAILY [facility] Last Admin: 06/02/17 09:19 Dose: 40 mg Ergocalciferol (Drisdol Cap*) 50,000 unit PO Q14D [facility] Last Admin: 05/31/17 10:10 Dose: 50,000 unit Furosemide (Lasix Tab*) 40 mg PO DAILY [facility] Last Admin: 06/02/17 09:19 Dose: 40 mg Guaifenesin (Mucinex*) 600 mg PO BID [facility] Last Admin: 06/02/17 09:20 Dose: 600 mg Guaifenesin/Dextromethorphan (Robitussin Dm Sugar Free*) 10 ml PO Q6H [facility] Last Admin: 06/02/17 09:23 Dose: 10 ml Heparin Sodium (Porcine) (Heparin Vial(*)) 5,000 units SUBCUT Q8HR [facility] Last Admin: 06/02/17 05:32 Dose: 5,000 units Insulin Human Lispro (Humalog*) 0 units SUBCUT ACHS [facility] PRN Reason: Protocol Last Admin: 06/02/17 09:04 Dose: Not Given Levofloxacin (Levaquin Tab*) 500 mg PO 1600 [facility] Metolazone (Zaroxolyn Tab*) 2.5 mg PO DAILY [facility] Last Admin: 06/02/17 09:17 Dose: 2.5 mg Mometasone Furoate/Formoterol Fumar (Dulera 200/5 Mdi*) 1 puff INH BID [facility] PRN Reason: Protocol Last Admin: 06/02/17 07:26 Dose: 1 puff Nebivolol (Bystolic (Nf)) 10 mg PO BID [facility] Last Admin: 06/02/17 09:16 Dose: 10 mg (Terbinafine Hcl [ Terbinafine Hcl] 250 Mg) 250 mg PO DAILY [facility] Last Admin: 06/01/17 09:39 Dose: Not Given Oxycodone HCl (Oxycontin(*)) 10 mg PO Q12HR [facility] Last Admin: 06/02/17 09:22 Dose: Not Given Oxycodone HCl (Roxycodone Tab*) 5 mg PO Q4H PRN PRN Reason: PAIN Last Admin: 06/02/17 03:28 Dose: 5 mg Oxycodone/Acetaminophen (Percocet 5/325 Tab*) 1 tab PO Q4H PRN PRN Reason: PAIN Last Admin: 06/02/17 03:28 Dose: 1 tab Phenyleph/Shark Oil/Min Oil/Petrol (Preparation H*) 1 applic AR QID PRN PRN Reason: hemorrhoids Polyethylene Glycol/Electrolytes (Miralax*) 17 gm PO DAILY [facility] Last Admin: 06/02/17 09:24 Dose: Not Given Prednisone (Deltasone Tab*) 40 mg PO DAILY [facility] Stop: 06/02/17 15:00 Last Admin: 06/02/17 09:22 Dose: 40 mg Prednisone (Deltasone Tab*) 30 mg PO DAILY [facility] Throat Lozenges (Chloraseptic Delphine*) 1 delphine MT Q6H PRN PRN Reason: SORE THROAT Last Admin: 05/31/17 03:03 Dose: 1 delphine Valsartan (Diovan Tab*) 320 mg PO DAILY [facility] Last Admin: 06/02/17 09:20 Dose: 320 mg Zolpidem Tartrate (Ambien Tab*) 5 mg PO BEDTIME PRN PRN Reason: INSOMNIA Last Admin: 06/01/17 21:53 Dose: 5 mg Vital Signs - 8 hr 06/02/17 06/02/17 06/02/17 03:10 03:28 04:42 Temperature 97.8 F Pulse Rate 74 Respiratory 20 16 16 Rate Blood Pressure 142/72 (mmHg) O2 Sat by Pulse 95 Oximetry 06/02/17 06/02/17 06/02/17 05:54 07:27 07:41 Temperature Pulse Rate 72 Respiratory 16 20 20 Rate Blood Pressure 123/68 (mmHg) O2 Sat by Pulse 99 Oximetry 06/02/17 09:03 Temperature Pulse Rate Respiratory 20 Rate Blood Pressure (mmHg) O2 Sat by Pulse Oximetry Oxygen Devices in Use Now: Nasal Cannula Appearance: Alert, partly up in bed. In good spirits. Looks comfortable. Eyes: No Scleral Icterus Respiratory: Symmetrical Chest Expansion and Respiratory Effort, Clear to Percussion, - - mild wheezing BL Cardiovascular: RRR Extremities: No Edema, No Clubbing, Cyanosis, - Skin: No Rash or Ulcers, No Nodules or Sclerosis, - Neurological: Alert and Oriented x 3, NL Sensation Result Diagrams: 06/01/17 06:44 06/01/17 06:40 Assess/Plan/Problems-Billing Assessment: - Patient Problems (1) COPD exacerbation Current Visit: No Status: Acute Priority: High Onset Date: 05/29/14 Code (s): J44.1 - CHRONIC OBSTRUCTIVE PULMONARY DISEASE W (ACUTE) EXACERBATION SNOMED Code(s): 595063319681019 Comment: Improving. Continue bronchodilators, levofloxacin. Continue rapid taper po prednisone. Continue scheduled benzonatae and gauifenesin DM. (2) LUPE (obstructive sleep apnea) Current Visit: No Status: Chronic Code(s): G47.33 - OBSTRUCTIVE SLEEP APNEA (ADULT) (PEDIATRIC) SNOMED Code(s): 77581271 Comment: Does not use home CPAP. Continue nocturnal O2 2Lnc (3) Diabetes mellitus type 2, noninsulin dependent Current Visit: No Status: Chronic Priority: Medium Code(s): E11.9 - TYPE 2 DIABETES MELLITUS WITHOUT COMPLICATIONS SNOMED Code(s): 75468534 Comment: Continue Lispro SSI. Resume home dose of metformin 06/03/17. (4) Chronic pain Current Visit: No Status: Chronic Priority: Medium Code(s): G89.29 - OTHER CHRONIC PAIN SNOMED Code(s): 80070525 Comment: Continue home duloxetine, oxycontin, oxycodone and Soma. (5) Morbid obesity Current Visit: Yes Status: Acute Code(s): E66.01 - MORBID (SEVERE) OBESITY DUE TO EXCESS CALORIES SNOMED Code(s): 271312252 Comment: BMI 47.4
[2017-06-02] MEDS: (Terbinafine Hcl [Terbinafine Hcl] 250 MG) PO SCH (13:46)
[2017-06-02] MEDS: Levofloxacin TAB* 500 MG PO SCH (17:01)
[2017-06-02] MEDS: Zolpidem TAB* 10 MG PO PRN (23:41)
[2017-06-03] MEDS: oxyCODONE/Acetamin 5/325 MG* TAB PO PRN ×5 (01:40→21:37)
[2017-06-03] MEDS: oxyCODONE TAB* 5 MG TAB PO PRN ×5 (01:40→21:37)
[2017-06-03] MEDS: Albuterol/Ipratropium NEB.SOL* Albuterol 2.5 MG/Ipratropium 0.5 MG 3 ML INH SCH ×4 (02:52→19:44)
[2017-06-03] MEDS: GuaiFENesin DM sugar free* 5 ML UDC PO SCH ×4 (05:08→21:35)
[2017-06-03] MEDS: Heparin VIAL(*) 5000 UNITS/ML VIAL (FIVE THOUSAND) SUBCUT SCH ×3 (05:41→21:38)
[2017-06-03] MEDS: Mometasone/Formoter 200/5 MDI INH SCH ×2 (07:50→19:44)
[2017-06-03] MEDS: Insulin LISPRO* 1 UNITS UNIT SUBCUT SCH ×4 (08:00→21:50)
[2017-06-03] MEDS: Polyethylene Glycol 3350* 17 GM PACKET PO SCH (08:01)
[2017-06-03] MEDS: metFORMIN* 500 MG TAB PO SCH (08:05)
[2017-06-03] MEDS: Valsartan TAB* 160 MG PO SCH (08:05)
[2017-06-03] MEDS: predniSONE TAB* 10 MG PO SCH (08:06)
[2017-06-03] MEDS: Aspirin EC Low Dose* 81 MG TAB.EC PO SCH (08:06)
[2017-06-03] MEDS: DULoxetine DR CAP* 20 MG CAP.DR PO SCH (08:06)
[2017-06-03] MEDS: guaiFENesin ER TAB 600 MG PO SCH ×2 (08:07→21:37)
[2017-06-03] MEDS: Benzonatate CAP* 100 MG PO SCH ×2 (08:07→21:36)
[2017-06-03] MEDS: oxyCODONE SR TAB(*) 10 MG TAB.SR PO SCH ×2 (08:08→21:37)
[2017-06-03] MEDS: Furosemide TAB* 40 MG PO SCH (08:08)
[2017-06-03] MEDS: Metolazone TAB* 5 MG PO SCH (08:08)
[2017-06-03] MEDS: NEBIVOLOL 10 MG PO SCH ×2 (08:10→21:35)
--- NOTE | 2017-06-03 09:58 | DCNOTE ---
Subjective Date of Service: 06/03/17 Interval History: Cough gradually improving. SL less SOB today. She states she only slept 2 hrs last night. She requests Mucinex by name. Objective Active Medications: Albuterol (Ventolin Hfa Inhaler*) 2 puff INH Q6H PRN PRN Reason: SOB/WHEEZING Albuterol/Ipratropium (Duoneb (Albuterol 2.5 Mg/Ipratropium 0.5 Mg)) 1 neb INH [id number] AWAKE [facility] Last Admin: 06/03/17 07:49 Dose: 1 neb Alprazolam (Xanax Tab*) 1 mg PO TID PRN PRN Reason: ANXIETY Last Admin: 06/02/17 21:27 Dose: 1 mg Aspirin (Aspirin Ec Low Dose*) 81 mg PO QAM [facility] Last Admin: 06/03/17 08:06 Dose: 81 mg Benzonatate (Tessalon Cap*) 200 mg PO BID [facility] Last Admin: 06/03/17 08:07 Dose: 200 mg Carisoprodol (Soma Tab*) 350 mg PO TID PRN PRN Reason: SPASMS Last Admin: 06/01/17 12:31 Dose: 350 mg Dextrose (D50w Syringe 50 Ml*) 12.5 gm IV PUSH .FOR FS < 60 - SS PRN PRN Reason: FS < 60 Duloxetine HCl (Cymbalta Cap*) 40 mg PO DAILY [facility] Last Admin: 06/03/17 08:06 Dose: 40 mg Ergocalciferol (Drisdol Cap*) 50,000 unit PO Q14D [facility] Last Admin: 05/31/17 10:10 Dose: 50,000 unit Furosemide (Lasix Tab*) 40 mg PO DAILY [facility] Last Admin: 06/03/17 08:08 Dose: 40 mg Guaifenesin (Mucinex*) 600 mg PO BID [facility] Last Admin: 06/03/17 08:07 Dose: 600 mg Guaifenesin/Dextromethorphan (Robitussin Dm Sugar Free*) 10 ml PO Q6H [facility] Last Admin: 06/03/17 05:08 Dose: Not Given Heparin Sodium (Porcine) (Heparin Vial(*)) 5,000 units SUBCUT Q8HR [facility] Last Admin: 06/03/17 05:41 Dose: 5,000 units Insulin Human Lispro (Humalog*) 0 units SUBCUT ACHS [facility] PRN Reason: Protocol Last Admin: 06/03/17 08:00 Dose: 2 units Levofloxacin (Levaquin Tab*) 500 mg PO 1600 [facility] Last Admin: 06/02/17 17:01 Dose: 500 mg Metformin HCl (Glucophage*) 500 mg PO DAILY [facility] Last Admin: 06/03/17 08:05 Dose: 500 mg Metolazone (Zaroxolyn Tab*) 2.5 mg PO DAILY [facility] Last Admin: 06/03/17 08:08 Dose: 2.5 mg Mometasone Furoate/Formoterol Fumar (Dulera 200/5 Mdi*) 1 puff INH BID [facility] PRN Reason: Protocol Last Admin: 06/03/17 07:50 Dose: 1 puff Nebivolol (Bystolic (Nf)) 10 mg PO BID [facility] Last Admin: 06/03/17 08:10 Dose: 10 mg (Terbinafine Hcl [ Terbinafine Hcl] 250 Mg) 250 mg PO DAILY [facility] Last Admin: 06/02/17 13:46 Dose: Not Given Oxycodone HCl (Oxycontin(*)) 10 mg PO Q12HR [facility] Last Admin: 06/03/17 08:08 Dose: 10 mg Oxycodone HCl (Roxycodone Tab*) 5 mg PO Q4H PRN PRN Reason: PAIN Last Admin: 06/03/17 05:43 Dose: 5 mg Oxycodone/Acetaminophen (Percocet 5/325 Tab*) 1 tab PO Q4H PRN PRN Reason: PAIN Last Admin: 06/03/17 05:41 Dose: 1 tab Phenyleph/Shark Oil/Min Oil/Petrol (Preparation H*) 1 applic DC QID PRN PRN Reason: hemorrhoids Polyethylene Glycol/Electrolytes (Miralax*) 17 gm PO DAILY [facility] Last Admin: 06/03/17 08:01 Dose: 17 gm Prednisone (Deltasone Tab*) 30 mg PO DAILY [facility] Last Admin: 06/03/17 08:06 Dose: 30 mg Throat Lozenges (Chloraseptic Delphine*) 1 delphine MT Q6H PRN PRN Reason: SORE THROAT Last Admin: 05/31/17 03:03 Dose: 1 delphine Valsartan (Diovan Tab*) 320 mg PO DAILY [facility] Last Admin: 06/03/17 08:05 Dose: 320 mg Zolpidem Tartrate (Ambien Tab*) 5 mg PO BEDTIME PRN PRN Reason: INSOMNIA Last Admin: 06/02/17 23:41 Dose: 5 mg Vital Signs - 8 hr 06/03/17 06/03/17 06/03/17 03:19 03:40 05:41 Temperature 98.3 F Pulse Rate 77 Respiratory 18 16 18 Rate Blood Pressure 107/64 (mmHg) O2 Sat by Pulse 96 Oximetry 06/03/17 06/03/17 06/03/17 05:43 07:20 07:55 Temperature 98.5 F Pulse Rate 71 88 Respiratory 18 20 Rate Blood Pressure 123/62 (mmHg) O2 Sat by Pulse 95 98 Oximetry 06/03/17 06/03/17 06/03/17 08:08 08:10 08:11 Temperature Pulse Rate Respiratory 20 20 20 Rate Blood Pressure (mmHg) O2 Sat by Pulse Oximetry Oxygen Devices in Use Now: Nasal Cannula Appearance: Alert, partly up in bed. In fair spirits. Looks comfortable. Eyes: No Scleral Icterus Neck: NL Appearance and Movements; NL JVP, No Thyroid Enlargement, Masses Respiratory: Symmetrical Chest Expansion and Respiratory Effort, Clear to Percussion, - - mild wheezing BL, sounds upper airway and also better than yesterday Cardiovascular: NL Sounds; No Murmurs; No JVD, RRR, No Edema, - Skin: No Rash or Ulcers, No Nodules or Sclerosis, - Neurological: Alert and Oriented x 3, NL Sensation Result Diagrams: 06/01/17 06:44 06/01/17 06:40 Assess/Plan/Problems-Billing Assessment: - Patient Problems (1) COPD exacerbation Current Visit: No Status: Acute Priority: High Onset Date: 05/29/14 Code (s): J44.1 - CHRONIC OBSTRUCTIVE PULMONARY DISEASE W (ACUTE) EXACERBATION SNOMED Code(s): 544831684089430 Comment: Improving. Continue bronchodilators, po levofloxacin 2 doses at home PM 06/04 and 06/05. Continue taper po prednisone, will get 20 mg 06/05, 10 mg 06/06 then d/c. She has benzonatate at home. Rx for guaifenesin ER transmitted (replaces the guaifenesin DM liquid here). (2) LUPE (obstructive sleep apnea) Current Visit: No Status: Chronic Code(s): G47.33 - OBSTRUCTIVE SLEEP APNEA (ADULT) (PEDIATRIC) SNOMED Code(s): 50483148 Comment: Does not use home CPAP. Continue nocturnal O2 2Lnc (3) Diabetes mellitus type 2, noninsulin dependent Current Visit: No Status: Chronic Priority: Medium Code(s): E11.9 - TYPE 2 DIABETES MELLITUS WITHOUT COMPLICATIONS SNOMED Code(s): 94229022 Comment: Continue Lispro SSI. Resume home dose of metformin 06/03/17. (4) Chronic pain Current Visit: No Status: Chronic Priority: Medium Code(s): G89.29 - OTHER CHRONIC PAIN SNOMED Code(s): 91232560 Comment: Continue home duloxetine, oxycontin, oxycodone and Soma. (5) Morbid obesity Current Visit: Yes Status: Acute Code(s): E66.01 - MORBID (SEVERE) OBESITY DUE TO EXCESS CALORIES SNOMED Code(s): 770424511 Comment: BMI 47.4 Status and Disposition: Plan discharge 06/04. Her sister will pick her up about 9:30 AM. Rx for prednisone, levofloxacin, and Mucinex transmitted.
--- NOTE | 2017-06-03 10:22 | PN ---
Progress Note - Progress Note Date of Service: 06/03/17 Note: Time spent on discharge 45 minutes.
[2017-06-03] MEDS: ALPRAZolam TAB* 0.5 MG PO PRN ×2 (10:37→21:36)
[2017-06-03] MEDS: (Terbinafine Hcl [Terbinafine Hcl] 250 MG) PO SCH (12:10)
[2017-06-03] MEDS: Levofloxacin TAB* 500 MG PO SCH (17:22)
[2017-06-03] MEDS: Carisoprodol TAB* 350 MG PO PRN (17:23)
[2017-06-03] MEDS: Zolpidem TAB* 10 MG PO PRN (21:38)
[2017-06-04] MEDS: oxyCODONE/Acetamin 5/325 MG* TAB PO PRN ×3 (01:48→10:10)
[2017-06-04] MEDS: oxyCODONE TAB* 5 MG TAB PO PRN ×3 (01:49→10:10)
[2017-06-04] MEDS: Albuterol/Ipratropium NEB.SOL* Albuterol 2.5 MG/Ipratropium 0.5 MG 3 ML INH SCH ×2 (01:51→07:26)
[2017-06-04] MEDS: GuaiFENesin DM sugar free* 5 ML UDC PO SCH ×2 (04:58→10:11)
[2017-06-04] MEDS: Heparin VIAL(*) 5000 UNITS/ML VIAL (FIVE THOUSAND) SUBCUT SCH (05:35)
[2017-06-04] MEDS: Insulin LISPRO* 1 UNITS UNIT SUBCUT SCH (07:39)
--- NOTE | 2017-06-04 08:25 | DS ---
CC: Dr. Donavan Lara. * DISCHARGE SUMMARY: DATE OF ADMISSION: 05/30/17 DATE OF DISCHARGE: 06/03/17 HOSPITAL COURSE: This 67-year-old woman presented with shortness of breath of 3 days duration. She has a long history of COPD using oxygen at home. She has sleep apnea, but does not tolerate CPAP. The rest of the history is detailed in the admission note. She received antibiotics, bronchodilators, glucocorticoids, and guaifenesin. She had gradual improvement. I note her wheezing in the past has been documented to be due to vocal cord dysfunction whether she has some true bronchoconstriction underlying that is difficult to say, certainly there may be an element that is present as well. I believe her clinical course in this hospitalization, the wheezing was predominantly due to vocal cord dysfunction. The patient has limited exercise capacity. She is morbidly obese and rather sedentary. I encouraged her to be more active. She will go home with 2 more days of oral levofloxacin, 2 more days of prednisone after discharge. She will have Mucinex that she requested and all of her other usual medications. FINAL DIAGNOSES: 1. Chronic obstructive pulmonary disease exacerbation. 2. Obstructive sleep apnea. 3. Diabetes. 4. Chronic pain. 5. Morbid obesity. DISCHARGE MEDICATIONS: 1. Benzonatate 200 mg b.i.d. 2. Levofloxacin 500 mg daily at 5 p.m. for 2 days after discharge. 3. Prednisone 10 mg 2 tablets on 06/05/17 and 1 tablet on 06/06/17. 4. Guaifenesin 600 mg b.i.d. 5. Aspirin 81 mg daily. 6. Zolpidem 5 to 10 mg at bedtime as prescribed. 7. Ergocalciferol 50,000 units every 14 days. 8. Simvastatin 40 mg daily. 9. Esomeprazole 40 mg daily. 10. Oxycodone and acetaminophen 10/325 one every 4 hours p.r.n. 11. Oxycodone SR 10 mg b.i.d. 12. Fluticasone salmeterol 115/21 one puff b.i.d. 13. Alprazolam 1 mg t.i.d. p.r.n. 14. Albuterol inhaler 2 puffs every 6 hours p.r.n. 15. Carisoprodol 350 mg t.i.d. p.r.n. 16. Furosemide 40 mg daily. 17. Hemorrhoidal ointment q.i.d. p.r.n. 18. Valsartan 320 mg daily. 19. Metformin 500 mg daily. 20. Alendronate 70 mg daily. 21. Nebivolol 10 mg b.i.d. 22. Ciclopirox topical 0.77% p.r.n. daily. 23. Terbinafine 250 mg p.o. daily. 24. Codeine/guaifenesin liquid as prescribed. 25. Metolazone 2.5 mg daily. 26. Lactose-free supplement 237 mL t.i.d. 27. Ipratropium 0.5 mg by nebulizer every 4 hours p.r.n. 28. Albuterol 0.63 mg inhalation every 6 hours p.r.n. 29. Polyethylene glycol 17 g daily p.r.n. 30. Duloxetine 40 mg daily. [id number]/[facility] #: [id number] MTDD
[2017-06-04] MEDS: Polyethylene Glycol 3350* 17 GM PACKET PO SCH (08:28)
[2017-06-04] MEDS: Metolazone TAB* 5 MG PO SCH (08:33)
[2017-06-04] MEDS: Benzonatate CAP* 100 MG PO SCH (08:33)
[2017-06-04] MEDS: metFORMIN* 500 MG TAB PO SCH (08:34)
[2017-06-04] MEDS: Furosemide TAB* 40 MG PO SCH (08:35)
[2017-06-04] MEDS: guaiFENesin ER TAB 600 MG PO SCH (08:35)
[2017-06-04] MEDS: DULoxetine DR CAP* 20 MG CAP.DR PO SCH (08:36)
[2017-06-04] MEDS: predniSONE TAB* 10 MG PO SCH (08:36)
[2017-06-04] MEDS: Aspirin EC Low Dose* 81 MG TAB.EC PO SCH (08:36)
[2017-06-04] MEDS: oxyCODONE SR TAB(*) 10 MG TAB.SR PO SCH (08:37)
[2017-06-04] MEDS: Valsartan TAB* 160 MG PO SCH (08:37)
[2017-06-04] MEDS: NEBIVOLOL 10 MG PO SCH (08:38)
[2017-06-04] MEDS: Mometasone/Formoter 200/5 MDI INH SCH (09:01)
[2017-06-04 09:21] VITALS: BP 121/71
[2017-06-04] MEDS: (Terbinafine Hcl [Terbinafine Hcl] 250 MG) PO SCH (10:09)
== END 2017-06-04 10:30 | disposition home or self-care (01) | DRG 190 ==
LOC: ED 11:00 → MED 15:43
PROVIDERS: ADMIT Internal Medicine; ATTEND Internal Medicine
DX: J44.1 Chronic obstructive pulmonary disease with (acute) exacerbation (principal); J96.01 Acute respiratory failure with hypoxia; I50.30 Unspecified diastolic (congestive) heart failure; Z68.41 Body mass index [BMI] 40.0-44.9, adult; I11.0 Hypertensive heart disease with heart failure; E66.01 Morbid (severe) obesity due to excess calories; Z99.81 Dependence on supplemental oxygen; G47.33 Obstructive sleep apnea (adult) (pediatric); E11.9 Type 2 diabetes mellitus without complications; G89.29 Other chronic pain; E78.5 Hyperlipidemia, unspecified; M19.90 Unspecified osteoarthritis, unspecified site; Z96.653 Presence of artificial knee joint, bilateral; Z79.84 Long term (current) use of oral hypoglycemic drugs; Z79.1 Long term (current) use of non-steroidal anti-inflammatories (NSAID); Z79.82 Long term (current) use of aspirin; Z79.891 Long term (current) use of opiate analgesic; Z79.899 Other long term (current) drug therapy; Z88.1 Allergy status to other antibiotic agents; Z88.5 Allergy status to narcotic agent; Z88.0 Allergy status to penicillin; Z88.2 Allergy status to sulfonamides; Z88.8 Allergy status to other drugs, medicaments and biological substances; Z87.891 Personal history of nicotine dependence; Z80.1 Family history of malignant neoplasm of trachea, bronchus and lung; Z83.3 Family history of diabetes mellitus; Z82.49 Family history of ischemic heart disease and other diseases of the circulatory system
CPT/HCPCS: 36415; 71045; 80048; 80053; 81003; 82550; 82553; 83605; 83874; 83880; 84484; 85025; 85730; 86140; 94640; 94760; 99284; A9270-GY; J1644; J1885; J1956; J2920; J2930; J7512

== ENCOUNTER 2017-10-15 12:40 | Inpatient (IN) | payer MEDICARE, MEDICAID ==
[2017-10-15] MEDS ORDERED: Albuterol/Ipratropium NEB.SOL* Albuterol 2.5 MG/Ipratropium 0.5 MG 3 ML ONE (12:46)
[2017-10-15] MEDS ORDERED: Albuterol/Ipratropium NEB.SOL* Albuterol 2.5 MG/Ipratropium 0.5 MG 3 ML INH ONE ×2 (12:48→13:14)
[2017-10-15] MEDS ORDERED: Ketorolac INJ* 30 MG/ML 1 ML VIAL IV PUSH ONE (13:17)
[2017-10-15] MEDS ORDERED: methylPREDNISolone 125 MG* 2 ML VIAL IV ONE (13:17)
[2017-10-15 14:03] LABS: ABS Basophils 0.1 10^3/ul (0-0.2); ABS Eosinophils 0.2 10^3/ul (0-0.6); ABS Lymphocytes 1.5 10^3/ul (1.0-4.8); ABS Monocytes 0.7 10^3/ul (0-0.8); ABS Neutrophils 4.9 10^3/ul (1.5-7.7); ABS Nucleated RBC 0 10^3/ul; Eosinophil % 2.9 % (0-6); Hematocrit 31 % (35-47); Hemoglobin 10.5 g/dl (12.0-16.0); Lymphocyte % 20.3 % (25-47); Mean Corpuscular HGB Conc 34 g/dl (31-36); Mean Corpuscular Hemoglobin 30 pg (27-31); Mean Corpuscular Volume 87 fL (80-97); Mean Platelet Volume 8.8 um3 (7.4-10.4); Nucleated Red Blood Cells % 0; Platelet Count 212 10^3/ul (150-450); Red Blood Count 3.55 10^6/ul (4.00-5.40); Red Cell Distribution Width 13 % (10.5-15); White Blood Count 7.4 10^3/ul (3.5-10.8)
--- NOTE | 2017-10-15 14:11 | RAD ---
Indication: Shortness of breath. Single frontal view of the chest performed at 1350 hours was reviewed. Comparison is made with previous exam dated May 30, 2017. No mediastinal shift is noted. Heart is of normal size and configuration. Lung sánchez appear clear. IMPRESSION: NO ACTIVE CARDIOPULMONARY DISEASE IS NOTED.
[2017-10-15 14:21] LABS: EGFR Non-African American 16.7 (>60)
[2017-10-15] MEDS ORDERED: HYDROcodone/ACETAMIN 5-325 MG* 1 TAB PO ONE (14:57)
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
[2017-10-15] MEDS ORDERED: oxyCODONE/Acetamin 5/325 MG* TAB PO PRN (17:07)
[2017-10-15] MEDS ORDERED: oxyCODONE/Acetamin 10/325(NF) TAB PO PRN (17:07)
[2017-10-15] MEDS ORDERED: oxyCODONE TAB* 5 MG TAB PO PRN (17:07)
[2017-10-15] MEDS ORDERED: oxyCODONE/Acetamin 5/325 MG* TAB PO ONE (17:18)
--- NOTE | 2017-10-15 18:00 | RAD ---
INDICATION: Back pain and renal failure COMPARISON: Similar renal ultrasound dated June 26, 2011 TECHNIQUE: Real-time ultrasound examination of the bilateral kidneys and urinary bladder including grayscale and Doppler color flow analysis. FINDINGS: The left kidney measures 10.5 x 5.5 x 5.2 cm. Left kidney is normal in echogenicity without suspicious masses or hydronephrosis. The right kidney measures 11.2 x 5.1 x 6.0 cm. Superior to the right kidney there is an anechoic and avascular structure measuring 3.5 x 3.6 x 3.5 cm, previously 3.6 x 3.8 x 3.3 cm. IMPRESSION: 1. Stable, likely cystic structure superior to the right kidney when compared to the June 26, 2011 renal ultrasound. 2. Sonographically normal-appearing kidneys.
[2017-10-15] MEDS: Mometasone/Formoter 200/5 MDI INH SCH (19:20)
[2017-10-15] MEDS ORDERED: Magnesium Sulfate IV* 3 GM in NS 0.9% 100 ML* 100 ML IVPB ONE (20:02)
--- NOTE | 2017-10-15 20:47 | PN ---
Progress Note - Progress Note Date of Service: 10/15/17 Note: Paged that patient takes 20 mg of percocet q4-6 hours at home. She does not take oxycontin because it does not work for her. Will d/c percocet and oxycontin and start dilaudid. Recommend discussing the role of long acting oxycontin in the AM.
[2017-10-15] MEDS ORDERED: oxyCODONE SR TAB(*) 10 MG TAB.SR PO SCH (21:00)
[2017-10-15] MEDS: Heparin VIAL(*) 5000 UNITS/ML VIAL (FIVE THOUSAND) SUBCUT SCH (21:26)
[2017-10-15] MEDS: HYDROmorphone TAB* 2 MG PO PRN (21:26)
[2017-10-15] MEDS: methylPREDNISolone SOD 40 MG* 1 ML VIAL IV SCH (21:26)
--- NOTE | 2017-10-15 22:01 | HP ---
HISTORY AND PHYSICAL: DATE OF ADMISSION: 10/15/17 PROVIDER: Thu Mayo NP ATTENDING PHYSICIAN: Dr. Burton * (report dictated by Thu Mayo NP). PRIMARY CARE PROVIDER: Dr. Donavan Lara. CHIEF COMPLAINT: Worsening shortness of breath over the past 2 weeks, wheezing and dizziness. HISTORY OF PRESENT ILLNESS: Ms. Mckeon is a 67-year-old female with a past medical history of COPD, on 2 L /; obstructive sleep apnea; non-insulin- dependent type 2 diabetes; chronic pain; morbid obesity; congestive heart failure; history of hypoxic respiratory failure; hypertension; hyperlipidemia, who presents to the emergency department today in recommendation from her primary care provider. The patient reports that she underwent pulmonary function tests today here at the hospital with the respiratory therapist and at that time the respiratory therapist had concern due to her shortness of breath and wheezing and recommended she come to the emergency department and which the patient refused. At that time, she was given nebulizer and the patient went home instead of going to the ER. The patient then went home and was seen by her visiting nurse who sees her once a week and the nurse had concern for some wheezing, gave the patient nebulizer and discussed the patient with Dr. Lara, who recommended the patient come to the emergency department. At the patient's baseline, the patient reports that she has "lots of wheezing" and denies any increase in her wheezing and has no cough or sputum production. She does report she has had worsening shortness of breath over the past 2 weeks. She reports that she has gained 30 pounds over the past several weeks and approximately a week ago Dr. Lara increased her diuretics, both her Zaroxolyn and her Lasix. She does not think she has lost much weight over the past week since increasing her diuretics and states that she does weigh herself daily. She denies lower extremity edema or orthopnea, but feels that she has gained weight in her upper inner thighs as well as her abdomen. Today, she also complains of worsening chronic low back pain as well as she complains of intermittent frequent dizziness over the past 1 to 2 months where she states that she feels lightheaded for 1 to 2 seconds and then this resolves; however, she does report that she feels this several times throughout the day and does not depend on position change, but can happen at rest and/or with position change. The patient reports that she took her blood pressure yesterday at [facility] and was noted to be systolically in the low 80s. She thought it was a mistake and did not report it to her visiting nurse or PCP. Today, she was noted to have a systolic blood pressure on arrival to the emergency department of 84/68 and currently her blood pressure has come up to 124/77. In the emergency department, the patient was noted to be short of breath when she arrived with some wheezing and was given Solu-Medrol 125 mg IV x1. The patient has no notable leukocytosis. Again, she denies any increase in sputum production and denies a cough. She denies fever or chills at home. She is noted to have an elevated creatinine of 2.81, which is significantly above her baseline of 0.86. She denies urinary symptoms such as burning with urination, increased frequency. No suprapubic pain, but does report the increase in low back pain. She denies hematuria. PAST MEDICAL HISTORY: 1. COPD, on 2 L nasal cannula 08/10. 2. History of hypoxic respiratory failure. 3. Sleep apnea, not using CPAP. 4. Heart failure with preserved systolic function. 5. Hypertension. 6. Jax-tjrmqhu-zeyuomuow type 2 diabetes. 7. Hyperlipidemia. 8. Chronic pain syndrome, on chronic opiates. 9. Osteoarthritis. 10. History of small bowel obstruction. 11. Osteoporosis. 12. Morbid obesity with a BMI of 45. 13. Anemia. 14. Insomnia. PAST SURGICAL HISTORY: 1. Resection for bowel obstruction. 2. Bilateral total knee replacements. 3. Benign breast biopsies. CURRENT MEDICATIONS: 1. Oxycodone/acetaminophen 10/325 one tab p.o. q.4 hours p.r.n. 2. OxyContin 10 mg p.o. q.12 hours. 3. Metformin 500 mg p.o. daily. 4. Mucinex 600 mg p.o. b.i.d. 5. Ambien 10 mg p.o. at bedtime. 6. Terbinafine HCl 250 mg p.o. daily. 7. Simvastatin 40 mg p.o. q.a.m. 8. MiraLAX 17 g p.o. daily p.r.n. 9. Bystolic 10 mg p.o. b.i.d. 10. Zaroxolyn 2.5 mg p.o. daily. Recently last week, this was increased to 5 mg p.o. daily if weight is over 267 pounds, which the patient reports she has been taking daily for approximately 7 to 10 days. 11. Atrovent 0.5 mg neb solution q.4 hours p.r.n. 12. Preparation H hemorrhoidal ointment 1 application p.r. q.i.d. p.r.n. 13. Lasix 80 mg p.o. in the a.m. and 40 mg p.o. at nighttime. 14. Advair 115/21 one puff INH b.i.d. 15. Nexium 40 mg p.o. q.a.m. 16. Drisdol 50,000 units p.o. q.14 days. 17. Loprox 0.77% topical daily p.r.n. 18. Soma 350 mg p.o. t.i.d. p.r.n. 19. Aspirin 81 mg p.o. daily. 20. Fosamax 70 mg p.o. weekly. 21. Albuterol sulfate inhaler 2 puffs INH q.6 hours p.r.n. 22. Lyrica 300 mg p.o. t.i.d. (please note this is a new medication started within 1 to 2 weeks ago). 23. Xanax 1 mg p.o. t.i.d. p.r.n. ALLERGIES: BACTRIM, SULFA, PENICILLIN, MORPHINE, FENTANYL. FAMILY HISTORY: Mother had history of lung cancer, hypertension, and diabetes. Father had a history of lung cancer, hypertension, diabetes, and coronary artery disease. The patient has siblings with diabetes. Brother had sudden cardiac secondary to [place] under the age of 50. SOCIAL HISTORY: The patient reports a 20-pack year history, quitting about 14 years ago. Denies alcohol use or recreational drug use. Her sister, Michaela, is her surrogate decision maker. REVIEW OF SYSTEMS: A 14-point review of systems was performed. All the pertinent positives and negatives are mentioned in the history of present illness. Otherwise are negative. PHYSICAL EXAMINATION GENERAL APPEARANCE: Morbidly obese female, alert and oriented x3, sitting up on the emergency department stretcher, in no acute distress, good historian. VITAL SIGNS: Temperature 97.4, heart rate 78, respirations 18, pulse oximetry is 96% on 2 L nasal cannula, blood pressure is 124/77. HEENT: Head is normocephalic, atraumatic. Pupils are equal and reactive to light. Oropharynx is clear. Moist mucous membranes. LUNGS: Expiratory wheezes bilaterally, otherwise good aeration throughout. No accessory muscle use. CARDIAC: S1, S2. Regular rate and rhythm. No murmur, rub, or gallop appreciated. Trace bilateral lower extremity edema noted. ABDOMEN: Obese, soft, nontender, nondistended. Normal bowel sounds throughout. No CVA tenderness. EXTREMITIES: Moves all extremities. Strength is 5/5 throughout. NEURO: Cranial nerves II through XII are grossly intact. No focal deficits noted. SKIN: Warm, dry. No rashes, lesions, or wounds noted. DIAGNOSTIC STUDIES/LAB DATA: WBC is 7.4, RBC 3.55, HGB 10.5, HCT 31, MCV 87, MCH 30, MCHC 34, RDW 13, platelet count 212. Sodium 142, potassium 4.7, chloride 104, carbon dioxide 31, anion gap 7, BUN 56, creatinine 2.81, glucose 109, lactic acid 1.2, calcium 7.7. Total bilirubin 0.20, AST 15, ALT 7, alkaline phosphatase 97. Total creatine kinase 282, troponin 0.00. C-reactive protein 9.72. BNP 49. Total protein 7.4, albumin 4.0. Chest x-ray, impression: No active cardiopulmonary disease is noted. EKG: Sinus rhythm with a rate of 80. No acute ST changes noted. In comparison to prior EKG, there are no acute changes noted. ASSESSMENT AND PLAN: Ms. Mckeon is a 67-year-old female with a past medical history of morbid obesity; chronic obstructive pulmonary disease, on 2 L nasal cannula 08/10; history of hypoxic respiratory failure; history of heart failure with preserved EF; hypertension; cql-lznlkst-eivskybgz type 2 diabetes; chronic pain syndrome, who presents in recommendation from primary care provider for increased worsening shortness of breath, 30-pound weight gain, dizziness. 1. Shortness of breath. The patient does not appear to have a chronic obstructive pulmonary disease exacerbation. She is noted to have some wheezing , but no increase in sputum production. At this time, we will treat her with q.4 hour DuoNebs while awake and we will start her on a steroid taper. It does not appear she has fluid in her lungs, her BNP is not elevated, and I do not think this is congestive heart failure. The patient already feels better in the emergency department. 2. Acute renal failure. The patient's creatinine is quite elevated above her baseline. Most likely, this is secondary to her increase in diuretics 7 to 10 days ago. The patient reports a 30-pound weight gain in her thighs and abdomen ; however, she reports since starting the diuretics she has not really lose much weight; therefore, it could possibly just be a weight gain due to excess calories. I will discuss with the primary care provider, Dr. Lara to see what his thoughts are. The patient does not have any orthopnea or lower extremity swelling. I do think it is worth getting an echocardiogram. At this time, I will hold her diuretics. We will continue daily weights, recheck creatinine in the morning. We will send urine creatinine and sodium to calculate a FENA. Send urinalysis. We will obtain renal ultrasound due to the patient reports increase in her low back pain from her baseline. Otherwise, the patient has no urinary symptoms. 3. Hypotension. The patient's hypotension resolved quickly in the emergency department without treatment. I suspect this was secondary to her increase in diuretics and could be also causing some of the dizziness she has been experiencing. At this time, it is stable. We will hold home antihypertensive medications and continue to monitor. 4. Chronic pain. Continue the patient on OxyContin home dose of 10 mg p.o. b.i.d. and Percocet 10/325 one tab q.4 hours p.r.n. 5. Insomnia. Continue Ambien 10 mg p.o. at bedtime. 6. Dizziness. We will obtain orthostatic vital signs. Unclear etiology. Her neuro exam is normal. I am going to add on a B12, which has not been checked since 2012, as her tongue does look a little beefy red. 7. Anemia. Appears to be at her baseline. We will add on iron studies and we will obtain stool for occult blood. 8. Ruj-jxvaamc-npxxaiffe type 2 diabetes. Last hemoglobin A1c was in January 2017 with hemoglobin A1c of 6.6. We will add on a hemoglobin A1c. 9. DVT prophylaxis: Heparin subcu. 10. Hospital status: Inpatient for acute renal failure, shortness of breath. THU MAYO NP [id number]/[facility] #: [id number] [facility]OSPITALIsaiah
[2017-10-15] MEDS: ALPRAZolam TAB* 0.5 MG PO PRN (22:37)
[2017-10-15] MEDS: Carisoprodol TAB* 350 MG PO PRN (22:37)
[2017-10-16] MEDS: HYDROmorphone TAB* 2 MG PO PRN ×4 (02:00→14:58)
[2017-10-16] MEDS: methylPREDNISolone SOD 40 MG* 1 ML VIAL IV SCH ×3 (05:55→21:25)
[2017-10-16] MEDS: Heparin VIAL(*) 5000 UNITS/ML VIAL (FIVE THOUSAND) SUBCUT SCH ×3 (05:55→21:23)
[2017-10-16 07:12] LABS: Urine Appearance Clear; Urine Blood Negative (Negative); Urine Color Yellow; Urine Ketones Negative (Negative); Urine Protein Negative (Negative); Urine Specific Gravity 1.014 (1.010-1.030); Urine Urobilinogen Negative (Negative)
[2017-10-16] MEDS: Mometasone/Formoter 200/5 MDI INH SCH ×2 (07:36→19:32)
[2017-10-16 10:16] LABS: ABS Basophils 0 10^3/ul (0-0.2); ABS Eosinophils 0 10^3/ul (0-0.6); ABS Lymphocytes 0.9 10^3/ul (1.0-4.8); ABS Monocytes 0.3 10^3/ul (0-0.8); ABS Neutrophils 5.7 10^3/ul (1.5-7.7); ABS Nucleated RBC 0 10^3/ul; Eosinophil % 0 % (0-6); Hematocrit 32 % (35-47); Hemoglobin 10.5 g/dl (12.0-16.0); Lymphocyte % 12.9 % (25-47); Mean Corpuscular HGB Conc 34 g/dl (31-36); Mean Corpuscular Hemoglobin 29 pg (27-31); Mean Corpuscular Volume 86 fL (80-97); Mean Platelet Volume 8.8 um3 (7.4-10.4); Nucleated Red Blood Cells % 0; Platelet Count 203 10^3/ul (150-450); Red Blood Count 3.66 10^6/ul (4.00-5.40); Red Cell Distribution Width 14 % (10.5-15); White Blood Count 6.9 10^3/ul (3.5-10.8)
[2017-10-16] MEDS: ALPRAZolam TAB* 0.5 MG PO PRN ×3 (10:27→21:26)
[2017-10-16] MEDS: Aspirin EC TAB* 81 MG TAB.EC PO SCH (10:28)
[2017-10-16 10:37] LABS: EGFR Non-African American 41.5 (>60)
--- NOTE | 2017-10-16 11:08 | ECHO ---
Patient: JUAN MAN [facility] Rec#: [id number] : 1950 Date: 10/16/2017 Age: 67y Height: 163 cm / 64.2 in Weight: 121 kg / 266.7 lbs Sex: F BSA: 2.22 Room#: [facility] Admit Date#: 10/15/2017 Type: Inpatient Referring: Latasha Solo Reading: Anthony Antunez DO Chemical Educator: Afshan Shay RDCS,RDMS CC: Donavan Lara MD Transthoracic Echocardiogram Indication: CHF BP: 119/62 HR: 78 Rhythm: NSR Findings History: COPD, LUPE, DM, CHF, HTN, HLD Technical Comments: The study quality is fair. Left Ventricle: The left ventricular chamber size is normal. Mild concentric left ventricular hypertrophy is observed. Global left ventricular wall motion and contractility are within normal limits. There is normal left ventricular systolic function. The estimated ejection fraction is greater than 65%. Abnormal left ventricular diastolic function is observed. Left Atrium: The left atrium is mildly dilated. Right Ventricle: The right ventricular chamber size and systolic function are within normal limits. Right Atrium: The right atrium is slightly dilated. Aortic Valve: The aortic valve leaflets are mildly thickened. Mild aortic leaflet calcification is visualized. Systolic excursion of the aortic valve is normal. There is no evidence of aortic regurgitation. There is no evidence of aortic stenosis. Mitral Valve: Moderate mitral annular calcification present. The mitral valve leaflets are mildly thickened. There is a trace of mitral regurgitation. There is no evidence of mitral stenosis. Tricuspid Valve: The tricuspid valve leaflets are normal. There is trace tricuspid regurgitation. Unable to estimate the right ventricular systolic pressure. Pulmonic Valve: The pulmonic valve structure is not well visualized. Pericardium: There is no significant pericardial effusion. Aorta: The aortic root appears normal. The aortic arch is not well visualized. Pulmonary Artery: The main pulmonary artery is not well visualized. Venous: The inferior vena cava is dilated. There is less than 50% respiratory change in the inferior vena cava dimension. Conclusions The left ventricular chamber size is normal. Mild concentric left ventricular hypertrophy is observed. Global left ventricular wall motion and contractility are within normal limits. There is normal left ventricular systolic function. The estimated ejection fraction is 70-75% The left atrium is mildly dilated. The right ventricular chamber size and systolic function are within normal limits. Moderate mitral annular calcification present. Unable to estimate the right ventricular systolic pressure. The pulmonic valve structure is not well visualized. No other functionally significant valvular abnormalities noted. Compared to prior study from 09/2013, no clinically significant changes noted. Measurements Name Value Normal Range RVIDd (AP) 2D 3 cm (0.9 - 2.6) RVDdMajor (2D) 2.8 cm (2.2 - 4.4) RAd ISD 4CH 5.4 cm (3.4 - 4.9) RA (A4C)W 3.9 cm (2.9 - 4.6) IVSd (2D) 1.2 cm (0.6 - 1) LVPWd (2D) 1.3 cm (0.6 - 1) LVIDd (2D) 4.5 cm (3.6 - 5.4) LVIDs (2D) 2.6 cm - LV FS (2D) 43 % (25 - 45) Aortic Annulus 2.1 cm (1.4 - 2.6) Ao root diameter (2D) 2.8 cm (2.1 - 3.5) Ascending Ao 3.2 cm (2.1 - 3.4) LA dimension (AP) 2D 4.4 cm (2.3 - 3.8) LAd ISD 4CH 6.6 cm (2.9 - 5.3) LA ISD 4CH W 4.8 cm (2.5 - 4.5) Name Value Normal Range LA ESV BP (A/L) index 35 ml/m2 - Name Value Normal Range MV E-wave Vmax 0.8 m/sec - MV deceleration time 119 msec - MV A-wave Vmax 1.1 m/sec - MV E:A ratio 0.7 ratio - LV septal e' Vmax 0.06 m/sec - LV lateral e' Vmax 0.09 m/sec - LV E:e' septal ratio 12 ratio - LV E:e' lateral ratio 9 ratio - Name Value Normal Range AV Vmax 1.4 m/sec - AV VTI 30 cm - AV peak gradient 8 mmHg - AV mean gradient 4 mmHg - LVOT Vmax 1.3 m/sec - LVOT VTI 31 cm - LVOT peak gradient 7 mmHg - LVOT mean gradient 4 mmHg - GIBSON Vmax 0.8 m/sec - Name Value Normal Range MV Vmax 1.3 m/sec - MV VTI 29 cm - MV peak gradient 7 mmHg - MV mean gradient 4 mmHg - MV PHT 37 msec - MVA (PHT) 6 cm2 - Name Value Normal Range RAP 8 mmHg - IVC diameter 2.5 cm - Name Value Normal Range PV Vmax 1 m/sec - PV peak gradient 4 mmHg -
[2017-10-16] MEDS: Carisoprodol TAB* 350 MG PO PRN ×2 (13:58→21:26)
[2017-10-16] MEDS: Azithromycin IV(*) 500 MG in NS 0.9% 250 ML* 250 ML IVPB SCH (13:58)
[2017-10-16] MEDS: Polyethylene Glycol 3350* 17 GM PACKET PO PRN (14:58)
[2017-10-16] MEDS ORDERED: Dextrose 50% Syringe 50 ML* 25 GM/50 ML SYRINGE IV PUSH PRN (17:14)
[2017-10-16] MEDS: Atorvastatin* 20 MG TAB PO SCH (17:49)
[2017-10-16] MEDS: oxyCODONE/Acetamin 5/325 MG* TAB PO PRN ×2 (17:49→23:08)
--- NOTE | 2017-10-16 20:31 | PN ---
Subjective Date of Service: 10/16/17 Interval History: patient reports she feels better today. She has developed increase coughing with sputum production. Continues to have wheezing. No fevers/chills. Reports good appetite. No SOB/CP. Reports intermittent dizziness for the past 3-4 months. Reports 1 sec episodes and experienced a few episodes today, denies spinning of room and reports it feels like lightheadedness, no hx of vertigo. reports these episodes happen at rest Objective Active Medications: Alprazolam (Xanax Tab*) 1 mg PO TID PRN PRN Reason: ANXIETY Last Admin: 10/16/17 13:58 Dose: 1 mg Aspirin (Aspirin Ec Tab*) 81 mg PO QAM [facility] Last Admin: 10/16/17 10:28 Dose: 81 mg Atorvastatin Calcium (Lipitor*) 20 mg PO 1700 [facility] Last Admin: 10/16/17 17:49 Dose: 20 mg Carisoprodol (Soma Tab*) 350 mg PO TID PRN PRN Reason: SPASMS Last Admin: 10/16/17 13:58 Dose: 350 mg Dextrose (D50w Syringe 50 Ml*) 12.5 gm IV PUSH .FOR FS < 60 - SS PRN PRN Reason: FS < 60 Heparin Sodium (Porcine) (Heparin Vial(*)) 5,000 units SUBCUT Q8HR [facility] Last Admin: 10/16/17 13:59 Dose: 5,000 units Azithromycin 500 mg/ Sodium (Chloride) 250 mls @ 250 mls/hr IVPB Q24H [facility] Last Admin: 10/16/17 13:58 Dose: 250 mls/hr Insulin Human Lispro (Humalog*) 0 units SUBCUT ACHS [facility]; Protocol Methylprednisolone Sodium Succinate (Solu-Medrol 40 Mg) 40 mg IV Q8H [facility] Last Admin: 10/16/17 13:59 Dose: 40 mg Mometasone Furoate/Formoterol Fumar (Dulera 200/5 Mdi*) 1 puff INH BID [facility]; Protocol Last Admin: 10/16/17 19:32 Dose: 1 puff Oxycodone HCl (Oxycontin(*)) 10 mg PO BID [facility] Oxycodone/Acetaminophen (Percocet 5/325 Tab*) 2 tab PO Q4H PRN PRN Reason: PAIN Last Admin: 10/16/17 17:49 Dose: 2 tab Polyethylene Glycol/Electrolytes (Miralax*) 17 gm PO DAILY PRN PRN Reason: CONSTIPATION Last Admin: 10/16/17 14:58 Dose: 17 gm Pregabalin (Lyrica Cap(*)) 100 mg PO BID YUE Valsartan (Diovan Tab*) 320 mg PO DAILY YUE Zolpidem Tartrate (Ambien Tab*) 10 mg PO BEDTIME PRN PRN Reason: INSOMNIA Vital Signs - 8 hr 10/16/17 10/16/17 10/16/17 13:58 14:58 15:47 Temperature 97.5 F Pulse Rate 91 Respiratory 16 18 18 Rate Blood Pressure 144/53 (mmHg) O2 Sat by Pulse 100 Oximetry 10/16/17 10/16/17 10/16/17 15:58 16:58 17:49 Temperature Pulse Rate Respiratory 20 20 20 Rate Blood Pressure (mmHg) O2 Sat by Pulse Oximetry 10/16/17 10/16/17 18:22 19:34 Temperature Pulse Rate 96 Respiratory 16 20 Rate Blood Pressure (mmHg) O2 Sat by Pulse 99 Oximetry Oxygen Devices in Use Now: Nasal Cannula Appearance: morbidly obese female A+O x3 in NAD Eyes: No Scleral Icterus, PERRLA Ears/Nose/Mouth/Throat: NL Teeth, Lips, Gums, Mucous Membranes Moist Neck: NL Appearance and Movements; NL JVP Respiratory: Symmetrical Chest Expansion and Respiratory Effort, - - bilaterally with expiratory wheezes throughout Cardiovascular: NL Sounds; No Murmurs; No JVD, RRR, No Edema Abdominal: NL Sounds; No Tenderness; No Distention Extremities: No Edema, No Clubbing, Cyanosis Skin: No Rash or Ulcers, No Nodules or Sclerosis Neurological: Alert and Oriented x 3, NL Sensation, NL Muscle Strength and Tone Lines/Tubes/Other Access: Clean, Dry and Intact Peripheral IV Nutrition: Taking PO's Result Diagrams: 10/16/17 10:00 10/16/17 10:00 Additional Lab and Data: Lab Results 10/15/17 10/15/17 10/15/17 Range/Units 13:50 13:50 13:50 WBC 7.4 (3.5-10.8) 10^3/ul RBC 3.55 L (4.00-5.40) 10^6/ul Hgb 10.5 L (12.0-16.0) g/dl Hct 31 L (35-47) % MCV 87 (80-97) fL MCH 30 (27-31) pg MCHC 34 (31-36) g/dl RDW 13 (10.5-15) % Plt Count 212 (150-450) 10^3/ul MPV 8.8 (7.4-10.4) um3 Neut % (Auto) 66.5 (38-83) % Lymph % (Auto) 20.3 L (25-47) % Wilkes % (Auto) 9.1 H (0-7) % Eos % (Auto) 2.9 (0-6) % Baso % (Auto) 1.2 (0-2) % Absolute Neuts (auto) 4.9 (1.5-7.7) 10^3/ul Absolute Lymphs (auto) 1.5 (1.0-4.8) 10^3/ul Absolute Monos (auto) 0.7 (0-0.8) 10^3/ul Absolute Eos (auto) 0.2 (0-0.6) 10^3/ul Absolute Basos (auto) 0.1 (0-0.2) 10^3/ul Absolute Nucleated RBC 0 10^3/ul Nucleated RBC % 0 Sodium 142 (135-145) mmol/L Potassium 4.7 (3.5-5.0) mmol/L Chloride 104 (101-111) mmol/L Carbon Dioxide 31 (22-32) mmol/L Anion Gap 7 (2-11) mmol/L BUN 56 H (6-24) mg/dL Creatinine 2.81 H (0.51-0.95) mg/dL Est GFR ( Amer) 20.2 (>60) Est GFR (Non-Af Amer) 16.7 (>60) BUN/Creatinine Ratio 19.9 (8-20) Glucose 109 H (70-100) mg/dL Lactic Acid 1.2 (0.5-2.0) mmol/L Calcium 7.7 L (8.6-10.3) mg/dL Total Bilirubin 0.20 (0.2-1.0) mg/dL AST 15 (13-39) U/L ALT 7 (7-52) U/L Alkaline Phosphatase 97 (34-104) U/L Total Creatine Kinase 282 H (10-223) U/L Troponin I 0.00 (<0.04) ng/mL C-Reactive Protein 9.72 H (<8.01) mg/L B-Natriuretic Peptide ( - 100) pg/mL Total Protein 7.1 (6.4-8.9) g/dL Albumin 4.0 (3.2-5.2) g/dL Globulin 3.1 (2-4) g/dL Albumin/Globulin Ratio 1.3 (1-3) 10/15/17 Range/Units 13:50 WBC (3.5-10.8) 10^3/ul RBC (4.00-5.40) 10^6/ul Hgb (12.0-16.0) g/dl Hct (35-47) % MCV (80-97) fL MCH (27-31) pg MCHC (31-36) g/dl RDW (10.5-15) % Plt Count (150-450) 10^3/ul MPV (7.4-10.4) um3 Neut % (Auto) (38-83) % Lymph % (Auto) (25-47) % Wilkes % (Auto) (0-7) % Eos % (Auto) (0-6) % Baso % (Auto) (0-2) % Absolute Neuts (auto) (1.5-7.7) 10^3/ul Absolute Lymphs (auto) (1.0-4.8) 10^3/ul Absolute Monos (auto) (0-0.8) 10^3/ul Absolute Eos (auto) (0-0.6) 10^3/ul Absolute Basos (auto) (0-0.2) 10^3/ul Absolute Nucleated RBC 10^3/ul Nucleated RBC % Sodium (135-145) mmol/L Potassium (3.5-5.0) mmol/L Chloride (101-111) mmol/L Carbon Dioxide (22-32) mmol/L Anion Gap (2-11) mmol/L BUN (6-24) mg/dL Creatinine (0.51-0.95) mg/dL Est GFR ( Amer) (>60) Est GFR (Non-Af Amer) (>60) BUN/Creatinine Ratio (8-20) Glucose (70-100) mg/dL Lactic Acid (0.5-2.0) mmol/L Calcium (8.6-10.3) mg/dL Total Bilirubin (0.2-1.0) mg/dL AST (13-39) U/L ALT (7-52) U/L Alkaline Phosphatase (34-104) U/L Total Creatine Kinase (10-223) U/L Troponin I (<0.04) ng/mL C-Reactive Protein (<8.01) mg/L B-Natriuretic Peptide 49 ( - 100) pg/mL Total Protein (6.4-8.9) g/dL Albumin (3.2-5.2) g/dL Globulin (2-4) g/dL Albumin/Globulin Ratio (1-3) Microbiology and Other Data: Microbiology 10/15/17 14:20 Aerobic Blood Culture - Preliminary Blood Venous No Growth Day 1 Anaerobic Blood Culture - Preliminary No Growth Day 1 Assess/Plan/Problems-Billing Assessment: Ms. Mckeon is a 67 yo female with a PMH of morbid obesity, COPD on 2L [place] 08/10, hx of hypoxic respiratory failure, hx of heart failure with a preserved EF, HTN, non-insulin DM II, chronic pain syndrome who presented in recommendation from PCP office for increasing SOB, weight gain and dizziness. - Patient Problems (1) COPD exacerbation Comment: Initiate anitbiotics today due to increased cough and sputum production. continue azithromycin continue solumedrol decrtease to 40 mg Q12 (from Q8hr) continue duonebs q4hr while awake sputum culture pending Blood cx NTD (2) Acute renal failure Comment: improving. Pre-renal per FENA suspect secondary to overdiuresing (3) Dizziness Comment: - uclear etiology, does not appear to be vertigo. Possible medication related? pt is followed by her PCP for this per pt. mildy orthostatic last night. She may be intravascularly dry and most likely is overdiuresed however this dizziness has been going on for months. Neuro exam intact. anemia?? noted to be iron deficient anemia (4) Anemia, iron deficiency Comment: - iron deficiency anemia. start of ferrous sulfate - send stool for occult blood (5) CHF (congestive heart failure) Comment: Chronic, diastolic, does not appear to be in acute exacerbation. PCP has been following for reported weight gain which pt reports to be in her upper legs and abdomen. BNP normal on exam. Does not appear to be in failure. Continue daily weights. Hold diuretics in the setting of ARF. (6) HTN (hypertension) Comment: Normotensive. Continue nebivolol and valsartan (autosub for olmesartan ) (7) Electrolyte abnormality Comment: Hypomagnesemia - Resolved (8) Morbid obesity Comment: BMI 48 (9) Chronic pain Comment: Discussed with patient and recieved med list from M[facility] santos patient does take oxycontin q12 hour and percocet prn. Continue SOMA (10) Diabetes mellitus type 2, noninsulin dependent Comment: Continue Lispro SSI. Hold metformin (11) GERD (gastroesophageal reflux disease) Comment: Continue omeprazole. (12) LUPE (obstructive sleep apnea) Comment: Does not use home CPAP. Continue nocturnal O2 2Lnc (13) DVT prophylaxis Comment: HSQ (14) Full code status Status and Disposition: Inpatient with copd exacerbation, ARF. DC home when clinically stable.
[2017-10-16] MEDS: Insulin LISPRO* 1 UNITS UNIT SUBCUT SCH (21:22)
[2017-10-16] MEDS: Pregabalin CAP(*) 100 MG PO SCH (21:25)
[2017-10-16] MEDS: oxyCODONE SR TAB(*) 10 MG TAB.SR PO SCH (21:26)
--- NOTE | 2017-10-16 22:13 | PN ---
Progress Note - Progress Note Date of Service: 10/16/17 Note: Patient states she takes 4 tabs of oxycodone every 4-6 hours at home. Will order oxycodone 10 mg q4 hr prn in addition to the percocet that she is already taking. Patient should discontinue her home regimen as it can go up to almost 8 gm if she is truly taking 4 tabs every 4 hours.
[2017-10-16] MEDS: oxyCODONE TAB* 5 MG TAB PO PRN (23:08)
[2017-10-17] MEDS: Zolpidem TAB* 10 MG PO PRN (01:54)
[2017-10-17] MEDS: Heparin VIAL(*) 5000 UNITS/ML VIAL (FIVE THOUSAND) SUBCUT SCH ×3 (05:52→21:14)
[2017-10-17 07:46] LABS: ABS Basophils 0 10^3/ul (0-0.2); ABS Eosinophils 0 10^3/ul (0-0.6); ABS Lymphocytes 0.9 10^3/ul (1.0-4.8); ABS Monocytes 0.7 10^3/ul (0-0.8); ABS Neutrophils 10.8 10^3/ul (1.5-7.7); ABS Nucleated RBC 0 10^3/ul; Eosinophil % 0 % (0-6); Hematocrit 30 % (35-47); Mean Corpuscular HGB Conc 33 g/dl (31-36); Mean Corpuscular Hemoglobin 29 pg (27-31); Mean Corpuscular Volume 87 fL (80-97); Mean Platelet Volume 9.1 um3 (7.4-10.4); Nucleated Red Blood Cells % 0.1; Platelet Count 195 10^3/ul (150-450); Red Blood Count 3.44 10^6/ul (4.00-5.40); Red Cell Distribution Width 14 % (10.5-15); White Blood Count 12.4 10^3/ul (3.5-10.8)
[2017-10-17] MEDS: Mometasone/Formoter 200/5 MDI INH SCH ×2 (07:46→19:53)
[2017-10-17] MEDS: Valsartan TAB* 160 MG PO SCH (08:48)
[2017-10-17] MEDS: Aspirin EC TAB* 81 MG TAB.EC PO SCH (08:48)
[2017-10-17] MEDS: Ferrous Sulfate TAB* 325 MG PO SCH (08:48)
[2017-10-17 08:50] LABS: EGFR Non-African American 57.8 (>60)
[2017-10-17] MEDS: Pregabalin CAP(*) 100 MG PO SCH ×2 (08:50→21:13)
[2017-10-17] MEDS: oxyCODONE SR TAB(*) 10 MG TAB.SR PO SCH ×2 (08:51→21:13)
[2017-10-17] MEDS: Insulin LISPRO* 1 UNITS UNIT SUBCUT SCH ×4 (08:52→21:13)
[2017-10-17] MEDS: methylPREDNISolone SOD 40 MG* 1 ML VIAL IV SCH ×2 (08:52→21:13)
[2017-10-17] MEDS ORDERED: Simvastatin (NF) 40 MG TAB PO SCH (09:00)
[2017-10-17] MEDS: oxyCODONE/Acetamin 5/325 MG* TAB PO PRN ×3 (09:05→21:12)
[2017-10-17] MEDS: oxyCODONE TAB* 5 MG TAB PO PRN ×3 (09:06→21:12)
[2017-10-17] MEDS: Azithromycin IV(*) 500 MG in NS 0.9% 250 ML* 250 ML IVPB SCH (12:40)
--- NOTE | 2017-10-17 14:28 | PN ---
Subjective Date of Service: 10/17/17 Interval History: Ms. Mckeon states that she is not feeling much better. She continues to be very dyspneic with exertion with wheezing. She has back pain but reports this is a chronic problem for her. She also describes episodes that can happen up to 15 times a day where she suddenly feels lightheaded which last about a second. She denies dizziness. These episodes can happen at rest; there is no particular pattern. Objective Active Medications: Alprazolam (Xanax Tab*) 1 mg PO TID PRN Aspirin (Aspirin Ec Tab*) 81 mg PO QAM [facility] Atorvastatin Calcium (Lipitor*) 20 mg PO 1700 [facility] Carisoprodol (Soma Tab*) 350 mg PO TID PRN Dextrose (D50w Syringe 50 Ml*) 12.5 gm IV PUSH .FOR FS < 60 - SS PRN Ferrous Sulfate (Ferrous Sulfate Tab*) 325 mg PO DAILY [facility] Heparin Sodium (Porcine) (Heparin Vial(*)) 5,000 units SUBCUT Q8HR [facility] Azithromycin 500 mg/ Sodium (Chloride) 250 mls @ 250 mls/hr IVPB Q24H [facility] Insulin Human Lispro (Humalog*) 0 units SUBCUT ACHS [facility]; Protocol Methylprednisolone Sodium Succinate (Solu-Medrol 40 Mg) 40 mg IV Q12H [facility] Mometasone Furoate/Formoterol Fumar (Dulera 200/5 Mdi*) 1 puff INH BID [facility]; Protocol Oxycodone HCl (Oxycontin(*)) 10 mg PO BID [facility] Oxycodone HCl (Roxycodone Tab*) 10 mg PO Q4H PRN Oxycodone/Acetaminophen (Percocet 5/325 Tab*) 2 tab PO Q4H PRN Polyethylene Glycol/Electrolytes (Miralax*) 17 gm PO DAILY PRN Pregabalin (Lyrica Cap(*)) 100 mg PO BID [facility] Valsartan (Diovan Tab*) 320 mg PO DAILY [facility] Zolpidem Tartrate (Ambien Tab*) 10 mg PO BEDTIME PRN Vital Signs: Temp Pulse Resp BP Pulse Ox 97.8 F 72 16 155/87 97 10/17/17 11:13 10/17/17 11:13 10/17/17 11:33 10/17/17 11:13 08/02/18 07:47 Oxygen Devices in Use Now: Nasal Cannula Appearance: Female lying in bed in NAD Eyes: No Scleral Icterus Ears/Nose/Mouth/Throat: Mucous Membranes Moist Neck: Trachea Midline Respiratory: Symmetrical Chest Expansion and Respiratory Effort, - - Minimal wheezing, diminished Cardiovascular: NL Sounds; No Murmurs; No JVD, No Edema Abdominal: NL Sounds; No Tenderness; No Distention Skin: No Rash or Ulcers Neurological: Alert and Oriented x 3, NL Muscle Strength and Tone Nutrition: Taking PO's Result Diagrams: 10/17/17 07:28 10/17/17 07:28 Assess/Plan/Problems-Billing Assessment: Ms. Mckeon is a 67 yo female with a PMH of morbid obesity, COPD on 2L [place] , hx of hypoxic respiratory failure, hx of heart failure with a preserved EF, HTN, non-insulin DM II, chronic pain syndrome who presented in recommendation from PCP office for increasing SOB, weight gain and dizziness. - Patient Problems (1) COPD exacerbation Comment: - Continue antibiotics due to increased cough and sputum production. - Continue solumedrol. Continue duonebs q4hr while awake (2) Lightheadedness Comment: - Unclear etiology. Possible medication related? pt is followed by her PCP for this per pt. Mildy orthostatic last night. She may be intravascularly dry and most likely is overdiuresed however this lightheadedness has been going on for months. Neuro exam intact. (3) CHF (congestive heart failure) Comment: - Chronic, diastolic, does not appear to be in acute exacerbation. BNP normal. - PCP has been following for reported weight gain which pt reports to be in her upper legs and abdomen. - Continue daily weights. Hold diuretics in the setting of ARF. (4) Acute renal failure Comment: - Resolved. Pre-renal per FENA. - Suspect secondary to overdiuresing. (5) Anemia, iron deficiency Comment: - Chronic iron deficiency anemia. - Start ferrous sulfate. (6) Chronic pain Comment: - Continue oxycontin q12 hour and percocet prn. Continue SOMA (7) Diabetes mellitus type 2, noninsulin dependent Comment: - Continue Lispro SSI. Hold metformin (8) GERD (gastroesophageal reflux disease) Comment: - Continue omeprazole. (9) HTN (hypertension) Comment: - Normotensive. - Continue nebivolol and valsartan (autosub for olmesartan) (10) Morbid obesity Comment: - BMI 49 (11) LUPE (obstructive sleep apnea) Comment: Does not use home CPAP. Continue nocturnal O2 2Lnc (12) DVT prophylaxis Comment: - HSQ (13) Full code status Comment: Status and Disposition: Inpatient with copd exacerbation, ARF. DC home when clinically stable.
[2017-10-17] MEDS: Atorvastatin* 20 MG TAB PO SCH (16:50)
[2017-10-18] MEDS: Zolpidem TAB* 10 MG PO PRN (01:50)
[2017-10-18] MEDS: oxyCODONE/Acetamin 5/325 MG* TAB PO PRN ×3 (01:50→13:24)
[2017-10-18] MEDS: oxyCODONE TAB* 5 MG TAB PO PRN ×4 (01:51→23:34)
[2017-10-18] MEDS ORDERED: Albuterol 2.5 MG/3 ML NEB.SOL* (0.083%) INH PRN (02:44)
[2017-10-18] MEDS ORDERED: Albuterol 2.5 MG/3 ML NEB.SOL* (0.083%) INH SCH (04:00)
[2017-10-18] MEDS: Albuterol 2.5 MG/3 ML NEB.SOL* (0.083%) INH SCH ×4 (05:17→20:22)
[2017-10-18 06:17] LABS: ABS Basophils 0 10^3/ul (0-0.2); ABS Eosinophils 0 10^3/ul (0-0.6); ABS Lymphocytes 0.9 10^3/ul (1.0-4.8); ABS Monocytes 0.8 10^3/ul (0-0.8); ABS Nucleated RBC 0 10^3/ul; Eosinophil % 0 % (0-6); Hematocrit 32 % (35-47); Hemoglobin 10.6 g/dl (12.0-16.0); Lymphocyte % 8.6 % (25-47); Mean Corpuscular HGB Conc 33 g/dl (31-36); Mean Corpuscular Hemoglobin 29 pg (27-31); Mean Corpuscular Volume 87 fL (80-97); Mean Platelet Volume 8.7 um3 (7.4-10.4); Nucleated Red Blood Cells % 0.1; Platelet Count 225 10^3/ul (150-450); Red Blood Count 3.69 10^6/ul (4.00-5.40); Red Cell Distribution Width 14 % (10.5-15); White Blood Count 10.8 10^3/ul (3.5-10.8)
[2017-10-18] MEDS: Heparin VIAL(*) 5000 UNITS/ML VIAL (FIVE THOUSAND) SUBCUT SCH ×3 (06:18→21:17)
[2017-10-18 07:13] LABS: EGFR Non-African American 57.1 (>60)
[2017-10-18] MEDS: Mometasone/Formoter 200/5 MDI INH SCH ×2 (07:18→20:22)
--- NOTE | 2017-10-18 07:18 | PN ---
Subjective Date of Service: 10/18/17 Interval History: Ms. Mckeon reports that she feels about the same as yesterday. She remains dyspneic with ambulation. She continues to have very brief one second episodes of lightheadedness. She denies chest pain, nausea, or abdominal pain. Objective Active Medications: Albuterol (Ventolin 2.5 Mg/3 Ml Neb.Rosalie*) 2.5 mg INH Q4H PRN Albuterol (Ventolin 2.5 Mg/3 Ml Neb.Rosalie*) 2.5 mg INH [id number] [facility] Alprazolam (Xanax Tab*) 1 mg PO TID PRN Aspirin (Aspirin Ec Tab*) 81 mg PO QAM [facility] Atorvastatin Calcium (Lipitor*) 20 mg PO 1700 [facility] Carisoprodol (Soma Tab*) 350 mg PO TID PRN Dextrose (D50w Syringe 50 Ml*) 12.5 gm IV PUSH .FOR FS < 60 - SS PRN Ferrous Sulfate (Ferrous Sulfate Tab*) 325 mg PO DAILY [facility] Heparin Sodium (Porcine) (Heparin Vial(*)) 5,000 units SUBCUT Q8HR [facility] Azithromycin 500 mg/ Sodium (Chloride) 250 mls @ 250 mls/hr IVPB Q24H [facility] Insulin Human Lispro (Humalog*) 0 units SUBCUT ACHS [facility]; Protocol Methylprednisolone Sodium Succinate (Solu-Medrol 40 Mg) 40 mg IV Q12H [facility] Mometasone Furoate/Formoterol Fumar (Dulera 200/5 Mdi*) 1 puff INH BID [facility]; Protocol Oxycodone HCl (Oxycontin(*)) 10 mg PO BID [facility] Oxycodone HCl (Roxycodone Tab*) 10 mg PO Q4H PRN Oxycodone/Acetaminophen (Percocet 5/325 Tab*) 2 tab PO Q4H PRN Polyethylene Glycol/Electrolytes (Miralax*) 17 gm PO DAILY PRN Pregabalin (Lyrica Cap(*)) 100 mg PO BID [facility] Valsartan (Diovan Tab*) 320 mg PO DAILY [facility] Zolpidem Tartrate (Ambien Tab*) 10 mg PO BEDTIME PRN Vital Signs: Temp Pulse Resp BP Pulse Ox 97.7 F 78 20 142/71 98 10/18/17 03:15 10/18/17 07:18 10/18/17 08:34 10/18/17 03:15 10/18/17 07:18 Oxygen Devices in Use Now: Nasal Cannula Appearance: Female lying in bed in NAD Eyes: No Scleral Icterus Ears/Nose/Mouth/Throat: Mucous Membranes Moist Neck: Trachea Midline Respiratory: Symmetrical Chest Expansion and Respiratory Effort, - - Minimal wheezing noted, ? how much wheezing is reflective of known vocal cord dysfunction and forced expiration Cardiovascular: NL Sounds; No Murmurs; No JVD, - - trace LE edema Abdominal: NL Sounds; No Tenderness; No Distention Skin: No Rash or Ulcers Neurological: Alert and Oriented x 3, NL Muscle Strength and Tone Nutrition: Taking PO's Result Diagrams: 10/18/17 06:03 10/18/17 06:03 Assess/Plan/Problems-Billing Assessment: Ms. Mckeon is a 67 yo female with a PMH of morbid obesity, COPD on 2L [place] 24/ 7, hx of hypoxic respiratory failure, hx of heart failure with a preserved EF, HTN, non-insulin DM II, chronic pain syndrome who presented for increasing SOB, weight gain and lightheadedness found to have likely COPD exacerbation and acute kidney injury related to overdiuresis. - Patient Problems (1) COPD exacerbation Comment: - Improving slowly, on 2L [place]. - Continue azithromycin, titrate steroids, continue duonebs. (2) Lightheadedness Comment: - Unclear etiology. Possible medication related? Patient feels that symptoms began around the time she stopped cymbalta and started lyrica. Plan to stop lyrica. (3) CHF (congestive heart failure) Comment: - Chronic, diastolic, does not appear to be in acute exacerbation. BNP normal. - PCP has been following for reported weight gain which pt reports to be in her upper legs and abdomen. - Continue daily weights. Hold diuretics in the setting of ARF. (4) Acute renal failure Comment: - Resolved. Pre-renal per FENA. - Suspect secondary to overdiuresing. (5) Anemia, iron deficiency Comment: - Chronic iron deficiency anemia. - Start ferrous sulfate. (6) Chronic pain Comment: - Continue oxycontin q12 hour and percocet prn. Continue SOMA (7) Diabetes mellitus type 2, noninsulin dependent Comment: - Continue Lispro SSI. Hold metformin (8) GERD (gastroesophageal reflux disease) Comment: - Continue omeprazole. (9) HTN (hypertension) Comment: - Normotensive. - Continue nebivolol and valsartan (autosub for olmesartan) (10) Morbid obesity Comment: - BMI 49 (11) LUPE (obstructive sleep apnea) Comment: Does not use home CPAP. Continue nocturnal O2 2Lnc (12) DVT prophylaxis Comment: - HSQ (13) Full code status Comment: Status and Disposition: Inpatient with copd exacerbation, ARF. DC home when clinically stable.
[2017-10-18] MEDS: methylPREDNISolone SOD 40 MG* 1 ML VIAL IV SCH (08:32)
[2017-10-18] MEDS: Pregabalin CAP(*) 100 MG PO SCH (08:32)
[2017-10-18] MEDS: Valsartan TAB* 160 MG PO SCH (08:32)
[2017-10-18] MEDS: Aspirin EC TAB* 81 MG TAB.EC PO SCH (08:34)
[2017-10-18] MEDS: Ferrous Sulfate TAB* 325 MG PO SCH (08:34)
[2017-10-18] MEDS: oxyCODONE SR TAB(*) 10 MG TAB.SR PO SCH ×2 (08:34→21:17)
[2017-10-18] MEDS: Polyethylene Glycol 3350* 17 GM PACKET PO PRN (09:03)
[2017-10-18] MEDS: Insulin LISPRO* 1 UNITS UNIT SUBCUT SCH ×4 (09:03→20:54)
[2017-10-18] MEDS ORDERED: Acetaminophen TAB* 325 MG PO PRN (17:13)
[2017-10-18] MEDS: Atorvastatin* 20 MG TAB PO SCH (17:31)
[2017-10-18] MEDS: Carisoprodol TAB* 350 MG PO PRN (21:41)
[2017-10-18] MEDS: ALPRAZolam TAB* 0.5 MG PO PRN (23:39)
[2017-10-19] MEDS: Albuterol 2.5 MG/3 ML NEB.SOL* (0.083%) INH SCH ×2 (00:38→07:31)
[2017-10-19] MEDS: Heparin VIAL(*) 5000 UNITS/ML VIAL (FIVE THOUSAND) SUBCUT SCH ×3 (05:38→21:02)
[2017-10-19] MEDS: oxyCODONE TAB* 5 MG TAB PO PRN ×3 (05:39→21:26)
--- NOTE | 2017-10-19 06:52 | PN ---
Subjective Date of Service: 10/19/17 Interval History: Ms. Mckeon reports continued concern about brief feelings of wooziness that have been ongoing for 2 months and her recent weight gain despite aggressive diuresis outpatient. She denies any acute complaint. She feels that her breathing is basically at baseline. She denies chest pain, nausea, or abdominal pain. Objective Active Medications: Acetaminophen (Tylenol Tab*) 650 mg PO Q6H PRN Albuterol (Ventolin 2.5 Mg/3 Ml Neb.Rosalie*) 2.5 mg INH Q4H PRN Albuterol (Ventolin 2.5 Mg/3 Ml Neb.Rosalie*) 2.5 mg INH [id number] AWAKE [facility] Alprazolam (Xanax Tab*) 1 mg PO TID PRN Aspirin (Aspirin Ec Tab*) 81 mg PO QAM [facility] Atorvastatin Calcium (Lipitor*) 20 mg PO 1700 YUE Azithromycin (Zithromax Tab*) 250 mg PO DAILY [facility] Carisoprodol (Soma Tab*) 350 mg PO TID PRN Dextrose (D50w Syringe 50 Ml*) 12.5 gm IV PUSH .FOR FS < 60 - SS PRN Ferrous Sulfate (Ferrous Sulfate Tab*) 325 mg PO DAILY [facility] Heparin Sodium (Porcine) (Heparin Vial(*)) 5,000 units SUBCUT Q8HR [facility] Insulin Human Lispro (Humalog*) 0 units SUBCUT ACHS [facility]; Protocol Mometasone Furoate/Formoterol Fumar (Dulera 200/5 Mdi*) 1 puff INH BID YUE; Protocol Oxycodone HCl (Oxycontin(*)) 10 mg PO BID [facility] Oxycodone HCl (Roxycodone Tab*) 20 mg PO Q6H PRN Polyethylene Glycol/Electrolytes (Miralax*) 17 gm PO DAILY PRN Prednisone (Deltasone Tab*) 40 mg PO DAILY [facility] Valsartan (Diovan Tab*) 320 mg PO DAILY YUE Zolpidem Tartrate (Ambien Tab*) 10 mg PO BEDTIME PRN Vital Signs: Temp Pulse Resp BP Pulse Ox 97.5 F 72 18 107/72 100 10/19/17 04:39 10/19/17 04:39 10/19/17 05:39 10/19/17 04:39 10/19/17 04:39 Oxygen Devices in Use Now: Nasal Cannula Appearance: Female lying in bed in NAD Eyes: No Scleral Icterus Ears/Nose/Mouth/Throat: Mucous Membranes Moist Neck: Trachea Midline Respiratory: Symmetrical Chest Expansion and Respiratory Effort, - - Upper respiratory wheezing noted with ambulation, at baseline Cardiovascular: NL Sounds; No Murmurs; No JVD Abdominal: NL Sounds; No Tenderness; No Distention Skin: No Rash or Ulcers Neurological: Alert and Oriented x 3, NL Muscle Strength and Tone Nutrition: Taking PO's Result Diagrams: 10/18/17 06:03 10/18/17 06:03 Assess/Plan/Problems-Billing Assessment: Ms. Mckeon is a 67 yo female with a PMH of morbid obesity, COPD on 2L NC , hx of hypoxic respiratory failure, hx of heart failure with a preserved EF, HTN, non-insulin DM II, chronic pain syndrome who presented for increasing SOB, weight gain and lightheadedness found to have likely COPD exacerbation and acute kidney injury related to overdiuresis. - Patient Problems (1) COPD exacerbation Comment: - Improving slowly, titrating oxygen. - Continue azithromycin, titrate steroids, continue duonebs. (2) Lightheadedness Comment: - Unclear etiology. Possible medication related? Patient feels that symptoms began around the time she stopped cymbalta and started lyrica. Plan to stop lyrica. (3) CHF (congestive heart failure) Comment: - Chronic, diastolic, does not appear to be in acute exacerbation. BNP normal. - PCP has been following for reported weight gain which pt reports to be in her upper legs and abdomen. - Continue daily weights. Hold diuretics in the setting of ARF. (4) Acute renal failure Comment: - Resolved. Pre-renal per FENA. - Suspect secondary to overdiuresing. (5) Anemia, iron deficiency Comment: - Chronic iron deficiency anemia. - Start ferrous sulfate. (6) Chronic pain Comment: - Continue oxycontin q12 hour and percocet prn. Continue SOMA (7) Diabetes mellitus type 2, noninsulin dependent Comment: - Continue Lispro SSI. Hold metformin (8) GERD (gastroesophageal reflux disease) Comment: - Continue omeprazole. (9) HTN (hypertension) Comment: - Normotensive. - Continue nebivolol and valsartan (autosub for olmesartan) (10) Morbid obesity Comment: - BMI 49 (11) LUPE (obstructive sleep apnea) Comment: Does not use home CPAP. Continue nocturnal O2 2Lnc (12) DVT prophylaxis Comment: - HSQ (13) Full code status Comment: Status and Disposition: Inpatient with copd exacerbation, ARF. DC home when clinically stable.
[2017-10-19] MEDS: Mometasone/Formoter 200/5 MDI INH SCH ×2 (07:32→19:18)
[2017-10-19] MEDS: Insulin LISPRO* 1 UNITS UNIT SUBCUT SCH ×4 (08:43→21:26)
[2017-10-19] MEDS: Azithromycin TAB* 250 MG PO SCH (10:11)
[2017-10-19] MEDS: predniSONE TAB* 20 MG PO SCH (10:11)
[2017-10-19] MEDS: Aspirin EC TAB* 81 MG TAB.EC PO SCH (10:12)
[2017-10-19] MEDS: Valsartan TAB* 160 MG PO SCH (10:12)
[2017-10-19] MEDS: oxyCODONE SR TAB(*) 10 MG TAB.SR PO SCH ×2 (10:12→21:01)
[2017-10-19] MEDS: Ferrous Sulfate TAB* 325 MG PO SCH (10:12)
[2017-10-19] MEDS: ALPRAZolam TAB* 0.5 MG PO PRN ×2 (17:56→22:58)
[2017-10-19] MEDS: Carisoprodol TAB* 350 MG PO PRN (17:57)
[2017-10-19] MEDS: Atorvastatin* 20 MG TAB PO SCH (18:04)
[2017-10-19] MEDS: Zolpidem TAB* 10 MG PO PRN (22:58)
[2017-10-20] MEDS: Heparin VIAL(*) 5000 UNITS/ML VIAL (FIVE THOUSAND) SUBCUT SCH (05:29)
--- NOTE | 2017-10-20 07:31 | PN ---
Subjective Date of Service: 10/20/17 Interval History: Ms. Mckeon is relieved at the plan for discharge. She denies SOB, chest pain, nausea, or abdominal pain. Objective Active Medications: Acetaminophen (Tylenol Tab*) 650 mg PO Q6H PRN Albuterol (Ventolin 2.5 Mg/3 Ml Neb.Rosalie*) 2.5 mg INH Q4H PRN Alprazolam (Xanax Tab*) 1 mg PO TID PRN Aspirin (Aspirin Ec Tab*) 81 mg PO QAM YUE Atorvastatin Calcium (Lipitor*) 20 mg PO 1700 YUE Azithromycin (Zithromax Tab*) 250 mg PO DAILY YUE Carisoprodol (Soma Tab*) 350 mg PO TID PRN Dextrose (D50w Syringe 50 Ml*) 12.5 gm IV PUSH .FOR FS < 60 - SS PRN Ferrous Sulfate (Ferrous Sulfate Tab*) 325 mg PO DAILY [facility] Heparin Sodium (Porcine) (Heparin Vial(*)) 5,000 units SUBCUT Q8HR [facility] Insulin Human Lispro (Humalog*) 0 units SUBCUT ACHS [facility]; Protocol Mometasone Furoate/Formoterol Fumar (Dulera 200/5 Mdi*) 1 puff INH BID YUE; Protocol Oxycodone HCl (Oxycontin(*)) 10 mg PO BID [facility] Oxycodone HCl (Roxycodone Tab*) 20 mg PO Q6H PRN Polyethylene Glycol/Electrolytes (Miralax*) 17 gm PO DAILY PRN Prednisone (Deltasone Tab*) 40 mg PO DAILY [facility] Valsartan (Diovan Tab*) 320 mg PO DAILY [facility] Zolpidem Tartrate (Ambien Tab*) 10 mg PO BEDTIME PRN Vital Signs: Temp Pulse Resp BP Pulse Ox 98.2 F 71 16 151/72 100 10/19/17 22:55 10/19/17 22:55 10/20/17 01:00 10/19/17 22:55 10/19/17 22:55 Oxygen Devices in Use Now: None Appearance: Female lying in bed in NAD Ears/Nose/Mouth/Throat: Mucous Membranes Moist Neck: Trachea Midline Respiratory: Symmetrical Chest Expansion and Respiratory Effort, Clear to Auscultation Cardiovascular: NL Sounds; No Murmurs; No JVD Abdominal: NL Sounds; No Tenderness; No Distention Skin: No Rash or Ulcers Neurological: Alert and Oriented x 3, NL Muscle Strength and Tone Nutrition: Taking PO's Result Diagrams: 10/18/17 06:03 10/18/17 06:03 Assess/Plan/Problems-Billing Assessment: Ms. Mckeon is a 67 yo female with a PMH of morbid obesity, COPD on 2L NC , hx of hypoxic respiratory failure, hx of heart failure with a preserved EF, HTN, non-insulin DM II, chronic pain syndrome who presented for increasing SOB, weight gain and lightheadedness found to have likely COPD exacerbation and acute kidney injury related to overdiuresis. - Patient Problems (1) COPD exacerbation Comment: - Resolving, now off O2. - Continue azithromycin, titrate steroids, continue duonebs. (2) Lightheadedness Comment: - Unclear etiology. Possible medication related? Patient feels that symptoms began around the time she stopped cymbalta and started lyrica. Plan to stop lyrica. (3) CHF (congestive heart failure) Comment: - Chronic, diastolic, does not appear to be in acute exacerbation. BNP normal. - PCP has been following for reported weight gain which pt reports to be in her upper legs and abdomen. - Continue daily weights. Resume home diuretics. (4) Acute renal failure Comment: - Resolved. Pre-renal per FENA. - Suspect secondary to overdiuresing. (5) Anemia, iron deficiency Comment: - Chronic iron deficiency anemia. - Start ferrous sulfate. (6) Chronic pain Comment: - Continue oxycontin q12 hour and percocet prn. Continue SOMA (7) Diabetes mellitus type 2, noninsulin dependent Comment: - Resume metformin (8) GERD (gastroesophageal reflux disease) Comment: - Continue omeprazole. (9) HTN (hypertension) Comment: - Normotensive. - Continue nebivolol and olmesartan (10) Morbid obesity Comment: - BMI 49 (11) LUPE (obstructive sleep apnea) Comment: Does not use home CPAP. Continue nocturnal O2 2Lnc (12) DVT prophylaxis Comment: - HSQ (13) Full code status Comment: Status and Disposition: Discharge to home.
[2017-10-20 08:03] VITALS: BP 151/89
[2017-10-20] MEDS: Insulin LISPRO* 1 UNITS UNIT SUBCUT SCH (08:14)
[2017-10-20] MEDS: Mometasone/Formoter 200/5 MDI INH SCH (08:39)
[2017-10-20] MEDS: Azithromycin TAB* 250 MG PO SCH (10:02)
[2017-10-20] MEDS: Aspirin EC TAB* 81 MG TAB.EC PO SCH (10:02)
[2017-10-20] MEDS: Valsartan TAB* 160 MG PO SCH (10:02)
[2017-10-20] MEDS: predniSONE TAB* 20 MG PO SCH (10:02)
[2017-10-20] MEDS: Ferrous Sulfate TAB* 325 MG PO SCH (10:02)
[2017-10-20] MEDS: oxyCODONE SR TAB(*) 10 MG TAB.SR PO SCH (10:03)
--- NOTE | 2017-10-20 14:04 | DS ---
CC: Dr. Lara * [facility] MEDICINE DISCHARGE SUMMARY: DATE OF ADMISSION: 10/15/17 DATE OF DISCHARGE: 10/20/17 PRIMARY CARE PHYSICIAN: Dr. Lara. ATTENDING PHYSICIAN: Dr. Yuniel Salcedo * (dictation provided by Michaela Murrell NP). PRIMARY DIAGNOSES: 1. Chronic obstructive pulmonary disease exacerbation. 2. Acute kidney injury, resolved. SECONDARY DIAGNOSES: 1. History of chronic obstructive pulmonary disease, on 2 L nasal cannula at night. 2. History of hypoxic respiratory failure. 3. Sleep apnea, not using CPAP. 4. Heart failure with preserved systolic function. 5. Hypertension. 6. Tyz-qoezigm-oxpsydtxa type 2 diabetes. 7. Hyperlipidemia. 8. Chronic pain syndrome, on chronic opioids. 9. Osteoarthritis. 10. History of small bowel obstruction. 11. Osteoporosis. 12. Morbid obesity with a BMI of 49. 13. Anemia. 14. Insomnia. 15. Vocal cord dysfunction. PAST SURGICAL HISTORY: 1. Resection for bowel obstruction. 2. Bilateral total knee replacements. 3. Benign breast biopsies. MEDICATIONS AT THE TIME OF DISCHARGE: 1. Lasix 40 mg p.o. daily (the patient is to use 1 tab daily until followup with PCP). 2. Metolazone 5 mg p.o. daily (the patient is to use 1 tab daily until followup with PCP). 3. Prednisone via taper. 4. Azithromycin 250 mg p.o. daily. 5. Oxycodone/acetaminophen 10/325 p.r.n. 6. Oxycodone SR 10 mg p.o. b.i.d. 7. Fluticasone/salmeterol 115/21 one puff inhaled b.i.d. 8. Guaifenesin p.r.n. 9. Dexlansoprazole 30 mg p.o. daily. 10. Olmesartan 40 mg p.o. daily. 11. Metformin 500 mg p.o. daily. 12. Zolpidem 5 to 10 mg p.o. at bedtime. 13. Simvastatin 40 mg p.o. q.a.m. 14. MiraLAX 17 g p.o. daily p.r.n. 15. Nebivolol 10 mg p.o. b.i.d. 16. Ensure t.i.d. 17. Atrovent 0.5 mg inhaled q.4 hours p.r.n. 18. Hemorrhoidal ointment applied as needed. 19. Ergocalciferol 50,000 units p.o. q.14 days. 20. Carisoprodol 350 mg p.o. t.i.d. p.r.n. 21. Aspirin 81 mg p.o. q.a.m. 22. Alendronate 70 mg p.o. weekly. 23. Albuterol sulfate p.r.n. via inhaler or nebulizer. 24. Alprazolam 1 mg p.o. t.i.d. p.r.n. 25. Ferrous sulfate 325 mg p.o. daily. HOSPITAL COURSE: Ms. Mckeon is a 67-year-old female with a past medical history of COPD and known vocal cord dysfunction causing chronic wheezing, who presented to the hospital on 10/15/17 after a pulmonary function testing with concern for worsening shortness of breath for 2 weeks. Please see dictated H and P from Latasha Solo NP for complete details. In brief, the patient states she came to the hospital for pulmonary function testing. While there, the therapist was very concerned about the level of her wheezing and strongly encouraged her to come to the emergency room. She was ultimately cajoled to do so. She also reported that she has had a 30-pound weight gain and that she had been working with Dr. Lara to increase diuretics though she did not feel that that was working very well. She reported that her weight gain was in her thighs and abdomen rather than her lower extremities. She denied orthopnea. She complained of worsening chronic back pain due to the weight. She complained of intermittent second long episodes of lightheadedness that would happen 15 times a day, without dizziness. In the emergency room, Ms. Mckeon was felt to be in a COPD exacerbation. She had a chest x-ray, which showed "no active cardiopulmonary disease is noted. " Her labs showed no leukocytosis. However, she did have an acute kidney injury with a BUN of 56 and creatinine 2.81. Her troponin was normal. Her CRP was 9.72. Ms. Mckeon was admitted to the hospital out of concern for COPD exacerbation and acute kidney injury. It was suspected that her acute kidney injury was likely due to the use of diuretics for managing her weight gain. For the acute kidney injury, she did have a renal ultrasound which showed the following, "stable likely cystic structure superior to the right kidney when compared to the 06/26/11 renal ultrasound, sonographically normal-appearing kidneys." With hydration, the patient's creatinine returned to normal and on the BUN was 36 and creatinine was 0.97. While in the hospital, the patient has had her diuretics held but now that she is ready for discharge, I would like to resume them at 1 tab daily each for Lasix and metolazone. The patient had previously been taking a second tab of each based on her weight. I suspect however that her dry weight has increased perhaps secondary to her obesity. While here in the hospital, her weight via our scales ranged from 281 to 289 but these readings are not very reliable. My recommendation is that the patient continue to weigh herself daily at home as she should essentially be at a dry right now and to provide these readings to her primary care physician so that adjustments can be made to her diuretics. The remainder of her workup included a transthoracic echocardiogram, which showed a normal ejection fraction at 70% to 75% with no changes since the prior echo from 2013. Ms. Mckeon is doing well today. She was treated with steroids, oxygen, and antibiotics while in the hospital for suspected COPD exacerbation. I do suspect however that significant part of the symptoms that were noted early in the hospitalization were actually reflective of known vocal cord dysfunction. On exam, the patient's lungs are clear but then she will exhale and there will be notable wheezing audible from across the room from upper airway. This has been a known issue for Ms. Mckeon in the past as well. She has been up ambulating in her room without hypoxia on room air despite this wheezing and she states her breathing is at baseline. Ms. Mckeon's main concern in the hospitalization was about episodes of lightheadedness, she describes having upwards of 15 episodes a day, when for one second or less she will feel slightly woozy or lightheaded. I am not sure what the symptom is reflective of. She states that she has gone off Cymbalta and started Lyrica over the past year and these symptoms seemed to start in the past 2 months. I question whether or not this is somehow related to this medication change versus her other extensive medication list including multiple narcotics. At this point, I have stopped Lyrica in hopes that this will help with the symptom. Her other complaint is about weight gain. Again, she was aggressively diuresed but her weight has not dropped significantly. I question whether or not her weight is actually just reflective of obesity with poor diet and limited exercise. Encouraged her to follow a low-fat, low-salt, low- carbohydrate diet. Ms. Mckeon is medically stable for discharge home to follow with Dr. Lara. DISPOSITION: To home. DIET: Low fat, low salt, low-carb. ACTIVITY: As tolerated with exercise encouraged. FOLLOWUP PLAN: The patient is to follow up with Dr. Lara in the next 1 week. TIME SPENT: Approximately 60 minutes was spent in the discharge of this patient , more than half the time was spent with the patient at the bedside reviewing the events leading up to this hospitalization, performing the physical examination and reviewing my plan of care. MICHAELA MURRELL, DEIRDRE [id number]/[facility] #: [id number] JAY
== END 2017-10-20 10:45 | disposition home or self-care (01) | DRG 683 ==
LOC: ED 12:40 → MED 16:50
PROVIDERS: ADMIT Hospitalist; ATTEND Internal Medicine
DX: N17.9 Acute kidney failure, unspecified (principal); J44.1 Chronic obstructive pulmonary disease with (acute) exacerbation; Z68.42 Body mass index [BMI] 45.0-49.9, adult; I50.32 Chronic diastolic (congestive) heart failure; I11.0 Hypertensive heart disease with heart failure; I95.89 Other hypotension; Z99.81 Dependence on supplemental oxygen; E66.01 Morbid (severe) obesity due to excess calories; E83.42 Hypomagnesemia; G47.33 Obstructive sleep apnea (adult) (pediatric); E11.9 Type 2 diabetes mellitus without complications; E78.5 Hyperlipidemia, unspecified; G89.4 Chronic pain syndrome; M19.90 Unspecified osteoarthritis, unspecified site; M81.0 Age-related osteoporosis without current pathological fracture; G47.00 Insomnia, unspecified; D50.9 Iron deficiency anemia, unspecified; R42 Dizziness and giddiness; J38.3 Other diseases of vocal cords; Z96.653 Presence of artificial knee joint, bilateral; Z79.84 Long term (current) use of oral hypoglycemic drugs; Z87.891 Personal history of nicotine dependence; Z79.82 Long term (current) use of aspirin; Z79.891 Long term (current) use of opiate analgesic; Z79.899 Other long term (current) drug therapy; Z88.1 Allergy status to other antibiotic agents; Z88.5 Allergy status to narcotic agent; Z88.0 Allergy status to penicillin; Z88.2 Allergy status to sulfonamides; Z80.1 Family history of malignant neoplasm of trachea, bronchus and lung; Z83.3 Family history of diabetes mellitus; Z82.49 Family history of ischemic heart disease and other diseases of the circulatory system
CPT/HCPCS: 36415; 71045; 76775; 80048; 80053; 81003; 82272; 82306; 82330; 82550; 82570; 82607; 82728; 82746; 83036; 83540; 83550; 83605; 83735; 83880; 83970; 84300; 84484; 85025; 86140; 87040; 87641; 93005; 93306; 94060; 94640; 94726; 94729; 99283; A9270-GY; G8978-GP-CI; G8979-GP-CI; G8980-GP-CI; J0456; J1644; J1885; J2920; J2930; J3475; J7512

== ENCOUNTER 2017-11-23 01:32 | Inpatient (IN) | payer MEDICARE, MEDICAID ==
[2017-11-23] MEDS ORDERED: Pantoprazole IV* 40 MG IV ONE (01:35)
[2017-11-23] MEDS ORDERED: Ondansetron INJ* 2 MG/ML VIAL IV ONE (01:35)
[2017-11-23] MEDS ORDERED: NS 0.9% 1000 ML* 1,000 ML IV ONE (01:35)
[2017-11-23] MEDS ORDERED: HYDROmorphone INJ* 2 MG/ML CARPUJECT SYRINGE IV SLOW PU ONE ×3 (01:38→06:29)
--- NOTE | 2017-11-23 01:39 | ED ---
Abdominal Pain/Female - HPI Summary HPI Summary: This patient is a 67 year old F BIBA to [facility] with a chief complaint of upper abd pain radiating to back that began at suddenly at 2300 yesterday. The patient rates the pain 10/10 in severity. Symptoms aggravated by nothing. Symptoms alleviated by nothing. Patient denies vomiting. Patient reports symptoms feeling similar to previous bowel impaction. - History of Current Complaint Stated Complaint: ABD PAIN Hx Obtained From: Patient ?: No Onset/Duration: Sudden Onset, Lasting Hours, Still Present Timing: Constant Severity Initially: Severe Severity Currently: Severe Location: Other - Upper Radiates: Yes Radiates to: Back Aggravating Factor(s): Nothing Alleviating Factor(s): Nothing Associated Signs and Symptoms: Negative: Vomiting Allergies/Adverse Reactions: Allergies Allergy/AdvReac Type Severity Reaction Status Date / Time fentanyl Allergy Hallucinati Verified 11/23/17 02:03 ons morphine Allergy Hives Verified 11/23/17 02:03 Penicillins Allergy Hives Verified 11/23/17 02:03 sulfamethoxazole Allergy Muscle Ache Verified 11/23/17 02:03 [From Bactrim] trimethoprim [From Bactrim] Allergy Muscle Ache Verified 11/23/17 02:03 PMH/Surg Hx/FS Hx/Imm Hx Previously Healthy: No Endocrine/Hematology History: Reports: Hx Diabetes, Hx Anemia Denies: Hx Thyroid Disease Cardiovascular History: Reports: Hx Congestive Heart Failure, Hx Coronary Artery Disease, Hx Hypercholesterolemia, Hx Hypertension, Hx Syncope - near syncope Denies: Other Cardiovascular Problems/Disorders - diastolic heart failure Respiratory History: Reports: Hx Asthma - INHALERS, NEBULIZERS, QXYGEN 12 HRS AT NIGHT, Hx Chronic Obstructive Pulmonary Disease (COPD), Hx Sleep Apnea, Other Respiratory Problems/Disorders - SOB GI History: Reports: Hx Gastroesophageal Reflux Disease - ON DAILY NEXIUM, Hx Obstructive Bowel, Other GI Disorders - APPENDECTOMY, bowel surgery,sbo,gerd, ulcer Denies: Hx Ulcer History: Reports: Other Problems/Disorders - PT HAVING TROUBLE URINATING RECENTLY Denies: Hx Dialysis Musculoskeletal History: Reports: Hx Arthritis - MOST JOINTS, HAS HAD BOTH KNEES REPLACED, osteoarthritis, Hx Back Problems, Hx Bursitis, Hx Osteoporosis, Other Musculoskeletal History - MORBID OBESITY Sensory History: Reports: Hx Cataracts - BILATERAL, Hx Contacts or Glasses, Hx Vision Problem, Hx Hearing Problem - needs hearing aide Denies: Hx Hearing Aid Opthamlomology History: Reports: Hx Cataracts - BILATERAL, Hx Contacts or Glasses, Hx Vision Problem Neurological History: Reports: Other Neuro Impairments/Disorders - vocal cord dysfunction Denies: Hx Dementia, Hx Seizures Psychiatric History: Reports: Hx Anxiety, Hx Depression - She is on Cymbalta for depression and chronic pain (lower back), Hx Bipolar Disorder - Cancer History Hx Chemotherapy: No Hx Radiation Therapy: No - Surgical History Surgery Procedure, Year, and Place: [place] & [place] [facility] [place] [facility] [place]. [place] [facility] [place] [facility] [place] Anesthesia Reactions: No - Immunization History Date of Tetanus Vaccine: Unk Date of Influenza Vaccine: Fall 2011 Infectious Disease History: Reports: Hx of Known/Suspected MRSA Denies: Hx Known/Suspected VRE, Hx Known/Suspected VRSA, History Other Infectious Disease - Family History Known Family History: Positive: Cardiac Disease, Hypertension, Diabetes - Social History Occupation: Retired Lives: With Family Alcohol Use: None Hx Substance Use: No Substance Use Type: Reports: None Hx Tobacco Use: Yes Smoking Status (MU): Former Smoker Type: Cigarettes Amount Used/How Often: 1-2PP WEEK Length of Time of Smoking/Using Tobacco: off and on for 40 years Have You Smoked in the Last Year: No Review of Systems Negative: Blurred Vision Positive: Abdominal Pain. Negative: Vomiting All Other Systems Reviewed And Are Negative: Yes Physical Exam - Summary Physical Exam Summary: VITAL SIGNS: Reviewed. GENERAL: Patient is a well-developed and nourished female who is lying comfortable in the stretcher. Patient is not in any acute respiratory distress. HEAD AND FACE: No signs of trauma. No ecchymosis, hematomas or skull depressions. No sinus tenderness. EYES: PERRLA, EOMI x 2, No injected conjunctiva, no nystagmus. EARS: Hearing grossly intact. Ear canals and tympanic membranes are within normal limits. MOUTH: Oropharynx within normal limits. NECK: Supple, trachea is midline, no adenopathy, no JVD, no carotid bruit, no c- spine tenderness, neck with full ROM. CHEST: Symmetric, no tenderness at palpation LUNGS: Clear to auscultation bilaterally. No wheezing or crackles. CVS: Regular rate and rhythm, S1 and S2 present, no murmurs or gallops appreciated. ABDOMEN: Soft. No rebound no guarding, and no masses palpated. Diffuse abdominal tenderness. Distension. Hyperactive bowel sounds. EXTREMITIES: FROM in all major joints, no edema, no cyanosis or clubbing. NEURO: Alert and oriented x 3. No acute neurological deficits. Speech is normal and follows commands. SKIN: Dry and warm Triage Information Reviewed: Yes Vital Signs Reviewed: Yes Diagnostics - Laboratory Result Diagrams: 11/23/17 01:59 11/23/17 03:14 Lab Statement: Any lab studies that have been ordered have been reviewed, and results considered in the medical decision making process. - CT CT Abdomen and Pelvis CT Interpretation Completed By: Radiologist - Abdomen and pelvis CT reveals, per radiologist, 1. There are dilated loops of small bowel noted measuring up to 4.2 CM with associated small bowel feces sign. There is a transition to partially collapsed loops of small bowel noted just distal to the site of previous bowel resection. Findings may represent a partial small bowel obstruction p.o. contrast may be given for further evaluation. Findings are best seen on coronal images 49-56. 2. There is a postsurgical ventral hernia containing mesenteric fat. The gallbladder is collapsed limiting evaluation. There is intrahepatic biliary dilatation noted. There is dilatation of the common bile duct measuring 1.3 CM. MRCP or ERCP may be performed for further evaluation. 3. There is a 3.8 x 2.6 cm nodule noted in the right adrenal gland. Adrenal protocol imaging may be performed for further evaluation. ED physician has reviewed this radiology report. Abdominal Pain Fem Course/Dx - Course Course Of Treatment: This patient is a 67 year old F BIBA to [facility] with a chief complaint of upper abd pain radiating to back that began at suddenly at 2300 yesterday. Patient reports symptoms feeling similar to previous bowel impaction. Physical Exam Findings: Diffuse abdominal tenderness. Distension. Hyperactive bowel sounds. Abdomen and pelvis CT reveals, per radiologist, 1. There are dilated loops of small bowel noted measuring up to 4.2 CM with associated small bowel feces sign. There is a transition to partially collapsed loops of small bowel noted just distal to the site of previous bowel resection. Findings may represent a partial small bowel obstruction p.o. contrast may be given for further evaluation. Findings are best seen on coronal images 49-56. 2. There is a postsurgical ventral hernia containing mesenteric fat. The gallbladder is collapsed limiting evaluation. There is intrahepatic biliary dilatation noted. There is dilatation of the common bile duct measuring 1.3 CM. MRCP or ERCP may be performed for further evaluation. 3. There is a 3.8 x 2.6 cm nodule noted in the right adrenal gland. Adrenal protocol imaging may be performed for further evaluation. Blood work obtained. In the ED course the patient was given fluids, morphine, contrast, Zofran, and protonix. Consult with Dr. Waller (surgery) at 0542. He recommends patient be admitted to the hospital. Consult with Dr. Galarza (hospitalist) at 0545. He agrees to admit pt for further evaluation. The patient is agreeable with this plan. - Diagnoses Provider Diagnoses: Small bowel obstruction - Provider Notifications Discussed Care Of Patient With: Pawel Waller Time Discussed With Above Provider: 05:42 Instructed by Provider To: Other - Consult with Dr. Waller (surgery) at 0542. He recommends patient be admitted to the hospital. Consult with Dr. Galarza (hospitalist) at 0545. He agrees to admit pt for further evaluation. Discharge - Sign-Out/Discharge Documenting (check all that apply): Patient Departure [place] [facility] [place]charge Plan Condition: Stable Disposition: ADMITTED TO [facility] Referrals: Donavan Lara MD [Primary Care Provider] - - Attestation Statements Document Initiated by Scribe: Yes Documenting Scribe: Veronica Machado Provider For Whom Scribe is Documenting (Include Credential): Sony Davis MD Scribe Attestation: IVeronica, scribed for Sony Davis MD on 11/23/17 at 0549.
[2017-11-23 02:08] LABS: ABS Basophils 0.1 10^3/ul (0-0.2); ABS Eosinophils 0.2 10^3/ul (0-0.6); ABS Lymphocytes 2.9 10^3/ul (1.0-4.8); ABS Monocytes 0.6 10^3/ul (0-0.8); ABS Neutrophils 5.2 10^3/ul (1.5-7.7); ABS Nucleated RBC 0 10^3/ul; Hematocrit 39 % (35-47); Hemoglobin 12.8 g/dl (12.0-16.0); Lymphocyte % 32.6 % (25-47); Mean Corpuscular HGB Conc 33 g/dl (31-36); Mean Corpuscular Hemoglobin 29 pg (27-31); Mean Corpuscular Volume 86 fL (80-97); Mean Platelet Volume 8.5 um3 (7.4-10.4); Nucleated Red Blood Cells % 0.1; Platelet Count 244 10^3/ul (150-450); Red Blood Count 4.48 10^6/ul (4.00-5.40); Red Cell Distribution Width 13 % (10.5-15)
[2017-11-23 02:16] LABS: INR 0.93 (0.77-1.02)
[2017-11-23 02:26] LABS: EGFR Non-African American 47.4 (>60)
--- OUTSIDE RECORDS SUMMARY | 2017-11-23 02:32 | XMS REPORT ---
:1950 External Reference #:[id number] Author Organization [facility] Address [address] [place] [address] Phone [phone] Care Team Providers Name Role Phone Pawel Lara M.D. Primary Care Physician Unavailable Payers Type Date Identification Numbers Payment Provider Subscriber Medicare Primary Onset: Policy Number: Medicare - NGS Dilma Mckeon 2009 [id number] PayID: [id number] [address] [place] [address] Problems Date Description Provider Status Onset: Disorder of vocal cord Active Onset: Asthma Active Onset: Gastroesophageal reflux disease Active Onset: Type 2 diabetes mellitus Active Onset: Pure hypercholesterolemia Active Onset: Essential hypertension Active Onset: Cardiomyopathy Active Onset: Chronic back pain Active Onset: Insomnia Active Onset: 08/06/2014 Type 2 diabetes mellitus Stefano Villegas M.D. Active Onset: Small bowel obstruction Active Onset: Obstruction of colon Active Onset: 08/06/2014 Diabetic oculopathy associated with Tim Ortiz M.D. Active type 2 diabetes mellitus Onset: 08/06/2014 Nuclear senile cataract Tim Ortiz M.D. Active Onset: 08/26/2014 Pseudophakia Tim Ortiz M.D. Active Onset: 11/27/2016 Chronic allergic conjunctivitis Elina Melgar O.D. Active Onset: 11/27/2016 Angular blepharoconjunctivitis Elina Melgar O.D. Active Onset: 11/27/2016 Presence of intraocular lens Elina Melgar O.D. Active Onset: 08/27/2017 Other secondary cataract, right eye Elina Melgar O.D. Active Onset: 10/04/2017 Allergic contact dermatitis of eyelid Yamilet Bhatt Active O.D. Onset: 10/07/2017 Combined form of senile cataract Tim Ortiz M.D. 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 weeks Lyrica 08/26/ Active Capsules 75mg 2x a day Unknown 2017 Cymbalta / Active Caps DR 20mg 1x a day Unknown 0000 Part Zolpidem / Active Tablets 10mg Unknown Tartrate 0000 Vitamin D / Active Capsules [id number] take 1 Unknown (Ergocalcifero 0000 capsule by l) mouth every week For 2 Months Then Every 2 Weeks Duloxetine HCL / Active Caps DR 30mg Take 3 Caps Unknown 0000 Part By Mouth Every Morning Furosemide 00/00/ Active Tablets 40mg Unknown 0000 Bystolic / Active Tablets 10mg Unknown 0000 Nexium / Active Capsules 40mg Unknown [address] DR Alprazolam / Active Tablets 1mg Unknown 0000 Carisoprodol / Active Tablets 350mg Unknown 0000 Oxycodone-Acet / Active Tablets 10-325mg Unknown aminophen 0000 Metformin HCL / Active Tablets 500mg take 1 tablet Unknown 0000 by mouth daily Simvastatin / Active Tablets 40mg Unknown 0000 Advair Diskus / Active Aerosol 500-50mcg inhale 1 dose Unknown 0000 /Dose by mouth twice a day Diovan / Active Tablets 320mg Unknown 0000 Xopenex / Active Unknown 0000 Benzonatate / Active Capsules 200mg take 1 Unknown 0000 capsule by mouth three times a day for Cough Olopatadine / Active Solution 0.2% Instill 1 Unknown HCL 0000 Drop Into Both Eyes Once Daily as Needed Olopatadine 02/22/ Hx Solution 0.2% 7.5ml 1 drop both H10.45 Elina K. HCL 2017 - eyes every Drewsey, 08/27/ day for itchy O.D. 2018 eyes Tobradex 02/13/ Hx Ointment 0.3-0.1% 3.500 apply to left H10.523 Elina Rudy. 2017 - gm upper and Ramón, 08/27/ lower lid O.D. 2018 twice a day Neomycin/Polym 11/27/ Hx Ointment 3.5-85454 3.500 apply to H10.523 Elina Tyler yxin/Dexametha 2016 - -0.1 gm upper and Ramón sone 12/05/ lower eyelids O.D. 2017 of both eyes twice a day for 1 weeks, then discontinue Oxycodone HCL / Hx Capsules 5mg Unknown 0000 - 2016 Systane / Hx Solution 0.4-0.3% One drop into Unknown 0000 - both eyes two 08/26/ times a day 2017 Olopatadine / Hx Solution 0.2% 1 drop both Unknown HCL 0000 - eyes twice a 02/21/ day as needed 2016 Azithromycin / Hx Tablets 250mg take 2 Unknown 0000 - tablets by 02/21/ mouth today 2017 then take 1 tablet Daily For 4 Days Guaifenesin ac / Hx Syrup 100-10mg/ take 1-2 Unknown 0000 - 5ML teaspoonfuls 02/21/ by mouth 2017 every 4 hours as Needed For Cough.... Vital Signs Date Vital Result Comment 10/07/2017 BP Systolic 109 mmHg BP Diastolic 66 mmHg Heart Rate 64 /min Results Test Date Test Result H/L Range Note Laboratory test finding 09/08/2014 Point of Care Glucose 122 mg/dL High 74 -106 1 1 Water Pollution Control Technician: [id number] CAROLINA ZAIDI Procedures Date CPT Code Description Status 10/07/2017 86753 Remove Secondary Cataract, Laser (Yag) Completed 10/04/2017 83258 Est Patient Intermediate Exam Completed 09/17/2017 01700 Est Patient Intermediate Exam Completed 08/27/2017 88957 Est Patient Comprehensive Exam Completed 02/13/2017 79664 Est Patient Intermediate Exam Completed 02/13/2017 500 Systane Eye Drops 15 ML Completed 11/27/2016 22010 Est Patient Comprehensive Exam Completed 09/08/2014 43164 Cataract Surgery Complex Completed 08/25/2014 23561 Extracapsular Cataract Extraction W/Intraocular Lens Completed 08/19/2014 18002 Ophthalmic Biometry Completed 08/19/2014 51044 Ophthalmic Biometry Completed 08/06/2014 78420 Scanning Computerized Opthalmic Diagnostic Posterior Completed Seg Retina 08/06/2014 52638 New Patient Comprehensive Exam Completed 08/07/2011 60173 Determination Of Refractive State Completed 08/07/2011 66485 New Patient Comprehensive Exam Completed Encounters Type Date Location Provider CPT E/M Dx Office Visit 10/11/2017 Tim Ortiz MD, Yamilet Bhatt, 97995 H01.119 12:30p pc O.DHorace Office Visit 02/22/2017 Tim Ortiz MD, Elina Melgar O.D. 54127 H10.523 11:30a pc H10.45 Office Visit 12/05/2016 11:15a Tim Ortiz MD, Elina Melgar O.D. 39810 H10.45 pc H10.523 Office Visit 08/19/2014 11:45a Tim Ortiz MD, Tim Ortiz, 17958 366.16 pc M.Aron 250.50 362.01 Plan of Care 10/25/2017 - Yamilet Bhatt O.D.H01.119 Allergic dermatitis of unspecified eye, unspecified eyelidComments:stop the ointmentcontinue cold compress dailyFollow up:1 Year Follow Up You can expect to have your eyes dilated at your next visit. If Dr. Bhatt orders any additional testing, it may require extra time. We recommend that you bring sunglasses, as dilation drops often make you light sensitive until they wear off. We always recommend you bring someone to drive you home if you are uncomfortable driving with your eyes dilated. If you have any questions before your next visit, feel free to call our office at .[email or web address]. Presence of intraocular lens
[2017-11-23] MEDS ORDERED: Iodixanol* (CONTRAST) 320 MG/ML 100 ML SDV IV ONE (03:00)
[2017-11-23] MEDS ORDERED: Magnesium Sulfate 2 GM IV* 2 GM/50 ML BAG IVPB ONE (03:41)
--- NOTE | 2017-11-23 04:27 | RAD ---
EXAM: CT Abdomen and Pelvis With Intravenous Contrast CLINICAL HISTORY: 67 years old, female; Pain; Abdominal pain; Other: Mid abd pain since 11pm ; Prior surgery; Surgery date: 6+ months; Surgery type: Lesions removed from bowel/obstruction TECHNIQUE: Axial computed tomography images of the abdomen and pelvis with intravenous contrast. All CT scans at this facility use at least one of these dose optimization techniques: automated exposure control; mA and/or kV adjustment per patient size (includes targeted exams where dose is matched to clinical indication); or iterative reconstruction. Coronal and sagittal reformatted images were created and reviewed. CONTRAST: 141 mL of VISIPAQUE 320 administered intravenously. COMPARISON: No relevant prior studies available. FINDINGS: Lung bases: Unremarkable. No mass. No consolidation. ABDOMEN: Liver: Unremarkable. No mass. Gallbladder and bile ducts: Unremarkable. No calcified stones. No ductal dilation. Pancreas: Unremarkable. No mass. No ductal dilation. Spleen: Unremarkable. No splenomegaly. Adrenals: There is a 3.8 x 2.6 cm nodule noted in the right adrenal gland. Adrenal protocol imaging may be performed for further evaluation. Kidneys and ureters: Unremarkable. No solid mass. No hydronephrosis. Stomach and bowel: There are dilated loops of small bowel noted measuring up to 4.2 CM with associated small bowel feces sign. There is a transition to partially collapsed loops of small bowel noted just distal to the site of previous bowel resection. Findings may represent a partial small bowel obstruction p.o. contrast may be given for further evaluation. Findings are best seen on coronal images 49-56. No mucosal thickening. PELVIS: Appendix: No findings to suggest acute appendicitis. Bladder: Unremarkable. No mass. Reproductive: Unremarkable as visualized. ABDOMEN and PELVIS: Intraperitoneal space: Unremarkable. No free air. No significant fluid collection. Bones/joints: No acute fracture. No dislocation. Soft tissues: There is a postsurgical ventral hernia containing mesenteric fat. The gallbladder is collapsed limiting evaluation. There is intrahepatic biliary dilatation noted. There is dilatation of the common bile duct measuring 1.3 CM. MRCP or ERCP may be performed for further evaluation. Vasculature: Unremarkable. No abdominal aortic aneurysm. Lymph nodes: Unremarkable. No enlarged lymph nodes. IMPRESSION: 1. There are dilated loops of small bowel noted measuring up to 4.2 CM with associated small bowel feces sign. There is a transition to partially collapsed loops of small bowel noted just distal to the site of previous bowel resection. Findings may represent a partial small bowel obstruction p.o. contrast may be given for further evaluation. Findings are best seen on coronal images 49-56. 2. There is a postsurgical ventral hernia containing mesenteric fat. The gallbladder is collapsed limiting evaluation. There is intrahepatic biliary dilatation noted. There is dilatation of the common bile duct measuring 1.3 CM. MRCP or ERCP may be performed for further evaluation. 3. There is a 3.8 x 2.6 cm nodule noted in the right adrenal gland. Adrenal protocol imaging may be performed for further evaluation.
[2017-11-23] MEDS ORDERED: Lidocaine 2% VISCOUS* 15 ML UDC ONE (05:13)
[2017-11-23] MEDS ORDERED: Lidocaine 2% JELLY* 6 ML JELLY TOPICAL ONE ×2 (05:20→05:33)
[2017-11-23] MEDS ORDERED: Hemorrhoidal OINT PR PRN (08:10)
[2017-11-23] MEDS ORDERED: Ipratropium 0.5MG/2.5ML NEB* 0.5 MG/2.5 ML NEB.SOLN INH PRN (08:10)
[2017-11-23] MEDS ORDERED: Albuterol HFA INHALER* 8 gm MDI INH PRN (08:10)
[2017-11-23] MEDS ORDERED: Albuterol 2.5 MG/3 ML NEB.SOL* (0.083%) INH PRN (08:10)
[2017-11-23] MEDS ORDERED: Ondansetron INJ* 2 MG/ML VIAL IV PRN (08:15)
[2017-11-23] MEDS ORDERED: Dextrose 50% Syringe 50 ML* 25 GM/50 ML SYRINGE IV PUSH PRN (08:39)
[2017-11-23] MEDS: HYDROmorphone INJ1* 1 MG/ML SYRINGE IV SLOW PU PRN ×6 (09:08→22:33)
[2017-11-23] MEDS: Metoprolol Tartrate IV* 1 MG/ML 5 ML VIAL IV SCH ×4 (10:57→22:01)
[2017-11-23] MEDS: Mometasone/Formoter 100/5 MDI INH SCH ×2 (11:14→19:44)
--- NOTE | 2017-11-23 11:44 | HP ---
CC: Dr. Lara; Dr. Waller; Dr. Hogue; Dr. Garcia; Dr. Avalos. * HISTORY AND PHYSICAL: DATE OF ADMISSION: 11/23/17. PRIMARY CARE PROVIDER: Dr. Lara CHIEF COMPLAINT: Abdominal pain. HISTORY OF PRESENT ILLNESS: Dilma Mckeon is a 67-year-old female with a history of obesity with a BMI of above 45, COPD, currently not on oxygen but she used to be on continuous oxygen in the past as well as recurrent small bowel obstructions with lysis of adhesions in 2001 and 2012, who presented to the hospital complaining of sudden of epigastric abdominal pain, pain occurred on 11 p.m. on 11/22/17. The patient denies any nausea, vomiting. The patient stated that she is clinically constipated and she uses MiraLAX, but in the past couple of days that was unsuccessful and she used an enema. She did have a small bowel movement this morning. She describes the abdominal pain as epigastric radiating to bilateral sides of her abdomen, across her abdomen and occurring as spasms. The pain is severe when it occurs approximately 8/10 in intensity[address] The patient's CT of the abdomen shows partial small bowel obstruction. She is going to be admitted with a diagnosis of small bowel obstruction to the surgical floor. PAST MEDICAL HISTORY: 1. History of COPD/asthma, although the patient had a pulmonary function test done by Dr. Avalos on 10/20/17. At that point, there were no significant obstructive or restrictive ventilatory deficits seen. 2. History of vocal cord dysfunction. 3. History of chronic pain syndrome, on narcotics at home. 4. History of hypertension. 5. Diabetes type 2. 6. History of CHF with normal EF. 7. History of obstructive sleep apnea, not using CPAP. 8. Hypertension. 9. Hyperlipidemia. 10. Osteoarthritis. 11. History of recurrent small bowel obstructions. 12. Obesity with a BMI of above 45. 13. Osteoporosis. 14. History of anemia. 15. Insomnia. 16. History of two surgeries for bowel obstruction, lysis of adhesions in 2001 and 2012. 17. History of bilateral total knee replacement. 18. Benign breast biopsies. MEDICATIONS: The patient's medication list, unfortunately they were not updated yet with the patient's primary care provider or pharmacist as per ER but from what the patient is able to tell me she is on: 1. Percocet from one to two tablets up to 4 times a day, but she had been taking two tablets a day recently. 2. OxyContin 10 mg b.i.d. 3. Metformin 500 mg daily. 4. Mucinex on a p.r.n. basis. 5. Ambien 5 to 10 mg at bedtime p.r.n. 6. Zocor 40 mg daily. 7. MiraLAX 17 g daily p.r.n. 8. Benicar 40 mg daily. 9. Bystolic 10 mg b.i.d. 10. Zaroxolyn 5 mg daily. 11. Nebulizer treatments with Atrovent and albuterol on a p.r.n. basis. 12. Furosemide 40 mg daily. 13. Advair 115/21 one puff b.i.d. 14. Ferrous sulfate 325 mg daily. 15. Ergocalciferol 99153 units p.o. every 14 days. 16. Dexilant 30 mg daily. 17. Soma 350 mg up to 3 times a day p.r.n. 18. Aspirin 81 mg daily. 19. Fosamax 70 mg weekly. 20. Xanax 1 mg up to 3 times a day p.r.n. ALLERGIES: Include MORPHINE and FENTANYL, but the patient is tolerating Percocet and OxyContin as well as Dilaudid without any problems. The patient is also allergic to PENICILLIN, BACTRIM. FAMILY HISTORY: Positive for mother with lung cancer. Father with a history of [place]. SOCIAL HISTORY: The patient lives by herself at [facility]. Her surrogate is her sister, Stephani. She has a history of 20-pack year smoking and quit smoking in 2011. She denies any drug use or alcohol use. REVIEW OF SYSTEMS: Please see history of present illness. All the remaining 12 systems were reviewed with the patient and were otherwise negative. PHYSICAL EXAMINATION GENERAL: The patient is a very pleasant 67-year-old female, who is in no acute distress, alert, awake, and oriented x3. VITAL SIGNS: Blood pressure of 125/79, heart rate of 76 and regular, respiratory rate 18, oxygen saturation 96% on room air, temperature of 98.0. HEENT: Head: Atraumatic, normocephalic. Eyes: Pupils are equal, reactive to light and accommodation. Oropharynx is clear. Mucosa moist. NECK: Supple. No JVD. No bruits bilaterally. RESPIRATORY: Clear to auscultation bilaterally. The patient is noted to exhale against her vocal cords causing a wheeze over the auscultation of the neck which is correlated with the patient with vocal cord dysfunction. CARDIOVASCULAR: Regular rate and rhythm. No murmur. ABDOMEN: Protuberant, obese, soft, tender in the bilateral epigastric area with no rebound, no guarding. Bowel sounds are hypoactive, but present in all four quadrants. EXTREMITIES: There is trace pedal edema. Pulses are +2 bilaterally. No clubbing or cyanosis. SKIN: On evaluation of the skin, there is ecchymotic discoloration of bilateral distal lower extremities and darker discoloration of those areas and also above the ankles likely related to venostasis changes. NEUROLOGIC: Speech clear. Cranial nerves II through XII are grossly intact. Motor strength is 5/5 bilaterally. Please note the patient has an NG tube in place during the evaluation. LABORATORY DATA: Show white blood cell count of 9.0, hemoglobin of 12.8, hematocrit of 39 and platelets of 244. Sodium of 144, potassium 4.1, chloride 106, carbon dioxide 31, BUN 17, creatinine 1.14. Lactic acid initially was 2.1. Second one was 0.9. Magnesium was 1.1. CT of the abdomen and pelvis. Impression: "There are dilated loops of small bowel measuring up to 4.2 cm with associated small bowel feces sign. There is a transition to partially collapsed loops of small bowel noted just distal to the site of previous bowel resection. Findings that were present as well of partial small bowel obstruction. PO contrast may be given for further evaluation. Findings are best seen on caudal images 49 to 56. There was a post- surgical ventral hernia containing mesenteric fat. The gallbladder is collapsed during the evaluation. There is intrahepatic biliary dilatation noted. There is dilatation of the common bile duct measuring 1.3 cm. MRCP or ERCP was performed for evaluation. There was a 3.8 x 2.6 cm nodule noted in the right adrenal gland. Adrenal protocol imaging may be performed for further evaluation." Comparing with the CT obtained in 2013, "the patient did have a history of 3.7 cm hypodense right adrenal mass most consistent with benign lipid rich adenoma. " Comparing with liver ultrasound on 03/29/17, the patient already had common bile duct dilatation at 1.3 cm and noted fatty infiltration of the liver as well as chronic intra and extrahepatic biliary dilatation, central etiology unchanged from 2010. ASSESSMENT AND PLAN: 1. With regards to the patient's partial small bowel obstruction, NG tube is already in place. Surgical service will be involved in the patient's care. We will treat conservatively with N.P.O. diet and supportive intravenous hydration and intravenous proton pump inhibitor while the patient is n.p.o. For the patient's pain, unfortunately, we cannot use FENTANYL patch because the patient is allergic to it. We will use Dilaudid on a p.r.n. basis IV. 2. The patient's chronic obstructive pulmonary disease does not appear in exacerbation. In fact, it appears that whatever the patient has chronic obstructive pulmonary disease or like presentation, it is likely related to vocal cord dysfunction. We will use Ativan on as needed basis IV suspension use at home and that may help with her breathing pattern. We will also continue nebulizer treatment on a p.r.n. basis as well as Dulera instead of Advair which is on the formulary in the hospital. 3. For hypertension, the patient is going to be placed on metoprolol IV on a scheduled dose with hold parameters. 4. For DVT prophylaxis, the patient is going to be placed on heparin subcutaneous. 5. The patient's code status is full and her surrogate is her sister as mentioned above. 6. In regards to the patient's history of diabetes, p.o. medications will need to be held and she is going to be placed on insulin sliding scale. 7. In regards to the patient's slightly elevated creatinine, intravenous hydration will be provided. It is likely due to small bowel obstruction and mild dehydration. We will recheck the patient's creatinine levels in the morning. TIME SPENT: Approximately 65 minutes was spent on admission of this patient, more than half of that time was spent [id number] with the patient during the interview and physical exam. [id number]/[facility] #: [id number] JAY
[2017-11-23] MEDS: LORazepam INJ* 2 MG/ML 1 ML VIAL IV PUSH PRN ×2 (12:25→19:44)
[2017-11-23] MEDS: Insulin LISPRO* 1 UNITS UNIT SUBCUT SCH ×3 (12:28→23:55)
[2017-11-23] MEDS: Heparin VIAL(*) 5000 UNITS/ML VIAL (FIVE THOUSAND) SUBCUT SCH ×2 (13:34→22:01)
--- NOTE | 2017-11-23 13:38 | CONS ---
CC: [facility]; Dr. Donavan Lara * CONSULTATION REPORT: DATE OF CONSULT: 11/23/17 REFERRING PROVIDER: Dr. Cristela Santos, hospitalist. REASON FOR CONSULT: Abdominal pain with small bowel obstruction by CT scan. HISTORY OF PRESENT ILLNESS: Ms. Dilma Mckeon is a 67-year-old woman well known to the medical service here with a past medical history of obstructive lung disease, on oxygen at home; obstructive sleep apnea; rqo-ydljeoy-tqnzwjrxu diabetes; morbid obesity; chronic pain; congestive diastolic heart failure with multiple admissions for obstructive lung disease, who presented to the emergency room last night after she developed crampy abdominal pain. She has a history of small bowel obstructions and last underwent a laparotomy with lysis of adhesions in [address] Hogue. She initially had a hysterectomy done and has had at least one other laparotomy prior to that date for lysis of adhesions. She has had several episodes of small bowel obstructions resolved with nonoperative management. She said her bowels have been working well almost on a daily basis, but has not had a bowel movement since yesterday. She was passing flatus, but this has not been consistent. She has not had any nausea or vomiting, however. She had no chest pain, shortness of breath. When seen in the emergency room, she was noted to be afebrile with stable vital signs. Laboratory workup included a normal white blood cell count, chemistry values. She had an initially elevated lactic acid of 2.1, which returned to normal within 5 hours. Rest of her laboratory workup was unremarkable. She underwent a CT scan of the abdomen and pelvis. I did review these images. It does show history consistent with a previous small bowel anastomosis. There were some dilated loops of small bowel with small bowel feces sign within the lumen and appears to be a transition to partially collapsed bowel distally, perhaps at the site of the previous bowel resection. There was also a fat- containing small ventral hernia. There was no free extraluminal air, free fluid , abscess, or other acute findings. She has been admitted to the hospitalist service and surgical consultation was obtained. PAST MEDICAL HISTORY: 1. Morbid obesity with a BMI of 45. 2. COPD. 3. History of hypoxic respiratory failure. 4. Sleep apnea, on CPAP. 5. Diastolic heart failure with preserved left systolic function however. 6. Hypertension. 7. Rcm-fepksav-kavzzkicp diabetes. 8. Hyperlipidemia. 9. Chronic pain syndrome. 10. Osteoarthritis. 11. Osteoporosis. 12. Anemia. 13. Insomnia. PAST SURGICAL HISTORY: 1. Exploratory laparotomy in the past for small bowel obstruction. 2. Bilateral total knee replacements. 3. Open hysterectomy. MEDICATIONS: Medicines at home include: 1. Prednisone 10 mg daily. 2. Oxycodone. 3. Metformin. 4. Mucinex. 5. Ambien. 6. Zocor. 7. MiraLAX. 8. Benicar. 9. Bystolic. 10. Zaroxolyn. 11. Atrovent. 12. Advair. 13. Dexilant. 14. Soma. 15. Fosamax. 16. Ventolin. 17. Xanax. ALLERGIES: To FENTANYL, MORPHINE, PENICILLIN, BACTRIM and TRIMETHOPRIM. SOCIAL HISTORY: She does not smoke. She lives alone at [facility]. She has a brother who lives nearby. REVIEW OF SYSTEMS: Otherwise, as per above and quite extensive. PHYSICAL EXAM: Temperature 97.5, pulse 66, blood pressure 100/72. In general, she is a pleasant, morbidly obese woman, appears to be in no apparent distress and is awake, alert, and conversive. Lungs with diminished breath sounds throughout. Heart with a regular rhythm without murmurs, rubs, or gallops. Her abdomen is morbidly obese. She has a deep furrowed midline incision centered on the umbilicus extending down to the suprapubic area. I appreciate no incisional hernias. She had diminished bowel sounds throughout, but they are present and not high-pitched or tinkling. She has some mild tenderness in the upper abdomen without rebound, guarding, or peritoneal irritation. LABORATORY DATA: As above. IMPRESSION AND PLAN: Small bowel obstruction with what appears to be fecalization of the small bowel. The patient has had a previous small bowel resection and appears to have a recurrent small bowel obstruction. Laboratory workup was unremarkable. She shows no signs of sepsis or peritonitis on physical examination. I do not feel that there is an urgent or emergent indication for surgery at this point. She is at extremely high risk for any surgical intervention and at this point, I would recommend continued nonoperative management and observation. She has a nasogastric tube in place, which has not drained a significant amount. For now , I will keep her n.p.o. and continue observation. We will consider repeat abdominal x- rays in the morning. I discussed all of the above with her and if surgery would be indicated, she would require an earnest medical evaluation for risk assessment as well. [id number]/[facility] #: [id number] MTDD
[2017-11-23] MEDS ORDERED: HYDROmorphone INJ1* 1 MG/ML SYRINGE IV SLOW PU ONE (17:05)
[2017-11-24] MEDS ORDERED: HYDROmorphone INJ1* 1 MG/ML SYRINGE ONE (00:30)
[2017-11-24] MEDS: NS 0.9% 1000 ML* 1,000 ML IV SCH ×2 (00:42→15:25)
[2017-11-24] MEDS: Metoprolol Tartrate IV* 1 MG/ML 5 ML VIAL IV SCH ×4 (02:51→21:09)
[2017-11-24] MEDS: HYDROmorphone INJ1* 1 MG/ML SYRINGE IV SLOW PU PRN ×9 (02:51→23:05)
[2017-11-24] MEDS: Heparin VIAL(*) 5000 UNITS/ML VIAL (FIVE THOUSAND) SUBCUT SCH ×3 (05:41→22:06)
[2017-11-24 05:56] LABS: ABS Neutrophils 5.8 10^3/ul (1.5-7.7); Hematocrit 34 % (35-47); Hemoglobin 11.4 g/dl (12.0-16.0); Mean Corpuscular HGB Conc 33 g/dl (31-36); Mean Corpuscular Hemoglobin 29 pg (27-31); Mean Corpuscular Volume 87 fL (80-97); Red Cell Distribution Width 13 % (10.5-15); White Blood Count 8.2 10^3/ul (3.5-10.8)
[2017-11-24] MEDS: Insulin LISPRO* 1 UNITS UNIT SUBCUT SCH ×4 (06:10→23:51)
[2017-11-24 06:14] LABS: EGFR Non-African American 60.7 (>60)
[2017-11-24 06:27] LABS: ABS Basophils 0 10^3/ul (0-0.2); ABS Eosinophils 0.2 10^3/ul (0-0.6); ABS Lymphocytes 1.4 10^3/ul (1.0-4.8); ABS Monocytes 0.8 10^3/ul (0-0.8); ABS Nucleated RBC 0 10^3/ul; Eosinophil % 1.9 % (0-6); Lymphocyte % 17.5 % (25-47); Nucleated Red Blood Cells % 0.5; Platelet Count Platelets clumped. 10^3/ul (150-450)
[2017-11-24] MEDS: LORazepam INJ* 2 MG/ML 1 ML VIAL IV PUSH PRN ×2 (07:25→23:42)
[2017-11-24] MEDS: Mometasone/Formoter 100/5 MDI INH SCH ×2 (07:27→20:01)
[2017-11-24] MEDS: Pantoprazole IV* 40 MG IV SCH (07:36)
[2017-11-24] MEDS ORDERED: Magnesium Sulfate IV* 3 GM in NS 0.9% 100 ML* 100 ML IVPB ONE (08:30)
--- NOTE | 2017-11-24 08:30 | PN ---
Subjective Date of Service: 11/24/17 Interval History: Pt feels "the same", occasionally the upper abd pain is "so severe she feels like crying" No flatus, no BM Objective Active Medications: Albuterol (Ventolin Hfa Inhaler*) 2 puff INH Q6H PRN PRN Reason: SOB/WHEEZING Albuterol (Ventolin 2.5 Mg/3 Ml Neb.Rosalie*) 2.5 mg INH Q6H PRN PRN Reason: SHORTNESS OF BREATH Albuterol/Ipratropium (Duoneb (Albuterol 2.5 Mg/Ipratropium 0.5 Mg)) 1 neb INH Q4H PRN PRN Reason: SOB/WHEEZING Dextrose (D50w Syringe 50 Ml*) 12.5 gm IV PUSH .FOR FS < 60 - SS PRN PRN Reason: FS < 60 Heparin Sodium (Porcine) (Heparin Vial(*)) 5,000 units SUBCUT Q8HR [facility] Last Admin: 11/24/17 05:41 Dose: 5,000 units Hydromorphone HCl (Dilaudid Inj1s*) 2 mg IV SLOW PU Q2H PRN PRN Reason: PAIN Last Admin: 11/24/17 08:02 Dose: 2 mg Sodium Chloride (Ns 0.9% 1000 Ml*) 1,000 mls @ 75 mls/hr IV PER RATE [facility] Last Admin: 11/24/17 00:42 Dose: 75 mls/hr Magnesium Sulfate 3 gm/ Sodium (Chloride) 106 mls @ 53 mls/hr IVPB ONCE ONE Stop: 11/24/17 10:29 Influenza Virus Vaccine (Fluarix *Quad* *) 0.5 ml IM .ONCE ONE Stop: 11/24/17 09:01 Insulin Human Lispro (Humalog*) 0 units SUBCUT Q6HR [facility]; Protocol Last Admin: 11/24/17 06:10 Dose: Not Given Ipratropium [place] (Atrovent 0.5 Mg Neb.Rosalie*) 0.5 mg INH Q4H PRN PRN Reason: SOB/WHEEZING Lorazepam (Ativan Inj*) 0.5 mg IV PUSH Q6H PRN PRN Reason: ANXIETY Last Admin: 11/24/17 07:25 Dose: 0.5 mg Metoprolol Tartrate (Lopressor Iv*) 5 mg IV Q6H [facility] Last Admin: 11/24/17 08:02 Dose: 5 mg Mometasone Furoate/Formoterol Fumar (Dulera 100/5 Mdi*) 2 puff INH BID [facility] Last Admin: 11/24/17 07:27 Dose: Not Given Ondansetron HCl (Zofran Inj*) 4 mg IV Q4H PRN PRN Reason: NAUSEA/VOMITING Pantoprazole Sodium (Protonix Iv*) 40 mg IV DAILY [facility] Last Admin: 11/24/17 07:36 Dose: 40 mg Phenyleph/Shark Oil/Min Oil/Petrol (Preparation H*) 1 applic NV QID PRN PRN Reason: hemorrhoids Vital Signs - 8 hr 11/24/17 11/24/17 11/24/17 00:35 02:44 02:51 Temperature 98.7 F Pulse Rate 87 Respiratory 24 20 20 Rate Blood Pressure 123/67 (mmHg) O2 Sat by Pulse 94 Oximetry 11/24/17 11/24/17 11/24/17 04:43 05:40 07:02 Temperature Pulse Rate Respiratory 18 20 18 Rate Blood Pressure (mmHg) O2 Sat by Pulse Oximetry 11/24/17 11/24/17 11/24/17 07:25 07:30 08:02 Temperature 98.0 F Pulse Rate 95 Respiratory 22 16 22 Rate Blood Pressure 129/72 (mmHg) O2 Sat by Pulse 95 Oximetry Oxygen Devices in Use Now: None Appearance: 67 yo obese F in NAD, AAOx3 Eyes: No Scleral Icterus, PERRLA Ears/Nose/Mouth/Throat: NL Teeth, Lips, Gums, Mucous Membranes Moist Neck: NL Appearance and Movements; NL JVP, Trachea Midline Respiratory: Symmetrical Chest Expansion and Respiratory Effort, Clear to Auscultation Cardiovascular: NL Sounds; No Murmurs; No JVD, RRR Abdominal: - - obese, soft, minimally tender in b/l UQ's, BS hypoactive, no rebound, no guarding Lymphatic: No Cervical Adenopathy Extremities: No Clubbing, Cyanosis, - - trace pedal edema b/l Skin: No Nodules or Sclerosis, - - venous stasis discoloration b/l distal LE's Neurological: Alert and Oriented x 3, NL Muscle Strength and Tone Result Diagrams: 11/24/17 05:40 11/24/17 05:40 Microbiology and Other Data: Microbiology 11/23/17 11:35 Nasal Screen MRSA (PCR) - Final Nasal Mrsa Detected Assess/Plan/Problems-Billing Assessment: Ms. Mckeon is a 67 yo female with a PMH of morbid obesity, COPD on 02 in the past not recently, hx of hypoxic respiratory failure, hx of heart failure with a preserved EF, HTN, non-insulin DM II, chronic pain syndrome who presented for increasing abd pain and SBO - Patient Problems (1) SBO (small bowel obstruction) Comment: Cont conservative management with NG, supportive IVF Ice chips PO as requested per pt Appreciate surgical co-management May need a repeat CT in 1-2 days (2) Vocal cord dysfunction Comment: Pt exhales against closed vocal corsd when asked to take a deep breath or when anxious, otherwise no problems noted (3) Electrolyte abnormality Comment: Hypomagnesemia - replacing IV (4) CHF (congestive heart failure) Comment: Chronic, diastolic, does not appear to be in acute exacerbation. Cont daily weights (5) Chronic pain Comment: cont IV dilaudid, pt's chronic PO narcotics are held (6) GERD (gastroesophageal reflux disease) Comment: Protonix IV (7) HTN (hypertension) Comment: Normotensive. cont IV lopressor (8) Diabetes mellitus type 2, noninsulin dependent Comment: Cont ISS (9) DVT prophylaxis Comment: - HSQ Status and Disposition: Inpatient
[2017-11-24] MEDS ORDERED: NS 0.9% 100 ML* 100 ML ONE (08:56)
--- NOTE | 2017-11-24 09:12 | PN ---
Progress Note - Progress Note Date of Service: 11/24/17 SOAP: Subjective: Feels about the same-no flatus or BM, wants to drink but no appetite Objective: Temp Pulse Resp BP Pulse Ox 98.0 F 95 18 129/72 95 11/24/17 07:30 11/24/17 07:30 11/24/17 08:50 11/24/17 07:30 11/24/17 07:30 Intake & Output 11/22/17 11/23/17 11/24/17 11/25/17 06:59 06:59 06:59 06:59 Intake Total 1050 291 Output Total 2450 Balance 1050 -2159 Weight 262 lb 262 lb Intake: IV Fluids 1050 IVPB 191 NS (0.9%) 191 Oral 100 Output: NG Tube Drainage Amount 1450 [place] 700 Residual 300 [place] 16 Fr 300 Other: # Bowel Movements 0 NGT output is clear and non-bilious PEX: Comfortable in bed-pleasant and does not appear to be in pain Abd: Soft and slightly distended. Bowel sounds present, decreased-not high pitched or tinkling. Mild upper tenderness--no rebound or peritoneal signs. Laboratory Results - last 24 hr 11/23/17 11/23/17 11/24/17 12:27 18:01 05:40 WBC 8.2 RBC 3.90 L Hgb 11.4 L Hct 34 L MCV 87 MCH 29 MCHC 33 RDW 13 Plt Count Platelets clumped. H MPV Not Reportable Neut % (Auto) 70.1 Lymph % (Auto) 17.5 L Travis % (Auto) 10.0 H Eos % (Auto) 1.9 Baso % (Auto) 0.5 Absolute Neuts (auto) 5.8 Absolute Lymphs (auto) 1.4 Absolute Monos (auto) 0.8 Absolute Eos (auto) 0.2 Absolute Basos (auto) 0 Absolute Nucleated RBC 0 Nucleated RBC % 0.5 Clumped Platelets Present Sodium Potassium Chloride Carbon Dioxide Anion Gap BUN Creatinine Est GFR ( Amer) Est GFR (Non-Af Amer) BUN/Creatinine Ratio Glucose POC Glucose (mg/dL) 119 H 110 H Calcium Magnesium 11/24/17 11/24/17 05:40 05:40 WBC RBC Hgb Hct MCV MCH MCHC RDW Plt Count MPV Neut % (Auto) Lymph % (Auto) Travis % (Auto) Eos % (Auto) Baso % (Auto) Absolute Neuts (auto) Absolute Lymphs (auto) Absolute Monos (auto) Absolute Eos (auto) Absolute Basos (auto) Absolute Nucleated RBC Nucleated RBC % Clumped Platelets Sodium 145 Potassium 3.8 Chloride 110 Carbon Dioxide 28 Anion Gap 7 BUN 20 Creatinine 0.92 Est GFR ( Amer) 73.5 Est GFR (Non-Af Amer) 60.7 BUN/Creatinine Ratio 21.7 H Glucose 113 H POC Glucose (mg/dL) 113 H Calcium 8.6 Magnesium 1.6 L Assessment: SBO v. constipation?? No improvement-- LABS WNL, exam benign. I suspect NGT output is mainly ice chips that she is taking po Plan: Continue present care-NPO, IVF and NGT No urgent indication for surgery at this point She is high risk for surgical intervention-most likely will repeat CT scan with oral contrast in next 24-48 hours if no improvement. Discussed with pt and Dr. Santos.
[2017-11-25] MEDS: HYDROmorphone INJ1* 1 MG/ML SYRINGE IV SLOW PU PRN ×10 (01:21→22:31)
[2017-11-25] MEDS: Metoprolol Tartrate IV* 1 MG/ML 5 ML VIAL IV SCH ×4 (03:35→21:10)
[2017-11-25 05:55] LABS: ABS Basophils 0 10^3/ul (0-0.2); ABS Eosinophils 0.1 10^3/ul (0-0.6); ABS Lymphocytes 1.4 10^3/ul (1.0-4.8); ABS Monocytes 0.8 10^3/ul (0-0.8); ABS Neutrophils 6.2 10^3/ul (1.5-7.7); ABS Nucleated RBC 0 10^3/ul; Eosinophil % 1.4 % (0-6); Hematocrit 33 % (35-47); Hemoglobin 10.9 g/dl (12.0-16.0); Lymphocyte % 16.2 % (25-47); Mean Corpuscular HGB Conc 33 g/dl (31-36); Mean Corpuscular Hemoglobin 29 pg (27-31); Mean Corpuscular Volume 87 fL (80-97); Mean Platelet Volume 8.7 um3 (7.4-10.4); Nucleated Red Blood Cells % 0; Platelet Count 199 10^3/ul (150-450); Red Cell Distribution Width 14 % (10.5-15); White Blood Count 8.6 10^3/ul (3.5-10.8)
[2017-11-25] MEDS: NS 0.9% 1000 ML* 1,000 ML IV SCH ×2 (05:59→20:09)
[2017-11-25] MEDS: Heparin VIAL(*) 5000 UNITS/ML VIAL (FIVE THOUSAND) SUBCUT SCH ×3 (06:00→22:31)
[2017-11-25] MEDS: Insulin LISPRO* 1 UNITS UNIT SUBCUT SCH ×3 (06:04→18:23)
[2017-11-25 06:14] LABS: EGFR Non-African American 67.4 (>60)
[2017-11-25] MEDS: Mometasone/Formoter 100/5 MDI INH SCH ×2 (08:01→20:10)
--- NOTE | 2017-11-25 08:15 | PN ---
Subjective Date of Service: 11/25/17 Interval History: Pt just passed flatus this aM. Abd pain crampy intermittent still present. Cloudy urine noted in [place] bag-UA ordered Objective Active Medications: Albuterol (Ventolin Hfa Inhaler*) 2 puff INH Q6H PRN PRN Reason: SOB/WHEEZING Albuterol (Ventolin 2.5 Mg/3 Ml Neb.Rosalie*) 2.5 mg INH Q6H PRN PRN Reason: SHORTNESS OF BREATH Albuterol/Ipratropium (Duoneb (Albuterol 2.5 Mg/Ipratropium 0.5 Mg)) 1 neb INH Q4H PRN PRN Reason: SOB/WHEEZING Dextrose (D50w Syringe 50 Ml*) 12.5 gm IV PUSH .FOR FS < 60 - SS PRN PRN Reason: FS < 60 Heparin Sodium (Porcine) (Heparin Vial(*)) 5,000 units SUBCUT Q8HR [facility] Last Admin: 11/25/17 06:00 Dose: 5,000 units Hydromorphone HCl (Dilaudid Inj1s*) 2 mg IV SLOW PU Q2H PRN PRN Reason: PAIN Last Admin: 11/25/17 06:25 Dose: 2 mg Sodium Chloride (Ns 0.9% 1000 Ml*) 1,000 mls @ 75 mls/hr IV PER RATE [facility] Last Admin: 11/25/17 05:59 Dose: 75 mls/hr Insulin Human Lispro (Humalog*) 0 units SUBCUT Q6HR [facility]; Protocol Last Admin: 11/25/17 06:04 Dose: Not Given Ipratropium [place] (Atrovent 0.5 Mg Neb.Rosalie*) 0.5 mg INH Q4H PRN PRN Reason: SOB/WHEEZING Lorazepam (Ativan Inj*) 0.5 mg IV PUSH Q6H PRN PRN Reason: ANXIETY Last Admin: 11/24/17 23:42 Dose: 0.5 mg Metoprolol Tartrate (Lopressor Iv*) 5 mg IV Q6H [facility] Last Admin: 11/25/17 03:35 Dose: 5 mg Mometasone Furoate/Formoterol Fumar (Dulera 100/5 Mdi*) 2 puff INH BID [facility] Last Admin: 11/25/17 08:01 Dose: 2 puff Ondansetron HCl (Zofran Inj*) 4 mg IV Q4H PRN PRN Reason: NAUSEA/VOMITING Pantoprazole Sodium (Protonix Iv*) 40 mg IV DAILY YUE Last Admin: 11/24/17 07:36 Dose: 40 mg Phenyleph/Shark Oil/Min Oil/Petrol (Preparation H*) 1 applic [place] QID PRN PRN Reason: hemorrhoids Vital Signs - 8 hr 11/25/17 11/25/17 11/25/17 00:50 01:19 01:21 Temperature Pulse Rate Respiratory 18 18 18 Rate Blood Pressure (mmHg) O2 Sat by Pulse Oximetry 11/25/17 11/25/17 11/25/17 02:55 03:25 03:31 Temperature 99.2 F Pulse Rate 91 Respiratory 18 18 18 Rate Blood Pressure 144/91 (mmHg) O2 Sat by Pulse 93 Oximetry 11/25/17 11/25/17 05:06 06:25 Temperature Pulse Rate Respiratory 18 18 Rate Blood Pressure (mmHg) O2 Sat by Pulse Oximetry Oxygen Devices in Use Now: None Appearance: 67 yo F in nAD,AAOx3 Eyes: No Scleral Icterus, PERRLA Ears/Nose/Mouth/Throat: NL Teeth, Lips, Gums, Mucous Membranes Moist Neck: NL Appearance and Movements; NL JVP, Trachea Midline Respiratory: Symmetrical Chest Expansion and Respiratory Effort, - - faint bibasiliar crackles Cardiovascular: NL Sounds; No Murmurs; No JVD, RRR Abdominal: NL Sounds; No Tenderness; No Distention Lymphatic: No Cervical Adenopathy Extremities: No Clubbing, Cyanosis, - - trace pedal edema b/l Skin: No Nodules or Sclerosis, - - venous stasis discoloration b/l distal LE's Neurological: Alert and Oriented x 3, NL Muscle Strength and Tone Result Diagrams: 11/25/17 05:29 11/25/17 05:29 Microbiology and Other Data: Microbiology 11/23/17 11:35 Nasal Screen MRSA (PCR) - Final Nasal Mrsa Detected Assess/Plan/Problems-Billing Assessment: Ms. Mckeon is a 67 yo female with a PMH of morbid obesity, COPD on 02 in the past not recently, hx of hypoxic respiratory failure, hx of heart failure with a preserved EF, HTN, non-insulin DM II, chronic pain syndrome who presented for increasing abd pain and SBO - Patient Problems (1) SBO (small bowel obstruction) Comment: Cont conservative management with NG, supportive IVF Ice chips PO as requested per pt Appreciate surgical co-management Passed flatus today, ambulation encouraged (2) Vocal cord dysfunction Comment: Pt exhales against closed vocal cords when asked to take a deep breath or when anxious, otherwise no problems noted (3) Electrolyte abnormality Comment: Hypomagnesemia - replaced (4) CHF (congestive heart failure) Comment: Chronic, diastolic, does not appear to be in acute exacerbation. Cont daily weights (5) Chronic pain Comment: cont IV dilaudid, pt's chronic PO narcotics are held (6) GERD (gastroesophageal reflux disease) Comment: Protonix IV (7) HTN (hypertension) Comment: Normotensive. cont IV lopressor (8) Diabetes mellitus type 2, noninsulin dependent Comment: Cont ISS (9) Acute urinary retention Comment: suspect due to SBO Cont [place] UA pending (10) DVT prophylaxis Comment: - HSQ Status and Disposition: Inpatient
[2017-11-25] MEDS: Pantoprazole IV* 40 MG IV SCH (08:41)
[2017-11-25 09:43] LABS: Urine Appearance Cloudy; Urine Blood 3+ (Negative); Urine Color Amber; Urine Ketones 1+ (Negative); Urine Protein 2+(100 mg/dL) (Negative); Urine Red Blood Cell 3+(>10/hpf) (Absent); Urine Specific Gravity 1.023 (1.010-1.030); Urine Urobilinogen Negative (Negative); Urine White Blood Cell 3+(>20/hpf) (Absent)
--- NOTE | 2017-11-25 14:50 | PN ---
Progress Note - Progress Note Date of Service: 11/25/17 SOAP: Subjective: Passed one episode of flatus this morning Less abdominal pain Wants some juan deo She is taking a lot of ice chips Objective: Temp Pulse Resp BP Pulse Ox 98.9 F 85 22 146/78 94 11/25/17 11:50 11/25/17 11:50 11/25/17 13:14 11/25/17 11:50 11/25/17 11:50 Intake & Output 11/23/17 11/24/17 11/25/17 11/26/17 06:59 06:59 06:59 06:59 Intake Total 0150 580 5192 Output Total 2450 2550 Balance 1050 -2159 -835 Weight 262 lb 262 lb 265 lb 9.6 oz Intake: IV Fluids 1050 IVPB 191 1075 NS (0.9%) 191 975 mag 100 Oral 100 640 Output: NG Tube Drainage Amount 1450 1750 [place] 700 800 Residual 300 [place] 16 Fr 300 Other: # Bowel Movements 0 0 NGT output is mainly clear-not bilious PEX: Comfortable Abd is soft and slightly less distended than yesterday. Mild epigastric pain. Bowel sounds are present and are normal pitched, not high pitched or tinkling. Laboratory Results - last 24 hr 11/24/17 11/24/17 11/25/17 17:44 23:29 05:29 WBC RBC Hgb Hct MCV MCH MCHC RDW Plt Count MPV Neut % (Auto) Lymph % (Auto) [place] % (Auto) Eos % (Auto) Baso % (Auto) Absolute Neuts (auto) Absolute Lymphs (auto) Absolute Monos (auto) Absolute Eos (auto) Absolute Basos (auto) Absolute Nucleated RBC Nucleated RBC % Sodium 143 Potassium 3.8 Chloride 110 Carbon Dioxide 25 Anion Gap 8 BUN 19 Creatinine 0.84 Est GFR ( Amer) 81.6 Est GFR (Non-Af Amer) 67.4 BUN/Creatinine Ratio 22.6 H Glucose 111 H POC Glucose (mg/dL) 112 H 112 H Calcium 8.4 L Magnesium 2.4 Urine Color Urine Appearance Urine pH Ur Specific [place] Urine Protein Urine Ketones Urine Blood Urine Nitrate Urine Bilirubin Urine Urobilinogen Ur Leukocyte Esterase Urine WBC (Auto) Urine RBC (Auto) Ur Squamous Epith Cells Urine Bacteria Urine Glucose 0911/25/17 11/25/17 05:29 05:56 08:57 WBC 8.6 RBC 3.80 L Hgb 10.9 L Hct 33 L MCV 87 MCH 29 MCHC 33 RDW 14 Plt Count 199 MPV 8.7 Neut % (Auto) 72.7 Lymph % (Auto) 16.2 L [place] % (Auto) 9.1 H Eos % (Auto) 1.4 Baso % (Auto) 0.6 Absolute Neuts (auto) 6.2 Absolute Lymphs (auto) 1.4 Absolute Monos (auto) 0.8 Absolute Eos (auto) 0.1 Absolute Basos (auto) 0 Absolute Nucleated RBC 0 Nucleated RBC % 0 Sodium Potassium Chloride Carbon Dioxide Anion Gap BUN Creatinine Est GFR ( Amer) Est GFR (Non-Af Amer) BUN/Creatinine Ratio Glucose POC Glucose (mg/dL) 118 H Calcium Magnesium Urine Color [place] Urine Appearance Cloudy Urine pH 5.0 Ur Specific [place] 1.023 Urine Protein 2+(100 mg/dl) A Urine Ketones 1+ A Urine Blood 3+ A Urine Nitrate Negative Urine Bilirubin Negative Urine Urobilinogen Negative Ur Leukocyte Esterase Trace A Urine WBC (Auto) 3+(>20/hpf) A Urine RBC (Auto) 3+(>10/hpf) A Ur Squamous Epith Cells Present A Urine Bacteria Absent Urine Glucose Negative 11/25/17 12:22 WBC RBC Hgb Hct MCV MCH MCHC RDW Plt Count MPV Neut % (Auto) Lymph % (Auto) [place] % (Auto) Eos % (Auto) Baso % (Auto) Absolute Neuts (auto) Absolute Lymphs (auto) Absolute Monos (auto) Absolute Eos (auto) Absolute Basos (auto) Absolute Nucleated RBC Nucleated RBC % Sodium Potassium Chloride Carbon Dioxide Anion Gap BUN Creatinine Est GFR ( Amer) Est GFR (Non-Af Amer) BUN/Creatinine Ratio Glucose POC Glucose (mg/dL) 138 H Calcium Magnesium Urine Color Urine Appearance Urine pH Ur Specific [place] Urine Protein Urine Ketones Urine Blood Urine Nitrate Urine Bilirubin Urine Urobilinogen Ur Leukocyte Esterase Urine WBC (Auto) Urine RBC (Auto) Ur Squamous Epith Cells Urine Bacteria Urine Glucose Assessment: SBO v ileus-slightly improved today Labs WNL I think NGT output is mainly the ice chips she is taking po Plan: Continue present care-no urgent indication for surgery. If no improvement, repeat CT tomorrow with oral and IV contrast.
[2017-11-26] MEDS: Insulin LISPRO* 1 UNITS UNIT SUBCUT SCH ×5 (00:31→23:32)
[2017-11-26] MEDS: HYDROmorphone INJ1* 1 MG/ML SYRINGE IV SLOW PU PRN ×10 (00:40→23:46)
[2017-11-26] MEDS: Metoprolol Tartrate IV* 1 MG/ML 5 ML VIAL IV SCH ×4 (03:16→21:42)
[2017-11-26] MEDS: Albuterol/Ipratropium NEB.SOL* Albuterol 2.5 MG/Ipratropium 0.5 MG 3 ML INH PRN ×2 (03:23→08:53)
[2017-11-26] MEDS: Heparin VIAL(*) 5000 UNITS/ML VIAL (FIVE THOUSAND) SUBCUT SCH ×3 (05:57→21:42)
[2017-11-26 06:45] LABS: ABS Basophils 0 10^3/ul (0-0.2); ABS Eosinophils 0.2 10^3/ul (0-0.6); ABS Lymphocytes 1.6 10^3/ul (1.0-4.8); ABS Monocytes 0.7 10^3/ul (0-0.8); ABS Neutrophils 4.4 10^3/ul (1.5-7.7); ABS Nucleated RBC 0 10^3/ul; Eosinophil % 2.5 % (0-6); Hematocrit 30 % (35-47); Hemoglobin 9.9 g/dl (12.0-16.0); Lymphocyte % 23.2 % (25-47); Mean Corpuscular HGB Conc 33 g/dl (31-36); Mean Corpuscular Hemoglobin 29 pg (27-31); Mean Corpuscular Volume 87 fL (80-97); Mean Platelet Volume 8.6 um3 (7.4-10.4); Nucleated Red Blood Cells % 0.1; Platelet Count 179 10^3/ul (150-450); Red Blood Count 3.44 10^6/ul (4.00-5.40); Red Cell Distribution Width 14 % (10.5-15)
[2017-11-26 07:07] LABS: EGFR Non-African American 84.6 (>60)
[2017-11-26] MEDS: Mometasone/Formoter 100/5 MDI INH SCH ×2 (08:20→23:31)
[2017-11-26] MEDS: Pantoprazole IV* 40 MG IV SCH (08:20)
--- NOTE | 2017-11-26 08:22 | PN ---
Progress Note - Progress Note Date of Service: 11/26/17 SOAP: Subjective: About the same-small amount of flatus, less pain Ambulating in halls Taking large amounts of ice chips. No N/v Objective: Temp Pulse Resp BP Pulse Ox 98.3 F 82 16 145/71 95 11/26/17 07:58 11/26/17 07:58 11/26/17 07:58 11/26/17 07:58 11/26/17 07:58 Intake & Output 11/24/17 11/25/17 11/26/17 11/27/17 06:59 06:59 06:59 06:59 Intake Total 291 1715 1270 Output Total 2450 2550 2225 Balance -4889 -217 -364 Weight 262 lb 265 lb 9.6 oz 266 lb 11.2 oz Intake: IV Fluids 990 NS (0.9%) 990 IVPB 191 1075 NS (0.9%) 191 975 mag 100 Oral 100 640 230 NG Tube Irrigate Amount 50 Output: NG Tube Drainage Amount 1450 1750 1500 Urine 175 [place] 700 800 550 Residual 300 [place] 16 Fr 300 Other: # Bowel Movements 0 0 0 NGT output is clear with some black tinge, non-bilous PEX: Abd is softer and less distended. Bowel sounds are present-normoactive. Mild upper abdominal tenderness Laboratory Results - last 24 hr 11/25/17 11/25/17 11/25/17 05:56 08:57 12:22 WBC RBC Hgb Hct MCV MCH MCHC RDW Plt Count MPV Neut % (Auto) Lymph % (Auto) [place] % (Auto) Eos % (Auto) Baso % (Auto) Absolute Neuts (auto) Absolute Lymphs (auto) Absolute Monos (auto) Absolute Eos (auto) Absolute Basos (auto) Absolute Nucleated RBC Nucleated RBC % Sodium Potassium Chloride Carbon Dioxide Anion Gap BUN Creatinine Est GFR ( Amer) Est GFR (Non-Af Amer) BUN/Creatinine Ratio Glucose POC Glucose (mg/dL) 118 H 138 H Calcium Urine Color [place] Urine Appearance Cloudy Urine pH 5.0 Ur Specific [place] 1.023 Urine Protein 2+(100 mg/dl) A Urine Ketones 1+ A Urine Blood 3+ A Urine Nitrate Negative Urine Bilirubin Negative Urine Urobilinogen Negative Ur Leukocyte Esterase Trace A Urine WBC (Auto) 3+(>20/hpf) A Urine RBC (Auto) 3+(>10/hpf) A Ur Squamous Epith Cells Present A Urine Bacteria Absent Urine Glucose Negative 11/25/17 11/25/17 11/26/17 17:59 18:08 00:21 WBC RBC Hgb Hct MCV MCH MCHC RDW Plt Count MPV Neut % (Auto) Lymph % (Auto) [place] % (Auto) Eos % (Auto) Baso % (Auto) Absolute Neuts (auto) Absolute Lymphs (auto) Absolute Monos (auto) Absolute Eos (auto) Absolute Basos (auto) Absolute Nucleated RBC Nucleated RBC % Sodium Potassium Chloride Carbon Dioxide Anion Gap BUN Creatinine Est GFR ( Amer) Est GFR (Non-Af Amer) BUN/Creatinine Ratio Glucose POC Glucose (mg/dL) 67 L 113 H 97 Calcium Urine Color Urine Appearance Urine pH Ur Specific [place] Urine Protein Urine Ketones Urine Blood Urine Nitrate Urine Bilirubin Urine Urobilinogen Ur Leukocyte Esterase Urine WBC (Auto) Urine RBC (Auto) Ur Squamous Epith Cells Urine Bacteria Urine Glucose 11/26/17 11/26/17 11/26/17 06:03 06:37 06:37 WBC 7.0 RBC 3.44 L Hgb 9.9 L Hct 30 L MCV 87 MCH 29 MCHC 33 RDW 14 Plt Count 179 MPV 8.6 Neut % (Auto) 63.0 Lymph % (Auto) 23.2 L [place] % (Auto) 10.6 H Eos % (Auto) 2.5 Baso % (Auto) 0.7 Absolute Neuts (auto) 4.4 Absolute Lymphs (auto) 1.6 Absolute Monos (auto) 0.7 Absolute Eos (auto) 0.2 Absolute Basos (auto) 0 Absolute Nucleated RBC 0 Nucleated RBC % 0.1 Sodium 145 Potassium 3.6 Chloride 111 Carbon Dioxide 26 Anion Gap 8 BUN 14 Creatinine 0.69 Est GFR ( Amer) 102.4 Est GFR (Non-Af Amer) 84.6 BUN/Creatinine Ratio 20.3 H Glucose 107 H POC Glucose (mg/dL) 109 H Calcium 8.2 L Urine Color Urine Appearance Urine pH Ur Specific [place] Urine Protein Urine Ketones Urine Blood Urine Nitrate Urine Bilirubin Urine Urobilinogen Ur Leukocyte Esterase Urine WBC (Auto) Urine RBC (Auto) Ur Squamous Epith Cells Urine Bacteria Urine Glucose Assessment: SBO v ileus--although she feels a little better, does not have full return of GI function. I think NGT output is mostly ice chips she is taking po. Plan: CT scan abd/pelvis po and IV contrast today-through NGT for oral contrast. Discussed with patient.
[2017-11-26] MEDS: NS 0.9% 1000 ML* 1,000 ML IV SCH ×2 (09:42→23:41)
[2017-11-26] MEDS ORDERED: Iodixanol* (CONTRAST) 320 MG/ML 100 ML SDV IV ONE (11:34)
[2017-11-26] MEDS: LORazepam INJ* 2 MG/ML 1 ML VIAL IV PUSH PRN (13:12)
--- NOTE | 2017-11-26 14:19 | RAD ---
CLINICAL HISTORY: Follow up ? SBO COMPARISON: November 23, 2017 , March 04, 2010 TECHNIQUE: Multiple contiguous axial CT scans were obtained of the abdomen and pelvis after the administration of intravenous contrast. Coronal and sagittal multiplanar reformations are submitted for review. Oral contrast was administered. Delayed images were obtained through the abdomen. FINDINGS: LUNG BASES: The lung bases are clear. LIVER: The liver is diffusely low in attenuation compared to the spleen. There are no focal hepatic parenchymal masses. BILE DUCTS: There is mild intrahepatic biliary dilatation with moderate dilatation of the common duct extending to the level of the ampulla. The common duct measures 1.6 cm in caliber. This is similar to the previous examination when measured at comparable levels. GALLBLADDER: The gallbladder is normal, without pericholecystic inflammatory change. PANCREAS: There is mild dilatation of the pancreatic duct extending to the ampulla. SPLEEN: Normal in size and appearance. UPPER GI TRACT: Evaluation of the gastrointestinal tract is limited by incomplete gastric distention. A gastric tube is noted SMALL BOWEL AND MESENTERY: The small bowel is normal in contour, course, and caliber. There is no obstruction or dilatation. There has been interval resolution of the dilated loops of small bowel noted on the previous examination. COLON: There are scattered diverticula of the descending and sigmoid colon. There is no pericolonic inflammatory change. ADRENALS: Again noted is a right adrenal nodule. This is stable from the 2009 examination, at which time the imaging characteristics are consistent with an adrenal adenoma. KIDNEYS: The kidneys are normal in shape, size, contour, and axis. There is no hydronephrosis or nephrolithiasis. BLADDER: The bladder is partially collapsed around a [place] catheter. PELVIC ORGANS: The pelvic organs are not visualized. AORTA: The aorta is normal. IVC: Unremarkable LYMPH NODES: There is no lymphadenopathy by size criteria. ABDOMINAL WALL: Again noted is a fat-containing ventral hernia. BONES AND SOFT TISSUES: There are mild diffuse degenerative changes. OTHER: None IMPRESSION: 1. INTERVAL RESOLUTION OF THE DILATED LOOPS OF SMALL BOWEL. 2. FAT-CONTAINING VENTRAL HERNIA. 3. RIGHT ADRENAL ADENOMA STABLE FROM 2010. 4. FATTY INFILTRATION OF THE LIVER. 5. AGAIN NOTED IS DILATATION SIMILAR TO THE MOST RECENT PREVIOUS EXAMINATION.
--- NOTE | 2017-11-26 15:45 | PN ---
Subjective Date of Service: 11/26/17 Interval History: pt still c/o "some pain", but is not cramping. Denies passing flatus today Objective Active Medications: Albuterol (Ventolin Hfa Inhaler*) 2 puff INH Q6H PRN PRN Reason: SOB/WHEEZING Albuterol (Ventolin 2.5 Mg/3 Ml Neb.Rosalie*) 2.5 mg INH Q6H PRN PRN Reason: SHORTNESS OF BREATH Albuterol/Ipratropium (Duoneb (Albuterol 2.5 Mg/Ipratropium 0.5 Mg)) 1 neb INH Q4H PRN PRN Reason: SOB/WHEEZING Last Admin: 11/26/17 08:53 Dose: 1 neb Dextrose (D50w Syringe 50 Ml*) 12.5 gm IV PUSH .FOR FS < 60 - SS PRN PRN Reason: FS < 60 Heparin Sodium (Porcine) (Heparin Vial(*)) 5,000 units SUBCUT Q8HR [facility] Last Admin: 11/26/17 14:20 Dose: 5,000 units Hydromorphone HCl (Dilaudid Inj1s*) 2 mg IV SLOW PU Q2H PRN PRN Reason: PAIN Last Admin: 11/26/17 12:59 Dose: 2 mg Sodium Chloride (Ns 0.9% 1000 Ml*) 1,000 mls @ 75 mls/hr IV PER RATE [facility] Last Admin: 11/26/17 09:42 Dose: 75 mls/hr Insulin Human Lispro (Humalog*) 0 units SUBCUT Q6HR [facility]; Protocol Last Admin: 11/26/17 11:21 Dose: Not Given Ipratropium [place] (Atrovent 0.5 Mg Neb.Rosalie*) 0.5 mg INH Q4H PRN PRN Reason: SOB/WHEEZING Lorazepam (Ativan Inj*) 0.5 mg IV PUSH Q6H PRN PRN Reason: ANXIETY Last Admin: 11/26/17 13:12 Dose: 0.5 mg Metoprolol Tartrate (Lopressor Iv*) 5 mg IV Q6H [facility] Last Admin: 11/26/17 14:20 Dose: 5 mg Mometasone Furoate/Formoterol Fumar (Dulera 100/5 Mdi*) 2 puff INH BID [facility] Last Admin: 11/26/17 08:20 Dose: 2 puff Ondansetron HCl (Zofran Inj*) 4 mg IV Q4H PRN PRN Reason: NAUSEA/VOMITING Pantoprazole Sodium (Protonix Iv*) 40 mg IV DAILY YUE Last Admin: 11/26/17 08:20 Dose: 40 mg Phenyleph/Shark Oil/Min Oil/Petrol (Preparation H*) 1 applic [place] QID PRN PRN Reason: hemorrhoids Vital Signs - 8 hr 11/26/17 11/26/17 11/26/17 07:58 08:19 08:51 Temperature 98.3 F Pulse Rate 82 76 Respiratory 16 16 16 Rate Blood Pressure 145/71 (mmHg) O2 Sat by Pulse 95 97 Oximetry 11/26/17 11/26/17 11/26/17 11:02 11:04 12:59 Temperature 98.7 F Pulse Rate 67 Respiratory 16 16 16 Rate Blood Pressure 130/94 (mmHg) O2 Sat by Pulse 94 Oximetry 11/26/17 11/26/17 13:12 14:26 Temperature Pulse Rate Respiratory 16 18 Rate Blood Pressure (mmHg) O2 Sat by Pulse Oximetry Oxygen Devices in Use Now: None Appearance: 67 yo f in nAD, aAOx3 Eyes: No Scleral Icterus, PERRLA Ears/Nose/Mouth/Throat: NL Teeth, Lips, Gums, Mucous Membranes Moist Neck: NL Appearance and Movements; NL JVP, Trachea Midline Respiratory: Symmetrical Chest Expansion and Respiratory Effort, Clear to Auscultation Cardiovascular: NL Sounds; No Murmurs; No JVD, RRR Abdominal: NL Sounds; No Tenderness; No Distention, No Hepatosplenomegaly Lymphatic: No Cervical Adenopathy Extremities: No Clubbing, Cyanosis, - - trace pedal edema b/l Skin: No Nodules or Sclerosis, - - b/l distal LE's discoloration due to venous stasis Neurological: Alert and Oriented x 3, NL Muscle Strength and Tone Result Diagrams: 11/26/17 06:37 11/26/17 06:37 Microbiology and Other Data: Microbiology 11/23/17 11:35 Nasal Screen MRSA (PCR) - Final Nasal Mrsa Detected Assess/Plan/Problems-Billing Assessment: Ms. Mckeon is a 67 yo female with a PMH of morbid obesity, COPD on 02 in the past not recently, hx of hypoxic respiratory failure, hx of heart failure with a preserved EF, HTN, non-insulin DM II, chronic pain syndrome who presented for increasing abd pain and SBO - Patient Problems (1) SBO (small bowel obstruction) Comment: CT shows resolution on SBO. Clears introduced Appreciate surgical co-management (2) Vocal cord dysfunction Comment: Pt exhales against closed vocal cords when asked to take a deep breath or when anxious, otherwise no problems noted (3) Electrolyte abnormality Comment: Hypomagnesemia - replaced (4) CHF (congestive heart failure) Comment: Chronic, diastolic, does not appear to be in acute exacerbation. Cont daily weights (5) Chronic pain Comment: cont IV dilaudid, pt's chronic PO narcotics are held (6) GERD (gastroesophageal reflux disease) Comment: Protonix IV (7) HTN (hypertension) Comment: Normotensive. cont IV lopressor (8) Diabetes mellitus type 2, noninsulin dependent Comment: Cont ISS (9) Acute urinary retention Comment: suspect due to SBO Cont [place] UA abn, but cx negative so far (10) DVT prophylaxis Comment: - HSQ Status and Disposition: Inpatient
[2017-11-27] MEDS: Metoprolol Tartrate IV* 1 MG/ML 5 ML VIAL IV SCH ×2 (03:22→08:43)
[2017-11-27] MEDS: Heparin VIAL(*) 5000 UNITS/ML VIAL (FIVE THOUSAND) SUBCUT SCH ×3 (05:29→21:15)
[2017-11-27] MEDS: Insulin LISPRO* 1 UNITS UNIT SUBCUT SCH ×3 (05:31→17:55)
[2017-11-27 06:34] LABS: EGFR Non-African American 109.9 (>60)
[2017-11-27] MEDS ORDERED: HYDROmorphone INJ1* 1 MG/ML SYRINGE IV SLOW PU PRN (08:09)
[2017-11-27] MEDS ORDERED: oxyCODONE TAB* 5 MG TAB PO PRN (08:30)
[2017-11-27] MEDS: Pantoprazole IV* 40 MG IV SCH (08:43)
[2017-11-27] MEDS: oxyCODONE SR TAB(*) 10 MG TAB.SR PO SCH ×2 (08:45→21:15)
[2017-11-27] MEDS: Mometasone/Formoter 100/5 MDI INH SCH ×2 (08:47→20:01)
[2017-11-27] MEDS ORDERED: oxyCODONE TAB* 5 MG TAB PO SCH (09:00)
[2017-11-27] MEDS ORDERED: oxyCODONE/Acetamin 5/325 MG* TAB PO SCH (09:00)
[2017-11-27] MEDS: HYDROmorphone INJ1* 1 MG/ML SYRINGE IV SLOW PU PRN ×2 (10:53→17:54)
--- NOTE | 2017-11-27 11:12 | PN ---
Subjective Date of Service: 11/27/17 Interval History: Pt has a small BM today and felt well, but then took her pills PO and c/o epigastric pain Objective Active Medications: Albuterol (Ventolin Hfa Inhaler*) 2 puff INH Q6H PRN PRN Reason: SOB/WHEEZING Last Admin: 11/26/17 19:47 Dose: 2 puff Albuterol (Ventolin 2.5 Mg/3 Ml Neb.Rosalie*) 2.5 mg INH Q6H PRN PRN Reason: SHORTNESS OF BREATH Last Admin: 11/26/17 16:41 Dose: 2.5 mg Albuterol/Ipratropium (Duoneb (Albuterol 2.5 Mg/Ipratropium 0.5 Mg)) 1 neb INH Q4H PRN PRN Reason: SOB/WHEEZING Last Admin: 11/26/17 08:53 Dose: 1 neb Alprazolam (Xanax Tab*) 1 mg PO TID PRN PRN Reason: ANXIETY Carisoprodol (Soma Tab*) 350 mg PO TID PRN PRN Reason: SPASMS Dextrose (D50w Syringe 50 Ml*) 12.5 gm IV PUSH .FOR FS < 60 - SS PRN PRN Reason: FS < 60 Furosemide (Lasix Tab*) 40 mg PO QPM [facility] Heparin Sodium (Porcine) (Heparin Vial(*)) 5,000 units SUBCUT Q8HR [facility] Last Admin: 11/27/17 05:29 Dose: 5,000 units Hydromorphone HCl (Dilaudid Inj1s*) 0.5 mg IV SLOW PU Q6H PRN PRN Reason: PAIN Last Admin: 11/27/17 10:53 Dose: 0.5 mg Insulin Human Lispro (Humalog*) 0 units SUBCUT Q6HR [facility]; Protocol Last Admin: 11/27/17 05:31 Dose: Not Given Ipratropium [place] (Atrovent 0.5 Mg Neb.Rosalie*) 0.5 mg INH Q4H PRN PRN Reason: SOB/WHEEZING Metolazone (Zaroxolyn Tab*) 5 mg PO DAILY [facility] Mometasone Furoate/Formoterol Fumar (Dulera 100/5 Mdi*) 2 puff INH BID [facility] Last Admin: 11/27/17 08:47 Dose: 2 puff Nebivolol (Bystolic (Nf)) 10 mg PO BID [facility] Omeprazole (Prilosec Cap*) 20 mg PO DAILY@0600 [facility] Ondansetron HCl (Zofran Inj*) 4 mg IV Q4H PRN PRN Reason: NAUSEA/VOMITING Oxycodone HCl (Oxycontin(*)) 10 mg PO BID [facility] Last Admin: 11/27/17 08:45 Dose: 10 mg Oxycodone HCl (Roxycodone Tab*) 5 mg PO Q4H PRN PRN Reason: PAIN Oxycodone/Acetaminophen (Percocet 5/325 Tab*) 1 tab PO Q4H PRN PRN Reason: PAIN Phenyleph/Shark Oil/Min Oil/Petrol (Preparation H*) 1 applic [place] QID PRN PRN Reason: hemorrhoids Vital Signs - 8 hr 11/27/17 11/27/17 11/27/17 03:16 03:25 07:37 Temperature 98.7 F 97.8 F Pulse Rate 73 79 Respiratory 18 17 18 Rate Blood Pressure 134/75 159/85 (mmHg) O2 Sat by Pulse 96 98 Oximetry 11/27/17 11/27/17 11/27/17 08:40 08:45 10:24 Temperature Pulse Rate Respiratory 16 16 16 Rate Blood Pressure (mmHg) O2 Sat by Pulse Oximetry 11/27/17 10:53 Temperature Pulse Rate Respiratory 17 Rate Blood Pressure (mmHg) O2 Sat by Pulse Oximetry Oxygen Devices in Use Now: None Appearance: 67 yo F in nAD, aAOx3 Eyes: No Scleral Icterus, PERRLA Ears/Nose/Mouth/Throat: NL Teeth, Lips, Gums, Mucous Membranes Moist Neck: NL Appearance and Movements; NL JVP, Trachea Midline Respiratory: Symmetrical Chest Expansion and Respiratory Effort, Clear to Auscultation Cardiovascular: NL Sounds; No Murmurs; No JVD, RRR Abdominal: - - mild epigastric tenderness, no rebound, no guarding, BS+ Lymphatic: No Cervical Adenopathy Extremities: No Edema, No Clubbing, Cyanosis Skin: No Nodules or Sclerosis, - - b/l venous stasis discoloration in distal LE' s Neurological: Alert and Oriented x 3, NL Muscle Strength and Tone Result Diagrams: 11/26/17 06:37 11/27/17 05:31 Microbiology and Other Data: Microbiology 11/23/17 11:35 Nasal Screen MRSA (PCR) - Final Nasal Mrsa Detected Assess/Plan/Problems-Billing Assessment: Ms. Mckeon is a 67 yo female with a PMH of morbid obesity, COPD on 02 in the past not recently, hx of hypoxic respiratory failure, hx of heart failure with a preserved EF, HTN, non-insulin DM II, chronic pain syndrome who presented for increasing abd pain and SBO - Patient Problems (1) SBO (small bowel obstruction) Comment: CT shows resolution on SBO. Clears cont. Meds switched back to PO Appreciate surgical co-management (2) Vocal cord dysfunction Comment: Pt exhales against closed vocal cords when asked to take a deep breath or when anxious, otherwise no problems noted (3) Electrolyte abnormality Comment: Hypomagnesemia - replaced (4) CHF (congestive heart failure) Comment: Chronic, diastolic, does not appear to be in acute exacerbation. Cont daily weights (5) Chronic pain Comment: pt's chronic PO narcotics are restarted, cont IV Dilaudid Q6prn (6) GERD (gastroesophageal reflux disease) Comment: Protonix IV (7) HTN (hypertension) Comment: Normotensive. Restarting PO Bystolic (8) Diabetes mellitus type 2, noninsulin dependent Comment: Cont ISS (9) Acute urinary retention Comment: suspect due to SBO d/c [place] today UA abn, but cx negative so far (10) DVT prophylaxis Comment: - HSQ Status and Disposition: Inpatient
--- NOTE | 2017-11-27 12:57 | PN ---
Progress Note - Progress Note Date of Service: 11/27/17 SOAP: Subjective: Passing some flatus and had a small BM Took some liquids but now has a stomach ache after taking oral pain meds No N/V Objective: Temp Pulse Resp BP Pulse Ox 97.8 F 79 18 159/85 98 11/27/17 07:37 11/27/17 07:37 11/27/17 12:03 11/27/17 07:37 11/27/17 07:37 PEX: Comfortable Abs is soft and non-distended. Bowel sounds are present and are normoactive. Mild epigastric tenderness CT yesterday reviewed with radiology--resolution of SBO, rapid flow of contrast into colon without SB dilation. Assessment: SBO-resolved Plan: Diet as tolerated Increase activity.
[2017-11-27] MEDS: oxyCODONE TAB* 5 MG TAB PO PRN ×2 (13:27→21:14)
[2017-11-27] MEDS: oxyCODONE/Acetamin 5/325 MG* TAB PO PRN ×2 (13:27→21:14)
[2017-11-27] MEDS: ALPRAZolam TAB* 0.5 MG PO PRN ×2 (14:58→23:28)
[2017-11-27] MEDS: Carisoprodol TAB* 350 MG PO PRN ×2 (14:58→23:27)
[2017-11-27] MEDS: Furosemide TAB* 40 MG PO SCH (17:54)
[2017-11-27] MEDS: Nebivolol TAB (NF) 2.5 MG TAB PO SCH (21:15)
[2017-11-28] MEDS: HYDROmorphone INJ1* 1 MG/ML SYRINGE IV SLOW PU PRN (02:29)
[2017-11-28] MEDS: oxyCODONE/Acetamin 5/325 MG* TAB PO PRN ×5 (02:29→21:54)
[2017-11-28] MEDS: oxyCODONE TAB* 5 MG TAB PO PRN ×5 (02:29→21:54)
[2017-11-28] MEDS: Heparin VIAL(*) 5000 UNITS/ML VIAL (FIVE THOUSAND) SUBCUT SCH ×3 (06:00→21:55)
[2017-11-28] MEDS: Omeprazole CAP* 20 MG PO SCH (06:00)
[2017-11-28] MEDS: Insulin LISPRO* 1 UNITS UNIT SUBCUT SCH ×3 (07:29→12:20)
[2017-11-28] MEDS: oxyCODONE SR TAB(*) 10 MG TAB.SR PO SCH ×2 (08:01→22:15)
[2017-11-28] MEDS: Nebivolol TAB (NF) 2.5 MG TAB PO SCH ×2 (08:01→21:55)
[2017-11-28] MEDS: Mometasone/Formoter 100/5 MDI INH SCH ×2 (08:01→20:05)
[2017-11-28] MEDS ORDERED: Metolazone TAB* 5 MG PO SCH (09:00)
--- NOTE | 2017-11-28 09:31 | PN ---
Progress Note - Progress Note Date of Service: 11/28/17 Note: Surgery Progress: S: Occ pain (only had Dilaudid .5 mg x 3/24h). No N/V. Michelle clears. Would like to move up on diet. Passing flatus. Small BM yesterday. Pt seen w/ PA student Vianca (see separate note) O: Vital Signs - 8 hr 11/28/17 11/28/17 11/28/17 01:37 01:38 02:29 Temperature Pulse Rate Respiratory 22 22 16 Rate Blood Pressure (mmHg) O2 Sat by Pulse Oximetry 11/28/17 11/28/17 11/28/17 02:35 03:30 05:20 Temperature 98.1 F Pulse Rate 71 Respiratory 18 18 18 Rate Blood Pressure 132/59 (mmHg) O2 Sat by Pulse 99 Oximetry 11/28/17 11/28/17 11/28/17 07:29 07:32 08:01 Temperature 98.1 F Pulse Rate 66 Respiratory 18 16 18 Rate Blood Pressure 144/76 (mmHg) O2 Sat by Pulse 98 Oximetry 11/28/17 11/28/17 09:19 09:22 Temperature Pulse Rate Respiratory 18 18 Rate Blood Pressure (mmHg) O2 Sat by Pulse Oximetry Intake and Output Last 24 Hours 11/26/17 11/27/17 11/28/17 11/29/17 06:59 06:59 06:59 06:59 Intake Total 1270 3888 2370 Output Total 2225 925 2875 300 Balance -955 2963 -505 -300 Weight 266 lb 11.2 oz 272 lb 1.6 oz 268 lb Intake: IV Fluids 990 1938 NS (0.9%) 990 1938 Oral 230 1450 2370 NG Tube Irrigate Amount 50 500 Output: NG Tube Drainage Amount 1500 Urine 175 2875 300 [place] 550 925 Other: # Bowel Movements 0 0 PE: see PA note Labs: todays labs pend Laboratory Tests 11/27/17 11/27/17 11/27/17 05:28 11:20 17:54 POC Glucose (mg/dL) 110 H 121 H 93 11/27/17 11/28/17 21:18 07:25 POC Glucose (mg/dL) 130 H 104 H A: SBO, appears to be resolving P: will advance diet; should hereafter be able to cont to adv as michelle; would suggest d/c fs glucoses; other mgmt per medicine. Will cont to follow until d/c.
--- NOTE | 2017-11-28 15:59 | PN ---
Subjective Date of Service: 11/28/17 Interval History: Ms. Mckeon reports feeling better today. She is tolerating a full liquid diet and feels comfortable with advancing to a soft diet for dinner. She denies chest pain or SOB above and beyond her baseline. Objective Active Medications: Albuterol (Ventolin Hfa Inhaler*) 2 puff INH Q6H PRN Albuterol (Ventolin 2.5 Mg/3 Ml Neb.Rosalie*) 2.5 mg INH Q6H PRN Albuterol/Ipratropium (Duoneb (Albuterol 2.5 Mg/Ipratropium 0.5 Mg)) 1 neb INH Q4H PRN Alprazolam (Xanax Tab*) 1 mg PO TID PRN Carisoprodol (Soma Tab*) 350 mg PO TID PRN Dextrose (D50w Syringe 50 Ml*) 12.5 gm IV PUSH .FOR FS < 60 - SS PRN Furosemide (Lasix Tab*) 40 mg PO QPM YUE Heparin Sodium (Porcine) (Heparin Vial(*)) 5,000 units SUBCUT Q8HR YUE Hydromorphone HCl (Dilaudid Inj1s*) 0.5 mg IV SLOW PU Q6H PRN Insulin Human Lispro (Humalog*) 0 units SUBCUT AC YUE; Protocol Ipratropium [place] (Atrovent 0.5 Mg Neb.Rosalie*) 0.5 mg INH Q4H PRN Mometasone Furoate/Formoterol Fumar (Dulera 100/5 Mdi*) 2 puff INH BID YUE Nebivolol (Bystolic Tab (Nf)) 10 mg PO BID YUE Omeprazole (Prilosec Cap*) 20 mg PO DAILY@0600 YUE Ondansetron HCl (Zofran Inj*) 4 mg IV Q4H PRN Oxycodone HCl (Oxycontin(*)) 10 mg PO BID YUE Oxycodone HCl (Roxycodone Tab*) 5 mg PO Q4H PRN Oxycodone/Acetaminophen (Percocet 5/325 Tab*) 1 tab PO Q4H PRN Phenyleph/Shark Oil/Min Oil/Petrol (Preparation H*) 1 applic NH QID PRN Vital Signs: Temp Pulse Resp BP Pulse Ox 98.3 F 64 16 140/75 96 11/28/17 15:43 11/28/17 15:43 11/28/17 15:47 11/28/17 15:43 11/28/17 15:43 Oxygen Devices in Use Now: None Appearance: Female lying in bed in NAD Eyes: No Scleral Icterus Ears/Nose/Mouth/Throat: Mucous Membranes Moist Neck: NL Appearance and Movements; NL JVP Respiratory: Symmetrical Chest Expansion and Respiratory Effort, Clear to Auscultation Cardiovascular: NL Sounds; No Murmurs; No JVD Abdominal: NL Sounds; No Tenderness; No Distention Lymphatic: No Cervical Adenopathy Skin: No Rash or Ulcers Neurological: Alert and Oriented x 3, NL Muscle Strength and Tone Nutrition: Taking PO's Result Diagrams: 11/26/17 06:37 11/27/17 05:31 Assess/Plan/Problems-Billing Assessment: Ms. Mckeon is a 67 yo female with a PMH of morbid obesity, COPD on 02 in the past not recently, hx of hypoxic respiratory failure, hx of heart failure with a preserved EF, HTN, non-insulin DM II, chronic pain syndrome who presented for increasing abd pain and SBO - Patient Problems (1) SBO (small bowel obstruction) Comment: - Resolving. CT shows resolution on SBO. Flatus and small BM. - Advance to soft diet. - Appreciate surgical co-management (2) Acute urinary retention Comment: - Resolved, suspect due to SBO - UA abn, but cx negative so far (3) COPD (chronic obstructive pulmonary disease) Comment: - Not in acute exacerbation - Continue home inhalers and prn nebulizer treatments - Continue nocturnal O2 (4) Vocal cord dysfunction Comment: - Pt exhales against closed vocal cords when asked to take a deep breath or when anxious, otherwise no problems noted (5) Anemia, iron deficiency Current Visit: No Status: Acute Code(s): D50.9 - IRON DEFICIENCY ANEMIA, UNSPECIFIED SNOMED Code(s): 61258788 Comment: - Chronic iron deficiency anemia. - Ferrous sulfate on hold with SBO. (6) CHF (congestive heart failure) Comment: - Chronic, diastolic, does not appear to be in acute exacerbation. - Cont daily weights (7) Chronic pain Comment: - Continue home narcotic regimen. (8) Diabetes mellitus type 2, noninsulin dependent Comment: - BG well controlled - D/C fingersticks (9) HTN (hypertension) Comment: - Normotensive. - Continue PO Bystolic (10) LUPE (obstructive sleep apnea) Comment: - Does not use home CPAP. Continue nocturnal O2 2Lnc (11) DVT prophylaxis Comment: - HSQ (12) Full code status Comment: Status and Disposition: Inpatient. Anticipate discharge to home when medically stable.
[2017-11-28] MEDS: Furosemide TAB* 40 MG PO SCH (17:28)
[2017-11-28] MEDS: Carisoprodol TAB* 350 MG PO PRN (20:26)
[2017-11-28] MEDS: ALPRAZolam TAB* 0.5 MG PO PRN (20:26)
[2017-11-29] MEDS: oxyCODONE/Acetamin 5/325 MG* TAB PO PRN (03:49)
[2017-11-29] MEDS: oxyCODONE TAB* 5 MG TAB PO PRN (03:49)
[2017-11-29] MEDS: Omeprazole CAP* 20 MG PO SCH (05:15)
[2017-11-29] MEDS: Heparin VIAL(*) 5000 UNITS/ML VIAL (FIVE THOUSAND) SUBCUT SCH (05:21)
[2017-11-29] MEDS: Carisoprodol TAB* 350 MG PO PRN (05:24)
[2017-11-29] MEDS: ALPRAZolam TAB* 0.5 MG PO PRN (05:24)
[2017-11-29 05:29] LABS: ABS Basophils 0.1 10^3/ul (0-0.2); ABS Eosinophils 0.3 10^3/ul (0-0.6); ABS Lymphocytes 1.6 10^3/ul (1.0-4.8); ABS Monocytes 0.7 10^3/ul (0-0.8); ABS Neutrophils 2.5 10^3/ul (1.5-7.7); ABS Nucleated RBC 0 10^3/ul; Eosinophil % 5.6 % (0-6); Hematocrit 28 % (35-47); Hemoglobin 9.5 g/dl (12.0-16.0); Lymphocyte % 31.5 % (25-47); Mean Corpuscular HGB Conc 34 g/dl (31-36); Mean Corpuscular Hemoglobin 29 pg (27-31); Mean Corpuscular Volume 85 fL (80-97); Mean Platelet Volume 8.7 um3 (7.4-10.4); Nucleated Red Blood Cells % 0.2; Platelet Count 217 10^3/ul (150-450); Red Blood Count 3.26 10^6/ul (4.00-5.40); Red Cell Distribution Width 14 % (10.5-15); White Blood Count 5.1 10^3/ul (3.5-10.8)
[2017-11-29 05:46] LABS: EGFR Non-African American 80.6 (>60)
[2017-11-29] MEDS: Nebivolol TAB (NF) 2.5 MG TAB PO SCH (09:14)
[2017-11-29] MEDS: oxyCODONE SR TAB(*) 10 MG TAB.SR PO SCH (09:14)
--- NOTE | 2017-11-29 10:10 | PN ---
Progress Note - Progress Note Date of Service: 11/29/17 SOAP: Subjective: Continues to improve Tolerating soft diet Passing flatus Ambulating in halls Objective: Temp Pulse Resp BP Pulse Ox 98.1 F 66 20 135/117 97 11/29/17 07:55 11/29/17 07:55 11/29/17 09:14 11/29/17 07:55 11/29/17 07:55 PEX: Comfortable Abd is soft and non-distended. Bowel sounds are present and are normactive Mild deeper epigastric pain, improved. Assessment: SBO-resolved--tolerating po Plan: OK for d/c from surgical standpoint No outpatient surgical follow up needed.
[2017-11-29] MEDS: Mometasone/Formoter 100/5 MDI INH SCH (10:11)
[2017-11-29] MEDS ORDERED: Potassium Chlor TAB* 20 MEQ TAB.ER PO ONE (12:26)
[2017-11-29 13:10] VITALS: BP 157/87
--- NOTE | 2017-11-29 22:52 | PN ---
Subjective Date of Service: 11/29/17 Interval History: Cleared by surgery for discharge home, Patient reports no n/v or diarrhea. Denies any black or tarry stools. Reports that abd pain is improved. Tolerating soft diet. Denies chest pain or shortness of breath. No abd pain with palpation Family History: Unchanged from Admission Social History: Unchanged from Admission Past Medical History: Unchanged from Admission Objective Oxygen Devices in Use Now: None Appearance: appears comfortable sitting on the edge of the bed. Eyes: No Scleral Icterus Ears/Nose/Mouth/Throat: Clear Oropharnyx, Mucous Membranes Moist Neck: NL Appearance and Movements; NL JVP Respiratory: Symmetrical Chest Expansion and Respiratory Effort, - - expiratory wheezes bilat Cardiovascular: NL Sounds; No Murmurs; No JVD, No Edema Abdominal: NL Sounds; No Tenderness; No Distention Extremities: No Edema, No Clubbing, Cyanosis Skin: No Rash or Ulcers Neurological: Alert and Oriented x 3 Nutrition: Taking PO's Result Diagrams: 11/29/17 04:46 11/29/17 04:43 Microbiology and Other Data: Microbiology 11/23/17 11:35 Nasal Screen MRSA (PCR) - Final Nasal Mrsa Detected Assess/Plan/Problems-Billing Assessment: Ms. Mckeon is a 67 yo female with a PMH of morbid obesity, COPD on 02 in the past not recently, hx of hypoxic respiratory failure, hx of heart failure with a preserved EF, HTN, non-insulin DM II, chronic pain syndrome who presented for increasing abd pain and SBO - Patient Problems (1) SBO (small bowel obstruction) Status: Acute Code(s): K56.609 - UNSP INTESTNL OBST, UNSP TO PARTIAL VERSUS COMPLETE OBST SNOMED Code(s): 316264535 Comment: - Resolving. CT shows resolution on SBO. Flatus and small BM. - Advance to soft diet - tolerating well - Appreciate surgical co-management (2) COPD (chronic obstructive pulmonary disease) Status: Chronic Code(s): J44.9 - CHRONIC OBSTRUCTIVE PULMONARY DISEASE, UNSPECIFIED SNOMED Code(s): 93979926 Comment: - Not in acute exacerbation - Continue home inhalers and prn nebulizer treatments - Continue nocturnal O2 (3) Anemia, iron deficiency Status: Acute Code(s): D50.9 - IRON DEFICIENCY ANEMIA, UNSPECIFIED SNOMED Code(s): 00669909 Comment: - H/H 9.08/12 today - no sign or symptoms of bleeding - denies black or tarry stools, - reported 1 small formed dark stool - Chronic iron deficiency anemia. - Ferrous sulfate on hold with SBO- will resume iron (4) GERD (gastroesophageal reflux disease) Status: Chronic Code(s): K21.9 - GASTRO-ESOPHAGEAL REFLUX DISEASE WITHOUT ESOPHAGITIS SNOMED Code(s): 262070570 Comment: - Continue omeprazole (5) HTN (hypertension) Status: Chronic Code(s): I10 - ESSENTIAL (PRIMARY) HYPERTENSION SNOMED Code( s): 72921883 Comment: - Normotensive. - Continue PO Bystolic (6) DVT prophylaxis Status: Acute Priority: Medium Onset Date: 05/29/14 Code(s): OUY9165 - SNOMED Code(s): 820568080 Comment: - HSQ (7) Full code status Status: Acute Priority: Medium Onset Date: 05/29/14 Code(s): Z78.9 - OTHER SPECIFIED HEALTH STATUS SNOMED Code(s): 368541337 Comment: Status and Disposition: discharge home.
== END 2017-11-29 13:40 | disposition home health service (06) | DRG 389 ==
LOC: ED 01:32 → SSU 08:23
PROVIDERS: ADMIT Internal Medicine; ATTEND Internal Medicine
PROC: 0T9B70Z Drainage of Bladder with Drainage Device, Via Natural or Artificial Opening (ICD-10-PCS; principal; 2017-11-23)
DX: K56.609 Unspecified intestinal obstruction, unspecified as to partial versus complete obstruction (principal); I50.32 Chronic diastolic (congestive) heart failure; Z68.42 Body mass index [BMI] 45.0-49.9, adult; J44.9 Chronic obstructive pulmonary disease, unspecified; G89.4 Chronic pain syndrome; I11.0 Hypertensive heart disease with heart failure; G47.33 Obstructive sleep apnea (adult) (pediatric); E78.5 Hyperlipidemia, unspecified; M19.90 Unspecified osteoarthritis, unspecified site; M81.0 Age-related osteoporosis without current pathological fracture; Z96.653 Presence of artificial knee joint, bilateral; E86.0 Dehydration; I25.10 Atherosclerotic heart disease of native coronary artery without angina pectoris; K21.9 Gastro-esophageal reflux disease without esophagitis; E66.01 Morbid (severe) obesity due to excess calories; E11.36 Type 2 diabetes mellitus with diabetic cataract; H91.90 Unspecified hearing loss, unspecified ear; F41.9 Anxiety disorder, unspecified; F31.9 Bipolar disorder, unspecified; J38.3 Other diseases of vocal cords; E83.42 Hypomagnesemia; R33.9 Retention of urine, unspecified; D50.9 Iron deficiency anemia, unspecified; Z23 Encounter for immunization; Z88.5 Allergy status to narcotic agent; Z88.6 Allergy status to analgesic agent; Z88.0 Allergy status to penicillin; Z88.1 Allergy status to other antibiotic agents; Z82.49 Family history of ischemic heart disease and other diseases of the circulatory system; Z80.1 Family history of malignant neoplasm of trachea, bronchus and lung; Z87.891 Personal history of nicotine dependence; Z90.49 Acquired absence of other specified parts of digestive tract; Z90.710 Acquired absence of both cervix and uterus; Z83.3 Family history of diabetes mellitus
CPT/HCPCS: 36415; 74177; 80048; 80053; 81003; 81015; 82150; 83605; 83690; 83735; 85025; 85610; 85730; 86140; 86850; 86900; 86901; 87086; 87641; 90686; 94640; 99284; A9270-GY; J1170; J1644; J2060; J2405; J3475; J3490; Q9967

== ENCOUNTER 2018-01-09 15:35 | Inpatient (IN) | payer MEDICARE, MEDICAID ==
--- OUTSIDE RECORDS SUMMARY | 2018-01-09 16:28 | XMS REPORT | Continuity of Care Document ---
:1950 External Reference #:[id number] Author Name Zach Worthy M.D. Address [address] [place] [address] Care Team Providers Name Role Phone Marco CARLISLE, Donavan Care Team Information Executive Sales Assistant Unavailable Marco CARLISLE, Donavan Primary Care Physician Unavailable Payers Type Date Identification Numbers Payment Provider Subscriber Policy Number: [id number] Medicare [facility] Dilma Mckeon PayID: [id number] [address] [place] [address] Policy Number: [id number] Medicaid [place] Dilma Mckeon PayID: [id number] [address] [place] [address] Advance Directives Description No Information Available Problems Description No Information Family History Date Family Member(s) Problem(s) Comments Father due to Heart Attack () Mother due to Cancer () Social History Type Date Description Comments Sex Unknown ETOH Use Denies alcohol use Tobacco Use Start: Unknown End: Unknown Patient is a former smoker Smoking Status Reviewed: 12/16/17 Patient is a former smoker Allergies, Adverse Reactions, Alerts Description No Information Medications Medication Date Status Form Strength Qnty SIG Indications Ordering Provider [facility] 12/16/ Active Ointment 0.1% 3.500g apply left H01.132 ramy Gan x 1 M.D. week Metformin HCL / Active Tablets 500mg Marco CARLISLE, 0000 Donavan Alendronate / Active Tablets 70mg Marco CARLISLE, Sodium 0000 Donaavn Omeprazole / Active Capsules 20mg Unknown [address] Furosemide / Active Tablets 40mg Marco CARLISLE, 0000 Donavan Advair HFA / Active Aerosol 115-21mcg/ Unknown 0000 Act Incruse / Active Aerosol 62.5mcg/In Unknown Ellipta 0000 h Oxycodone-Acet / Active Tablets 10-325mg Unknown aminophen 0000 Carisoprodol / Active Tablets 350mg Pachikara, 0000 MD Evans Bystolic / Active Tablets 10mg Unknown 0000 Alprazolam / Active Tablets 1mg Unknown 0000 Zolpidem / Active Tablets 10mg Sebastián, Tartrate 0000 MD Evans Vitamin D / Active Capsules [id number] take 1 Unknown (Ergocalcifero 0000 capsule by l) mouth Every 2 Weeks Dexilant / Active Capsules 30mg Unknown [address] DR Oxycontin / Active Tab ER 12H 10mg Marco CARLISLE, 0000 Abuse-Det Donavan Lyrica / Active Capsules 75mg Marco CARLISLE, 0000 Donavan Metolazone / Active Tablets 2.5mg Marco CARLISLE, 0000 Donavan Terbinafine / Active Tablets 250mg Marco CARLISLE, HCL 0000 Donavan Duloxetine HCL / Active Caps DR 20mg take 2 Unknown 0000 Part capsules by mouth once daily Valsartan / Active Tablets 320mg Unknown 0000 Levofloxacin / Active Tablets 500mg Take 1 Unknown 0000 Tablet By Mouth Once Daily AT 5 PM Simvastatin / Active Tablets 40mg Marco CARLISLE, 0000 Donavan Aspir-81 / Active Tablets DR 81mg 1 by mouth Unknown 0000 every day Immunizations Description No Information Available Vital Signs Date Vital Result Comment 12/16/2017 9:32am Intraocular Pressure Right Eye 16 mmHg Intraocular Pressure Left Eye 16 mmHg Results Description No Information Available Procedures Date Code Description Status 12/16/2017 14518 Ophthalmoscopy Initial Completed 12/16/2017 94701 Refraction Completed 12/16/2017 97866 Eye Exam New Comprehensive Completed Encounters Description No Information Available Plan of Treatment 12/16/2017 - Zach Worthy M.D.H01.132 Eczematous dermatitis of right lower eyelidNew Medication:FML 0.1 % - apply left eyelids tid x 1 weekFollow up:1 yr, or prnE11.9 Type 2 diabetes mellitus without complicationsFollow up:1 yr, or prnZ96.1 Presence of intraocular lensFollow up:1 yr, or prn
--- NOTE | 2018-01-09 16:34 | RAD ---
INDICATION: Shortness of breath. COPD. COMPARISON: November 26, [address] and October 15, 2017 chest radiograph. TECHNIQUE: Dual energy PA and routine lateral views of the chest were obtained. REPORT: Chronic mild elevation of the RIGHT hemidiaphragm. Chronic mild prominence of the interstitial markings. Accounting for superimposed soft tissues with obese body habitus the lungs and pleural spaces are otherwise clear. Cardiomegaly appears increased. Unremarkable central pulmonary vasculature. Unremarkable mediastinal contours. IMPRESSION: #. Limited exam due to obese body habitus. #. Stigmata of obstructive lung disease. No compelling evidence for pneumonia. #. Cardiomegaly which appears increased. No compelling evidence for pulmonary edema.
[2018-01-09] MEDS ORDERED: methylPREDNISolone 125 MG* 2 ML VIAL IV ONE (18:27)
[2018-01-09] MEDS ORDERED: HYDROcodone/ACETAMIN 5-325 MG* 1 TAB PO ONE (18:27)
[2018-01-09] MEDS ORDERED: Albuterol/Ipratropium NEB.SOL* Albuterol 2.5 MG/Ipratropium 0.5 MG 3 ML INH ONE (18:27)
--- NOTE | 2018-01-09 18:37 | ED ---
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 Pt was at [employer], she bent over to pick out her lotto ticket, and collapsed, with no memory of how it happened, and endorses LOC, L knee pain, back pain (chronic), SOB (chronic), and associated head injury. She denies incontinence. PMHx DM, HTN, MRSA, everything . 1 month ago she was admitted to hospital, showed kidney failure. - History Of Current Complaint Chief Complaint: EDShortnessOfBreath Time Seen by Provider: 01/09/18 15:45 Hx Obtained From: Patient Onset/Duration: Sudden Onset, Resolved Timing: Constant Context: Witnessed, Loss Of Consciousness Activity At Onset: At Rest Associated Head Trauma: Yes Aggravating Factor(s): Position Change - doubling over Alleviating Factor(s): Spontaneous Resolution Associated Signs And Symptoms: Pain - head, Shortness Of Breath - chronic - Allergies/Home Medications Allergies/Adverse Reactions: Allergies Allergy/AdvReac Type Severity Reaction Status Date / Time fentanyl Allergy Hallucinati Verified 11/23/17 02:03 ons morphine Allergy Hives Verified 11/23/17 02:03 Penicillins Allergy Hives Verified 11/23/17 02:03 sulfamethoxazole Allergy Muscle Ache Verified 11/23/17 02:03 [From Bactrim] trimethoprim [From Bactrim] Allergy Muscle Ache Verified 11/23/17 02:03 PMH/Surg Hx/FS Hx/Imm Hx Endocrine/Hematology History: Reports: Hx Diabetes, Hx Anemia Denies: Hx Thyroid Disease Cardiovascular History: Reports: Hx Congestive Heart Failure, Hx Coronary Artery Disease, Hx Hypercholesterolemia, Hx Hypertension, Hx Syncope - near syncope Denies: Other Cardiovascular Problems/Disorders - diastolic heart failure Respiratory History: Reports: Hx Asthma - INHALERS, NEBULIZERS, QXYGEN 12 HRS AT NIGHT, Hx Chronic Obstructive Pulmonary Disease (COPD), Hx Sleep Apnea, Other Respiratory Problems/Disorders - SOB GI History: Reports: Hx Diverticulosis, Hx Gastroesophageal Reflux Disease - ON DAILY NEXIUM, Hx Obstructive Bowel, Other GI Disorders - APPENDECTOMY, bowel surgery,sbo,gerd,ulcer Denies: Hx Ulcer History: Reports: Other Problems/Disorders - PT HAVING TROUBLE URINATING RECENTLY Denies: Hx Dialysis Musculoskeletal History: Reports: Hx Arthritis - MOST JOINTS, HAS HAD BOTH KNEES REPLACED, osteoarthritis, Hx Back Problems, Hx Bursitis, Hx Osteoporosis, Other Musculoskeletal History - MORBID OBESITY Sensory History: Reports: Hx Cataracts - BILATERAL, Hx Contacts or Glasses, Hx Vision Problem, Hx Deafness, Hx Hearing Problem - needs hearing aide Denies: Hx Hearing Aid Opthamlomology History: Reports: Hx Cataracts - BILATERAL, Hx Contacts or Glasses, Hx Vision Problem Neurological History: Reports: Other Neuro Impairments/Disorders - vocal cord dysfunction Denies: Hx Dementia, Hx Seizures Psychiatric History: Reports: Hx Anxiety, Hx Depression - She is on Cymbalta for depression and chronic pain (lower back), Hx Bipolar Disorder - Cancer History Hx Chemotherapy: No Hx Radiation Therapy: No - Surgical History Surgery Procedure, Year, and Place: 2000 & 2013 bowel obstruction [facility] 2008 & 2013 bilateral total knee arthroplasty, [facility] 1995 hysterectomy, [facility] 2004 LYSIS OF ADHESIONS. [facility] Hx Anesthesia Reactions: No - Immunization History Date of Tetanus Vaccine: Unk Date of Influenza Vaccine: Fall 2011 Infectious Disease History: No Infectious Disease History: Reports: Hx of Known/Suspected MRSA Denies: Hx Known/Suspected VRE, Hx Known/Suspected VRSA, History Other Infectious Disease, Traveled Outside the [place] in Last 30 Days - Family History Known Family History: Positive: Cardiac Disease, Hypertension, Diabetes - Social History Occupation: Retired Lives: With Family Alcohol Use: None Hx Substance Use: No Substance Use Type: Reports: None Hx Tobacco Use: Yes Smoking Status (MU): Former Smoker Type: Cigarettes Amount Used/How Often: 1-2PP WEEK Length of Time of Smoking/Using Tobacco: off and on for 40 years Have You Smoked in the Last Year: No Review of Systems Negative: Fever, Chills Negative: Erythema Negative: Sore Throat Negative: Chest Pain Positive: Shortness Of Breath - chronic. Negative: Cough Negative: Abdominal Pain, Vomiting, Nausea Negative: dysuria, hematuria Positive: Myalgia - lower back, chronic. Negative: Edema Negative: Rash Neurological: Other - NEGATIVE: dizziness Positive: Syncope All Other Systems Reviewed And Are Negative: Yes Physical Exam - Summary Physical Exam Summary: Constitutional: Well-developed, morbidly obese, Alert. (-) Distressed Skin: Warm, Dry HENT: Normocephalic; Atraumatic Eyes: Conjunctiva normal Neck: Musculoskeletal ROM normal neck. (-) JVD, (-) Stridor, (-) Tracheal deviation Cardio: Rhythm regular, rate normal, Heart sounds normal; Intact distal pulses; The pedal pulses are 2+ and symmetric. Radial pulses are 2+ and symmetric. (-) Murmur Pulmonary/Chest wall: Effort normal. (-) Respiratory distress, (+) Expiratory wheeze, (-) Rales Abd: Soft, (-) epigastric tenderness, (-) Distension, (-) Guarding, (-) Rebound Musculoskeletal: (-) Edema Lymph: (-) Cervical adenopathy Neuro: Alert, Oriented x3 Psych: Mood and affect Normal Triage Information Reviewed: Yes Vital Signs On Initial Exam: Initial Vitals Temp Pulse Resp BP Pulse Ox 98.1 F 101 16 145/78 95 01/09/18 15:42 01/09/18 15:42 01/09/18 15:42 01/09/18 15:42 01/09/18 15:42 Vital Signs Reviewed: Yes Diagnostics - Vital Signs Vital Signs Temp Pulse Resp BP Pulse Ox 01/09/18 15:42 98.1 F 101 16 145/78 95 - Laboratory Result Diagrams: 01/09/18 18:35 01/09/18 18:35 Lab Statement: Any lab studies that have been ordered have been reviewed, and results considered in the medical decision making process. - Radiology CXR Radiology Interpretation Completed By: Radiologist Summary of Radiographic Findings: Limited exam due to obese body habitus. Stigmata of obstructive lung disease. No compelling evidence for pneumonia. Cardiomegaly which appears increased. No compelling evidence for pulmonary edema. Dr. Perez has reviewed this report. - EKG 1550 Cardiac Rate: NL - 76 EKG Rhythm: Sinus Rhythm ST Segment: Normal Ectopy: None Summary of EKG Findings: No STEMI. 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 (+) momentary LOC, SOB (chronic), lower back pain (chronic), L knee pain, associated head injury. (-) incontinence. PMHx DM, HTN, CHF, CAD, syncope , renal disease, back problems, COPD. A CXR reveals limited exam due to obese body habitus. Stigmata of obstructive lung disease. No compelling evidence for pneumonia. cardiomegaly which appears increased. No compelling evidence for pulmonary edema. An EKG reveals NSR at 76 BPM with no STEMI. In the ED course, pt was given duoneb, norco, and solumedrol. Pt labs show depressed RBC, Hgb, Hct , AST. Pt has increased cardiomegaly but BNP is neg. Wheezing likely a reflection of COPD. Recomend follow up observation to r/o arrthymia and ME. - Diagnoses Provider Diagnoses: Syncope, COPD exacerbation, Wheezing - Physician Notifications Discussed Care of Patient With: Amena Hurst Time Discussed With Above Provider: 19:30 Instructed by Provider To: Admit As Inpatient Discharge - Sign-Out/Discharge Documenting (check all that apply): Patient Departure - admit - Discharge Plan Condition: Fair Disposition: ADMITTED TO [facility] Referrals: Donavan Lara MD [Primary Care Provider] - - Attestation Statements Document Initiated by Scribe: Yes Documenting Scribe: Rubin Snider Provider For Whom Scribe is Documenting (Include Credential): Dr. Ricky Perez MD Scribe Attestation: Rubin Church, scribed for Dr. Ricky Perez MD on 01/09/18 at 1931.
[2018-01-09 18:53] LABS: ABS Basophils 0 10^3/ul (0-0.2); ABS Eosinophils 0.2 10^3/ul (0-0.6); ABS Lymphocytes 1.9 10^3/ul (1.0-4.8); ABS Monocytes 0.8 10^3/ul (0-0.8); ABS Neutrophils 4.9 10^3/ul (1.5-7.7); ABS Nucleated RBC 0 10^3/ul; Eosinophil % 2.2 % (0-6); Hematocrit 34 % (35-47); Lymphocyte % 24.1 % (25-47); Mean Corpuscular HGB Conc 33 g/dl (31-36); Mean Corpuscular Hemoglobin 29 pg (27-31); Mean Corpuscular Volume 87 fL (80-97); Mean Platelet Volume 8.3 um3 (7.4-10.4); Nucleated Red Blood Cells % 0; Platelet Count 222 10^3/ul (150-450); Red Blood Count 3.86 10^6/ul (4.00-5.40); Red Cell Distribution Width 15 % (10.5-15); White Blood Count 7.8 10^3/ul (3.5-10.8)
[2018-01-09 19:06] LABS: EGFR Non-African American 65.6 (>60)
[2018-01-09] MEDS ORDERED: Albuterol 2.5 MG/3 ML NEB.SOL* (0.083%) INH PRN (19:43)
[2018-01-09] MEDS ORDERED: GuaiFENesin DM* 5 ML UDC PO PRN (21:05)
[2018-01-09] MEDS ORDERED: Polyethylene Glycol 3350* 17 GM PACKET PO PRN (21:13)
[2018-01-09] MEDS ORDERED: Ipratropium 0.5MG/2.5ML NEB* 0.5 MG/2.5 ML NEB.SOLN INH PRN (21:13)
[2018-01-09] MEDS ORDERED: Hemorrhoidal OINT PR PRN (21:13)
[2018-01-09] MEDS ORDERED: Dextrose 50% Syringe 50 ML* 25 GM/50 ML SYRINGE IV PUSH PRN (21:25)
[2018-01-09] MEDS ORDERED: Ergocalciferol CAP* 50000 UNIT PO SCH (22:00)
--- NOTE | 2018-01-09 22:05 | ADMNOTE ---
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 she woke up after ems came and was able to recognize the enviroment ---> she herself did not know the duraiton of her loss of consciousness. pt has been wheelchair bound but can walk with assistance of a walker. initial chest x ray showed only cardiomegaly with bnp 50s. pt was found to have diffuse wheezing on physical just finished a quick medrodose pack last week. pt got one dose of solumedrol 125 mg from er as well as one dose of percocet 5/325. she is morbidly obese but uses oxygen only nocturnally for lupe ( no compliant with cpap ) also c/o + sweats/feeling hot but denied any fever/chills phx morbid obesity bmo 45 lupe on nocturnal oxygen 2 liter/min non compliant with cpap asthma/copd hx of vocal cord dysf hx of chronic pain syndrome htn hyperlipidemia hx of anemia insominia type ii dm hx of diastolic hf with ef 65 percent on echo 10/02 with abnormal lvdf hx of recurrent sbo s/p lysis of adhesion wheelchairbound can nare + mrasa chronic lbp pxhs lysis of adhesion as a cause of sbo socail hx quit cig 8 yrs ago no etoh wheelchair bound can walk with a walker fhx htn/dm/cva/cad Family History: Findings - as above Social History: Findings - as above Past Medical History: Findings - as above Review of Systems - Measurements Intake and Output: Intake and Output Last 24 Hours 01/07/18 01/08/18 01/09/18 01/10/18 06:59 06:59 06:59 06:59 Weight 230 lb - Review of Systems General Comments: pertinent as per hpi which is + syncope besides sweat and hot denied any chills/ fever/cp sob/palpitation Objective Active Medications: Albuterol (Ventolin 2.5 Mg/3 Ml Neb.Rosalie*) 2.5 mg INH [id number] AWAKE PRN PRN Reason: sob/wheezing Albuterol/Ipratropium (Duoneb (Albuterol 2.5 Mg/Ipratropium 0.5 Mg)) 1 neb INH [id number] AWAKE REPLACED BY [facility] Alprazolam (Xanax Tab*) 1 mg PO TID PRN PRN Reason: ANXIETY Aspirin (Aspirin Ec Tab*) 81 mg PO QAM REPLACED BY [facility] Azithromycin (Zithromax Tab*) 500 mg PO DAILY REPLACED BY [facility] Azithromycin (Zithromax Tab*) 250 mg PO DAILY REPLACED BY [facility] Stop: 01/13/18 23:59 Carisoprodol (Soma Tab*) 350 mg PO TID PRN PRN Reason: SPASMS Dexlansoprazole (Dexilant (Nf)) 30 mg PO DAILY REPLACED BY [facility] Dextrose (D50w Syringe 50 Ml*) 12.5 gm IV PUSH .FOR FS < 60 - SS PRN PRN Reason: FS < 60 Enoxaparin Sodium (Lovenox(*)) 40 mg SUBCUT Q24H REPLACED BY [facility] Ergocalciferol (Drisdol Cap*) 50,000 unit PO Q14D REPLACED BY [facility] Ferrous Sulfate (Ferrous Sulfate Tab*) 325 mg PO BID REPLACED BY [facility] Furosemide (Lasix Tab*) 40 mg PO DAILY REPLACED BY [facility] Guaifenesin (Mucinex*) 600 mg PO BID REPLACED BY [facility] Guaifenesin/Dextromethorphan (Robitussin Dm*) 5 ml PO Q6H PRN PRN Reason: COUGH Insulin Human Lispro (Humalog*) 0 units SUBCUT ACHS REPLACED BY [facility]; Protocol Insulin Human Regular (Insulin Regular(*)) 0 units SUBCUT 0800,1700 REPLACED BY [facility]; Protocol Ipratropium [place] (Atrovent 0.5 Mg Neb.Rosalie*) 0.5 mg INH Q4H PRN PRN Reason: SOB/WHEEZING Metformin HCl (Glucophage*) 500 mg PO DAILY REPLACED BY [facility] Methylprednisolone Sodium Succinate (Solu-Medrol 40 Mg) 20 mg IV Q8H REPLACED BY [facility] Nebivolol (Bystolic (Nf)) 10 mg PO BID YUE Omeprazole (Prilosec Cap*) 20 mg PO DAILY@0600 REPLACED BY [facility] Oxycodone HCl (Oxycontin(*)) 10 mg PO Q12HR REPLACED BY [facility] Oxycodone/Acetaminophen (Percocet 10/325 (Nf)) 1 tab PO Q4H PRN PRN Reason: PAIN Phenyleph/Shark Oil/Min Oil/Petrol (Preparation H*) 1 applic [place] QID PRN PRN Reason: hemorrhoids Polyethylene Glycol/Electrolytes (Miralax*) 17 gm PO DAILY PRN PRN Reason: CONSTIPATION Simvastatin (Zocor (Nf)) 40 mg PO QAM YUE Valsartan (Diovan Tab*) 320 mg PO DAILY YUE Zolpidem Tartrate (Ambien Tab*) 5 mg PO BEDTIME PRN PRN Reason: INSOMNIA Vital Signs - 8 hr 01/09/18 01/09/18 01/09/18 15:42 16:50 16:51 Temperature 98.1 F Pulse Rate 101 75 79 Respiratory 16 23 Rate Blood Pressure 145/78 130/73 (mmHg) O2 Sat by Pulse 95 94 Oximetry 01/09/18 01/09/18 01/09/18 17:00 17:21 18:01 Temperature Pulse Rate 71 71 Respiratory 16 14 17 Rate Blood Pressure 138/87 (mmHg) O2 Sat by Pulse 99 100 Oximetry 01/09/18 01/09/18 01/09/18 18:27 18:34 19:00 Temperature Pulse Rate 76 75 75 Respiratory 18 Rate Blood Pressure 133/75 (mmHg) O2 Sat by Pulse 96 97 98 Oximetry 01/09/18 01/09/18 01/09/18 19:04 19:34 20:00 Temperature Pulse Rate 73 73 Respiratory 20 Rate Blood Pressure 143/81 131/73 (mmHg) O2 Sat by Pulse 99 97 Oximetry 01/09/18 01/09/18 01/09/18 20:04 21:19 21:22 Temperature 98.8 F Pulse Rate 74 80 Respiratory 23 20 Rate Blood Pressure 130/97 145/125 149/92 (mmHg) O2 Sat by Pulse 99 99 Oximetry Oxygen Devices in Use Now: Nasal Cannula Eyes: No Scleral Icterus, PERRLA Ears/Nose/Mouth/Throat: NL Teeth, Lips, Gums, Clear Oropharnyx, Mucous Membranes Moist, - - no thrush Neck: NL Appearance and Movements; NL JVP, Trachea Midline, No Thyroid Enlargement, Masses Respiratory: Symmetrical Chest Expansion and Respiratory Effort, - - diffuse wheezing Cardiovascular: NL Sounds; No Murmurs; No JVD, RRR Abdominal: NL Sounds; No Tenderness; No Distention Extremities: - - + pedal edema 3+ able to raise le to 15 degree against gravity Skin: No Rash or Ulcers Neurological: Alert and Oriented x 3, NL Sensation - motor b/l ue and le 5/5 sensory b/l ue and le 2/2 plantar reflex downards , - Result Diagrams: 01/09/18 18:35 01/09/18 18:35 EKG Data: ekg ns no acute st t changes ---> + 1 degree avb seen on tele moniter Assess/Plan/Problems-Billing Assessment: 67 yr old aa female with mulitple phx very deconditioned wheelchairbound mostly uses oxygen at night but may need oxygen during exertion too. presented to er with sudden onset of syncope stress test 03/2017 whowed ef wnl pt currently has copd exccerbation - Patient Problems (1) Syncope and collapse Current Visit: Yes Status: Acute Code(s): R55 - SYNCOPE AND COLLAPSE SNOMED Code(s): 155669145 Comment: -Unclear reason why pt syncopized, although possible from hypoxia at home due to COPD exacerbation?? Not terribly hypoxic here -Orthostatic VS is paradoxical since as pt stands from supine, to sitting, then standing position, her BP goes up -Continue Tele -CTA of chest did not reveal PE -Will await for TTE result -Ordered CTA of head and neck in AM -Pt give Acetylcysteine for renal protection due to contrast exposure (2) Acute exacerbation of COPD with asthma Current Visit: Yes Status: Acute Code(s): J44.1 - CHRONIC OBSTRUCTIVE PULMONARY DISEASE W (ACUTE) EXACERBATION; J45.901 - UNSPECIFIED ASTHMA WITH ( ACUTE) EXACERBATION SNOMED Code(s): 4045423874319 Comment: solumderol 20 q 8 z pack resp treatment + coughing meds (3) HTN (hypertension) Current Visit: Yes Status: Acute Code(s): I10 - ESSENTIAL (PRIMARY) HYPERTENSION SNOMED Code(s): 83213169 Comment: -Continue Valsartan and Nebivolol (4) Type II diabetes mellitus Current Visit: Yes Status: Acute Comment: ck a1c insulin ss scale (5) LUPE (obstructive sleep apnea) Current Visit: Yes Status: Acute Code(s): G47.33 - OBSTRUCTIVE SLEEP APNEA ( ADULT) (PEDIATRIC) SNOMED Code(s): 86988198 Comment: oxygen at night since she is not compliant with her cpap (6) Vocal cord dysfunction Current Visit: No Status: Chronic Code(s): J38.3 - OTHER DISEASES OF VOCAL CORDS SNOMED Code(s): 625220235 Comment: - (7) Hyperlipidemia Current Visit: Yes Status: Acute Code(s): E78.5 - HYPERLIPIDEMIA, UNSPECIFIED SNOMED Code(s): 32350095 Comment: lft wnl continue current mgt (8) Chronic pain syndrome Current Visit: Yes Status: Acute Code(s): G89.4 - CHRONIC PAIN SYNDROME SNOMED Code(s): 285520711 Comment: continue outpt meds (9) Chronic anemia Current Visit: Yes Status: Acute Code(s): D64.9 - ANEMIA, UNSPECIFIED SNOMED Code(s): 108482394 Comment: no gross signs of bleeding hg currently near her base continue monitering with cbc continue iron bid (10) Leg edema Current Visit: Yes Status: Acute Code(s): R60.0 - LOCALIZED EDEMA SNOMED Code(s): 722871917 Comment: continue outpt lasix (11) DVT prophylaxis Current Visit: Yes Status: Acute Code(s): TBB2727 - SNOMED Code(s): 126117953 Comment: -Continue Lovenox 40 SQ qday
[2018-01-09] MEDS ORDERED: Albuterol/Ipratropium NEB.SOL* Albuterol 2.5 MG/Ipratropium 0.5 MG 3 ML INH PRN (22:34)
[2018-01-09] MEDS: methylPREDNISolone SOD 40 MG* 1 ML VIAL IV SCH (22:39)
[2018-01-09] MEDS: Enoxaparin(*) 40 MG/0.4 ML SYR SUBCUT SCH (22:39)
[2018-01-09] MEDS ORDERED: Albuterol/Ipratropium NEB.SOL* Albuterol 2.5 MG/Ipratropium 0.5 MG 3 ML INH SCH (23:00)
[2018-01-09] MEDS ORDERED: Azithromycin TAB* 250 MG PO ONE (23:00)
[2018-01-10] MEDS: methylPREDNISolone SOD 40 MG* 1 ML VIAL IV SCH ×3 (05:45→17:53)
[2018-01-10] MEDS: Omeprazole CAP* 20 MG PO SCH (05:54)
[2018-01-10] MEDS: Mometasone/Formoter 200/5 MDI INH SCH ×2 (07:30→19:23)
[2018-01-10] MEDS: Insulin REGULAR(*) 1 UNITS UNIT SUBCUT SCH ×2 (08:39→17:54)
[2018-01-10] MEDS: Insulin LISPRO* 1 UNITS UNIT SUBCUT SCH ×4 (08:47→20:15)
[2018-01-10] MEDS: oxyCODONE SR TAB(*) 10 MG TAB.SR PO SCH ×2 (08:47→20:09)
[2018-01-10] MEDS: CMCS:Nebivolol TAB (NF) 2.5 MG TAB PO SCH ×2 (08:48→20:23)
[2018-01-10] MEDS: Furosemide TAB* 40 MG PO SCH (08:48)
[2018-01-10] MEDS: guaiFENesin ER TAB 600 MG PO SCH ×2 (08:48→20:09)
[2018-01-10] MEDS: Ferrous Sulfate TAB* 325 MG PO SCH ×2 (08:48→20:09)
[2018-01-10] MEDS: Aspirin EC TAB* 81 MG TAB.EC PO SCH (08:48)
[2018-01-10] MEDS: Atorvastatin* 20 MG TAB PO SCH (08:48)
[2018-01-10] MEDS: Valsartan TAB* 160 MG PO SCH (08:48)
[2018-01-10] MEDS ORDERED: Dexlansoprazole (NF) 30 MG CAP PO SCH (09:00)
[2018-01-10] MEDS ORDERED: metFORMIN* 500 MG TAB PO SCH (09:00)
[2018-01-10] MEDS ORDERED: Iodixanol* (CONTRAST) 320 MG/ML 100 ML SDV IV ONE (09:08)
[2018-01-10] MEDS: Acetylcysteine CAP (RENAL)* 600 MG PO SCH ×2 (10:30→20:08)
--- NOTE | 2018-01-10 12:02 | RAD ---
HISTORY: Syncope and SOB COMPARISONS: November 30, 2011 TECHNIQUE: Multiple contiguous axial CT scans of the chest were obtained after the administration of nonionic intravenous contrast, timed to the pulmonary arterial phase of contrast enhancement.. Coronal and sagittal multiplanar reformations are also submitted for review. FINDINGS: Evaluation is limited secondary to patient motion artifact. This limits evaluation of the segmental branches to the lower lobes bilaterally. NECK AND THYROID: The lower neck and thyroid are unremarkable. CHEST WALL: There is no lower cervical, axillary, or supraclavicular lymphadenopathy by size criteria. HEART AND PERICARDIUM: The heart is unremarkable. AORTA AND PULMONARY VASCULATURE: Evaluation is limited by patient breathing motion artifact. There is no pulmonary arterial filling defect to suggest pulmonary embolism. There is no linear filling defect within the aorta to suggest aortic dissection. MEDIASTINUM: There is no mediastinal lymphadenopathy by size criteria. ADELAIDE: There is no hilar lymphadenopathy by size criteria. AIRWAY AND ESOPHAGUS: The airway is unremarkable, without endobronchial filling defect. The esophagus is grossly normal. LUNG PARENCHYMA: The lungs are clear. PLEURA: No pleural abnormalities are noted. UPPER ABDOMEN: There is a stable low-attenuation right adrenal nodule consistent with an adenoma. BONES AND SOFT TISSUES: No bone or soft tissue abnormalities are noted. OTHER: None. IMPRESSION: LIMITED STUDY. WITHIN THE LIMITATIONS OF THE STUDY, THERE IS NO PULMONARY ARTERIAL FILLING DEFECT TO SUGGEST PULMONARY EMBOLISM.
[2018-01-10] MEDS: oxyCODONE TAB* 5 MG TAB PO PRN ×2 (12:50→17:54)
[2018-01-10] MEDS: oxyCODONE/Acetamin 5/325 MG* TAB PO PRN ×3 (12:51→23:41)
[2018-01-10] MEDS: Carisoprodol TAB* 350 MG PO PRN ×2 (12:51→20:25)
[2018-01-10] MEDS ORDERED: Albuterol 0.5% CONC NEB.SOL* 5 MG/ML 20 ml BOT INH PRN (17:14)
--- NOTE | 2018-01-10 17:25 | PN ---
Subjective Date of Service: 01/10/18 Interval History: Pt seen and examined. Meds and labs reviewed. Initially pt wanted to leave AMA earlier in AM. Spoke with pt and explained how important it is for her to stay and further R/O PE. Agreed with CTA and was found negative for PE. CC: N/A ROS: Denied CARSON/dizziness, F/C, N/V, CP, SOB, increased cough, sputum production, abd pain, diarrhea, constipation, dysuria, myalgias, arthralgias, throat pain, and new skin lesions. The rest of the 14 point ROS are unremarkable. PHYSICAL EXAM: GEN APPEARANCE: Awake, not in acute distress, Obese HEENT: NC/AT, PERRLA, moist oral mucosa, (-) throat erythema NECK: Soft, supple, (-) cervical LAD, (-)JVD HEART: S1S2 WNL, RRR, No MRG CHEST: (+)Wheezing diffuse lung sánchez, GAE, No R/R ABD: Soft, ND/NT, NABS 4x Q EXT: No C/C/E SKIN: Warm to touch PSYCH: No active psychosis, hallucinations, depression, SI/HI Family History: Findings - as above Social History: Findings - as above Past Medical History: Findings - as above Objective Active Medications: Acetylcysteine (Acetylcysteine Cap (Renal)*) 1,200 mg PO BID [facility] Stop: 01/11/18 21:01 Last Admin: 01/10/18 10:30 Dose: 1,200 mg Albuterol (Albuterol 0.5% Conc Neb.Rosalie*) 0.5 ml INH Q2H PRN PRN Reason: Wheezing/SOB Albuterol/Ipratropium (Duoneb (Albuterol 2.5 Mg/Ipratropium 0.5 Mg)) 1 neb INH [id number] AWAKE PRN PRN Reason: SOB/WHEEZING Alprazolam (Xanax Tab*) 1 mg PO TID PRN PRN Reason: ANXIETY Aspirin (Aspirin Ec Tab*) [address] [facility] Last Admin: 01/10/18 08:48 Dose: 81 mg Atorvastatin Calcium (Lipitor*) [address] [facility] Last Admin: 01/10/18 08:48 Dose: 20 mg Azithromycin (Zithromax Tab*) 250 mg PO DAILY@2100 [facility] Stop: 01/13/18 21:01 Carisoprodol (Soma Tab*) 350 mg PO TID PRN PRN Reason: SPASMS Last Admin: 01/10/18 12:51 Dose: 350 mg Dextrose (D50w Syringe 50 Ml*) 12.5 gm IV PUSH .FOR FS < 60 - SS PRN PRN Reason: FS < 60 Enoxaparin Sodium (Lovenox(*)) 40 mg SUBCUT Q24H [facility] Last Admin: 01/09/18 22:39 Dose: 40 mg Ferrous Sulfate (Ferrous Sulfate Tab*) 325 mg PO BID [facility] Last Admin: 01/10/18 08:48 Dose: 325 mg Furosemide (Lasix Tab*) 40 mg PO DAILY [facility] Last Admin: 01/10/18 08:48 Dose: 40 mg Guaifenesin (Mucinex*) 600 mg PO BID [facility] Last Admin: 01/10/18 08:48 Dose: 600 mg Guaifenesin/Dextromethorphan (Robitussin Dm*) 5 ml PO Q6H PRN PRN Reason: COUGH Insulin Human Lispro (Humalog*) 0 units SUBCUT ACHS [facility]; Protocol Last Admin: 01/10/18 12:51 Dose: 2 units Insulin Human Regular (Insulin Regular(*)) 0 units SUBCUT 0800,1700 [facility]; Protocol Last Admin: 01/10/18 08:39 Dose: Not Given Methylprednisolone Sodium Succinate (Solu-Medrol 40 Mg) 40 mg IV Q8H [facility] Mometasone Furoate/Formoterol Fumar (Dulera 200/5 Mdi*) 1 puff INH BID [facility] Last Admin: 01/10/18 07:30 Dose: 1 puff Nebivolol (Bystolic Tab (Nf)) 10 mg PO BID [facility] Last Admin: 01/10/18 08:48 Dose: 10 mg Omeprazole (Prilosec Cap*) 20 mg PO DAILY@0600 [facility] Last Admin: 01/10/18 05:54 Dose: Not Given Oxycodone HCl (Oxycontin(*)) 10 mg PO Q12HR [facility] Last Admin: 01/10/18 08:47 Dose: 10 mg Oxycodone HCl (Roxycodone Tab*) 5 mg PO Q4H PRN PRN Reason: PAIN Last Admin: 01/10/18 12:50 Dose: 5 mg Oxycodone/Acetaminophen (Percocet 5/325 Tab*) 1 tab PO Q4H PRN PRN Reason: PAIN Last Admin: 01/10/18 12:51 Dose: 1 tab Phenyleph/Shark Oil/Min Oil/Petrol (Preparation H*) 1 applic [place] QID PRN PRN Reason: hemorrhoids Polyethylene Glycol/Electrolytes (Miralax*) 17 gm PO DAILY PRN PRN Reason: CONSTIPATION Valsartan (Diovan Tab*) 320 mg PO DAILY YUE Last Admin: 01/10/18 08:48 Dose: 320 mg Zolpidem Tartrate (Ambien Tab*) 5 mg PO BEDTIME PRN PRN Reason: INSOMNIA Vital Signs - 8 hr 01/10/18 01/10/18 01/10/18 11:15 11:30 12:30 Temperature 97.6 F Pulse Rate 80 82 Respiratory 22 18 14 Rate Blood Pressure 130/65 (mmHg) O2 Sat by Pulse 98 98 Oximetry 01/10/18 01/10/18 01/10/18 12:50 12:51 12:56 Temperature Pulse Rate 87 Respiratory 16 16 Rate Blood Pressure 170/116 (mmHg) O2 Sat by Pulse Oximetry 01/10/18 01/10/18 01/10/18 14:44 14:49 15:03 Temperature Pulse Rate 86 86 Respiratory Rate Blood Pressure 129/72 165/99 (mmHg) O2 Sat by Pulse 94 98 Oximetry 01/10/18 16:01 Temperature Pulse Rate Respiratory 18 Rate Blood Pressure (mmHg) O2 Sat by Pulse Oximetry Oxygen Devices in Use Now: None Result Diagrams: 01/09/18 18:35 01/09/18 18:35 EKG Data: ekg ns no acute st t changes ---> + 1 degree avb seen on tele moniter Assess/Plan/Problems-Billing Assessment: 67 yr old aa female - Patient Problems (1) Syncope and collapse Current Visit: Yes Status: Acute Code(s): R55 - SYNCOPE AND COLLAPSE SNOMED Code(s): 854291405 Comment: -Unclear reason why pt syncopized, although possible from hypoxia at home due to COPD exacerbation?? Not terribly hypoxic here -Orthostatic VS is paradoxical since as pt stands from supine, to sitting, then standing position, her BP goes up -Continue Tele -CTA of chest did not reveal PE -Will await for TTE result -Ordered CTA of head and neck in AM -Pt give Acetylcysteine for renal protection due to contrast exposure (2) COPD exacerbation Current Visit: Yes Status: Acute Code(s): J44.1 - CHRONIC OBSTRUCTIVE PULMONARY DISEASE W (ACUTE) EXACERBATION SNOMED Code(s): 478602189 Comment: -Will increase Solumedrol to 40 mgIV Q8h -Continue Dulera -Continue Duonebs -Will Add Albuterol for breakthroughs -Continue Azithromycin (3) HTN (hypertension) Current Visit: Yes Status: Acute Code(s): I10 - ESSENTIAL (PRIMARY) HYPERTENSION SNOMED Code(s): 76009294 Comment: -Continue Valsartan and Nebivolol (4) DM2 (diabetes mellitus, type 2) Current Visit: Yes Status: Acute Comment: -Well-controlled -Continue ISS -Hold Metformin especially given repeat contrast exposure in AM (5) DVT prophylaxis Current Visit: Yes Status: Acute Code(s): JQU6543 - SNOMED Code(s): 866423428 Comment: -Continue Lovenox 40 SQ qday Status and Disposition: -As above -For PT eval
[2018-01-10] MEDS: Azithromycin TAB* 250 MG PO SCH (20:08)
[2018-01-10] MEDS: Enoxaparin(*) 40 MG/0.4 ML SYR SUBCUT SCH (20:09)
[2018-01-10] MEDS: ALPRAZolam TAB* 0.5 MG PO PRN (20:15)
[2018-01-11] MEDS: methylPREDNISolone SOD 40 MG* 1 ML VIAL IV SCH ×3 (01:12→16:17)
[2018-01-11] MEDS: Zolpidem TAB* 5 MG PO PRN (01:12)
[2018-01-11] MEDS: ALPRAZolam TAB* 0.5 MG PO PRN (03:15)
[2018-01-11] MEDS: Omeprazole CAP* 20 MG PO SCH (05:48)
[2018-01-11] MEDS: oxyCODONE/Acetamin 5/325 MG* TAB PO PRN ×2 (06:54→19:39)
[2018-01-11] MEDS: Carisoprodol TAB* 350 MG PO PRN ×2 (06:54→20:46)
[2018-01-11 06:55] LABS: ABS Basophils 0 10^3/ul (0-0.2); ABS Eosinophils 0 10^3/ul (0-0.6); ABS Monocytes 0.3 10^3/ul (0-0.8); ABS Neutrophils 8.1 10^3/ul (1.5-7.7); ABS Nucleated RBC 0 10^3/ul; Eosinophil % 0.1 % (0-6); Hematocrit 36 % (35-47); Hemoglobin 11.6 g/dl (12.0-16.0); Lymphocyte % 10.1 % (25-47); Mean Corpuscular HGB Conc 32 g/dl (31-36); Mean Corpuscular Hemoglobin 28 pg (27-31); Mean Corpuscular Volume 87 fL (80-97); Mean Platelet Volume 8.7 um3 (7.4-10.4); Nucleated Red Blood Cells % 0.2; Platelet Count 218 10^3/ul (150-450); Red Blood Count 4.13 10^6/ul (4.00-5.40); Red Cell Distribution Width 15 % (10.5-15); White Blood Count 9.4 10^3/ul (3.5-10.8)
[2018-01-11] MEDS: Valsartan TAB* 160 MG PO SCH (07:31)
[2018-01-11] MEDS: Acetylcysteine CAP (RENAL)* 600 MG PO SCH ×2 (07:31→20:45)
[2018-01-11] MEDS: CMCS:Nebivolol TAB (NF) 2.5 MG TAB PO SCH ×2 (07:32→20:46)
[2018-01-11] MEDS: Furosemide TAB* 40 MG PO SCH (07:32)
[2018-01-11] MEDS: oxyCODONE SR TAB(*) 10 MG TAB.SR PO SCH ×2 (07:32→20:47)
[2018-01-11] MEDS: Ferrous Sulfate TAB* 325 MG PO SCH ×2 (07:32→20:46)
[2018-01-11] MEDS: Aspirin EC TAB* 81 MG TAB.EC PO SCH (07:32)
[2018-01-11] MEDS: guaiFENesin ER TAB 600 MG PO SCH ×2 (07:32→20:45)
[2018-01-11] MEDS: Atorvastatin* 20 MG TAB PO SCH (07:32)
[2018-01-11] MEDS: Mometasone/Formoter 200/5 MDI INH SCH ×2 (07:51→19:52)
[2018-01-11] MEDS ORDERED: Iodixanol* (CONTRAST) 320 MG/ML 100 ML SDV IV ONE (10:02)
[2018-01-11] MEDS: Insulin LISPRO* 1 UNITS UNIT SUBCUT SCH ×4 (10:17→20:48)
[2018-01-11] MEDS: oxyCODONE TAB* 5 MG TAB PO PRN (10:17)
--- NOTE | 2018-01-11 10:17 | RAD ---
INDICATION: Syncope. COMPARISON: Comparison is made with a prior CT of the brain from November 03, 2012. TECHNIQUE: A CT scan of the brain was performed without contrast followed by a CT angiogram of the head and neck with contrast following intravenous injection of 80 ml of Visipaque 320 nonionic contrast. Contiguous axial sections were obtained from the thoracic inlet through the skull vertex. Images were reconstructed in the coronal and sagittal planes and in a 3-D volume rendered format. The distal cervical internal carotid artery diameter is used as the denominator for stenosis measurement. Exam is slightly limited due to the patient's body habitus. FINDINGS: CT SCAN OF THE BRAIN WITHOUT CONTRAST: The ventricles, cisterns and sulci are mildly prominent consistent with mild age-related atrophy. There are small areas of decreased attenuation present in the subcortical and periventricular white matter most consistent with mild chronic small vessel ischemic changes. No other focal abnormality or mass effect is seen. RIGHT CAROTID: The common and internal carotid arteries appear patent without evidence for significant stenosis. LEFT CAROTID: The common and internal carotid arteries appear patent without evidence for significant stenosis. VERTEBRALS: The vertebral arteries appear patent without evidence for high-grade stenosis or occlusion. CTA BRAIN: ANTERIOR CIRCULATION: The internal carotid, anterior and middle cerebral arteries appear patent without evidence for high-grade stenosis or occlusion. There is moderate calcific plaque present bilaterally within the cavernous portion of the internal carotid arteries. POSTERIOR CIRCULATION: The vertebral, basilar and posterior cerebral arteries appear patent without evidence for high-grade stenosis or occlusion. BRAIN PERFUSION: No gross focal perfusion abnormalities are seen. EVALUATION FOR ANEURYSM: No aneurysm or vascular malformation is seen. NECK: No significant enlarged lymph nodes are seen within the neck. The thyroid, parotid and submandibular glands appear to be within normal limits. LUNG APICES: The lung apices appear clear. SINUSES: The paranasal sinuses and mastoid air cells appear clear IMPRESSION: 1. FINDINGS SUGGESTIVE OF MILD CHRONIC SMALL VESSEL ISCHEMIC CHANGES. 2. NO EVIDENCE FOR CAROTID STENOSIS OR ANEURYSM. CPT II Codes: 3100F
[2018-01-11] MEDS: Insulin REGULAR(*) 1 UNITS UNIT SUBCUT SCH ×2 (10:19→16:09)
[2018-01-11] MEDS: ALPRAZolam TAB* 0.5 MG PO SCH ×3 (12:09→20:46)
--- NOTE | 2018-01-11 13:52 | PN ---
Subjective Date of Service: 01/11/18 Interval History: Pt seen and examined. Meds and labs reviewed. CC: N/A ROS: Denied CARSON/dizziness, F/C, N/V, CP, SOB, increased cough, sputum production , abd pain, diarrhea, constipation, dysuria, myalgias, arthralgias, throat pain , and new skin lesions. The rest of the 14 point ROS are unremarkable. PHYSICAL EXAM: GEN APPEARANCE: Awake, not in acute distress, Obese HEENT: NC/AT, PERRLA, moist oral mucosa, (-) throat erythema NECK: Soft, supple, (-) cervical LAD, (-)JVD HEART: S1S2 WNL, RRR, No MRG CHEST: CTA, BL, GAE, Occasional squeaks, No R/R ABD: Soft, ND/NT, NABS 4x Q EXT: No C/C/E SKIN: Warm to touch PSYCH: No active psychosis, hallucinations, depression, SI/HI Family History: Findings - as above Social History: Findings - as above Past Medical History: Findings - as above Objective Active Medications: Acetylcysteine (Acetylcysteine Cap (Renal)*) 1,200 mg PO BID [facility] Stop: 01/11/18 21:01 Last Admin: 01/11/18 07:31 Dose: 1,200 mg Albuterol (Albuterol 0.5% Conc Neb.Rosalie*) 0.5 ml INH Q2H PRN PRN Reason: Wheezing/SOB Albuterol/Ipratropium (Duoneb (Albuterol 2.5 Mg/Ipratropium 0.5 Mg)) 1 neb INH [id number] AWAKE PRN PRN Reason: SOB/WHEEZING Alprazolam (Xanax Tab*) 1 mg PO QID [facility] Last Admin: 01/11/18 12:09 Dose: 1 mg Aspirin (Aspirin Ec Tab*) 81 mg PO QAM [facility] Last Admin: 01/11/18 07:32 Dose: 81 mg Atorvastatin Calcium (Lipitor*) 20 mg PO QAM [facility] Last Admin: 01/11/18 07:32 Dose: 20 mg Azithromycin (Zithromax Tab*) 250 mg PO DAILY@2100 [facility] Stop: 01/13/18 21:01 Last Admin: 01/10/18 20:08 Dose: 250 mg Carisoprodol (Soma Tab*) 350 mg PO TID PRN PRN Reason: SPASMS Last Admin: 01/11/18 06:54 Dose: 350 mg Dextrose (D50w Syringe 50 Ml*) 12.5 gm IV PUSH .FOR FS < 60 - SS PRN PRN Reason: FS < 60 Enoxaparin Sodium (Lovenox(*)) 40 mg SUBCUT Q24H [facility] Last Admin: 01/10/18 20:09 Dose: 40 mg Ferrous Sulfate (Ferrous Sulfate Tab*) 325 mg PO BID [facility] Last Admin: 01/11/18 07:32 Dose: 325 mg Furosemide (Lasix Tab*) 40 mg PO DAILY [facility] Last Admin: 01/11/18 07:32 Dose: 40 mg Guaifenesin (Mucinex*) 600 mg PO BID [facility] Last Admin: 01/11/18 07:32 Dose: 600 mg Guaifenesin/Dextromethorphan (Robitussin Dm*) 5 ml PO Q6H PRN PRN Reason: COUGH Insulin Human Lispro (Humalog*) 0 units SUBCUT ACHS [facility]; Protocol Last Admin: 01/11/18 12:07 Dose: 3 units Insulin Human Regular (Insulin Regular(*)) 0 units SUBCUT 0800,1700 [facility]; Protocol Last Admin: 01/11/18 10:19 Dose: 2 units Methylprednisolone Sodium Succinate (Solu-Medrol 40 Mg) 40 mg IV Q8H [facility] Last Admin: 01/11/18 07:33 Dose: 40 mg Mometasone Furoate/Formoterol Fumar (Dulera 200/5 Mdi*) 1 puff INH BID [facility] Last Admin: 01/11/18 07:51 Dose: 1 puff Nebivolol (Bystolic Tab (Nf)) 10 mg PO BID [facility] Last Admin: 01/11/18 07:32 Dose: 10 mg Omeprazole (Prilosec Cap*) 20 mg PO DAILY@0600 [facility] Last Admin: 01/11/18 05:48 Dose: 20 mg Oxycodone HCl (Oxycontin(*)) 10 mg PO Q12HR [facility] Last Admin: 01/11/18 07:32 Dose: 10 mg Oxycodone HCl (Roxycodone Tab*) 5 mg PO Q4H PRN PRN Reason: PAIN Last Admin: 01/11/18 10:17 Dose: 5 mg Oxycodone/Acetaminophen (Percocet 5/325 Tab*) 1 tab PO Q4H PRN PRN Reason: PAIN Last Admin: 01/11/18 06:54 Dose: 1 tab Phenyleph/Shark Oil/Min Oil/Petrol (Preparation H*) 1 applic [place] QID PRN PRN Reason: hemorrhoids Polyethylene Glycol/Electrolytes (Miralax*) 17 gm PO DAILY PRN PRN Reason: CONSTIPATION Valsartan (Diovan Tab*) 320 mg PO DAILY [facility] Last Admin: 01/11/18 07:31 Dose: 320 mg Zolpidem Tartrate (Ambien Tab*) 5 mg PO BEDTIME PRN PRN Reason: INSOMNIA Last Admin: 01/11/18 01:12 Dose: 5 mg Vital Signs - 8 hr 01/11/18 01/11/18 01/11/18 06:54 07:19 07:20 Temperature 98.2 F Pulse Rate 76 Respiratory 18 18 16 Rate Blood Pressure 127/80 (mmHg) O2 Sat by Pulse 99 Oximetry 01/11/18 01/11/18 01/11/18 07:21 07:32 07:39 Temperature Pulse Rate Respiratory 18 18 18 Rate Blood Pressure (mmHg) O2 Sat by Pulse 96 Oximetry 01/11/18 01/11/18 01/11/18 07:53 07:55 10:17 Temperature Pulse Rate 74 Respiratory 16 18 18 Rate Blood Pressure (mmHg) O2 Sat by Pulse 95 Oximetry 01/11/18 01/11/18 01/11/18 10:32 11:29 11:32 Temperature 98.2 F Pulse Rate 79 Respiratory 18 16 Rate Blood Pressure 150/91 148/76 (mmHg) O2 Sat by Pulse 95 Oximetry 01/11/18 01/11/18 01/11/18 12:06 12:09 12:51 Temperature Pulse Rate Respiratory 18 22 18 Rate Blood Pressure (mmHg) O2 Sat by Pulse Oximetry Oxygen Devices in Use Now: None Result Diagrams: 01/11/18 06:38 01/11/18 07:44 EKG Data: ekg ns no acute st t changes ---> + 1 degree avb seen on tele moniter Assess/Plan/Problems-Billing Assessment: 67 yr old aa female with mulitple phx very deconditioned wheelchairbound mostly uses oxygen at night but may need oxygen during exertion too. presented to er with sudden onset of syncope stress test 03/2017 whowed ef wnl pt currently has copd exccerbation - Patient Problems (1) Syncope and collapse Current Visit: Yes Status: Acute Code(s): R55 - SYNCOPE AND COLLAPSE SNOMED Code(s): 633820693 Comment: -Unclear reason why pt syncopized, although possible from hypoxia at home due to COPD exacerbation?? Not terribly hypoxic here -Orthostatic VS is paradoxical since as pt stands from supine, to sitting, then standing position, her BP goes up -Continue Tele -CTA of chest did not reveal PE -Will await for TTE result - CTA of head and neck did not reveal any ROEL nor aneurysm, however, with evidence of mild chronic small vessel ischemic changes -Pt given Acetylcysteine for renal protection due to contrast exposure -Reviewed telemetry and no reports of any significant arrhythmias---occasional PVCs at best (2) COPD exacerbation Current Visit: Yes Status: Acute Code(s): J44.1 - CHRONIC OBSTRUCTIVE PULMONARY DISEASE W (ACUTE) EXACERBATION SNOMED Code(s): 270335501 Comment: -Lung sounds improved -Continue Solumedrol to 40 mgIV Q8h -Continue Dulera -Continue Duonebs -Continue PRN Albuterol for breakthroughs -Continue Azithromycin, day #3/5 (3) HTN (hypertension) Current Visit: Yes Status: Acute Code(s): I10 - ESSENTIAL (PRIMARY) HYPERTENSION SNOMED Code(s): 49287606 Comment: -Continue Valsartan and Nebivolol (4) DM2 (diabetes mellitus, type 2) Current Visit: Yes Status: Acute Comment: -Well-controlled -Continue ISS -Continue to hold Metformin (5) DVT prophylaxis Current Visit: Yes Status: Acute Code(s): BYL4576 - SNOMED Code(s): 676721228 Comment: -Continue Lovenox 40 SQ qday Status and Disposition: -As above -Awaiting 2Decho -For PT eval
[2018-01-11] MEDS: Enoxaparin(*) 40 MG/0.4 ML SYR SUBCUT SCH (20:44)
[2018-01-11] MEDS: Azithromycin TAB* 250 MG PO SCH (20:46)
[2018-01-12] MEDS: Zolpidem TAB* 5 MG PO PRN (00:03)
[2018-01-12] MEDS: methylPREDNISolone SOD 40 MG* 1 ML VIAL IV SCH ×4 (00:21→19:36)
[2018-01-12] MEDS: oxyCODONE/Acetamin 5/325 MG* TAB PO PRN ×4 (03:20→23:12)
[2018-01-12] MEDS: Omeprazole CAP* 20 MG PO SCH (06:04)
[2018-01-12 06:36] LABS: Hematocrit 37 % (35-47); Hemoglobin 12.2 g/dl (12.0-16.0); Mean Corpuscular HGB Conc 33 g/dl (31-36); Mean Corpuscular Hemoglobin 29 pg (27-31); Mean Corpuscular Volume 86 fL (80-97); Mean Platelet Volume 8.8 um3 (7.4-10.4); Platelet Count 238 10^3/ul (150-450); Red Blood Count 4.27 10^6/ul (4.00-5.40); Red Cell Distribution Width 14 % (10.5-15); White Blood Count 10.4 10^3/ul (3.5-10.8)
[2018-01-12 06:45] LABS: EGFR Non-African American 73.4 (>60)
[2018-01-12] MEDS: Furosemide TAB* 40 MG PO SCH (07:15)
[2018-01-12] MEDS: ALPRAZolam TAB* 0.5 MG PO SCH ×4 (07:15→20:40)
[2018-01-12] MEDS: CMCS:Nebivolol TAB (NF) 2.5 MG TAB PO SCH ×2 (07:15→20:39)
[2018-01-12] MEDS: oxyCODONE SR TAB(*) 10 MG TAB.SR PO SCH ×2 (07:16→20:39)
[2018-01-12] MEDS: guaiFENesin ER TAB 600 MG PO SCH ×2 (07:16→20:40)
[2018-01-12] MEDS: Ferrous Sulfate TAB* 325 MG PO SCH ×2 (07:16→20:39)
[2018-01-12] MEDS: Aspirin EC TAB* 81 MG TAB.EC PO SCH (07:16)
[2018-01-12] MEDS: Insulin REGULAR(*) 1 UNITS UNIT SUBCUT SCH ×2 (07:17→16:47)
[2018-01-12] MEDS: Atorvastatin* 20 MG TAB PO SCH (07:17)
[2018-01-12] MEDS: Valsartan TAB* 160 MG PO SCH (07:17)
[2018-01-12] MEDS: Mometasone/Formoter 200/5 MDI INH SCH ×2 (08:04→20:39)
[2018-01-12] MEDS: Insulin LISPRO* 1 UNITS UNIT SUBCUT SCH ×4 (09:32→20:40)
[2018-01-12] MEDS: Carisoprodol TAB* 350 MG PO PRN ×2 (11:56→23:13)
--- NOTE | 2018-01-12 13:10 | PN ---
Subjective Date of Service: 01/12/18 Interval History: Pt seen and examined. Meds and labs reviewed. CC: Pt feels weak and given desaturation described below on ambulatory sats, pt feels she feels unsafe if discharged today and agree with pts assessment. Pls see discussion below ROS: Denied CARSON/dizziness, F/C, N/V, CP, SOB, increased cough, sputum production , abd pain, diarrhea, constipation, dysuria, myalgias, arthralgias, throat pain , and new skin lesions. The rest of the 14 point ROS are unremarkable. PHYSICAL EXAM: GEN APPEARANCE: Awake, not in acute distress, Obese HEENT: NC/AT, PERRLA, moist oral mucosa, (-) throat erythema NECK: Soft, supple, (-) cervical LAD, (-)JVD HEART: S1S2 WNL, RRR, No MRG CHEST: CTA, BL, GAE, Occasional squeaks/wheezes, No R/R ABD: Soft, ND/NT, NABS 4x Q EXT: No C/C/E SKIN: Warm to touch PSYCH: No active psychosis, hallucinations, depression, SI/HI Family History: Findings - as above Social History: Findings - as above Past Medical History: Findings - as above Objective Active Medications: Albuterol (Albuterol 0.5% Conc Neb.Rosalie*) 0.5 ml INH Q2H PRN PRN Reason: Wheezing/SOB Albuterol/Ipratropium (Duoneb (Albuterol 2.5 Mg/Ipratropium 0.5 Mg)) 1 neb INH [id number] AWAKE PRN PRN Reason: SOB/WHEEZING Alprazolam (Xanax Tab*) 1 mg PO QID [facility] Last Admin: 01/12/18 11:55 Dose: 1 mg Aspirin (Aspirin Ec Tab*) [facility] [place] Admin: 01/12/18 07:16 Dose: 81 mg Atorvastatin Calcium (Lipitor*) 20 mg PO [facility] Last Admin: 01/12/18 07:17 Dose: 20 mg Azithromycin (Zithromax Tab*) 250 mg PO DAILY@2100 [facility] Stop: 01/13/18 21:01 Last Admin: 01/11/18 20:46 Dose: 250 mg Carisoprodol (Soma Tab*) 350 mg PO TID PRN PRN Reason: SPASMS Last Admin: 01/12/18 11:56 Dose: 350 mg Dextrose (D50w Syringe 50 Ml*) 12.5 gm IV PUSH .FOR FS < 60 - SS PRN PRN Reason: FS < 60 Enoxaparin Sodium (Lovenox(*)) 40 mg SUBCUT Q24H [facility] Last Admin: 01/11/18 20:44 Dose: 40 mg Ferrous Sulfate (Ferrous Sulfate Tab*) 325 mg PO BID [facility] Last Admin: 01/12/18 07:16 Dose: 325 mg Furosemide (Lasix Tab*) 40 mg PO DAILY [facility] Last Admin: 01/12/18 07:15 Dose: 40 mg Guaifenesin (Mucinex*) 600 mg PO BID [facility] Last Admin: 01/12/18 07:16 Dose: 600 mg Guaifenesin/Dextromethorphan (Robitussin Dm*) 5 ml PO Q6H PRN PRN Reason: COUGH Insulin Human Lispro (Humalog*) 0 units SUBCUT ACHS [facility]; Protocol Last Admin: 01/12/18 12:22 Dose: Not Given Insulin Human Regular (Insulin Regular(*)) 0 units SUBCUT 0800,1700 [facility]; Protocol Last Admin: 01/12/18 07:17 Dose: Not Given Methylprednisolone Sodium Succinate (Solu-Medrol 40 Mg) 40 mg IV Q6H [facility] Last Admin: 01/12/18 12:59 Dose: 40 mg Mometasone Furoate/Formoterol Fumar (Dulera 200/5 Mdi*) 1 puff INH BID [facility] Last Admin: 01/12/18 08:04 Dose: 1 puff Nebivolol (Bystolic Tab (Nf)) 10 mg PO BID [facility] Last Admin: 01/12/18 07:15 Dose: 10 mg Omeprazole (Prilosec Cap*) 20 mg PO DAILY@0600 [facility] Last Admin: 01/12/18 06:04 Dose: 20 mg Oxycodone HCl (Oxycontin(*)) 10 mg PO Q12HR [facility] Last Admin: 01/12/18 07:16 Dose: 10 mg Oxycodone HCl (Roxycodone Tab*) 5 mg PO Q4H PRN PRN Reason: PAIN Last Admin: 01/11/18 10:17 Dose: 5 mg Oxycodone/Acetaminophen (Percocet 5/325 Tab*) 1 tab PO Q4H PRN PRN Reason: PAIN Last Admin: 01/12/18 08:06 Dose: 1 tab Phenyleph/Shark Oil/Min Oil/Petrol (Preparation H*) 1 applic [place] QID PRN PRN Reason: hemorrhoids Polyethylene Glycol/Electrolytes (Miralax*) 17 gm PO DAILY PRN PRN Reason: CONSTIPATION Valsartan (Diovan Tab*) 320 mg PO DAILY [facility] Last Admin: 01/12/18 07:17 Dose: 320 mg Zolpidem Tartrate (Ambien Tab*) 5 mg PO BEDTIME PRN PRN Reason: INSOMNIA Last Admin: 01/12/18 00:03 Dose: 5 mg Vital Signs - 8 hr 01/12/18 01/12/18 01/12/18 06:46 07:13 07:15 Temperature Pulse Rate 78 Respiratory 16 18 Rate Blood Pressure 148/68 (mmHg) O2 Sat by Pulse Oximetry 01/12/18 01/12/18 01/12/18 07:16 07:25 07:59 Temperature 98.0 F Pulse Rate 69 Respiratory 18 18 16 Rate Blood Pressure 177/92 (mmHg) O2 Sat by Pulse 98 Oximetry 01/12/18 01/12/18 01/12/18 08:00 08:05 08:06 Temperature Pulse Rate 62 Respiratory 16 18 Rate Blood Pressure (mmHg) O2 Sat by Pulse 92 96 Oximetry 01/12/18 01/12/18 01/12/18 08:08 09:55 09:56 Temperature Pulse Rate 86 Respiratory 18 18 Rate Blood Pressure 152/76 (mmHg) O2 Sat by Pulse Oximetry 01/12/18 01/12/18 01/12/18 11:08 11:17 11:55 Temperature 97.3 F Pulse Rate 70 78 Respiratory 16 18 18 Rate Blood Pressure 171/83 158/74 (mmHg) O2 Sat by Pulse 97 Oximetry 01/12/18 01/12/18 01/12/18 11:56 12:23 12:51 Temperature Pulse Rate Respiratory 18 18 18 Rate Blood Pressure (mmHg) O2 Sat by Pulse Oximetry Oxygen Devices in Use Now: None Result Diagrams: 01/12/18 06:11 01/12/18 06:11 EKG Data: ekg ns no acute st t changes ---> + 1 degree avb seen on tele moniter Assess/Plan/Problems-Billing Assessment: 67 yr old aa female with mulitple phx very deconditioned wheelchairbound mostly uses oxygen at night but may need oxygen during exertion too. presented to er with sudden onset of syncope stress test 03/2017 whowed ef wnl pt currently has copd exccerbation - Patient Problems (1) Syncope and collapse Current Visit: Yes Status: Acute Code(s): R55 - SYNCOPE AND COLLAPSE SNOMED Code(s): 341572164 Comment: -Unclear reason why pt syncopized, although possible from hypoxia at home due to COPD exacerbation?? Not terribly hypoxic here -Orthostatic VS is paradoxical since as pt stands from supine, to sitting, then standing position, her BP goes up -Continue Tele -CTA of chest did not reveal PE -On further review, her last TTE was on 10/02 and initial TTE for this admission was already cancelled by Dr. Hurst; will not repeat test at this time - CTA of head and neck did not reveal any ROEL nor aneurysm, however, with evidence of mild chronic small vessel ischemic changes -Reviewed telemetry O/N and no reports of any significant arrhythmias--- occasional PVCs at best (2) COPD exacerbation Current Visit: Yes Status: Acute Code(s): J44.1 - CHRONIC OBSTRUCTIVE PULMONARY DISEASE W (ACUTE) EXACERBATION SNOMED Code(s): 032230705 Comment: -Lung sounds improved -Increase Solumedrol to 40 mgIV Q6h given pt desaturated on RA and slightly desaturated to 89% on ambulation at 2L -Continue Dulera -Continue Duonebs -Continue PRN Albuterol for breakthroughs -Continue Azithromycin, day #4/5 (3) HTN (hypertension) Current Visit: Yes Status: Acute Code(s): I10 - ESSENTIAL (PRIMARY) HYPERTENSION SNOMED Code(s): 92584744 Comment: -Continue Valsartan and Nebivolol (4) DM2 (diabetes mellitus, type 2) Current Visit: Yes Status: Acute Comment: -Well-controlled -Continue ISS -Continue to hold Metformin (5) DVT prophylaxis Current Visit: Yes Status: Acute Code(s): MJF0926 - SNOMED Code(s): 155756963 Comment: -Continue Lovenox 40 SQ qday Status and Disposition: -As above -For PT eval for any needs prior to planned D/C -For possible D/C in 1-2 days
[2018-01-12] MEDS: Enoxaparin(*) 40 MG/0.4 ML SYR SUBCUT SCH (19:36)
[2018-01-12] MEDS: Azithromycin TAB* 250 MG PO SCH (20:40)
[2018-01-13] MEDS: Zolpidem TAB* 5 MG PO PRN (01:12)
[2018-01-13] MEDS: oxyCODONE TAB* 5 MG TAB PO PRN ×2 (01:12→12:00)
[2018-01-13] MEDS: methylPREDNISolone SOD 40 MG* 1 ML VIAL IV SCH ×3 (01:12→13:21)
[2018-01-13] MEDS: oxyCODONE/Acetamin 5/325 MG* TAB PO PRN ×2 (04:45→12:07)
[2018-01-13] MEDS: Omeprazole CAP* 20 MG PO SCH (04:46)
[2018-01-13] MEDS: Mometasone/Formoter 200/5 MDI INH SCH (07:09)
[2018-01-13] MEDS: Insulin LISPRO* 1 UNITS UNIT SUBCUT SCH ×2 (08:08→12:27)
[2018-01-13] MEDS: Insulin REGULAR(*) 1 UNITS UNIT SUBCUT SCH (08:19)
[2018-01-13] MEDS: CMCS:Nebivolol TAB (NF) 2.5 MG TAB PO SCH (08:32)
[2018-01-13] MEDS: oxyCODONE SR TAB(*) 10 MG TAB.SR PO SCH (08:33)
[2018-01-13] MEDS: ALPRAZolam TAB* 0.5 MG PO SCH ×2 (08:35→13:22)
[2018-01-13] MEDS: Valsartan TAB* 160 MG PO SCH (08:35)
[2018-01-13] MEDS: Aspirin EC TAB* 81 MG TAB.EC PO SCH (08:36)
[2018-01-13] MEDS: Furosemide TAB* 40 MG PO SCH (08:36)
[2018-01-13] MEDS: Ferrous Sulfate TAB* 325 MG PO SCH (08:36)
[2018-01-13] MEDS: Atorvastatin* 20 MG TAB PO SCH (08:36)
[2018-01-13] MEDS: guaiFENesin ER TAB 600 MG PO SCH (08:38)
[2018-01-13] MEDS: Carisoprodol TAB* 350 MG PO PRN (08:52)
[2018-01-13 11:18] VITALS: BP 174/82
[2018-01-13] MEDS ORDERED: Azithromycin TAB* 250 MG PO STA (13:07)
--- NOTE | 2018-01-14 01:05 | DS ---
CC: Dr. Hurst; Dr. Ricky Perez; Urmila Segal NP; Dr. Brittney Anderson; Dr. Kathleen West; Dr. Donavan Lara * DISCHARGE SUMMARY: DATE OF ADMISSION: DATE OF DISCHARGE: DISCHARGE DIAGNOSES: As follows: 1. Syncope and collapse, likely secondary to hypoxia due to chronic obstructive pulmonary disease exacerbation with asthma. 2. Chronic obstructive pulmonary disease exacerbation. 3. History of hypertension, uncontrolled. Amlodipine added to her antihypertensive regimen. 4. Diabetes mellitus, well controlled. DISCHARGE MEDICATIONS: As follows: 1. Alprazolam 1 mg p.o. t.i.d. p.r.n. 2. Aspirin 81 mg p.o. q.a.m. 3. Carisoprodol 350 mg p.o. t.i.d. 4. She was asked to discontinue her ferrous sulfate as she is no longer anemic. 5. Lasix 40 mg p.o. daily. 6. Robitussin DM 5 mL p.o. q.6 p.r.n. 7. Guaifenesin 600 mg p.o. b.i.d. 8. Hemorrhoidal ointment 1 application MD 4 times a day p.r.n. 9. Nebivolol 10 mg p.o. b.i.d. 10. Olmesartan 40 mg p.o. daily. 11. Omeprazole 20 mg p.o. daily. 12. OxyContin 10 mg p.o. q.12. 13. Percocet 10/325 one tab p.o. q.4 p.r.n. 14. MiraLAX 17 g p.o. daily. 15. Simvastatin 40 mg p.o. q.a.m. 16. Zolpidem 5 to 10 mg p.o. q.h.s. 17. Albuterol 2 puffs inhalation q.6 p.r.n. 18. Albuterol sulfate nebulization 0.63 mg inhalation q.6 p.r.n. 19. Alendronate 70 mg p.o. q. weekly. 20. Amlodipine 5 mg p.o. daily. 21. Codeine/guaifenesin 5 to 10 mL p.o. q.4 p.r.n. 22. Dexlansoprazole 30 mg p.o. daily. 23. Ergocalciferol 50,000 units p.o. q.14 days. 24. Advair HFA 230/21 mcg 2 puffs inhalation b.i.d. 25. Atrovent 0.5 mg inhalation q.4 p.r.n. 26. Floranex 1 tablet p.o. daily for 5 days. 27. Lactose-Reduced Food 237 mL p.o. t.i.d. 28. Metformin 500 mg p.o. daily. 29. Metolazone 5 mg p.o. daily. 30. Prednisone rapid taper. HISTORY OF PRESENT ILLNESS/HOSPITAL COURSE: The patient is a 67-year-old - English lady with history of morbid obesity, asthma/COPD, hyperlipidemia, and diabetes mellitus, who was sent to the ED after a syncopal episode while standing in front of a [employer] machine. She mentioned that she woke up after EMS came and was able to recognize her environment; however, she herself did not know the duration of her loss of consciousness. The patient has been wheelchair bound, but can walk with assistance with a walker. During her evaluation, she was ruled out for a pulmonary embolism with a CT angio not showing any evidence for PE. She also did not show any evidence for pneumonia, but clearly the patient met criteria for GOLD criteria treatment with antibiotics for COPD exacerbation given severe hypoxia, wheezing, increasing cough, and sputum production. She has done well with IV Solu-Medrol, which will be then transitioned to p.o. prednisone rapid taper along with her nebulization and inhalers, which were all adjusted prior to her discharge. She also had an ambulatory sats done prior to her discharge and she was found not to require oxygen even on ambulation, although in previous days, she would drop her saturation, but on the day of discharge, she has significantly improved that she did not need them. The patient was advised to follow up and/or call her PCP within 3 days post discharge. She was advised that if her symptoms resume or develop new ones or feel unwell for any reason to call her PCP. If her PCP cannot entertain her due to scheduling issues alone, she was advised to call [facility] if the issue is considered nonemergent. She was advised to call my office regarding any questions, concerns, or further clarifications regarding her discharge plans and her prescriptions and to take her medications as prescribed. REVIEW OF SYSTEMS: The patient denies any headaches, dizziness, fevers, chills , nausea, vomiting, chest pain, shortness of breath, increased cough nor sputum production, abdominal pain, diarrhea, constipation, pain and/or increased frequency on urination, myalgias or arthralgias, throat pain or new skin lesions. The rest of the 14-point review of systems are otherwise unremarkable. PHYSICAL EXAMINATION: Reveals the most recent vital signs of records with blood pressure of 174/82, as mentioned amlodipine was recently added to her regimen and she is to continue on her other antihypertensive medications, heart rate 81 beats per minute, 17 per minute respiratory rate, temperature of 97 degrees Fahrenheit. General Appearance: The patient is awake, alert, and oriented x3, not in acute distress. HEENT: Normocephalic, atraumatic. PERRLA. Extraocular muscles intact. Negative for icterus. Moist oral mucosa. Negative throat erythema. Neck: Soft, supple with no cervical lymphadenopathy. No JVD. Heart: S1, S2 within normal limits. Regular rate and rhythm. No murmurs, rubs, or gallops. Chest: Clear to auscultation bilaterally. Good air entry. No wheezes, rales, or rhonchi. Abdomen: Soft, nondistended, nontender. Normoactive bowel sounds x4 quadrants. Extremities: No cyanosis, clubbing, or edema. Psychiatric: No active psychosis, depression , suicidal, or homicidal ideations. Skin: Warm to touch. TIME SPENT: The total time spent evaluating the patient, reviewing pertinent data, and appropriate documentation is 50 minutes. [id number]/[facility] #: [id number] [facility] CENTERIsaiah
== END 2018-01-13 15:15 | disposition home or self-care (01) | DRG 191 ==
LOC: ED 15:35 → MED 19:43
PROVIDERS: ADMIT Internal Medicine; ATTEND Student in an Organized Health Care Education/Training Program
DX: J44.1 Chronic obstructive pulmonary disease with (acute) exacerbation (principal); I50.30 Unspecified diastolic (congestive) heart failure; Z68.42 Body mass index [BMI] 45.0-49.9, adult; I11.0 Hypertensive heart disease with heart failure; E66.01 Morbid (severe) obesity due to excess calories; E11.9 Type 2 diabetes mellitus without complications; E78.5 Hyperlipidemia, unspecified; G47.33 Obstructive sleep apnea (adult) (pediatric); G89.4 Chronic pain syndrome; G50.1 Atypical facial pain; G47.00 Insomnia, unspecified; J38.3 Other diseases of vocal cords; D64.89 Other specified anemias; R55 Syncope and collapse; Z99.3 Dependence on wheelchair; Z99.81 Dependence on supplemental oxygen; Z87.891 Personal history of nicotine dependence; Z82.49 Family history of ischemic heart disease and other diseases of the circulatory system; Z83.3 Family history of diabetes mellitus; Z82.3 Family history of stroke; Z79.84 Long term (current) use of oral hypoglycemic drugs; Z79.82 Long term (current) use of aspirin; Z79.4 Long term (current) use of insulin; Z79.891 Long term (current) use of opiate analgesic; Z79.899 Other long term (current) drug therapy
CPT/HCPCS: 36415; 70496; 70498; 71046; 71275; 80048; 80053; 82728; 83540; 83550; 83735; 83880; 84100; 84443; 84484; 85025; 85027; 86803; 93005; 94640; 99284; A9270-GY; J1650; J2920; J2930; Q9967

== ENCOUNTER 2018-04-17 12:00 | Inpatient (IN) | payer MEDICARE, MEDICAID ==
--- NOTE | 2018-04-09 14:01 | HP ---
HISTORY AND PHYSICAL: DATE OF ADMISSION/SURGERY: 04/17/18. DATE OF OFFICE VISIT: 04/07/18. ATTENDING PHYSICIAN: Dr. Arina Chu.* (DICTATED BY JOHN SHIRLEY) PROCEDURE: Revision right total knee replacement. CHIEF COMPLAINT: Right knee pain. HISTORY OF PRESENT ILLNESS: Dilma is a 68-year-old female with persistent right knee pain. She has had popping, catching, and extreme tenderness and pain in the anterior aspect of her right knee. She has had difficulty ambulating. She uses a rolling walker. She is status post right total knee arthroplasty in 2005 and patellar component revision [place] [address] Bustamante. She has failed conservative treatment and has elected to proceed with surgery. She is scheduled to undergo revision right total knee replacement on 04/17/[address] Chu. 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 PAST SURGICAL HISTORY: Left total knee arthroplasty with Dr. Bustamante in 2011, right total knee arthroplasty with Dr. Elizondo in 2005 with revision of patellar component with Dr. Bustamante in August 2016. MEDICATIONS: 1. Ipratropium bromide 0.02% nebulizer. 2. Incruse Ellipta 62.5 mcg. 3. Benicar 40 mg. 4. Shingrix 50 mcg. 5. Alendronate sodium 70 mg. 6. Alprazolam 1 mg. 7. Amlodipine besylate 5 mg. 8. Aspirin 81 mg. 9. Advair HFA. 10. Bystolic 10 mg. 11. Dexilant 30 mg. 12. Carisoprodol 350 mg. 13. Metformin 500 mg. 14. Metolazone 2.5 mg. 15. MiraLAX 3350. 16. Mucinex 600 mg. 17. Omeprazole 20 mg. 18. Oxycodone/acetaminophen 10/325 mg. 19. OxyContin 10 mg. 20. Vitamin D 50,000 units. 21. Zolpidem 10 mg. ALLERGIES: DURAGESIC, PENICILLIN, BACTRIM, MORPHINE, and LEE. FAMILY HISTORY: Diabetes and hypertension. SOCIAL HISTORY: The patient lives alone. She does not work. She denies tobacco, alcohol, or recreational drug use. REVIEW OF SYSTEMS: General: Negative for fevers, chills, night sweats. No known anesthesia problems. Integumentary System: Negative for abrasions, lesions, or wounds. HEENT: Negative for headaches, lightheadedness, or syncopal episodes. Cardiothoracic: Negative for chest pain, palpitations, or edema. Pulmonary: Negative for shortness of breath with exertion, chronic cough. She is positive for COPD. GI: Negative for nausea, vomiting, diarrhea, constipation, or GERD. : Negative for kidney problems, nocturia, urinary frequency, urgency. Musculoskeletal: Positive for current complaints. Neuro: Negative for paresthesias, numbness, history of seizure, stroke, or epilepsy. Endocrine: Negative for thyroid problems. Positive for type 2 diabetes. Hematologic: Negative for easy bruising, anemia, excessive bleeding, or history of DVT. ID: Positive for history of MRSA. Negative for hepatitis C or HIV. PHYSICAL EXAMINATION GENERAL: Well-developed, well-nourished 68-year-old female, in no acute distress. VITAL SIGNS: Height is 63, weight 252 pounds, pulse 78, respirations 21, blood pressure is 118/70, temperature was 98.2, BMI of 44.6. HEENT: Head is normocephalic. NECK: Supple with no palpable lymph nodes. LUNGS: Clear to auscultation bilaterally. No wheezes, rales, or rhonchi. CARDIAC: Regular rate and rhythm. S1, S2. No murmurs, rubs, or gallops. ABDOMEN: Soft, nontender, nondistended. Positive bowel sounds throughout. NEUROLOGICAL: Alert and oriented x3. Cranial nerves II through XII are grossly intact. MUSCULOSKELETAL: Right lower extremity: Midline incision at the knee. No erythema or warmth. No palpable masses or lymph nodes. No obvious palpable defect. Moderate effusion at the knee. Tenderness along the medial and lateral joint lines, which was extended today, although she has a 15 degrees of lag from full extension and flexion at 90 degrees. 1+ pitting edema distally. No open wounds or chronic venous stasis. Distally neurovascularly intact. DIAGNOSTIC STUDIES: She did have MRI of her right knee, which showed patella nasra, but no obvious rupture of the patellar tendon. ASSESSMENT: Chronic right knee pain, status post right total knee arthroplasty and patellar revision [place] [address] Bustamante. PLAN: The patient is scheduled to undergo revision right total knee replacement on 04/17/[address] Chu. She will return to the office in 10 to 14 days postoperatively for followup and suture removal. JOHN SHIRLEY [id number]/[facility] #: [id number] [facility]PITALIsaiah
--- NOTE | 2018-05-09 19:24 | HP ---
AMENDED REPORT NOW INCLUDES COSIGNER DESIGNATION HISTORY AND PHYSICAL: DATE OF ADMISSION/SURGERY: 05/13/18 DATE OF OFFICE VISIT: 05/09/18 SURGEON: Arina Chu MD * (DICTATED BY JOHN SANTO) PROCEDURE: Revision right total knee arthroplasty. CHIEF COMPLAINT: Right knee pain. HISTORY OF PRESENT ILLNESS: Ms. Mckeon is a 68-year-old female with complaints of right knee pain. 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 She has elected to proceed with surgery. PAST MEDICAL HISTORY: COPD, diabetes, hypertension, high cholesterol. PAST SURGICAL HISTORY: Bilateral total knee arthroplasties, hysterectomy, colectomy, cataract removal, and laparoscopy. CURRENT MEDICATIONS: 1. Ipratropium bromide. 2. Incruse Ellipta inhaler. 3. Benicar 40 mg a day. 4. Alendronate sodium 70 mg a week. 5. Dexilant 30 mg a day. 6. Pataday into both eyes as needed. 7. Albuterol sulfate every 6 hours as needed. 8. Carisoprodol 350 mg 3 times a day as needed. 9. OxyContin 10 mg every 12 hours. 10. Ventolin inhaler. 11. Advair Diskus 2 puffs twice a day. 12. Alprazolam 1 mg 3 times a day as needed. 13. Bystolic 10 mg twice a day. 14. Vitamin D. 15. Metformin 500 mg daily. 16. Percocet 10/325 every 4 hours as needed. 17. Ensure. 18. Zolpidem 10 mg half a tab at night as needed. 19. Metolazone 2.5 mg 1 in the morning, 30 minutes prior to furosemide. 20. Furosemide 40 mg a day. 21. Aspirin 81 mg a day. 22. Mucinex 600 mg twice a day. 23. MiraLAX as needed. 24. Oxygen 2 L at night. 25. Omeprazole 20 mg a day. 26. Amlodipine 5 mg a day. 27. Probiotic. ALLERGIES: To PENICILLIN, DURAGESIC, BACTRIM, LEE, and MORPHINE. MORPHINE causes hives and itching. FAMILY HISTORY: Diabetes, cancer, coronary artery disease. SOCIAL HISTORY: She is a 68-year-old female. She lives alone. She does not smoke, use drugs or alcohol. REVIEW OF SYSTEMS: A complete 14-point review of systems was reviewed with the patient. It was positive for diabetes, COPD, GERD, and shortness of breath. She denies history of DVT, PE, or anesthesia problems. PHYSICAL EXAMINATION GENERAL: She is well developed, well nourished, in no acute distress. VITAL SIGNS: She stands 5 feet 3 inches tall, weighs 251 pounds. Her blood pressure is 126/80 and heart rate is 84. HEENT: Normocephalic, atraumatic. NECK: Supple. No palpable lymph nodes. PULMONARY: The lungs are clear bilaterally. CARDIO: Regular rate and rhythm. ABDOMEN: Soft, nontender, nondistended. NEUROLOGICAL: She is alert and oriented x3. MUSCULOSKELETAL: Right lower extremity: The skin is intact. There are no open wounds or abrasions. She has a 2+ dorsalis pedis pulse. She is able to dorsiflex and plantarflex. She has intact sensation. There is a moderate joint effusion. She has tenderness along the medial and lateral joint line. She is able to extend her knee, but lacks about 15 degrees from full extension and is able to flex to 90 degrees. Her calf is soft and nontender. ASSESSMENT AND PLAN: Ms. Mckeon is a 68-year-old female with a painful right total knee arthroplasty. She has elected to proceed with revision of a right total knee arthroplasty. The surgery is scheduled for 05/13/[address] Chu discussed the risks and benefits of the surgery at today's visit and all of her questions were answered. She will follow up with Dr. Chu 2 weeks after the surgery. JOHN SANTO [id number]/[facility] #: [id number] JAY
[2018-05-13] MEDS ORDERED: Tranexamic Acid 1,000 MG in NS 0.9% 50 ML* (outpatient use) IV SCH ×2
[2018-05-13] MEDS ORDERED: Gabapentin CAP(*) 300 MG PO ONE (06:00)
[2018-05-13] MEDS ORDERED: Lactated Ringers 1000 ML Bag* 1,000 ML IV SCH ×2 (06:00→19:00)
[2018-05-13] MEDS ORDERED: Acetaminophen TAB* 325 MG PO ONE (06:00)
--- OUTSIDE RECORDS SUMMARY | 2018-05-13 12:43 | XMS REPORT | Continuity of Care Document ---
:1950 External Reference #:[id number] Author Name Zach Worthy M.D. Address 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 Unavailable Marco CARLISLE, Donavan Primary Care Physician Unavailable Payers Type Date Identification Numbers Payment Provider Subscriber Policy Number: [id number] Medicare [facility] Dilma Mckeon PayID: [id number] [address] [place] [address] Policy Number: [id number] Medicaid ID Dilma Mckeon PayID: [id number] [address] [place] [address] Advance Directives Description No Information Available Problems Description No Information Family History Date Family Member(s) Problem(s) Comments Father due to Heart Attack () Mother due to Cancer () Social History Type Date Description Comments Sex Unknown ETOH Use Denies alcohol use Tobacco Use Start: Unknown End: Unknown Patient is a former smoker Smoking Status Reviewed: 04/16/18 Patient is a former smoker Allergies, Adverse Reactions, Alerts Description No Information Medications Medication Date Status Form Strength Qnty SIG Indications Ordering Provider Tacrolimus 04/16/ Active Ointment 0.03% 60gm apply left H01.132 Zach 2018 upper lid Deacon, stacy Do not M.D. get in eye Metformin HCL / Active Tablets 500mg Marco CARLISLE, 0000 Donavan Alendronate / Active Tablets 70mg Marco CARLISLE, Sodium 0000 Donavan Omeprazole / Active Capsules 20mg Unknown 0000 [...] Unknown 0000 Zolpidem / Active Tablets 10mg Estephaniara, Tartrate 0000 MD Evans Vitamin D / Active Capsules [id number] take 1 Unknown (Ergocalcifero 0000 capsule by [...] 1 by mouth Unknown 0000 every day Protopic 01/01/ Hx Ointment 0.03% 30gm aplly to Zach 2017 - eyelid Deacon, 04/16/ skin bid, M.D. 2019 but do not get in eyes Lotemax 12/17/ Hx Ointment 0.5% 3.500g apply to Ronan 2017 - m left Fischer, OD 04/16/ eyelids 2019 three times a day x 1 week FML 12/16/ Hx Ointment 0.1% 3.500g apply left H01.132 Zach 2017 - m eyelids Deacon, 04/16/ tid x 1 M.D. 2019 week Immunizations Description No Information Available Vital Signs Date Vital Result Comment 12/16/2017 9:32am Intraocular Pressure Right Eye 16 mmHg Intraocular Pressure Left Eye 16 mmHg Results Description No Information Available Procedures Date Code Description Status 04/16/2018 14383 Eye Exam Est Intermediate Completed 12/16/2017 88228 Refraction Completed 12/16/2017 58331 Eye Exam New Intermediate Completed Encounters Description No Information Available Plan of Treatment 04/16/2018 - Zach Worthy M.D.H01.132 Eczematous dermatitis of right lower eyelidNew Medication:Tacrolimus 0.03 % - apply left upper lid bid Do not get in eye
[2018-05-13] MEDS ORDERED: Acetaminophen TAB* 325 MG ONE (13:03)
[2018-05-13] MEDS ORDERED: Gabapentin CAP(*) 300 MG ONE (13:03)
[2018-05-13] MEDS ORDERED: Clindamycin 900 MG/D5W BAG(*) 900 MG/50 ML BAG IVPB ONE (13:03)
[2018-05-13] MEDS: Buffered Lidocaine 1% SYRIN* 1 ML/SYRINGE INTRADERM ONE (13:29)
[2018-05-13] MEDS ORDERED: Midazolam* 1 MG/ML 2 ML VIAL (2 MG) ONE (13:45)
[2018-05-13] MEDS ORDERED: ROPIVACAINE 5 MG/ML 30 ML BTL (0.5%) ONE (14:04)
[2018-05-13] MEDS ORDERED: Bupivacaine 0.5% W/EPI SDV* 30 ML VIAL ONE (14:35)
[2018-05-13] MEDS ORDERED: Famotidine IV* 10 MG/ML 2 ML (20 mg) ONE (14:50)
[2018-05-13] MEDS ORDERED: Propofol* 10 MG/ML 20 ML BTL ONE (15:51)
[2018-05-13] MEDS ORDERED: Dexamethasone IV* 4 MG/ML 1 ML (4 MG) ONE ×2 (15:51→16:23)
[2018-05-13] MEDS ORDERED: Ondansetron INJ* 2 MG/ML VIAL ONE (15:51)
[2018-05-13] MEDS ORDERED: Succinylcholine* 20 MG/ML 10 ML VIAL ONE (15:52)
[2018-05-13] MEDS ORDERED: Cisatracurium* 2 MG/ML MDV 5 ML ONE (15:52)
[2018-05-13] MEDS ORDERED: Lidocaine 2% PF * 5 ML VIAL ONE (16:01)
[2018-05-13] MEDS ORDERED: HYDROmorphone INJ1* 1 MG/ML SYRINGE ONE ×2 (16:04→18:30)
[2018-05-13] MEDS ORDERED: EPHEDrine (Pressors)* 50 MG/ML VIAL ONE (16:22)
[2018-05-13] MEDS ORDERED: Ondansetron INJ* 2 MG/ML VIAL IV PRN ×2 (16:37→18:03)
[2018-05-13] MEDS ORDERED: Levalbuterol 0.63MG/3ML NEB* UNIT OF USE INH PRN ×2 (16:37→18:14)
[2018-05-13] MEDS ORDERED: Naloxone* 0.4 MG/ML 1 ML VIAL IV PRN (16:37)
[2018-05-13] MEDS ORDERED: DiMENhydriNATE IV* 50 MG/ML VIAL IV PUSH PRN (16:37)
[2018-05-13] MEDS ORDERED: Acetaminophen TAB* 325 MG PO PRN (16:37)
[2018-05-13] MEDS ORDERED: PROCHLORPERAZINE INJ 5 MG/ML 2 ML VIAL IV PRN (16:37)
[2018-05-13] MEDS ORDERED: diPHENhydraMINE IV* 50 MG/ML 1 ml VIAL (BENADRYL) IV PRN ×2 (16:37→18:03)
[2018-05-13] MEDS ORDERED: Cyclobenzaprine TAB* 10 MG PO PRN (18:03)
[2018-05-13] MEDS ORDERED: Magnesium Hydroxide LIQ* 30 ML UDC PO PRN (18:03)
[2018-05-13] MEDS ORDERED: diPHENhydraMINE PO* 25 MG PO PRN (18:03)
[2018-05-13] MEDS ORDERED: Bisacodyl SUPP* 10 MG SUPP PR PRN (18:03)
[2018-05-13] MEDS ORDERED: Polyethylene Glycol 3350* 17 GM PACKET PO PRN (18:03)
[2018-05-13] MEDS ORDERED: Albuterol HFA INHALER* 8 gm MDI INH PRN (18:14)
[2018-05-13] MEDS ORDERED: Ipratropium 0.5MG/2.5ML NEB* 0.5 MG/2.5 ML NEB.SOLN INH PRN (18:14)
[2018-05-13] MEDS ORDERED: HYDROmorphone INJ* 0.5 MG/0.5 ML SYRINGE IV SLOW PU PRN (18:23)
[2018-05-13] MEDS: HYDROmorphone INJ1* 1 MG/ML SYRINGE IV PRN ×2 (18:30→18:45)
[2018-05-13] MEDS ORDERED: ALENDRONATE 70 MG PO SCH (19:00)
[2018-05-13] MEDS ORDERED: oxyCODONE/Acetamin 5/325 MG* TAB ONE (19:05)
[2018-05-13] MEDS ORDERED: Ketorolac INJ* 30 MG/ML 1 ML VIAL ONE (19:05)
[2018-05-13] MEDS: Ketorolac INJ* 15 MG/ML 1 ML VIAL IV PUSH PRN (19:08)
[2018-05-13] MEDS: oxyCODONE/Acetamin 5/325 MG* TAB PO PRN ×2 (19:09→19:11)
[2018-05-13] MEDS ORDERED: oxyCODONE SR TAB(*) 10 MG TAB.SR ONE (19:29)
[2018-05-13] MEDS: HYDROmorphone INJ1* 1 MG/ML SYRINGE IV SLOW PU PRN (22:00)
--- NOTE | 2018-05-13 22:28 | PN ---
Subjective Date of Service: 05/13/18 Interval History: HD 1 on 05/13, POD #0 Medicine Consult Note 68 yo F with PMH of NIDDM, HTN, COPD, LUPE not on CPAP, OA, chronic pain on opiates, anxiety on benzodiazepine, anemia, recurrent SBOs who is admitted to the hospital for her patellectomy/revision (3rd TKR on R) 2/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 medicine is consulted for co management VSS. No acute events. Labs reviewed only for POC Glu, from prior PCP visit normocytic anemia stable with hgb 11, BMP normal Cr 0.8, A1C 6.6 Pt is resting comfortably in no acute distress, would like more pain meds, we discuss she is on a fairly hefty regimen and have to be careful for opiates 2/2 hx of SBO, she agrees. Denies CP, SOB, GI, , chronic MSK complaints unchanged Surg Hx: Hysterectom, R TKR 2--7, Left 2011, Colectomy 2/2 to adhesions, ex lap ditant FH: Father-D CAD, age 66 Mother D Lung Ca Social: Single lives alone, disable, former smoker, quit in 2009, pack years 20 , never ETOH, denies substance use. Objective Active Medications: Acetaminophen (Tylenol Tab*) 975 mg PO Q8H YUE Albuterol (Ventolin Hfa Inhaler*) 2 puff INH Q6H PRN PRN Reason: SOB/WHEEZING Alendronate Sodium (Fosamax (Nf)) 70 mg PO WEEKLY YUE; Protocol Alprazolam (Xanax Tab*) 1 mg PO TID PRN PRN Reason: ANXIETY Apixaban (Eliquis*) 2.5 mg PO BID YUE Atorvastatin Calcium (Lipitor*) 20 mg PO QPM YUE Bisacodyl (Dulcolax Supp*) 10 mg VT DAILY PRN PRN Reason: constipation Carisoprodol (Soma Tab*) 350 mg PO TID PRN PRN Reason: SPASMS Cyclobenzaprine HCl (Flexeril Tab*) 10 mg PO TID PRN PRN Reason: SPASMS Diphenhydramine HCl (Benadryl Iv*) 25 mg IV Q6H PRN PRN Reason: itching Diphenhydramine HCl (Benadryl Po*) 25 mg PO Q6H PRN PRN Reason: INSOMNIA Docusate Sodium (Colace Cap*) 100 mg PO BID YUE Guaifenesin (Mucinex*) 600 mg PO BID YUE Hydromorphone HCl (Dilaudid Inj1s*) 0.5 mg IV SLOW PU Q6H PRN PRN Reason: SEVERE PAIN Last Admin: 05/13/18 22:00 Dose: 0.5 mg Tranexamic Acid 1,000 mg/ (Sodium Chloride) 60 mls @ 120 mls/hr IV ONCE Stop: 05/13/18 23:59 Clindamycin HCl/Dextrose (Cleocin 600 Mg Ivpremix(*) Sdv) 600 mg in 50 mls @ 100 mls/hr IV Q8H YUE Stop: 05/14/18 11:29 Lactated Ringer's (Lactated Ringers 1000 Ml Bag*) 1,000 mls @ 100 mls/hr IV PER RATE [facility] Last Admin: 05/13/18 21:57 Dose: 100 mls/hr Ipratropium [place] (Atrovent 0.5 Mg Neb.Rosalie*) 0.5 mg INH Q4H PRN PRN Reason: SOB/WHEEZING Ketorolac Tromethamine (Toradol Inj*) 15 mg IV PUSH Q6H PRN PRN Reason: SEVERE PAIN Last Admin: 05/13/18 19:08 Dose: 15 mg Lactulose (Lactulose*) 30 ml PO Q6H PRN PRN Reason: constipation Levalbuterol HCl (Xopenex 0.63mg/3ml Neb*) 0.63 mg INH ONCE PRN PRN Reason: SOB/WHEEZING Magnesium Hydroxide (Milk Of Magnesia Liq*) 30 ml PO BID YUE Magnesium Hydroxide (Milk Of Magnesia Liq*) 30 ml PO Q6H PRN PRN Reason: constipation Metformin HCl (Glucophage*) 500 mg PO QAM YUE Metolazone (Zaroxolyn Tab*) 5 mg PO QAM YUE Naloxone HCl (Narcan*) 0.08 mg IV Q2M PRN PRN Reason: severe induced resp depression Nebivolol (Bystolic (Nf)) 10 mg PO BID [facility] Non-Formulary Medication (Albuterol Sulfate [Albuterol Sulfate]) 0.63 mg INH Q6HR PRN PRN Reason: SHORTNESS OF BREATH Olmesartan (Benicar (Nf)) 40 mg PO QAM YUE Ondansetron HCl (Zofran Inj*) 4 mg IV ONCE PRN PRN Reason: NAUSEA/VOMITING Ondansetron HCl (Zofran Inj*) 4 mg IV Q6H PRN PRN Reason: nausea Oxycodone HCl (Roxycodone Tab*) 10 mg PO Q4H PRN PRN Reason: breakthru pain Oxycodone HCl (Oxycontin(*)) 20 mg PO BID YUE Oxycodone/Acetaminophen (Percocet 5/325 Tab*) 1 tab PO ONCE PRN PRN Reason: PAIN - MODERATE Last Admin: 05/13/18 19:11 Dose: 1 tab Oxycodone/Acetaminophen (Percocet 5/325 Tab*) 1 tab PO Q3H PRN PRN Reason: PAIN - MODERATE Pantoprazole Sodium (Protonix Tab*) 40 mg PO QAM YUE Polyethylene Glycol/Electrolytes (Miralax*) 17 gm PO DAILY PRN PRN Reason: Constipation Prochlorperazine Edisylate (Compazine Inj*) 5 mg IV ONCE PRN PRN Reason: NAUSEA/VOMITING Umeclidinium [place] (Incruse Ellipta Mdi (Nf)) inh INH DAILY YUE Zolpidem Tartrate (Ambien Tab*) 5 mg PO BEDTIME PRN PRN Reason: INSOMNIA Vital Signs - 8 hr 05/13/18 05/13/18 05/13/18 17:59 18:06 18:11 Temperature 98.8 F Pulse Rate 79 76 79 Respiratory 18 16 19 Rate Blood Pressure 131/74 128/76 119/71 (mmHg) O2 Sat by Pulse 97 97 97 Oximetry 05/13/18 05/13/18 05/13/18 18:16 18:30 18:31 Temperature Pulse Rate 80 83 Respiratory 18 19 25 Rate Blood Pressure 124/65 132/92 (mmHg) O2 Sat by Pulse 98 97 Oximetry 05/13/18 05/13/18 05/13/18 18:45 18:46 19:00 Temperature Pulse Rate 79 82 Respiratory 19 16 26 Rate Blood Pressure 104/77 124/73 (mmHg) O2 Sat by Pulse 96 96 Oximetry 05/13/18 05/13/18 05/13/18 19:09 19:11 19:17 Temperature Pulse Rate Respiratory 14 19 20 Rate Blood Pressure 120/81 (mmHg) O2 Sat by Pulse Oximetry 05/13/18 05/13/18 05/13/18 19:31 19:46 20:01 Temperature Pulse Rate 83 72 77 Respiratory 16 29 13 Rate Blood Pressure 116/61 118/99 109/77 (mmHg) O2 Sat by Pulse 100 97 99 Oximetry 05/13/18 05/13/18 05/13/18 20:16 20:31 20:32 Temperature 97.2 F Pulse Rate 70 79 Respiratory 13 18 Rate Blood Pressure 112/67 123/55 (mmHg) O2 Sat by Pulse 99 99 Oximetry 05/13/18 05/13/18 05/13/18 20:46 21:24 21:30 Temperature 97.4 F Pulse Rate 76 83 Respiratory 15 20 20 Rate Blood Pressure 119/76 129/61 (mmHg) O2 Sat by Pulse 100 97 Oximetry 05/13/18 22:00 Temperature Pulse Rate Respiratory 20 Rate Blood Pressure (mmHg) O2 Sat by Pulse Oximetry Oxygen Devices in Use Now: None Appearance: Well woman in bed in NAD, pleasant Eyes: No Scleral Icterus Ears/Nose/Mouth/Throat: NL Teeth, Lips, Gums Neck: NL Appearance and Movements; NL JVP Respiratory: Symmetrical Chest Expansion and Respiratory Effort, Clear to Auscultation Cardiovascular: NL Sounds; No Murmurs; No JVD, RRR Abdominal: NL Sounds; No Tenderness; No Distention Lymphatic: No Cervical Adenopathy, No Axillary Adenopathy Extremities: No Edema, - - R knee wrapped, pulses in distal R foot intact Skin: No Rash or Ulcers Neurological: Alert and Oriented x 3 Microbiology and Other Data: Microbiology 05/13/18 16:39 Gram Stain - Preliminary Knee Right Assess/Plan/Problems-Billing Assessment: 68 yo F with PMH of NIDDM, HTN, COPD, LUPE not on CPAP, OA, chronic pain on opiates, anxiety on benzodiazepine, anemia, recurrent SBOs who is admitted to the hospital for her patellectomy/revision (3rd TKR on R) 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 medicine is consulted for co management - Patient Problems (1) Disorder of right knee joint Current Visit: Yes Status: Acute Code(s): M25.9 - JOINT DISORDER, UNSPECIFIED SNOMED Code(s): 507805918 Comment: s/p procedure as determined by orth -Pain control by ortho-On Clinda for osteonecrosis, continue as per plan (2) DM2 (diabetes mellitus, type 2) Current Visit: No Status: Acute Comment: -Well-controlled -Continue ISS -Continue to hold Metformin (3) LUPE (obstructive sleep apnea) Current Visit: No Status: Chronic Code(s): G47.33 - OBSTRUCTIVE SLEEP APNEA (ADULT) (PEDIATRIC) SNOMED Code(s): 73668533 Comment: - Does not use home CPAP. Can offer nocturnal O2 2Lnc PRN (4) Chronic pain Current Visit: No Status: Chronic Priority: Medium Code(s): G89.29 - OTHER CHRONIC PAIN SNOMED Code(s): 54218257 Comment: - Continue home narcotic regimen. (5) SBO (small bowel obstruction) Current Visit: No Status: Acute Code(s): K56.609 - UNSP INTESTNL OBST, UNSP TO PARTIAL VERSUS COMPLETE OBST SNOMED Code(s): 542272456 Comment: -Hish risk for ileus post op (6) HTN (hypertension) Current Visit: No Status: Acute Code(s): I10 - ESSENTIAL (PRIMARY) HYPERTENSION SNOMED Code(s): 66532604 Comment: -Continue Valsartan and Nebivolol, remains on torsemide and metolazone for "edema" (7) Hyperlipidemia Current Visit: No Status: Acute Code(s): E78.5 - HYPERLIPIDEMIA, UNSPECIFIED SNOMED Code(s): 88352124 Comment: lft wnl continue current mgt (8) Leg edema Current Visit: No Status: Acute Code(s): R60.0 - LOCALIZED EDEMA SNOMED Code(s): 208012792 Comment: continue outpt lasix augmented with metolazone (9) GERD (gastroesophageal reflux disease) Current Visit: No Status: Chronic Code(s): K21.9 - GASTRO-ESOPHAGEAL REFLUX DISEASE WITHOUT ESOPHAGITIS SNOMED Code(s): 520603344 Comment: - Continue PPI (10) DVT prophylaxis Current Visit: No Status: Acute Priority: Medium Onset Date: 05/29/14 Code(s): ODB6637 - SNOMED Code(s): 091447560 Comment: -Apixaban per ortho (11) Full code status Current Visit: No Status: Acute Priority: Medium Onset Date: 05/29/14 Code(s): Z78.9 - OTHER SPECIFIED HEALTH STATUS SNOMED Code(s): 944889612 Comment: Status and Disposition: Will continue to follow
[2018-05-13] MEDS ORDERED: oxyCODONE SR TAB(*) 20 MG TAB.SR PO SCH (23:00)
--- NOTE | 2018-05-13 23:16 | OP ---
DATE OF OPERATION: 05/13/18 - ROOM #340 DATE OF : 48 SURGEON: Arina Chu MD POWER PLANT OPERATOR APPRENTICE: JOHN Joya. Ms. Macdonald did help throughout the procedure with preparation of the leg, wound retraction, manipulation of the knee, and wound closure. ANESTHESIOLOGIST: Dr. Latif. ANESTHESIA: General. PRE-OP DIAGNOSIS: Painful right total knee arthroplasty with failure of the patellar component due to periprosthetic osteolysis and loosening. 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 OPERATIVE PROCEDURE: Revision right total knee arthroplasty, patellar component excision, and partial patellectomy. INDICATIONS: Ms. Mckeon is a 68-year-old female with a complex history of right knee pain. She had total knee arthroplasty in [address] Elizondo. She had revision of the patellar component in 2016, because of pain, with Dr. Bustamante. Six months ago, the patient developed 10/10 pain, popping and catching in the knee, difficulty extending the knee, and climbing stairs. The patient saw me in February with inability to ambulate even 1 block without severe pain. Radiographs of the knee showed patella nasra and I felt that the patella had avascular necrosis with loosening of the implant. MRI helped to confirm this. The patient's surgery was delayed because of different clearance issues. Once these were resolved, she was scheduled for revision right total knee arthroplasty. The patient understood I would evaluate the patellar component. She understood a high likelihood of not being able to place another patellar component. She understood she would likely be left with partial patellectomy. The patient also agreed that I would check the femoral and tibial implants at the same time and she may require revision of these. Informed consent was obtained from the patient. She understood the risks of surgery included, but were not limited to, bleeding, infection, damage to nearby structures, continued pain, need for further surgery, intraoperative fracture, nerve palsy, hardware failure or loosening, knee stiffness, loss of motion, extensor mechanism weakness, stroke, heart attack, blood clot, and . She wished to proceed. ESTIMATED BLOOD LOSS: 50 cc. TOURNIQUET TIME: 70 minutes. COMPLICATIONS: None. SPECIMEN: Joint fluid and multiple culture swabs were sent to Microbiology for aerobic and anaerobic mycobacterial and fungal cultures and sensitivities. The patellar component was sent to Pathology. INTRAOPERATIVE FINDINGS: Intraoperatively, the patient's patellar component was grossly loose. The patella was fractured in a comminuted pattern. There was no evidence of infection. There was no evidence of femoral or tibial component loosening. DESCRIPTION OF PROCEDURE: Ms. Mckeon was identified in the preanesthesia unit. Her right knee was marked as the correct operative side. Informed consent was signed and placed in the chart. The patient was taken to the operating room and placed under general anesthesia. A Madrid catheter was placed. Tourniquet was placed on the right thigh. Right lower extremity was prepped and draped in the usual sterile fashion. Preop time-out was made to correctly identify the patient's side and site. Appropriate perioperative antibiotics were given within 1 hour of incision. The patient's tourniquet was inflated. Her prior midline incision was opened. There was sharp dissection down to the extensor mechanism. New 10 blade was used to make a standard medial parapatellar arthrotomy. Immediately, joint fluid was collected as well as multiple culture swabs to send to Microbiology to evaluate for any infection. There was no sign of purulence. The patella was everted. A small amount of scar tissue was removed from around the rim of the patella. The patella was grossly loose and easily removed. This was sent to Pathology. Patellar bone was evaluated and was fractured in a comminuted pattern. Decision was made to perform a near total patellectomy. Rongeur was used to carefully remove any remaining bone or sharp edges of patella. Careful attention was given to preserving the distal quadriceps and patellar tendon. Knee was taken through a range of motion and there was minimal crepitus of the remaining bone on the implant. The knee was flexed up. Scar tissue was carefully removed from around the edge of the tibial and femoral implants. Using a bone tamp, each implant was checked for any looseness. There was no looseness noted. The polyethylene was inspected and had no significant wear. Tourniquet was turned down at 70 minutes. The knee was copiously irrigated with sterile saline. The extensor mechanism was closed using interrupted #1 Vicryls. The rest of the incision was closed in a layered fashion using 0 and 2-0 Vicryls. Skin was closed using running 3-0 nylon suture. Sterile Xeroform, 4x4s , and Webril were used to cover the incision. Damian wrap and cold pack were placed over this. The patient was placed in a knee immobilizer. She was taken to the PACU in stable condition. Intended weightbearing will be weightbearing as tolerated. Intended DVT prophylaxis will be Eliquis. [id number]/[facility] #: [id number] MTDD
[2018-05-13] MEDS: Magnesium Hydroxide LIQ* 30 ML UDC PO SCH (23:20)
[2018-05-13] MEDS: guaiFENesin ER TAB 600 MG PO SCH (23:21)
[2018-05-13] MEDS: oxyCODONE TAB* 5 MG TAB PO PRN (23:21)
[2018-05-13] MEDS: Docusate CAP* 100 MG PO SCH (23:21)
[2018-05-13] MEDS: CMCS:Nebivolol TAB (NF) 2.5 MG TAB PO SCH (23:41)
[2018-05-13] MEDS: Acetaminophen TAB* 325 MG PO SCH (23:57)
[2018-05-14] MEDS: Clindamycin 600 MG IVPREMIX(* 600 MG/50 ML SDV IV SCH ×3 (00:01→16:25)
[2018-05-14] MEDS: Zolpidem TAB* 10 MG PO PRN ×2 (01:53→23:49)
[2018-05-14] MEDS: oxyCODONE/Acetamin 5/325 MG* TAB PO PRN ×3 (02:01→16:55)
[2018-05-14] MEDS: Carisoprodol TAB* 350 MG PO PRN ×3 (02:02→19:58)
[2018-05-14] MEDS: Buffered Lidocaine 1% SYRIN* 1 ML/SYRINGE INTRADERM ONE (02:10)
[2018-05-14] MEDS: HYDROmorphone INJ1* 1 MG/ML SYRINGE IV SLOW PU PRN ×2 (03:40→10:04)
[2018-05-14] MEDS: oxyCODONE TAB* 5 MG TAB PO PRN ×5 (03:44→23:49)
[2018-05-14] MEDS: ALPRAZolam TAB* 0.5 MG PO PRN ×3 (03:48→21:52)
[2018-05-14] MEDS: Ketorolac INJ* 15 MG/ML 1 ML VIAL IV PUSH PRN ×2 (03:55→12:29)
[2018-05-14] MEDS ORDERED: LORazepam INJ* 2 MG/ML 1 ML VIAL IV PUSH ONE (04:28)
[2018-05-14] MEDS ORDERED: LORazepam INJ* 2 MG/ML 1 ML VIAL ONE (04:33)
[2018-05-14] MEDS ORDERED: HYDROmorphone INJ1* 1 MG/ML SYRINGE ONE (05:03)
[2018-05-14] MEDS ORDERED: HYDROmorphone INJ* 0.5 MG/0.5 ML SYRINGE IV SLOW PU ONE (05:35)
[2018-05-14 06:04] LABS: Hematocrit 35 % (35-47); Hemoglobin 11.4 g/dl (12.0-16.0); Mean Platelet Volume 8.9 fL (7.4-10.4); Platelet Count 221 10^3/ul (150-450)
[2018-05-14] MEDS: Acetaminophen TAB* 325 MG PO SCH ×3 (06:07→21:51)
[2018-05-14 06:24] LABS: BUN/Creatinine Ratio 28.9 (8-20); Calcium 8.6 mg/dL (8.6-10.3); EGFR African American 75.1 (>60); EGFR Non-African American 62.1 (>60); Potassium 4.3 mmol/L (3.5-5.0)
--- NOTE | 2018-05-14 08:32 | PN ---
Progress Note - Progress Note Date of Service: 05/14/18 SOAP: Subjective: []Pt seen at bedside. She is feeling well, pain is well controlled. Denies CP, SOB, dizziness, nausea. Objective: []General: NAD RLE: Right knee dressing CDI, immobilizer in place with leg in extension, DF/PF intact, DP2+, sensation intact to light touch distally Calves supple and nontender without erythema, edema or palpable cords Assessment: []POD 1 sp revision of right knee arthroplasty patellar component, partial patellectomy Plan: []WBAT in knee immobilizer with knee in full extension PT/OT eliquis 2.5 mg po BID x 30 days Patient initially request Dilaudid IV q 6 hours, though agreeable to alternating percocet and oxycodone to keep her off of IV pain meds as able. Vital Signs Temp 97.1 F 05/14/18 08:00 Pulse 65 05/14/18 08:00 Resp 15 05/14/18 08:00 BP 170/65 05/14/18 08:00 Pulse Ox 93 05/14/18 08:00 Intake & Output 05/13/18 05/14/18 05/14/18 18:59 06:59 18:59 Intake Total 630 Output Total 475 50 Balance 155 -50 Weight 257 lb Intake: Oral 630 Output: Urine 350 50 Madrid 125 Laboratory Last Values Hgb 11.4 g/dl (12.0-16.0) L 05/14/18 05:27 Hct 35 % (35-47) 05/14/18 05:27 Plt Count 221 10^3/ul (150-450) 05/14/18 05:27 MPV 8.9 fL (7.4-10.4) 05/14/18 05:27 Sodium 140 mmol/L (135-145) 05/14/18 05:27 Potassium 4.3 mmol/L (3.5-5.0) 05/14/18 05:27 Chloride 104 mmol/L (101-111) 05/14/18 05:27 Carbon Dioxide 29 mmol/L (22-32) 05/14/18 05:27 Anion Gap 7 mmol/L (2-11) 05/14/18 05:27 BUN 26 mg/dL (6-24) H 05/14/18 05:27 Creatinine 0.90 mg/dL (0.51-0.95) 05/14/18 05:27 Est GFR ( Amer) 75.1 (>60) 05/14/18 05:27 Est GFR (Non-Af Amer) 62.1 (>60) 05/14/18 05:27 BUN/Creatinine Ratio 28.9 (8-20) H 05/14/18 05:27 Glucose 79 mg/dL (70-100) 05/14/18 05:27 POC Glucose (mg/dL) 120 mg/dL (70-100) H 05/13/18 13:10 Calcium 8.6 mg/dL (8.6-10.3) 05/14/18 05:27
[2018-05-14] MEDS ORDERED: Umeclidinium 62.5 MDI(NF) MDI INH SCH (09:00)
[2018-05-14] MEDS: CMCS:Nebivolol TAB (NF) 2.5 MG TAB PO SCH ×3 (09:27→22:38)
[2018-05-14] MEDS: Valsartan TAB* 160 MG PO SCH (09:31)
[2018-05-14] MEDS: Pantoprazole TAB * 40 MG TAB PO SCH (09:32)
[2018-05-14] MEDS: oxyCODONE SR TAB(*) 20 MG TAB.SR PO SCH ×2 (09:32→21:52)
[2018-05-14] MEDS: metFORMIN* 500 MG TAB PO SCH (09:35)
[2018-05-14] MEDS: Apixaban* 2.5 MG TAB PO SCH ×2 (09:35→21:52)
[2018-05-14] MEDS: guaiFENesin ER TAB 600 MG PO SCH ×2 (09:35→21:52)
[2018-05-14] MEDS: Docusate CAP* 100 MG PO SCH ×2 (09:35→21:51)
[2018-05-14] MEDS: Metolazone TAB* 5 MG PO SCH (09:36)
[2018-05-14] MEDS: Magnesium Hydroxide LIQ* 30 ML UDC PO SCH ×2 (11:06→21:54)
[2018-05-14] MEDS ORDERED: oxyCODONE/Acetamin 5/325 MG* TAB PO PRN (11:27)
[2018-05-14] MEDS ORDERED: NS 0.9% 1000 ML** 1,000 ML IV ONE (16:43)
[2018-05-14] MEDS ORDERED: Furosemide IV* 10 MG/ML 2 ML VIAL (20 MG) IV ONE (17:26)
[2018-05-14] MEDS ORDERED: Atorvastatin* 20 MG TAB PO SCH (18:00)
[2018-05-14] MEDS ORDERED: Dextrose 50% Syringe 50 ML* 25 GM/50 ML SYRINGE IV PUSH PRN (21:54)
--- NOTE | 2018-05-14 21:54 | PN ---
Subjective Date of Service: 05/14/18 Interval History: awake, alert. no chest pain. she complains of no bowel movement and unable to urinate. Past Medical History: Unchanged from Admission Objective Active Medications: Acetaminophen (Tylenol Tab*) 975 mg PO Q8H [facility] Last Admin: 05/14/18 12:53 Dose: Not Given Albuterol (Ventolin Hfa Inhaler*) 2 puff INH Q6H PRN PRN Reason: SOB/WHEEZING Alendronate Sodium (Fosamax (Nf)) 70 mg PO WEEKLY [facility]; Protocol Alprazolam (Xanax Tab*) 1 mg PO TID PRN PRN Reason: ANXIETY Last Admin: 05/14/18 09:34 Dose: 1 mg Apixaban (Eliquis*) 2.5 mg PO BID [facility] Last Admin: 05/14/18 09:35 Dose: 2.5 mg Atorvastatin Calcium (Lipitor*) 20 mg PO QPM [facility] Last Admin: 05/14/18 16:56 Dose: 20 mg Bisacodyl (Dulcolax Supp*) 10 mg [place] DAILY PRN PRN Reason: constipation Carisoprodol (Soma Tab*) 350 mg PO TID PRN PRN Reason: SPASMS Last Admin: 05/14/18 19:58 Dose: 350 mg Cyclobenzaprine HCl (Flexeril Tab*) 10 mg PO TID PRN PRN Reason: SPASMS Diphenhydramine HCl (Benadryl Iv*) 25 mg IV Q6H PRN PRN Reason: itching Diphenhydramine HCl (Benadryl Po*) 25 mg PO Q6H PRN PRN Reason: INSOMNIA Docusate Sodium (Colace Cap*) 100 mg PO BID [facility] Last Admin: 05/14/18 09:35 Dose: 100 mg Guaifenesin (Mucinex*) 600 mg PO BID [facility] Last Admin: 05/14/18 09:35 Dose: 600 mg Lactated Ringer's (Lactated Ringers 1000 Ml Bag*) 1,000 mls @ 100 mls/hr IV PER RATE [facility] Last Admin: 05/13/18 21:57 Dose: 100 mls/hr Ipratropium [place] (Atrovent 0.5 Mg Neb.Rosalie*) 0.5 mg INH Q4H PRN PRN Reason: SOB/WHEEZING Ketorolac Tromethamine (Toradol Inj*) 15 mg IV PUSH Q6H PRN PRN Reason: SEVERE PAIN Last Admin: 05/14/18 12:29 Dose: 15 mg Lactulose (Lactulose*) 30 ml PO Q6H PRN PRN Reason: constipation Last Admin: 05/14/18 17:45 Dose: 30 ml Levalbuterol HCl (Xopenex 0.63mg/3ml Neb*) 0.315 mg INH Q6HR PRN PRN Reason: SHORTNESS OF BREATH Magnesium Hydroxide (Milk Of Magnesia Liq*) 30 ml PO BID [facility] Last Admin: 05/14/18 11:06 Dose: 30 ml Magnesium Hydroxide (Milk Of Magnesia Liq*) 30 ml PO Q6H PRN PRN Reason: constipation Metformin HCl (Glucophage*) 500 mg PO [facility] Last Admin: 05/14/18 09:35 Dose: 500 mg Metolazone ([facility]*) [facility] Last Admin: 05/14/18 09:36 Dose: 5 mg Nebivolol (Bystolic Tab (Nf)) 10 mg PO BID [facility] Last Admin: 05/14/18 09:36 Dose: 10 mg Ondansetron HCl (Zofran Inj*) 4 mg IV Q6H PRN PRN Reason: nausea Oxycodone HCl (Roxycodone Tab*) 10 mg PO Q4H PRN PRN Reason: breakthru pain Last Admin: 05/14/18 19:58 Dose: 10 mg Oxycodone HCl (Oxycontin(*)) 20 mg PO BID [facility] Last Admin: 05/14/18 09:32 Dose: 20 mg Oxycodone/Acetaminophen (Percocet 5/325 Tab*) 2 tab PO Q3H PRN PRN Reason: PAIN - MODERATE Last Admin: 05/14/18 16:55 Dose: 2 tab Oxycodone/Acetaminophen (Percocet 5/325 Tab*) 1 tab PO Q3H PRN PRN Reason: PAIN - SEVERE Last Admin: 05/14/18 12:28 Dose: 1 tab Pantoprazole Sodium (Protonix Tab*) 40 mg PO [facility] Last Admin: 05/14/18 09:32 Dose: 40 mg Polyethylene Glycol/Electrolytes (Miralax*) 17 gm PO DAILY PRN PRN Reason: Constipation Last Admin: 05/14/18 17:45 Dose: 17 gm Umeclidinium [place] (Incruse Ellipta Mdi (Nf)) 1 inh INH DAILY [facility] Last Admin: 05/14/18 09:48 Dose: Not Given Valsartan (Diovan Tab*) 320 mg PO QAM [facility] Last Admin: 05/14/18 09:31 Dose: 320 mg Zolpidem Tartrate (Ambien Tab*) 5 mg PO BEDTIME PRN PRN Reason: INSOMNIA Last Admin: 05/14/18 01:53 Dose: 5 mg Vital Signs - 8 hr 05/14/18 05/14/18 05/14/18 14:35 14:59 15:11 Temperature 97.6 F Pulse Rate 88 74 Respiratory 22 22 18 Rate Blood Pressure 136/90 128/82 (mmHg) O2 Sat by Pulse 99 Oximetry 05/14/18 05/14/18 05/14/18 15:55 16:27 16:55 Temperature Pulse Rate Respiratory 20 18 16 Rate Blood Pressure (mmHg) O2 Sat by Pulse Oximetry 05/14/18 05/14/18 05/14/18 17:00 17:58 19:49 Temperature Pulse Rate Respiratory 16 18 24 Rate Blood Pressure (mmHg) O2 Sat by Pulse Oximetry 05/14/18 05/14/18 19:58 20:00 Temperature 97.6 F Pulse Rate 73 Respiratory 24 18 Rate Blood Pressure 130/76 (mmHg) O2 Sat by Pulse 95 Oximetry Oxygen Devices in Use Now: None Appearance: obese. alert. ambulating to bathroom Eyes: No Scleral Icterus Neck: NL Appearance and Movements; NL JVP Respiratory: Symmetrical Chest Expansion and Respiratory Effort Cardiovascular: NL Sounds; No Murmurs; No JVD, RRR Neurological: Alert and Oriented x 3 Result Diagrams: 05/14/18 05:27 05/14/18 05:27 Microbiology and Other Data: Microbiology 05/13/18 16:39 Gram Stain - Preliminary Knee Right Assess/Plan/Problems-Billing Assessment: 68 yo F with PMH of NIDDM, HTN, COPD, LUPE not on CPAP, OA, chronic pain on opiates, anxiety on benzodiazepine, anemia, recurrent SBOs who is admitted to the hospital for her patellectomy/revision (3rd TKR on R) 2/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 medicine is consulted for co management - Patient Problems (1) Disorder of right knee joint Current Visit: Yes Status: Acute Code(s): M25.9 - JOINT DISORDER, UNSPECIFIED SNOMED Code(s): 662239305 Comment: - s/p revision of right knee arthroplasty patellar component, partial - WBAT in knee immobilizer with knee in full extension - PT/OT - Eliquis 2.5 mg po BID x 30 days - Pain control by ortho (2) COPD (chronic obstructive pulmonary disease) Current Visit: No Status: Chronic Code(s): J44.9 - CHRONIC OBSTRUCTIVE PULMONARY DISEASE, UNSPECIFIED SNOMED Code(s): 34299126 Comment: - Not in acute exacerbation - Continue home inhalers and prn nebulizer treatments (3) Acute urinary retention Current Visit: No Status: Acute Code(s): R33.8 - OTHER RETENTION OF URINE SNOMED Code(s): 302167711 Comment: - On IVF boluse as ordered by ortho. Given her diastollic CHF, I did order Lasix 20 mg to follow the boluse. - bladder scan 30-60 min post lasix. If residual greater than 200-250 cc to straight cath (4) DM2 (diabetes mellitus, type 2) Current Visit: No Status: Acute Comment: - on Metformin alone. Will add Sliding scale (5) DVT prophylaxis Current Visit: No Status: Acute Priority: Medium Onset Date: 05/29/14 Code(s): UNY3197 - SNOMED Code(s): 945875630 Comment: -Apixaban per ortho (6) HTN (hypertension) Current Visit: No Status: Acute Code(s): I10 - ESSENTIAL (PRIMARY) HYPERTENSION SNOMED Code(s): 09945247 Comment: -Continue Valsartan and Nebivolol, remains on torsemide and metolazone for "edema" (7) Hyperlipidemia Current Visit: No Status: Acute Code(s): E78.5 - HYPERLIPIDEMIA, UNSPECIFIED SNOMED Code(s): 42497691 (8) LUPE (obstructive sleep apnea) Current Visit: No Status: Acute Code(s): G47.33 - OBSTRUCTIVE SLEEP APNEA ( ADULT) (PEDIATRIC) SNOMED Code(s): 28302425 Comment: oxygen at night since she is not compliant with her cpap (9) CHF (congestive heart failure) Current Visit: No Status: Chronic Priority: Medium Onset Date: 05/29/14 Code(s): I50.9 - HEART FAILURE, UNSPECIFIED SNOMED Code(s): 18981412 Comment: - Chronic, diastolic, does not appear to be in acute exacerbation. - Cont daily weights Status and Disposition: Will continue to follow
[2018-05-15] MEDS: Ketorolac INJ* 15 MG/ML 1 ML VIAL IV PUSH PRN (02:12)
[2018-05-15] MEDS: Carisoprodol TAB* 350 MG PO PRN (04:04)
[2018-05-15] MEDS: ALPRAZolam TAB* 0.5 MG PO PRN (04:45)
[2018-05-15] MEDS: oxyCODONE/Acetamin 5/325 MG* TAB PO PRN ×2 (06:10→09:41)
[2018-05-15] MEDS: Acetaminophen TAB* 325 MG PO SCH (06:12)
[2018-05-15] MEDS ORDERED: PTO: Umeclidinium 62.5 MDI(NF) MDI INH SCH (07:20)
[2018-05-15] MEDS ORDERED: Insulin LISPRO* 1 UNITS UNIT SUBCUT SCH (07:30)
[2018-05-15] MEDS: CMCS:Nebivolol TAB (NF) 2.5 MG TAB PO SCH (08:07)
[2018-05-15] MEDS: metFORMIN* 500 MG TAB PO SCH (08:07)
[2018-05-15] MEDS: Valsartan TAB* 160 MG PO SCH (08:08)
[2018-05-15] MEDS: Pantoprazole TAB * 40 MG TAB PO SCH (08:08)
[2018-05-15] MEDS: guaiFENesin ER TAB 600 MG PO SCH (08:08)
[2018-05-15] MEDS: Apixaban* 2.5 MG TAB PO SCH (08:09)
[2018-05-15] MEDS: Magnesium Hydroxide LIQ* 30 ML UDC PO SCH (08:09)
[2018-05-15] MEDS: Metolazone TAB* 5 MG PO SCH (08:09)
[2018-05-15] MEDS: Docusate CAP* 100 MG PO SCH (08:09)
[2018-05-15] MEDS: oxyCODONE SR TAB(*) 20 MG TAB.SR PO SCH (08:10)
[2018-05-15 08:28] VITALS: BP 102/59
[2018-05-15 08:49] LABS: Hematocrit 31 % (35-47); Platelet Count 180 10^3/ul (150-450)
--- NOTE | 2018-05-15 10:30 | PN ---
Progress Note - Progress Note Date of Service: 05/15/18 SOAP: Subjective: []Pt seen at bedside. She feels well without CP, SOB, dizziness or nausea. Right knee pain is tolerable at this time. Objective: [] General: NAD, appears well RLE: Right knee dressing changed, incision CDI, DF/PF intact, DP2+, sensation intact to light touch distally Calves supple and nontender without erythema, edema or palpable cords Assessment: []POD 2 sp revision of right knee arthroplasty patellar component, partial patellectomy Plan: []WBAT, immobilizer is for comfort only, okay to flex the knee PT/OT eliquis 2.5 mg po BID x 30 days DC to PMRU today Vital Signs Temp 98.5 F 05/15/18 08:03 Pulse 69 05/15/18 08:03 Resp 16 05/15/18 09:41 BP 102/59 05/15/18 08:03 Pulse Ox 95 05/15/18 08:03 Intake & Output 05/14/18 05/15/18 05/15/18 18:59 06:59 18:59 Intake Total 820 2061 Output Total 50 1200 Balance 770 861 Intake: IV Fluids 1401 LR 401 NS (0.9%) 1000 Oral 820 660 NG Tube Irrigate Amount 0 Output: Urine 50 1200 Other: Date of Last Bowel 05/15/18 Movement # Bowel Movements 2 Estimated Stool Amount Medium Laboratory Last Values Hgb 10.0 g/dl (12.0-16.0) L 05/15/18 08:06 Hct 31 % (35-47) L 05/15/18 08:06 Plt Count 180 10^3/ul (150-450) 05/15/18 08:06 MPV 9.0 fL (7.4-10.4) 05/15/18 08:06 Sodium 140 mmol/L (135-145) 05/14/18 05:27 Potassium 4.3 mmol/L (3.5-5.0) 05/14/18 05:27 Chloride 104 mmol/L (101-111) 05/14/18 05:27 Carbon Dioxide 29 mmol/L (22-32) 05/14/18 05:27 Anion Gap 7 mmol/L (2-11) 05/14/18 05:27 BUN 26 mg/dL (6-24) H 05/14/18 05:27 Creatinine 0.90 mg/dL (0.51-0.95) 05/14/18 05:27 Est GFR ( Amer) 75.1 (>60) 05/14/18 05:27 Est GFR (Non-Af Amer) 62.1 (>60) 05/14/18 05:27 BUN/Creatinine Ratio 28.9 (8-20) H 05/14/18 05:27 Glucose 79 mg/dL (70-100) 05/14/18 05:27 POC Glucose (mg/dL) 128 mg/dL (70-100) H 05/15/18 08:06 Calcium 8.6 mg/dL (8.6-10.3) 05/14/18 05:27
--- NOTE | 2018-05-15 20:12 | DS ---
DISCHARGE SUMMARY: DATE OF ADMISSION: 05/13/18 DATE OF DISCHARGE: 05/15/18 ATTENDING ORTHOPEDIC PROVIDER AND SURGEON: Dr. Arina Chu.* (DICTATED BY JOHN STEPHENSON) PRE-OP DIAGNOSIS: Painful right knee total arthroplasty with failure of patellar component due to periprosthetic osteolysis and loosening. OPERATIVE PROCEDURE: Revision of right total knee arthroplasty, patellar component excision, and partial patellectomy. HISTORY: Ms. Mckeon is a 68-year-old female with a complex history of right knee pain. She had total knee arthroplasty [place] [address] Elizondo. She had a revision of the patellar component in 2016 because of pain with Dr. Bustamante. Six months ago, the patient developed 10/10 pain, popping and catching in the knee, difficulty extending the knee and climbing stairs. The patient saw Dr. Chu in February with inability to ambulate even 1 block without severe pain. The radiographs showed patella nasra as well as avascular necrosis with loosening of the implant and she was scheduled for revision of the right total knee arthroplasty. HOSPITAL COURSE: The patient was admitted to [facility] on . She underwent revision of the right total knee arthroplasty, patellar component excision and partial patellectomy. On postop day #1, she was well appearing, in no acute distress. Right knee dressing was clean, dry, and intact. Immobilizer in place with leg in extension, dorsiflexion, and plantar flexion intact. DP pulse 2+. Sensation intact to light touch distally. She was also seen by our hospitalist service during her stay. Postop day 2, she was well appearing, in no acute distress. Right knee dressing was changed. Incision was clean, dry, and intact. Dorsiflexion and plantarflexion intact. DP pulse 2+. Sensation intact to light touch distally. Vitals: Temperature 98.5, pulse 69, respiratory rate 16, blood pressure 102/59, pulse ox 95%. She seemed to be medically and orthopedically stable for discharge to [facility]. DISCHARGE MEDICATIONS: 1. Aspirin 81 mg p.o. q.a.m. 2. Ambien 5 to 10 mg p.o. at bedtime. 3. Simvastatin 40 mg p.o. q.p.m. 4. Alprazolam 1 mg p.o. t.i.d. p.r.n. 5. Albuterol inhaled 2 puffs inhaled q.6 hours p.r.n. 6. Soma 350 mg p.o. t.i.d. p.r.n. 7. Alendronate 70 mg p.o. weekly. 8. Nebivolol 10 mg p.o. b.i.d. 9. Metolazone 5 mg p.o. q.a.m. 10. Lactulose reduced food. 11. Ensure Original 237 mL p.o. t.i.d. 12. Atrovent 0.5 mg neb solution q.4 hours p.r.n. 13. Albuterol neb 0.63 mg inhaled q.6 hours p.r.n. 14. MiraLAX 17 g p.o. daily p.r.n. 15. Benicar 40 mg p.o. q.a.m. 16. Dexilant 30 mg p.o. q.a.m. 17. Advair HFA 230/21 two puffs inhaled b.i.d. 18. Floranex 1 chewable p.o. daily. 19. Oxycodone SR 10 mg p.o. b.i.d. 20. Incruse Ellipta MDI 1 puff inhaled daily 62.5 dosing. 21. Vitamin D 50,000 units per instructions. 22. Mucinex 600 mg p.o. b.i.d. 23. Percocet 10/325 one tablet every 4 hours p.r.n. 24. Metformin 500 mg p.o. q.a.m. 25. Acetaminophen 975 mg p.o. q.8 hours p.r.n. 26. Eliquis 2.5 mg p.o. b.i.d. for 30 days. 27. Docusate 100 mg p.o. b.i.d. p.r.n. constipation. 28. Oxycodone 10 mg p.o. q.4 hours p.r.n. DISCHARGE PLAN: The patient will be discharged to [facility] on 05/15/18. She will be weightbearing as tolerated. She can use the immobilizer for comfort. No restriction on flexion or extension of the knee. Okay to shower postop day 3. DVT prophylaxis is Eliquis 2.5 mg twice daily for 1 month. For pain control, the patient may use Percocet 5/325 or oxycodone 5 mg 1 to 2 tabs by mouth every 4 to 6 hours as needed, max daily dose of 10 tabs per day. She is also on chronic pain medications. Hold short-acting narcotic medications for any sedation. Follow up with Dr. Chu in 10 to 14 days. JOHN STEPHENSON [id number]/[facility] #: [id number] MTDD
== END 2018-05-15 10:30 | DRG 464 ==
LOC: AA 05-13 12:39 → SSU 05-13 21:04
PROVIDERS: ADMIT Orthopaedic Surgery Adult Reconstructive Orthopaedic Surgery; ATTEND Orthopaedic Surgery Adult Reconstructive Orthopaedic Surgery
PROC: 0QBD0ZZ Excision of Right Patella, Open Approach (ICD-10-PCS; 2018-05-13)
PROC: 0SPC0NZ Removal of Patellofemoral Synthetic Substitute from Right Knee Joint, Open Approach (ICD-10-PCS; principal; 2018-05-13 15:30)
DX: T84.032A Mechanical loosening of internal right knee prosthetic joint, initial encounter (principal); I50.32 Chronic diastolic (congestive) heart failure; K56.609 Unspecified intestinal obstruction, unspecified as to partial versus complete obstruction; M87.88 Other osteonecrosis, other site; T84.012A Broken internal right knee prosthesis, initial encounter; I11.0 Hypertensive heart disease with heart failure; T84.052A Periprosthetic osteolysis of internal prosthetic right knee joint, initial encounter; J44.9 Chronic obstructive pulmonary disease, unspecified; E11.9 Type 2 diabetes mellitus without complications; K21.9 Gastro-esophageal reflux disease without esophagitis; F41.9 Anxiety disorder, unspecified; M19.90 Unspecified osteoarthritis, unspecified site; G89.29 Other chronic pain; R33.9 Retention of urine, unspecified; E78.5 Hyperlipidemia, unspecified; R06.02 Shortness of breath; G47.33 Obstructive sleep apnea (adult) (pediatric); R60.0 Localized edema; X58.XXXA Exposure to other specified factors, initial encounter; Z96.653 Presence of artificial knee joint, bilateral; Z79.84 Long term (current) use of oral hypoglycemic drugs; Z79.82 Long term (current) use of aspirin; Z79.891 Long term (current) use of opiate analgesic; Z99.81 Dependence on supplemental oxygen; Z79.51 Long term (current) use of inhaled steroids; Z79.899 Other long term (current) drug therapy; Z88.1 Allergy status to other antibiotic agents; Z88.5 Allergy status to narcotic agent; Z88.0 Allergy status to penicillin; Z88.8 Allergy status to other drugs, medicaments and biological substances; Z83.3 Family history of diabetes mellitus; Z82.49 Family history of ischemic heart disease and other diseases of the circulatory system; Z80.9 Family history of malignant neoplasm, unspecified; Z87.891 Personal history of nicotine dependence
CPT/HCPCS: 36415; 80048; 85014; 85018; 85049; 87070; 87073; 87205; 87640; 87641; 88300; A9270-GY; G8978-GP-CJ; G8979-GP-CI; G8987-GO-CK; G8988-GO-CI; J0330; J1100; J1170; J1885; J1940; J2060; J2250; J2405; J2704; J2795

== ENCOUNTER 2018-05-15 08:58 | Inpatient (IN) | payer MEDICARE, MEDICAID ==
[2018-05-15] MEDS ORDERED: Senna TAB PO PRN (12:52)
[2018-05-15] MEDS ORDERED: Magnesium Hydroxide LIQ* 30 ML UDC PO PRN (12:52)
[2018-05-15] MEDS ORDERED: Acetaminophen TAB* 325 MG PO PRN (12:52)
[2018-05-15] MEDS ORDERED: Dextrose 50% Syringe 50 ML* 25 GM/50 ML SYRINGE IV PUSH PRN (13:00)
[2018-05-15] MEDS ORDERED: oxyCODONE/Acetamin 5/325 MG* TAB PO PRN (13:23)
[2018-05-15] MEDS: oxyCODONE/Acetamin 5/325 MG* TAB PO PRN (13:53)
[2018-05-15] MEDS: Carisoprodol TAB* 350 MG PO PRN (16:32)
[2018-05-15] MEDS: Atorvastatin* 20 MG TAB PO SCH (16:33)
[2018-05-15] MEDS: Insulin LISPRO* 1 UNITS UNIT SUBCUT SCH ×2 (16:39→20:59)
[2018-05-15] MEDS ORDERED: Ipratropium 0.5MG/2.5ML NEB* 0.5 MG/2.5 ML NEB.SOLN INH PRN (17:40)
[2018-05-15] MEDS: oxyCODONE TAB* 5 MG TAB PO PRN ×2 (17:59→23:38)
[2018-05-15] MEDS: Albuterol HFA INHALER* 8 gm MDI INH PRN (18:01)
--- NOTE | 2018-05-15 19:18 | HP ---
ADMISSION HISTORY AND PHYSICAL: DATE OF ADMISSION: 05/15/18 HISTORY OF ILLNESS: Dilma Mckeon is a 68-year-old female. She has a past medical history significant for chronic pain in her back. She normally takes OxyContin 10 mg twice daily as well as Percocet 10/325 and she takes 2 tablets 3 times a day. In addition, she has a history of diabetes. She had right total knee replacement done about 12 years ago. She had it revised in August 2016. The patient was having a lot of trouble with pain in the knee. She saw Dr. Chu. It was felt that she had likely osteonecrosis of her patella and failure of the patellar component. It was decided that she should have a revision right total knee replacement. She was admitted to [facility] on 05/13/18. She was taken to the operating room that day. She underwent a revision right total knee arthroplasty with a patellar component excision and partial patellectomy. Postoperatively, she has had difficulty with pain control as well as her COPD. She is felt to have physical therapy and occupational therapy needs. She is now being admitted for inpatient rehab, so that she might return to independent living. PAST MEDICAL HISTORY: Significant for the aforementioned chronic pain. She has a history of COPD as well. She has a history of diabetes, hypertension, high cholesterol. She has had a bilateral total knee replacements, hysterectomy. ALLERGIES: Include FENTANYL, MORPHINE, PENICILLIN, SULFAMETHOXAZOLE and TRIMETHOPRIM. SOCIAL HISTORY: She is a nonsmoker, nondrinker. She lives by herself in an apartment in [place] [place] [facility]. She has a sister who is going to come to stay with her. She has never had any children. REVIEW OF SYSTEMS: The patient reports no current shortness of breath or chest pain. PHYSICAL EXAMINATION VITAL SIGNS: The patient's temperature is 100.3, blood pressure is 130/65, pulse 78, respirations 16. HEENT: Her extraocular movements were intact. Tongue is midline. NECK: Supple. LUNGS: Had scattered wheezes heard throughout. HEART: Sounds were regular. S1 and S2 were audible. ABDOMEN: Soft and nontender. EXTREMITIES: Her right knee has a wound, which is clean and dry. Peripheral pulses were intact. NEUROLOGIC: She was awake, alert. Muscle strength appeared to be 5/5 in both upper and lower extremities except her right leg, which was 3/5 secondary to pain. FUNCTIONAL EXAM: She transfers with min assist. ASSESSMENT: 1. Revision right total knee replacement. 2. Chronic obstructive pulmonary disease. 3. Diabetes mellitus. PLAN: We are going to integrate her into a comprehensive and therapeutic rehab program with the following goals: 1. Physical Therapy will see the patient. They are going to work on functional transfer training, ambulation training with a walker. 2. Occupational Therapy will see the patient, work on her activities of daily living including toileting and toilet transfers. 3. Eliquis for DVT prophylaxis. 4. Adequate analgesia. Because of her baseline opioid dose, we are going to have to be a little more aggressive in treating her pain. We are going to write for oxycodone 15 mg every 4 hours as needed. 5. Her bowels will be regulated. 6. conference services director will be closely involved to make sure that any services and equipment that the patient requires are in place prior to discharge. 7. For her COPD, we will continue her on inhalers and nebulizer treatments. 8. Family training as appropriate. 9. Home with appropriate services. ESTIMATED LENGTH OF STAY: Ten days. [id number]/[facility] #: [id number] JAY
[2018-05-15] MEDS: guaiFENesin ER TAB 600 MG PO SCH (20:58)
[2018-05-15] MEDS: Docusate CAP* 100 MG PO SCH (20:58)
[2018-05-15] MEDS: CMCS: Nebivolol TAB (NF) 2.5 MG TAB PO SCH (20:58)
[2018-05-15] MEDS: Apixaban* 2.5 MG TAB PO SCH (20:58)
[2018-05-15] MEDS ORDERED: Senna TAB PO SCH (21:00)
[2018-05-15] MEDS: oxyCODONE SR TAB(*) 20 MG TAB.SR PO SCH (21:00)
[2018-05-15] MEDS: Fluticasone-Salmeterol 250-50* DISKUS INH SCH (21:16)
[2018-05-15] MEDS: ALPRAZolam TAB* 0.5 MG PO PRN (23:38)
[2018-05-16] MEDS: oxyCODONE TAB* 5 MG TAB PO PRN ×4 (04:22→19:41)
[2018-05-16] MEDS: Insulin LISPRO* 1 UNITS UNIT SUBCUT SCH ×4 (07:48→21:17)
[2018-05-16] MEDS: CMCS: Nebivolol TAB (NF) 2.5 MG TAB PO SCH ×2 (08:10→21:07)
[2018-05-16] MEDS: Fluticasone-Salmeterol 250-50* DISKUS INH SCH ×2 (08:10→21:09)
[2018-05-16] MEDS: oxyCODONE SR TAB(*) 20 MG TAB.SR PO SCH ×2 (08:11→21:08)
[2018-05-16] MEDS: guaiFENesin ER TAB 600 MG PO SCH ×2 (08:11→21:07)
[2018-05-16] MEDS: Apixaban* 2.5 MG TAB PO SCH ×2 (08:11→21:07)
[2018-05-16] MEDS: metFORMIN* 500 MG TAB PO SCH (08:11)
[2018-05-16] MEDS: Metolazone TAB* 5 MG PO SCH (08:11)
[2018-05-16] MEDS: VALSARTAN 160 MG PO SCH (08:11)
[2018-05-16] MEDS: Pantoprazole TAB * 40 MG TAB PO SCH (08:11)
[2018-05-16] MEDS: Docusate CAP* 100 MG PO SCH (08:11)
[2018-05-16] MEDS: PTO: Umeclidinium 62.5 MDI(NF) MDI INH SCH (08:14)
[2018-05-16 08:29] LABS: Hematocrit 38 % (35-47); Hemoglobin 11.9 g/dl (12.0-16.0); Mean Corpuscular HGB Conc 31 g/dl (31-36); Mean Corpuscular Hemoglobin 27 pg (27-31); Mean Corpuscular Volume 88 fL (80-97); Red Blood Count 4.33 10^6/ul (4.00-5.40); Red Cell Distribution Width 14 % (10.5-15); White Blood Count 8.8 10^3/ul (3.5-10.8)
[2018-05-16 08:33] LABS: ALT 4 U/L (7-52); Albumin 3.7 g/dL (3.2-5.2); Albumin/Globulin Ratio 1.3 (1-3); Alkaline Phosphatase 72 U/L (34-104); BUN/Creatinine Ratio 23.2 (8-20); Blood Urea Nitrogen 16 mg/dL (6-24); CO2 Carbon Dioxide 26 mmol/L (22-32); Calcium 9.2 mg/dL (8.6-10.3); Chloride 106 mmol/L (101-111); EGFR African American 102.1 (>60); EGFR Non-African American 84.4 (>60); Globulin 2.9 g/dL (2-4); Glucose 123 mg/dL (70-100); Sodium 139 mmol/L (135-145); Total Protein 6.6 g/dL (6.4-8.9)
[2018-05-16 08:43] LABS: Anion Gap 7 mmol/L (2-11)
[2018-05-16 08:59] LABS: ABS Basophils 0.1 10^3/ul (0-0.2); ABS Eosinophils 0.2 10^3/ul (0-0.6); ABS Lymphocytes 2.1 10^3/ul (1.0-4.8); ABS Monocytes 0.9 10^3/ul (0-0.8); ABS Neutrophils 5.6 10^3/ul (1.5-7.7); ABS Nucleated RBC 0 10^3/ul; Eosinophil % 2.7 %; Lymphocyte % 23.2 %; Mean Platelet Volume 9.1 fL (7.4-10.4); Nucleated Red Blood Cells % 0.1; Platelet Count 180 10^3/ul (150-450)
--- NOTE | 2018-05-16 09:42 | PN ---
Progress Note Date of Service: 05/16/18 Note: JUAN MAN was visited. Nursing and therapy notes read and reviewed. No chest pain, shortness of breath or abdominal pain. She did not sleep last night due to urine frequency. Also had bowel movements. Current Medications: Active Medications Generic Name Dose Route Start Last Admin Trade Name Freq PRN Reason Stop Dose Admin Acetaminophen 650 mg 05/15/18 12:52 Tylenol Tab* PO Q6H PRN FEVER/PAIN Albuterol 2 puff 05/15/18 17:11 05/15/18 18:01 Ventolin Hfa Inhaler* INH 2 puff Q6H PRN Administration SOB/WHEEZING Alprazolam 1 mg 05/15/18 22:00 05/15/18 23:38 Xanax Tab* PO 1 mg TID PRN Administration ANXIETY Apixaban 2.5 mg 05/15/18 21:00 05/16/18 08:11 Eliquis* PO 2.5 mg BID YUE Administration Atorvastatin Calcium 20 mg 05/15/18 17:00 05/15/18 16:33 Lipitor* PO 20 mg 1700 YUE Administration Carisoprodol 350 mg 05/15/18 13:05 05/15/18 16:32 Soma Tab* PO 350 mg Q8H PRN Administration SPASMS Dextrose 12.5 gm 05/15/18 13:00 D50w Syringe 50 Ml* IV PUSH .FOR FS < 60 - SS PRN FS < 60 Docusate Sodium 100 mg 05/15/18 21:00 05/16/18 08:11 Colace Cap* PO 100 mg BID YUE Administration Guaifenesin 600 mg 05/15/18 21:00 05/16/18 08:11 Mucinex* PO 600 mg BID YUE Administration Insulin Human Lispro 0 - 15 units 05/15/18 16:30 05/16/18 07:48 Humalog* SUBCUT Not Given [facility] Protocol Ipratropium [place] 0.5 mg 05/15/18 17:40 Atrovent 0.5 Mg Neb.Rosalie* INH Q4H PRN SOB/WHEEZING Magnesium Hydroxide 30 ml 05/15/18 12:52 Milk Of Magnesia Liq* PO Q6H PRN CONSTIPATION Metformin HCl 500 mg 05/16/18 09:00 05/16/18 08:11 Glucophage* PO 500 mg DAILY YUE Administration Metolazone 5 mg 05/16/18 08:30 05/16/18 08:11 Zaroxolyn Tab* PO 5 mg DAILY@0830 YUE Administration Nebivolol 10 mg 05/15/18 21:00 05/16/18 08:10 Bystolic Tab (Nf) PO 10 mg BID YUE Administration Oxycodone HCl 20 mg 05/15/18 21:00 05/16/18 08:11 Oxycontin(*) PO 20 mg Q12HR YUE Administration Oxycodone HCl 15 mg 05/15/18 17:10 05/16/18 08:16 Roxycodone Tab* PO 15 mg Q4H PRN Administration PAIN - SEVERE Oxycodone/Acetaminophen 2 tab 05/15/18 13:05 05/15/18 13:53 Percocet 5/325 Tab* PO 2 tab Q4H PRN Administration PAIN - SEVERE Pantoprazole Sodium 40 mg 05/16/18 09:00 05/16/18 08:11 Protonix Tab* PO 40 mg DAILY YUE Administration Fluticasone/Salmeterol 1 puff 05/15/18 21:00 05/16/18 08:10 Advair Diskus 250-50* INH 1 puff BID YUE Administration Senna 2 tab 05/15/18 21:00 05/15/18 20:58 Senokot Tab* PO 2 tab BEDTIME YUE Administration Umeclidinium [place] 1 inh 05/16/18 09:00 05/16/18 08:14 Incruse Ellipta Mdi (Nf) INH 1 inh DAILY YUE Administration Valsartan 320 mg 05/16/18 09:00 05/16/18 08:11 Diovan Tab* PO 320 mg DAILY YUE Administration Vital Signs: Vital Signs Temp Pulse Resp BP Pulse Ox 99.6 F 74 18 139/66 98 05/16/18 05:53 05/16/18 05:53 05/16/18 08:16 05/16/18 05:53 05/16/18 08:00 Lab Results: Laboratory Results - last 24 hr 05/15/18 05/15/18 05/15/18 12:13 16:37 20:14 WBC RBC Hgb Hct MCV MCH MCHC RDW Plt Count MPV Neut % (Auto) Lymph % (Auto) Ray % (Auto) Eos % (Auto) Baso % (Auto) Absolute Neuts (auto) Absolute Lymphs (auto) Absolute Monos (auto) Absolute Eos (auto) Absolute Basos (auto) Absolute Nucleated RBC Nucleated RBC % Sodium Potassium Chloride Carbon Dioxide Anion Gap BUN Creatinine Est GFR ( Amer) Est GFR (Non-Af Amer) BUN/Creatinine Ratio Glucose POC Glucose (mg/dL) 128 H 109 H 100 Calcium Total Bilirubin AST ALT Alkaline Phosphatase Total Protein Albumin Globulin Albumin/Globulin Ratio 05/16/18 05/16/18 08:01 08:01 WBC 8.8 RBC 4.33 Hgb 11.9 L Hct 38 MCV 88 MCH 27 MCHC 31 RDW 14 Plt Count 180 MPV 9.1 Neut % (Auto) 63.3 Lymph % (Auto) 23.2 Ray % (Auto) 10.1 Eos % (Auto) 2.7 Baso % (Auto) 0.7 Absolute Neuts (auto) 5.6 Absolute Lymphs (auto) 2.1 Absolute Monos (auto) 0.9 H Absolute Eos (auto) 0.2 Absolute Basos (auto) 0.1 Absolute Nucleated RBC 0 Nucleated RBC % 0.1 Sodium 139 Potassium TNP Chloride 106 Carbon Dioxide 26 Anion Gap 7 BUN 16 Creatinine 0.69 Est GFR ( Amer) 102.1 Est GFR (Non-Af Amer) 84.4 BUN/Creatinine Ratio 23.2 H Glucose 123 H POC Glucose (mg/dL) Calcium 9.2 Total Bilirubin 0.20 AST TNP ALT 4 L Alkaline Phosphatase 72 Total Protein 6.6 Albumin 3.7 Globulin 2.9 Albumin/Globulin Ratio 1.3 Exam: GEN: no acute distress. alert and appropriate. LUNGS: clear to auscultation bilaterally. CV: regular rate and rhythm ABD: + bowel sounds, soft, non-tender, non-distended EXT: No edema. Right knee dressing c/d/i NEURO: CN II-XII intact. Motor 5/5 bLE except limited testing right knee and hip due to pain. Sensation intact. Assessment/Plan: 68yo woman s/p right TKR revision. #Right TKR revision: PT/OT. Continue pain meds. f/u with Dr. Chu #DVT ppx: Eliquis #Insomnia: normally takes ambien. Reorder #Anxiety: xanax prn as at home #Urine frequency: check UA. Likely mobilizing fluids post-op at night. I d/w elevating legs between therapies during the day. #Bowels: make bowel meds prn #Diabetes mellitus: metformin #COPD: continue inhalers and nebs prn #Advanced directives: full code #Estimated LOS: IPOC today. 05/16/18 09:40
[2018-05-16] MEDS ORDERED: Senna TAB PO PRN (09:44)
[2018-05-16] MEDS ORDERED: Docusate CAP* 100 MG PO PRN (09:44)
[2018-05-16 12:00] LABS: Urine Appearance Clear; Urine Bacteria Absent (Absent); Urine Bilirubin Negative (Negative); Urine Blood 2+ (Negative); Urine Color Straw; Urine Glucose Negative (Negative); Urine Ketones Negative (Negative); Urine Nitrite Negative (Negative); Urine Protein Negative (Negative); Urine Red Blood Cell Trace(0-2/hpf) (Absent); Urine Specific Gravity 1.011 (1.010-1.030); Urine Urobilinogen Negative (Negative); Urine White Blood Cell Trace(0-5/hpf) (Absent)
--- NOTE | 2018-05-16 12:30 | PMRUTEAM ---
PMRU: Team Meeting Current Status: Nursing: Current Status Skin Deviations [Bilateral Other Heel] Skin Deviations [Right Knee] Incision Skin Deviation Description [ boggy, floated Bilateral Heel] Skin Deviation Description [ drsg/cryounit in place Right Knee] Physical Therapy: Current Status Bed Mobility Assistance min A Transfer Mobility Assistance CGA Transfer/Bed Mobility Rolling Walker Recommended Devices Ambulation Assistance CGA Ambulation Assistive Devices Rolling Walker Number of Feet Patient 60 Ambulated Stairs Assistance not tested Stairs Recommended Devices Two Rails Number of Stairs 6 Occupational Therapy: Current Status Upper Body Dressing Supervision Lower Body Dressing Min Assist,Mod Assist Bathing Min Assist Toileting Contact Guard Assist Toilet Transfer Contact Guard Assist,Min Assist Eating Independent Rec Therapy: Current Status Summary of Assessment and Pt. was open to conversation but was minimally Clinical Impression interactive. Pt. identified with very few hobbies or activities and appeared to be disinterested in having an in-depth conversation about her leisure lifestyle. Pt. provided one word responses and looked out the window at times. When asked if she would like continued leisure visits, pt. responded "I don't think I will be here long". Treatment Goals Pt. will engage in leisure activities as desired. Treatment Plan Provide recreation and leisure services as desired . 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 Training TBD, pt lives alone Anticipated Discharge Home Destination Discharge With home care svs and family support Goals: Physical Therapy: Updated Goals modified independent bed mobility, transfers, ambulation 150ft with standard walker and 6 stairs. Occupational Therapy: Initial Goals Goals to be Completed in (Days 5-7 ) Upper Body Bathing Routine Independent Lower Body Bathing Routine Minimal Contact Assist Upper Body Dressing Routine Independent Lower Body Dressing Routine Modified Independent with Toilet Hygeine and Clothing Modified Independent with Management Routine Toilet Transfer Routine Modified Independent with Step-In Shower Transfer Supervision/Set Up Routine Functional Transfers for ADL Modified Independent with Grooming Routine Independent Feeding Routine Independent Light Housekeeping Tasks Modified Independent with Light Housekeeping Tasks light meal prep Assistive Devices Social Work: Goals Discharge Plan return home with home care svs and family support Potential for Family Training TBD, pt lives alone Anticipated Discharge Home Destination Discharge With home care svs and family support Care Plan: Care Plan ADL's - Improve/Maintain Start: 05/15/18 14:16 Freq: DAILY Status: Active Target: Protocol: Activity Type Activity Date Activity User E-Sign Co-Sign Detail Recorded Client Recorded Date Recorded By Document 05/15/18 14:16 [id number] 05/15/18 14:17 [id number] 05/15/18 14:16 PMRU Outcome: ADL's/ADL Transfers Orders/Interventions Occupational Therapy Evaluation & Treatment Communication Tool in Patient Room Device Yes Address Deficits Secondary To: Right TKA revision Patient to receive OT 5x/wk for 60-120 Therex min/day Self Care Management Group Therapy UE/LE ADL's with Assist Yes: Raine except [place] for bathing at baseline ADL Transfers with Assist Yes: Raine Toileting: Transfers,Clothing Management Yes: Raine ,Hygeine w/Assist Light Kitchen/Laundry w/Assist Yes: Raine light meal prep Progression Toward Outcome/Goals Progressing Outcome/Goals Met Pt limited 2* pain, unable to void on attempts to use toilet during both OT sessions this date, RN aware. DVT Prophylaxis- Improve/Maintain Start: 05/15/18 16:21 Freq: QSHIFT Status: Active Target: Protocol: Activity Type Activity Date Activity User E-Sign Co-Sign Detail Recorded Client Recorded Date Recorded By Document 05/16/18 08:00 [id number] 05/16/18 08:21 [id number] 05/16/18 08:00 PMRU Outcome: DVT Prophylaxis Outcome/Goals Remains Free of DVT Complies with DVT Prophylaxis /Treatment Demonstrates Knowledge of DVT Prevention/ Treatment TEDS Stockings on Every AM, Off at HS Progression Toward Outcome/Goals Progressing Discharge Planning - Improve/Maintain Start: 05/15/18 16:21 Freq: DAILY Status: Active Target: Protocol: Activity Type Activity Date Activity User E-Sign Co-Sign Detail Recorded Client Recorded Date Recorded By Document 05/16/18 00:23 [id number] 05/16/18 00:23 [id number] 05/16/18 00:23 PMRU Outcome: Discharge Planning Update Patient Family No Outcome/Goals Demonstrates Understanding of Discharge Plan Education-Improve/Maintain Start: 05/15/18 16:21 Freq: QSHIFT Status: Active Target: Protocol: Activity Type Activity Date Activity User E-Sign Co-Sign Detail Recorded Client Recorded Date Recorded By Document 05/16/18 08:00 [id number] 05/16/18 08:21 [id number] 05/16/18 08:00 PMRU Outcome: Education Outcome/Goals Demonstrates Skills Encourage Questions Progression Toward Outcome/Goals Progressing /GI-Improve/Maintain Start: 05/15/18 16:21 Freq: QSHIFT Status: Active Target: Protocol: Activity Type Activity Date Activity User E-Sign Co-Sign Detail Recorded Client Recorded Date Recorded By Document 05/16/18 08:00 [id number] [email or web address] 05/16/18 08:21 [id number] 05/16/18 08:00 PMRU Outcome: Genitourinary/ Gastrointestinal Genitourinary- Outcome/Goals Maintain/ Achieve Urinary Continence Maintain/ Achieve Adequate Urinary Output Remain Free of Hospital- Acquired UTI Gastrointestinal-Outcome/Goals Maintain/ Achieve Bowel Regularity in Accordance with Pt's Baseline Prevent Constipation Laxatives as Ordered Progression Toward Outcome/Goals - Progressing Progression Toward Outcome/Goals - GI Progressing Medication Administration Start: 05/15/18 16:21 Freq: QSHIFT Status: Active Target: Protocol: Activity Type Activity Date Activity User E-Sign Co-Sign Detail Recorded Client Recorded Date Recorded By Document 05/16/18 08:00 [id number] [id number] 05/16/18 08:21 [id number] 05/16/18 08:00 PMRU Outcome: Medication Administration Assess Patient Knowledge/Teach Med Yes Education for all Meds Outcome/Goals Patient Independent with Medication Administration at Home Demonstrates Understanding Progression Towards Outcome/Goals Progressing Is Patient Going Home on Lovenox? No Metabolic Status- Improve/Maintain Start: 05/15/18 16:21 Freq: QSHIFT Status: Active Target: Protocol: Activity Type Activity Date Activity User E-Sign Co-Sign Detail Recorded Client Recorded Date Recorded By Document 05/16/18 08:00 [id number] 05/16/18 08:21 [id number] 05/16/18 08:00 PMRU Outcome: Metabolic Status Have Fingersticks Been Ordered Yes Fingerstick Order Frequency AC & HS Outcome/Goals Maintain/ Improve Metabolic Status Demonstrate Knowledge of Prevention/ Treatment of Metabolic Imbalances Progression Toward Outcome/Goals Progressing Mobility- Improve/Maintain Start: 05/15/18 11:29 Freq: DAILY Status: Active Target: Protocol: Activity Type Activity Date Activity User E-Sign Co-Sign Detail Recorded Client Recorded Date Recorded By Document 05/15/18 11:29 [id number] 05/15/18 11:30 [id number] 05/15/18 11:29 PMRU Outcome: Mobility Physical Therapy Evaluation and Yes Treatment Activity OOB with Assistance Yes WBAT Yes Device Yes Assistance Yes Patient to be seen 5x/wk for 60-120 min/ Therex day for: Mobility Training Gait Training Balance Other Therapy Comment "Knee immobilizer prn , not needed to ambulate" Outcome/Goals Maintain/ Achieve Baseline Mobility Status Improve Mobility Status Demonstrates Proper Use of Assistive Devices Free from Complications of Immobility Bed Mobility Yes: Independent Transfers Yes: Modified independent with RW Gait x ft Yes: Modified independent 150 ' with RW Up/Down Stairs Yes: Independent 6 steps 2 rails With HEP Yes: Independent Pain/Comfort- Improve/Maintain Start: 05/15/18 16:21 Freq: QSHIFT Status: Active Target: Protocol: Activity Type Activity Date Activity User E-Sign Co-Sign Detail Recorded Client Recorded Date Recorded By Document 05/16/18 08:00 [id number] [email or web address] 05/16/18 08:21 [id number] 05/16/18 08:00 PMRU Outcome: Pain/Comfort Outcome/Goals Demonstrates Knowledge and Use of Available Comfort Measures Achieves Acceptable Comfort/Pain Level as Determined by Patient/Condit Maintain Comfort Level Allowing Patient to Fully Participate in Rehab Progression Toward Outcome/Goals Progressing Respiratory - Improve/Maintain Start: 05/15/18 16:21 Freq: QSHIFT Status: Active Target: Protocol: Activity Type Activity Date Activity User E-Sign Co-Sign Detail Recorded Client Recorded Date Recorded By Document 05/16/18 08:00 [id number] 05/16/18 08:22 [id number] 05/16/18 08:00 PMRU Outcome: Respiratory Does Patient Have a Trach No Outcome/Goals Maintain/ Improve Baseline Respiratory Status Maintain/ Improve Activity Tolerance Prevent Pneumonia/ Atelectasis Progression Toward Outcome/Goals Progressing Safety- Improve/Maintain Start: 05/15/18 16:21 Freq: QSHIFT Status: Active Target: Protocol: Activity Type Activity Date Activity User E-Sign Co-Sign Detail Recorded Client Recorded Date Recorded By Document 05/16/18 08:00 [id number] 05/16/18 08:22 [id number] 05/16/18 08:00 PMRU Outcome: Safety Outcome/Goals Remain Free of Injury or Harm Cooperates with Safety Measures for Least Restrictive Environment Prevent Falls/ Injury Progression Toward Outcome/Goals Progressing Skin- Improve/Maintain Start: 05/15/18 16:21 Freq: QSHIFT Status: Active Target: Protocol: Activity Type Activity Date Activity User E-Sign Co-Sign Detail Recorded Client Recorded Date Recorded By Document 05/16/18 08:00 [id number] [id number] 05/16/18 08:22 [id number] 05/16/18 08:00 PMRU Outcome: Skin Skin Risk Level Medium Skin Orders Dressing Change Turn/Position q2hr While in Bed Outcome/Goals Maintain/ Improve Skin Intergrity Free from Decubitus Surgical Incisions Healing Progression Toward Outcome/Goals Progressing Medicine Note: Length of Stay: [1 week] Anticipated Discharge Destination: Home Tentative Discharge Date: [05/23/18] Discharged to: [home]
[2018-05-16] MEDS: Carisoprodol TAB* 350 MG PO PRN (16:50)
[2018-05-16] MEDS: oxyCODONE/Acetamin 5/325 MG* TAB PO PRN ×2 (16:50→23:27)
[2018-05-16] MEDS: Atorvastatin* 20 MG TAB PO SCH (16:51)
[2018-05-16] MEDS: Albuterol HFA INHALER* 8 gm MDI INH PRN (20:24)
[2018-05-16] MEDS: ALPRAZolam TAB* 0.5 MG PO PRN (23:27)
[2018-05-17] MEDS: Zolpidem TAB* 10 MG PO PRN (00:55)
[2018-05-17] MEDS: oxyCODONE TAB* 5 MG TAB PO PRN ×3 (04:00→21:03)
[2018-05-17] MEDS: Carisoprodol TAB* 350 MG PO PRN (04:00)
[2018-05-17 05:29] LABS: Potassium 4.1 mmol/L (3.5-5.0)
[2018-05-17] MEDS: Insulin LISPRO* 1 UNITS UNIT SUBCUT SCH ×4 (07:50→20:28)
[2018-05-17] MEDS: CMCS: Nebivolol TAB (NF) 2.5 MG TAB PO SCH ×2 (07:57→21:20)
[2018-05-17] MEDS: VALSARTAN 160 MG PO SCH (07:58)
[2018-05-17] MEDS: Apixaban* 2.5 MG TAB PO SCH ×2 (07:58→21:20)
[2018-05-17] MEDS: Pantoprazole TAB * 40 MG TAB PO SCH (07:58)
[2018-05-17] MEDS: Metolazone TAB* 5 MG PO SCH (07:58)
[2018-05-17] MEDS: oxyCODONE SR TAB(*) 20 MG TAB.SR PO SCH ×2 (07:58→21:23)
[2018-05-17] MEDS: guaiFENesin ER TAB 600 MG PO SCH ×2 (07:58→21:21)
[2018-05-17] MEDS: metFORMIN* 500 MG TAB PO SCH (07:58)
[2018-05-17] MEDS: PTO: Umeclidinium 62.5 MDI(NF) MDI INH SCH (08:22)
[2018-05-17] MEDS: Fluticasone-Salmeterol 250-50* DISKUS INH SCH ×2 (08:22→21:20)
--- NOTE | 2018-05-17 08:42 | PN ---
Progress Note Date of Service: 05/17/18 Note: JUAN MAN was visited. Nursing and therapy notes read and reviewed. No chest pain, shortness of breath or abdominal pain. Up every 2.5hrs last night to urinate and still did not sleep well. Urination is less than night before however. Does not think pain meds working very well. Current Medications: Active Medications Generic Name Dose Route Start Last Admin Trade Name Freq PRN Reason Stop Dose Admin Acetaminophen 650 mg 05/15/18 12:52 Tylenol Tab* PO Q6H PRN FEVER/PAIN Albuterol 2 puff 05/15/18 17:11 05/16/18 20:24 Ventolin Hfa Inhaler* INH 2 puff Q6H PRN Administration SOB/WHEEZING Alprazolam 1 mg 05/15/18 22:00 05/16/18 23:27 Xanax Tab* PO 1 mg TID PRN Administration ANXIETY Apixaban 2.5 mg 05/15/18 21:00 05/17/18 07:58 Eliquis* PO 2.5 mg BID YUE Administration Atorvastatin Calcium 20 mg 05/15/18 17:00 05/16/18 16:51 Lipitor* PO 20 mg 1700 YUE Administration Carisoprodol 350 mg 05/15/18 13:05 05/17/18 04:00 Soma Tab* PO 350 mg Q8H PRN Administration SPASMS Dextrose 12.5 gm 05/15/18 13:00 D50w Syringe 50 Ml* IV PUSH .FOR FS < 60 - SS PRN FS < 60 Docusate Sodium 100 mg 05/16/18 09:44 Colace Cap* PO BID PRN CONSTIPATION Guaifenesin 600 mg 05/15/18 21:00 05/17/18 07:58 Mucinex* PO 600 mg BID YUE Administration Insulin Human Lispro 0 - 15 units 05/15/18 16:30 05/17/18 07:50 Humalog* SUBCUT Not Given ACHS [facility] Protocol Ipratropium [place] 0.5 mg 05/15/18 17:40 Atrovent 0.5 Mg Neb.Rosalie* INH Q4H PRN SOB/WHEEZING Magnesium Hydroxide 30 ml 05/15/18 12:52 Milk Of Magnesia Liq* PO Q6H PRN CONSTIPATION Metformin HCl 500 mg 05/16/18 09:00 05/17/18 07:58 Glucophage* PO 500 mg DAILY YUE Administration Metolazone 5 mg 05/16/18 08:30 05/17/18 07:58 Zaroxolyn Tab* PO 5 mg DAILY@0830 YUE Administration Nebivolol 10 mg 05/15/18 21:00 05/17/18 07:57 Bystolic Tab (Nf) PO 10 mg BID YUE Administration Oxycodone HCl 20 mg 05/15/18 21:00 05/17/18 07:58 Oxycontin(*) PO 20 mg Q12HR YUE Administration Oxycodone HCl 15 mg 05/15/18 17:10 05/17/18 07:57 Roxycodone Tab* PO 15 mg Q4H PRN Administration PAIN - SEVERE Oxycodone/Acetaminophen 2 tab 05/15/18 13:05 05/16/18 23:27 Percocet 5/325 Tab* PO 2 tab Q4H PRN Administration PAIN - SEVERE Pantoprazole Sodium 40 mg 05/16/18 09:00 05/17/18 07:58 Protonix Tab* PO 40 mg DAILY YUE Administration Fluticasone/Salmeterol 1 puff 05/15/18 21:00 05/17/18 08:22 Advair Diskus 250-50* INH 1 puff BID YUE Administration Senna 2 tab 05/16/18 09:44 Senokot Tab* PO BEDTIME PRN CONSTIPATION Umeclidinium [place] 1 inh 05/16/18 09:00 05/17/18 08:22 Incruse Ellipta Mdi (Nf) INH 1 inh DAILY YEU Administration Valsartan 320 mg 05/16/18 09:00 05/17/18 07:58 Diovan Tab* PO 320 mg DAILY YUE Administration Zolpidem Tartrate 10 mg 05/16/18 09:43 05/17/18 00:55 Ambien Tab* PO 10 mg BEDTIME PRN Administration INSOMNIA Vital Signs: Vital Signs Temp Pulse Resp BP Pulse Ox 98.6 F 73 18 121/54 98 05/17/18 04:44 05/17/18 04:44 05/17/18 07:58 05/17/18 04:44 05/17/18 04:44 Lab Results: Laboratory Results - last 24 hr 05/16/18 05/16/18 05/16/18 07:47 08:01 08:01 Plt Count 180 MPV 9.1 Neut % (Auto) 63.3 Lymph % (Auto) 23.2 [place] % (Auto) 10.1 Eos % (Auto) 2.7 Baso % (Auto) 0.7 Absolute Neuts (auto) 5.6 Absolute Lymphs (auto) 2.1 Absolute Monos (auto) 0.9 H Absolute Eos (auto) 0.2 Absolute Basos (auto) 0.1 Absolute Nucleated RBC 0 Nucleated RBC % 0.1 Sodium 139 Potassium TNP Chloride 106 Carbon Dioxide 26 Anion Gap 7 BUN 16 Creatinine 0.69 Est GFR ( Amer) 102.1 Est GFR (Non-Af Amer) 84.4 BUN/Creatinine Ratio 23.2 H Glucose 123 H POC Glucose (mg/dL) 130 H Calcium 9.2 Total Bilirubin 0.20 AST TNP ALT 4 L Alkaline Phosphatase 72 Total Protein 6.6 Albumin 3.7 Globulin 2.9 Albumin/Globulin Ratio 1.3 Urine Color Urine Appearance Urine pH Ur Specific [place] Urine Protein Urine Ketones Urine Blood Urine Nitrate Urine Bilirubin Urine Urobilinogen Ur Leukocyte Esterase Urine WBC (Auto) Urine RBC (Auto) Urine Bacteria Urine Glucose 05/16/18 05/16/18 05/16/18 10:50 11:52 16:27 Plt Count MPV Neut % (Auto) Lymph % (Auto) [place] % (Auto) Eos % (Auto) Baso % (Auto) Absolute Neuts (auto) Absolute Lymphs (auto) Absolute Monos (auto) Absolute Eos (auto) Absolute Basos (auto) Absolute Nucleated RBC Nucleated RBC % Sodium Potassium Chloride Carbon Dioxide Anion Gap BUN Creatinine Est GFR ( Amer) Est GFR (Non-Af Amer) BUN/Creatinine Ratio Glucose POC Glucose (mg/dL) 120 H 141 H Calcium Total Bilirubin AST ALT Alkaline Phosphatase Total Protein Albumin Globulin Albumin/Globulin Ratio Urine Color Straw Urine Appearance Clear Urine pH 5.0 Ur Specific [place] 1.011 Urine Protein Negative Urine Ketones Negative Urine Blood 2+ A Urine Nitrate Negative Urine Bilirubin Negative Urine Urobilinogen Negative Ur Leukocyte Esterase Negative Urine WBC (Auto) Trace(0-5/hpf) Urine RBC (Auto) Trace(0-2/hpf) Urine Bacteria Absent Urine Glucose Negative 05/16/18 05/17/18 20:27 05:07 Plt Count MPV Neut % (Auto) Lymph % (Auto) [place] % (Auto) Eos % (Auto) Baso % (Auto) Absolute Neuts (auto) Absolute Lymphs (auto) Absolute Monos (auto) Absolute Eos (auto) Absolute Basos (auto) Absolute Nucleated RBC Nucleated RBC % Sodium Potassium 4.1 Chloride Carbon Dioxide Anion Gap BUN Creatinine Est GFR ( Amer) Est GFR (Non-Af Amer) BUN/Creatinine Ratio Glucose POC Glucose (mg/dL) 101 H Calcium Total Bilirubin AST 8 L ALT Alkaline Phosphatase Total Protein Albumin Globulin Albumin/Globulin Ratio Urine Color Urine Appearance Urine pH Ur Specific [place] Urine Protein Urine Ketones Urine Blood Urine Nitrate Urine Bilirubin Urine Urobilinogen Ur Leukocyte Esterase Urine WBC (Auto) Urine RBC (Auto) Urine Bacteria Urine Glucose Exam: GEN: no acute distress. alert and appropriate. LUNGS: clear to auscultation bilaterally. CV: regular rate and rhythm ABD: + bowel sounds, soft, non-tender, non-distended EXT: No edema. Right knee dressing c/d/i NEURO: CN II-XII intact. Motor 5/5 BLE except limited testing right knee and hip due to pain. Sensation intact. Assessment/Plan: 68yo woman s/p right TKR revision. #Right TKR revision: PT/OT. Continue pain meds. I reviewed MAR and d/w with pt and nurse [place] [facility] [place] [facility] lower mg of oxycodone than what she uses at home and may take 15mg oxycodone with current percocet. She had a significant gap of time without 15mg oxycodone last night. f/u with Dr. Chu #DVT ppx: Eliquis #Insomnia: Ambien prn as at home #Anxiety: xanax prn as at home #Urine frequency: UA negative. Likely mobilizing fluids post-op at night. Continue elevating legs between therapies during the day. #Bowels: make bowel meds prn #Diabetes mellitus: metformin #COPD: continue inhalers and nebs prn #Advanced directives: full code #Estimated LOS: anticipate d/c around 05/2305/17/18 08:39
[2018-05-17] MEDS: oxyCODONE/Acetamin 5/325 MG* TAB PO PRN ×3 (11:13→22:38)
[2018-05-17] MEDS: Atorvastatin* 20 MG TAB PO SCH (16:34)
[2018-05-17] MEDS: ALPRAZolam TAB* 0.5 MG PO PRN (21:24)
[2018-05-18] MEDS: Carisoprodol TAB* 350 MG PO PRN ×2 (01:30→10:16)
[2018-05-18] MEDS: Zolpidem TAB* 10 MG PO PRN (01:30)
[2018-05-18] MEDS: oxyCODONE/Acetamin 5/325 MG* TAB PO PRN ×5 (03:00→21:16)
[2018-05-18] MEDS: oxyCODONE TAB* 5 MG TAB PO PRN ×3 (06:36→19:44)
[2018-05-18] MEDS: ALPRAZolam TAB* 0.5 MG PO PRN (06:36)
[2018-05-18] MEDS: guaiFENesin ER TAB 600 MG PO SCH ×2 (08:27→21:34)
[2018-05-18] MEDS: Apixaban* 2.5 MG TAB PO SCH ×2 (08:27→21:33)
[2018-05-18] MEDS: metFORMIN* 500 MG TAB PO SCH (08:27)
[2018-05-18] MEDS: Pantoprazole TAB * 40 MG TAB PO SCH (08:27)
[2018-05-18] MEDS: Metolazone TAB* 5 MG PO SCH (08:27)
[2018-05-18] MEDS: oxyCODONE SR TAB(*) 20 MG TAB.SR PO SCH ×2 (08:27→21:34)
[2018-05-18] MEDS: Fluticasone-Salmeterol 250-50* DISKUS INH SCH ×2 (08:32→21:37)
[2018-05-18] MEDS: Insulin LISPRO* 1 UNITS UNIT SUBCUT SCH ×4 (08:32→20:30)
[2018-05-18] MEDS: PTO: Umeclidinium 62.5 MDI(NF) MDI INH SCH (08:34)
[2018-05-18] MEDS: VALSARTAN 160 MG PO SCH (08:54)
[2018-05-18] MEDS: CMCS: Nebivolol TAB (NF) 2.5 MG TAB PO SCH ×2 (08:54→21:34)
--- NOTE | 2018-05-18 09:33 | PN ---
Progress Note Date of Service: 05/18/18 Note: JUAN MAN was visited. Nursing notes read and reviewed. Urinating less at night. Ongoing insomnia, which was an issue before admission at home as well. No chest pain, shortness of breath or abdominal pain. Current Medications: Active Medications Generic Name Dose Route Start Last Admin Trade Name Freq PRN Reason Stop Dose Admin Acetaminophen 650 mg 05/15/18 12:52 Tylenol Tab* PO Q6H PRN FEVER/PAIN Albuterol 2 puff 05/15/18 17:11 05/16/18 20:24 Ventolin Hfa Inhaler* INH 2 puff Q6H PRN Administration SOB/WHEEZING Alprazolam 1 mg 05/15/18 22:00 05/18/18 06:36 Xanax Tab* PO 1 mg TID PRN Administration ANXIETY Apixaban 2.5 mg 05/15/18 21:00 05/18/18 08:27 Eliquis* PO 2.5 mg BID YUE Administration Atorvastatin Calcium 20 mg 05/15/18 17:00 05/17/18 16:34 Lipitor* PO 20 mg 1700 YUE Administration Carisoprodol 350 mg 05/15/18 13:05 05/18/18 01:30 Soma Tab* PO 350 mg Q8H PRN Administration SPASMS Dextrose 12.5 gm 05/15/18 13:00 D50w Syringe 50 Ml* IV PUSH .FOR FS < 60 - SS PRN FS < 60 Docusate Sodium 100 mg 05/16/18 09:44 Colace Cap* PO BID PRN CONSTIPATION Guaifenesin 600 mg 05/15/18 21:00 05/18/18 08:27 Mucinex* PO 600 mg BID YUE Administration Insulin Human Lispro 0 - 15 units 05/15/18 16:30 05/18/18 08:32 Humalog* SUBCUT 2 units ACHS YUE Administration Protocol Ipratropium [place] 0.5 mg 05/15/18 17:40 Atrovent 0.5 Mg Neb.Rosalie* INH Q4H PRN SOB/WHEEZING Magnesium Hydroxide 30 ml 05/15/18 12:52 Milk Of Magnesia Liq* PO Q6H PRN CONSTIPATION Metformin HCl 500 mg 05/16/18 09:00 05/18/18 08:27 Glucophage* PO 500 mg DAILY YUE Administration Metolazone 5 mg 05/16/18 08:30 05/18/18 08:27 Zaroxolyn Tab* PO 5 mg DAILY@0830 YUE Administration Nebivolol 10 mg 05/15/18 21:00 05/18/18 08:54 Bystolic Tab (Nf) PO 10 mg BID YUE Administration Oxycodone HCl 20 mg 05/15/18 21:00 05/18/18 08:27 Oxycontin(*) PO 20 mg Q12HR YUE Administration Oxycodone HCl 15 mg 05/15/18 17:10 05/18/18 06:36 Roxycodone Tab* PO 15 mg Q4H PRN Administration PAIN - SEVERE Oxycodone/Acetaminophen 2 tab 05/15/18 13:05 05/18/18 08:29 Percocet 5/325 Tab* PO 2 tab Q4H PRN Administration PAIN - SEVERE Pantoprazole Sodium 40 mg 05/16/18 09:00 05/18/18 08:27 Protonix Tab* PO 40 mg DAILY YUE Administration Fluticasone/Salmeterol 1 puff 05/15/18 21:00 05/18/18 08:32 Advair Diskus 250-50* INH 1 puff BID YUE Administration Senna 2 tab 05/16/18 09:44 Senokot Tab* PO BEDTIME PRN CONSTIPATION Umeclidinium [place] 1 inh 05/16/18 09:00 05/18/18 08:34 Incruse Ellipta Mdi (Nf) INH 1 inh DAILY YUE Administration Valsartan 320 mg 05/16/18 09:00 05/18/18 08:54 Diovan Tab* PO 320 mg DAILY YUE Administration Zolpidem Tartrate 10 mg 05/16/18 09:43 05/18/18 01:30 Ambien Tab* PO 10 mg BEDTIME PRN Administration INSOMNIA Vital Signs: Vital Signs Temp Pulse Resp BP Pulse Ox 98.8 F 74 18 102/60 95 05/18/18 05:06 05/18/18 05:06 05/18/18 08:29 05/18/18 08:00 05/18/18 05:06 Lab Results: Laboratory Results - last 24 hr 05/17/18 05/17/18 05/17/18 07:25 11:35 16:33 POC Glucose (mg/dL) 117 H 129 H 121 H 05/17/18 05/18/18 20:21 07:37 POC Glucose (mg/dL) 75 139 H Exam: GEN: no acute distress. alert and appropriate. LUNGS: clear to auscultation bilaterally. CV: regular rate and rhythm ABD: + bowel sounds, soft, non-tender, non-distended EXT: No edema. Right knee sutures c/d/i. NEURO: CN II-XII intact. Motor 5/5 BLE except limited testing right knee and hip due to pain. Sensation intact. Assessment/Plan: 68yo woman s/p right TKR revision. #Right TKR revision: PT/OT. Continue pain meds. f/u with Dr. Chu #DVT ppx: Eliquis #Insomnia: Ambien prn as at home. This is a chronic issue. #Anxiety: xanax prn as at home #Urine frequency: UA and culture negative. Likely mobilizing fluids post-op at night. Continue elevating legs between therapies during the day. #Bowels: bowel meds prn #Diabetes mellitus: metformin #COPD: continue inhalers and nebs prn #Advanced directives: full code #Estimated LOS: anticipate d/c around 05/2305/18/18 09:32
[2018-05-18] MEDS: Atorvastatin* 20 MG TAB PO SCH (16:26)
[2018-05-19] MEDS: Albuterol HFA INHALER* 8 gm MDI INH PRN ×2 (00:33→08:31)
[2018-05-19] MEDS: Carisoprodol TAB* 350 MG PO PRN (01:42)
[2018-05-19] MEDS: Zolpidem TAB* 10 MG PO PRN ×2 (01:42→22:48)
[2018-05-19] MEDS: oxyCODONE/Acetamin 5/325 MG* TAB PO PRN ×4 (05:53→22:48)
[2018-05-19] MEDS: Pantoprazole TAB * 40 MG TAB PO SCH (08:27)
[2018-05-19] MEDS: oxyCODONE SR TAB(*) 20 MG TAB.SR PO SCH ×2 (08:28→21:40)
[2018-05-19] MEDS: Apixaban* 2.5 MG TAB PO SCH ×2 (08:28→20:19)
[2018-05-19] MEDS: guaiFENesin ER TAB 600 MG PO SCH ×2 (08:28→20:19)
[2018-05-19] MEDS: metFORMIN* 500 MG TAB PO SCH (08:28)
[2018-05-19] MEDS: Fluticasone-Salmeterol 250-50* DISKUS INH SCH ×2 (08:28→20:21)
[2018-05-19] MEDS: VALSARTAN 160 MG PO SCH (08:28)
[2018-05-19] MEDS: Metolazone TAB* 5 MG PO SCH (08:29)
[2018-05-19] MEDS: CMCS: Nebivolol TAB (NF) 2.5 MG TAB PO SCH ×2 (08:29→20:19)
[2018-05-19] MEDS: PTO: Umeclidinium 62.5 MDI(NF) MDI INH SCH (08:29)
[2018-05-19] MEDS: Insulin LISPRO* 1 UNITS UNIT SUBCUT SCH ×4 (09:06→21:15)
[2018-05-19] MEDS: oxyCODONE TAB* 5 MG TAB PO PRN ×3 (09:12→20:19)
[2018-05-19] MEDS: Atorvastatin* 20 MG TAB PO SCH (17:29)
--- NOTE | 2018-05-19 18:15 | PN ---
Progress Note Date of Service: 05/19/18 Note: JUAN MAN was visited. Therapy notes read and reviewed. She is breathing easy and feels okay overall. No complaints other than pain. I reviewed her medications. She thinks the Percocet works better than the Oxycodone. We will try to alternate every 2 hours, and cut oxycodone to 10 mg Current Medications: Active Medications Generic Name Dose Route Start Last Admin Trade Name Freq PRN Reason Stop Dose Admin Acetaminophen 650 mg 05/15/18 12:52 Tylenol Tab* PO Q6H PRN FEVER/PAIN Albuterol 2 puff 05/15/18 17:11 05/19/18 08:31 Ventolin Hfa Inhaler* INH 2 puff Q6H PRN Administration SOB/WHEEZING Alprazolam 1 mg 05/15/18 22:00 05/18/18 06:36 Xanax Tab* PO 1 mg TID PRN Administration ANXIETY Apixaban 2.5 mg 05/15/18 21:00 05/19/18 08:28 Eliquis* PO 2.5 mg BID YUE Administration Atorvastatin Calcium 20 mg 05/15/18 17:00 05/19/18 17:29 Lipitor* PO 20 mg 1700 YUE Administration Carisoprodol 350 mg 05/15/18 13:05 05/19/18 01:42 Soma Tab* PO 350 mg Q8H PRN Administration SPASMS Dextrose 12.5 gm 05/15/18 13:00 D50w Syringe 50 Ml* IV PUSH .FOR FS < 60 - SS PRN FS < 60 Docusate Sodium 100 mg 05/16/18 09:44 Colace Cap* PO BID PRN CONSTIPATION Guaifenesin 600 mg 05/15/18 21:00 05/19/18 08:28 Mucinex* PO 600 mg BID YUE Administration Insulin Human Lispro 0 - 15 units 05/15/18 16:30 05/19/18 16:24 Humalog* SUBCUT Not Given ACHS [facility] Protocol Ipratropium [place] 0.5 mg 05/15/18 17:40 Atrovent 0.5 Mg Neb.Rosalie* INH Q4H PRN SOB/WHEEZING Magnesium Hydroxide 30 ml 05/15/18 12:52 Milk Of Magnesia Liq* PO Q6H PRN CONSTIPATION Metformin HCl 500 mg 05/16/18 09:00 05/19/18 08:28 Glucophage* PO 500 mg DAILY YUE Administration Metolazone 5 mg 05/16/18 08:30 05/19/18 08:29 Zaroxolyn Tab* PO 5 mg DAILY@0830 YUE Administration Nebivolol 10 mg 05/15/18 21:00 05/19/18 08:29 Bystolic Tab (Nf) PO 10 mg BID YUE Administration Oxycodone HCl 20 mg 05/15/18 21:00 05/19/18 08:28 Oxycontin(*) PO 20 mg Q12HR YUE Administration Oxycodone HCl 10 mg 05/19/18 11:19 05/19/18 13:41 Roxycodone Tab* PO 10 mg Q4H PRN Administration PAIN - SEVERE Oxycodone/Acetaminophen 2 tab 05/15/18 13:05 05/19/18 16:16 Percocet 5/325 Tab* PO 2 tab Q4H PRN Administration PAIN - SEVERE Pantoprazole Sodium 40 mg 05/16/18 09:00 05/19/18 08:27 Protonix Tab* PO 40 mg DAILY YUE Administration Fluticasone/Salmeterol 1 puff 05/15/18 21:00 05/19/18 08:28 Advair Diskus 250-50* INH 1 puff BID YUE Administration Senna 2 tab 05/16/18 09:44 Senokot Tab* PO BEDTIME PRN CONSTIPATION Umeclidinium [place] 1 inh 05/16/18 09:00 05/19/18 08:29 Incruse Ellipta Mdi (Nf) INH 1 inh DAILY YUE Administration Valsartan 320 mg 05/16/18 09:00 05/19/18 08:28 Diovan Tab* PO 320 mg DAILY YUE Administration Zolpidem Tartrate 10 mg 05/16/18 09:43 05/19/18 01:42 Ambien Tab* PO 10 mg BEDTIME PRN Administration INSOMNIA Vital Signs: Vital Signs Temp Pulse Resp BP Pulse Ox 98.9 F 88 16 121/62 96 05/19/18 06:07 05/19/18 06:07 05/19/18 16:28 05/19/18 06:07 05/19/18 06:07 Lab Results: Laboratory Results - last 24 hr 05/18/18 05/19/18 05/19/18 20:28 08:34 11:48 POC Glucose (mg/dL) 101 H 110 H 140 H 05/19/18 16:14 POC Glucose (mg/dL) 130 H Exam: GENERAL: no acute distress. alert and appropriate. LUNGS: clear to auscultation bilaterally. HEART: regular rate and rhythm ABDOMEN: + bowel sounds, soft, non-tender, non-distended EXTREMITIES: No edema. Right knee sutures c/d/i. NEUROLOGIC: CN II-XII intact. Motor 5/5 BLE except limited testing right knee and hip due to pain. Sensation intact. Assessment/Plan: 68yo woman s/p right TKR revision. 1. Right TKR revision: PT/OT. Continue pain meds. f/u with Dr. Chu 2. DVT prophylaxis: Eliquis 3. Insomnia: Ambien prn as at home. This is a chronic issue. 4. Anxiety: xanax prn as at home 5. Urine frequency: UA and culture negative. Likely mobilizing fluids post-op at night. Continue elevating legs between therapies during the day. 6. Bowels: bowel meds prn 7. Diabetes mellitus: metformin 8. COPD: continue inhalers and nebs prn 9. Advanced directives: full code 10. Estimated LOS: anticipate d/c around 05/2305/19/18 18:16
[2018-05-19] MEDS: ALPRAZolam TAB* 0.5 MG PO PRN (20:23)
[2018-05-20] MEDS: Carisoprodol TAB* 350 MG PO PRN ×2 (02:30→20:15)
[2018-05-20] MEDS: oxyCODONE/Acetamin 5/325 MG* TAB PO PRN ×4 (02:30→19:02)
[2018-05-20] MEDS: oxyCODONE TAB* 5 MG TAB PO PRN ×3 (04:47→22:00)
[2018-05-20] MEDS: Insulin LISPRO* 1 UNITS UNIT SUBCUT SCH ×4 (07:34→20:24)
[2018-05-20] MEDS: metFORMIN* 500 MG TAB PO SCH (07:37)
[2018-05-20] MEDS: guaiFENesin ER TAB 600 MG PO SCH ×2 (07:37→20:15)
[2018-05-20] MEDS: Pantoprazole TAB * 40 MG TAB PO SCH (07:37)
[2018-05-20] MEDS: Metolazone TAB* 5 MG PO SCH (07:37)
[2018-05-20] MEDS: Apixaban* 2.5 MG TAB PO SCH ×2 (07:37→20:15)
[2018-05-20] MEDS: VALSARTAN 160 MG PO SCH (07:37)
[2018-05-20] MEDS: CMCS: Nebivolol TAB (NF) 2.5 MG TAB PO SCH ×2 (07:42→20:15)
[2018-05-20] MEDS: oxyCODONE SR TAB(*) 20 MG TAB.SR PO SCH ×2 (09:08→20:15)
[2018-05-20] MEDS: Fluticasone-Salmeterol 250-50* DISKUS INH SCH ×2 (09:10→20:23)
[2018-05-20] MEDS: PTO: Umeclidinium 62.5 MDI(NF) MDI INH SCH (09:15)
--- NOTE | 2018-05-20 12:42 | PMRUTEAM ---
RU: Team Meeting Current Status: Nursing: Current Status Skin Deviations [Bilateral Other Heel] Skin Deviations [Right Knee] Incision Skin Deviation Description [ boggy, floated Bilateral Heel] Skin Deviation Description [ drsg/ESTRELLA/cryounit in place Right Knee] Bladder Current Status continent - using bathroom to void Bowel Current Status continent Nutrition Current Status 100% of most meals Medication Current Status Takes all pills whole with water Physical Therapy: Current Status Bed Mobility Assistance Min Assist Transfer Mobility Assistance Supervision Transfer/Bed Mobility Rolling Walker Recommended Devices Ambulation Assistance Supervision Ambulation Assistive Devices Rolling Walker Number of Feet Patient 70' Ambulated Stairs Assistance Not Tested Stairs Recommended Devices Two Rails Number of Stairs 6 Curb Not Tested Occupational Therapy: Current Status Upper Body Dressing Supervision Lower Body Dressing Min Assist Bathing Min Assist,Mod Assist Toileting Supervision,Contact Guard Assist Toilet Transfer Supervision Shower Transfer Contact Guard Assist Eating Ind with Adaptive Equip Rec Therapy: Current Status Summary of Assessment and RT assessment complete. Patient identified with Clinical Impression few hobbies she engages in. Appears to be disinterested in engaging in leisure activities or 1:1 leisure visits. Treatment Goals Patient will engage in recreation and leisure activities while on the unit as appropriate. Treatment Plan Provide and encourage involvement in RT services. 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 Training TBD pt lives alone Anticipated Discharge Home Destination Discharge With home care svs and family support Nutrition: Current Status Monitoring Pt admitted to [facility] s/p revision of R total knee arthroplasty 05/13/18. Pt with hx T2DM; BG well- controlled in 100s-140s. Intake varies from 90-100 % of some meals, to 10% of others. Overall appears to be meeting needs. No evidence difficulty chewing/swallowing per nursing assessments. Regular formed BMs per stool record. Appropriate consistent carb diet ordered. Full nutrition assessment to follow per protocol (05/22/18). Goals: Physical Therapy: Updated Goals Transfer/Bed Mobility Rolling Walker Recommended Devices Occupational Therapy: Initial Goals Goals to be Completed in (Days 5-7 ) Upper Body Bathing Routine Independent Lower Body Bathing Routine Minimal Contact Assist Upper Body Dressing Routine Independent Lower Body Dressing Routine Modified Independent with Toilet Hygeine and Clothing Modified Independent with Management Routine Toilet Transfer Routine Modified Independent with Step-In Shower Transfer Supervision/Set Up Routine Functional Transfers for ADL Modified Independent with Grooming Routine Independent Feeding Routine Independent Light Housekeeping Tasks Modified Independent with Light Housekeeping Tasks light meal prep Assistive Devices Nursing: Goals Bladder Goal continent - using bathroom to void Bowel Goal continent Nutrition Goal 100% of most meals Medication Goal Takes all pills whole with water Nutrition: Goals Intervention Goals 1. Intake will remain adequate to promote post-op healing 2. BG will remain adequately controlled (<180) 3. Pt will maintain regular bowel pattern without constipation (or diarrhea) Social Work: Goals Discharge Plan return home with home care svs and family support Potential for Family Training TBD pt lives alone Anticipated Discharge Home Destination Discharge With home care svs and family support Care Plan: Care Plan ADL's - Improve/Maintain Start: 05/15/18 14:16 Freq: DAILY Status: Active Target: Protocol: Activity Type Activity Date Activity User E-Sign Co-Sign Detail Recorded Client Recorded Date Recorded By Document 05/19/18 14:36 [id number] [id number] 05/19/18 14:36 [id number] 05/19/18 14:36 PMRU Outcome: ADL's/ADL Transfers Orders/Interventions Occupational Therapy Evaluation & Treatment Communication Tool in Patient Room Device Yes Address Deficits Secondary To: Right TKA revision Patient to receive OT 5x/wk for 60-120 Therex min/day Self Care Management Group Therapy UE/LE ADL's with Assist Yes: Raine except [place] for bathing at baseline ADL Transfers with Assist Yes: Raine Toileting: Transfers,Clothing Management Yes: Raine ,Hygeine w/Assist Light Kitchen/Laundry w/Assist Yes: Raine light meal prep Progression Toward Outcome/Goals Progressing Outcome/Goals Met Pt participated well in treatment session, improved standing balance during ADL, continued difficulty reaching RLE with continued c/o significant pain. DVT Prophylaxis- Improve/Maintain Start: 05/15/18 16:21 Freq: QSHIFT Status: Active Target: Protocol: Activity Type Activity Date Activity User E-Sign Co-Sign Detail Recorded Client Recorded Date Recorded By Document 05/19/18 20:00 [id number] 05/19/18 21:34 [id number] 05/19/18 20:00 PMRU Outcome: DVT Prophylaxis Outcome/Goals Remains Free of DVT Complies with DVT Prophylaxis /Treatment Demonstrates Knowledge of DVT Prevention/ Treatment TEDS Stockings on Every AM, Off at HS Progression Toward Outcome/Goals Progressing Outcome/Goals Met Comment estrella wraps Discharge Planning - Improve/Maintain Start: 05/15/18 16:21 Freq: DAILY Status: Active Target: Protocol: Activity Type Activity Date Activity User E-Sign Co-Sign Detail Recorded Client Recorded Date Recorded By Document 05/20/18 01:13 [id number] 05/20/18 01:13 [id number] 05/20/18 01:13 PMRU Outcome: Discharge Planning Update Patient Family No Outcome/Goals Demonstrates Understanding of Discharge Plan Progression Toward Outcome/Goals Progressing Education-Improve/Maintain Start: 05/15/18 16:21 Freq: QSHIFT Status: Active Target: Protocol: Activity Type Activity Date Activity User E-Sign Co-Sign Detail Recorded Client Recorded Date Recorded By Document 05/19/18 20:00 [id number] 05/19/18 21:34 [id number] 05/19/18 20:00 PMRU Outcome: Education Outcome/Goals Demonstrates Skills Encourage Questions Progression Toward Outcome/Goals Progressing /GI-Improve/Maintain Start: 05/15/18 16:21 Freq: QSHIFT Status: Complete Target: Protocol: Activity Type Activity Date Activity User E-Sign Co-Sign Detail Recorded Client Recorded Date Recorded By Document 05/17/18 08:00 [id number] 05/17/18 15:27 [id number] 05/17/18 08:00 PMRU Outcome: Genitourinary/ Gastrointestinal Genitourinary- Outcome/Goals Maintain/ Achieve Urinary Continence Maintain/ Achieve Adequate Urinary Output Remain Free of Hospital- Acquired UTI Gastrointestinal-Outcome/Goals Maintain/ Achieve Bowel Regularity in Accordance with Pt's Baseline Prevent Constipation Laxatives as Ordered Genitourinary- Outcome/Goals Met Maintain/ Achieve Urinary Continence Gastrointestinal-Outcome/Goals Met Maintain/ Achieve Bowel Regularity in Accordance with Pt's Baseline Remain Free of Emesis Medication Administration Start: 05/15/18 16:21 Freq: QSHIFT Status: Active Target: Protocol: Activity Type Activity Date Activity User E-Sign Co-Sign Detail Recorded Client Recorded Date Recorded By Document 05/19/18 20:00 [id number] 05/19/18 21:34 [id number] 05/19/18 20:00 PMRU Outcome: Medication Administration Assess Patient Knowledge/Teach Med Yes Education for all Meds Outcome/Goals Patient Independent with Medication Administration at Home Demonstrates Understanding Progression Towards Outcome/Goals Progressing Is Patient Going Home on Lovenox? No Metabolic Status- Improve/Maintain Start: 05/15/18 16:21 Freq: QSHIFT Status: Complete Target: Protocol: Activity Type Activity Date Activity User E-Sign Co-Sign Detail Recorded Client Recorded Date Recorded By Document 05/17/18 08:00 [id number] 05/17/18 15:27 [id number] 05/17/18 08:00 PMRU Outcome: Metabolic Status Have Fingersticks Been Ordered Yes Fingerstick Order Frequency AC & HS Outcome/Goals Maintain/ Improve Metabolic Status Demonstrate Knowledge of Prevention/ Treatment of Metabolic Imbalances Outcome/Goals Met Maintain/ Improve Metabolic Status Demonstrate Knowledge of Prevention/ Treatment of Metabolic Imbalances Mobility- Improve/Maintain Start: 05/15/18 11:29 Freq: DAILY Status: Active Target: Protocol: Activity Type Activity Date Activity User E-Sign Co-Sign Detail Recorded Client Recorded Date Recorded By Document 05/15/18 11:29 [id number] [email or web address] 05/15/18 11:30 [id number] 05/15/18 11:29 PMRU Outcome: Mobility Physical Therapy Evaluation and Yes Treatment Activity OOB with Assistance Yes WBAT Yes Device Yes Assistance Yes Patient to be seen 5x/wk for 60-120 min/ Therex day for: Mobility Training Gait Training Balance Other Therapy Comment "Knee immobilizer prn , not needed to ambulate" Outcome/Goals Maintain/ Achieve Baseline Mobility Status Improve Mobility Status Demonstrates Proper Use of Assistive Devices Free from Complications of Immobility Bed Mobility Yes: Independent Transfers Yes: Modified independent with RW Gait x ft Yes: Modified independent 150 ' with RW Up/Down Stairs Yes: Independent 6 steps 2 rails With HEP Yes: Independent Pain/Comfort- Improve/Maintain Start: 05/15/18 16:21 Freq: QSHIFT Status: Active Target: Protocol: Activity Type Activity Date Activity User E-Sign Co-Sign Detail Recorded Client Recorded Date Recorded By Document 05/19/18 20:00 [id number] [id number] 05/19/18 21:34 [id number] 05/19/18 20:00 PMRU Outcome: Pain/Comfort Outcome/Goals Demonstrates Knowledge and Use of Available Comfort Measures Achieves Acceptable Comfort/Pain Level as Determined by Patient/Condit Maintain Comfort Level Allowing Patient to Fully Participate in Rehab Progression Toward Outcome/Goals Progressing Respiratory - Improve/Maintain Start: 05/15/18 16:21 Freq: QSHIFT Status: Active Target: Protocol: Activity Type Activity Date Activity User E-Sign Co-Sign Detail Recorded Client Recorded Date Recorded By Document 05/19/18 20:00 [id number] 05/19/18 21:34 [id number] 05/19/18 20:00 PMRU Outcome: Respiratory Does Patient Have a Trach No Outcome/Goals Maintain/ Improve Baseline Respiratory Status Maintain/ Improve Activity Tolerance Prevent Pneumonia/ Atelectasis Progression Toward Outcome/Goals Progressing Safety- Improve/Maintain Start: 05/15/18 16:21 Freq: QSHIFT Status: Active Target: Protocol: Activity Type Activity Date Activity User E-Sign Co-Sign Detail Recorded Client Recorded Date Recorded By Document 05/19/18 20:00 [id number] 05/19/18 21:34 [id number] 05/19/18 20:00 PMRU Outcome: Safety Outcome/Goals Remain Free of Injury or Harm Cooperates with Safety Measures for Least Restrictive Environment Prevent Falls/ Injury Progression Toward Outcome/Goals Progressing Skin- Improve/Maintain Start: 05/15/18 16:21 Freq: QSHIFT Status: Active Target: Protocol: Activity Type Activity Date Activity User E-Sign Co-Sign Detail Recorded Client Recorded Date Recorded By Document 05/19/18 20:00 [id number] 05/19/18 21:34 [id number] 05/19/18 20:00 PMRU Outcome: Skin Skin Risk Level Medium Skin Orders Dressing Change Outcome/Goals Maintain/ Improve Skin Intergrity Free from Decubitus Surgical Incisions Healing Progression Toward Outcome/Goals Progressing Medicine Note: Length of Stay: 3 days Anticipated Discharge Destination: Home Tentative Discharge Date: 05/23/18 Discharged to: home
[2018-05-20] MEDS: Atorvastatin* 20 MG TAB PO SCH (17:00)
--- NOTE | 2018-05-20 18:58 | PN ---
Progress Note Date of Service: 05/20/18 Note: JUAN MAN was visited. Therapy notes read and reviewed. She was discussed in interdisciplinary team rounds. She is moving a little better with therapy. Current Medications: Active Medications Generic Name Dose Route Start Last Admin Trade Name Freq PRN Reason Stop Dose Admin Acetaminophen 650 mg 05/15/18 12:52 Tylenol Tab* PO Q6H PRN FEVER/PAIN Albuterol 2 puff 05/15/18 17:11 05/19/18 08:31 Ventolin Hfa Inhaler* INH 2 puff Q6H PRN Administration SOB/WHEEZING Alprazolam 1 mg 05/15/18 22:00 05/19/18 20:23 Xanax Tab* PO 1 mg TID PRN Administration ANXIETY Apixaban 2.5 mg 05/15/18 21:00 05/20/18 07:37 Eliquis* PO 2.5 mg BID YUE Administration Atorvastatin Calcium 20 mg 05/15/18 17:00 05/20/18 17:00 Lipitor* PO 20 mg 1700 YUE Administration Carisoprodol 350 mg 05/15/18 13:05 05/20/18 02:30 Soma Tab* PO 350 mg Q8H PRN Administration SPASMS Dextrose 12.5 gm 05/15/18 13:00 D50w Syringe 50 Ml* IV PUSH .FOR FS < 60 - SS PRN FS < 60 Docusate Sodium 100 mg 05/16/18 09:44 Colace Cap* PO BID PRN CONSTIPATION Guaifenesin 600 mg 05/15/18 21:00 05/20/18 07:37 Mucinex* PO 600 mg BID YUE Administration Insulin Human Lispro 0 - 15 units 05/15/18 16:30 05/20/18 16:59 Humalog* SUBCUT Not Given ACHS YUE Protocol Ipratropium [place] 0.5 mg 05/15/18 17:40 Atrovent 0.5 Mg Neb.Rosalie* INH Q4H PRN SOB/WHEEZING Magnesium Hydroxide 30 ml 05/15/18 12:52 Milk Of Magnesia Liq* PO Q6H PRN CONSTIPATION Metformin HCl 500 mg 05/16/18 09:00 05/20/18 07:37 Glucophage* PO 500 mg DAILY YUE Administration Metolazone 5 mg 05/16/18 08:30 05/20/18 07:37 Zaroxolyn Tab* PO 5 mg DAILY@0830 YUE Administration Nebivolol 10 mg 05/15/18 21:00 05/20/18 07:42 Bystolic Tab (Nf) PO 10 mg BID YUE Administration Oxycodone HCl 20 mg 05/15/18 21:00 05/20/18 09:08 Oxycontin(*) PO 20 mg Q12HR YUE Administration Oxycodone HCl 10 mg 05/19/18 11:19 05/20/18 11:37 Roxycodone Tab* PO 10 mg Q4H PRN Administration PAIN - SEVERE Oxycodone/Acetaminophen 2 tab 05/15/18 13:05 05/20/18 14:36 Percocet 5/325 Tab* PO 2 tab Q4H PRN Administration PAIN - SEVERE Pantoprazole Sodium 40 mg 05/16/18 09:00 05/20/18 07:37 Protonix Tab* PO 40 mg DAILY YUE Administration Fluticasone/Salmeterol 1 puff 05/15/18 21:00 05/20/18 09:10 Advair Diskus 250-50* INH 1 puff BID YUE Administration Senna 2 tab 05/16/18 09:44 Senokot Tab* PO BEDTIME PRN CONSTIPATION Umeclidinium [place] 1 inh 05/16/18 09:00 05/20/18 09:15 Incruse Ellipta Mdi (Nf) INH 1 inh DAILY YUE Administration Valsartan 320 mg 05/16/18 09:00 05/20/18 07:37 Diovan Tab* PO 320 mg DAILY YUE Administration Zolpidem Tartrate 10 mg 05/16/18 09:43 05/19/18 22:48 Ambien Tab* PO 10 mg BEDTIME PRN Administration INSOMNIA Vital Signs: Vital Signs Temp Pulse Resp BP Pulse Ox 98.6 F 76 20 138/77 99 05/20/18 17:11 05/20/18 17:11 05/20/18 17:11 05/20/18 17:11 05/20/18 18:19 Lab Results: Laboratory Results - last 24 hr 05/19/18 05/20/18 05/20/18 20:18 07:21 11:40 POC Glucose (mg/dL) 107 H 98 100 05/20/18 16:53 POC Glucose (mg/dL) 125 H Exam: GENERAL: no acute distress. alert and appropriate. LUNGS: clear to auscultation bilaterally. HEART: regular rate and rhythm ABDOMEN: + bowel sounds, soft, non-tender, non-distended EXTREMITIES: No edema. Right knee sutures c/d/i. NEUROLOGIC: CN II-XII intact. Motor 5/5 BLE except limited testing right knee and hip due to pain. Sensation intact. Assessment/Plan: 68yo woman s/p right TKR revision. 1. Right TKR revision: PT/OT. Continue pain meds. f/u with Dr. Chu 2. DVT prophylaxis: Eliquis 3. Insomnia: Ambien prn as at home. This is a chronic issue. 4. Anxiety: xanax prn as at home 5. Bowels: bowel meds prn 6. Diabetes mellitus: metformin 7. COPD: continue inhalers and nebs prn 8. Advanced directives: full code 9. Estimated LOS: anticipate d/c around 05/2305/20/18 18:59
[2018-05-21] MEDS: oxyCODONE/Acetamin 5/325 MG* TAB PO PRN ×4 (00:10→19:14)
[2018-05-21] MEDS: ALPRAZolam TAB* 0.5 MG PO PRN (00:10)
[2018-05-21] MEDS: Zolpidem TAB* 10 MG PO PRN (02:35)
[2018-05-21] MEDS: oxyCODONE TAB* 5 MG TAB PO PRN ×3 (02:35→16:00)
[2018-05-21] MEDS: Insulin LISPRO* 1 UNITS UNIT SUBCUT SCH ×4 (07:35→20:56)
[2018-05-21] MEDS: VALSARTAN 160 MG PO SCH (09:46)
[2018-05-21] MEDS: Apixaban* 2.5 MG TAB PO SCH ×2 (09:46→20:51)
[2018-05-21] MEDS: Metolazone TAB* 5 MG PO SCH (09:46)
[2018-05-21] MEDS: metFORMIN* 500 MG TAB PO SCH (09:47)
[2018-05-21] MEDS: oxyCODONE SR TAB(*) 20 MG TAB.SR PO SCH ×2 (09:47→20:52)
[2018-05-21] MEDS: guaiFENesin ER TAB 600 MG PO SCH ×2 (09:47→20:51)
[2018-05-21] MEDS: Pantoprazole TAB * 40 MG TAB PO SCH (09:47)
[2018-05-21] MEDS: CMCS: Nebivolol TAB (NF) 2.5 MG TAB PO SCH ×2 (09:50→20:51)
[2018-05-21] MEDS: Fluticasone-Salmeterol 250-50* DISKUS INH SCH ×2 (09:57→20:51)
[2018-05-21] MEDS: PTO: Umeclidinium 62.5 MDI(NF) MDI INH SCH (09:59)
[2018-05-21] MEDS: Albuterol HFA INHALER* 8 gm MDI INH PRN (11:50)
[2018-05-21] MEDS: Carisoprodol TAB* 350 MG PO PRN (16:00)
--- NOTE | 2018-05-21 18:19 | PN ---
Progress Note Date of Service: 05/21/18 Note: JUAN MAN was visited. Therapy notes read and reviewed. She is a little wheezy this evening but otherwise did okay with therapy. Moving a little better Current Medications: Active Medications Generic Name Dose Route Start Last Admin Trade Name Freq PRN Reason Stop Dose Admin Acetaminophen 650 mg 05/15/18 12:52 Tylenol Tab* PO Q6H PRN FEVER/PAIN Albuterol 2 puff 05/15/18 17:11 05/21/18 11:50 Ventolin Hfa Inhaler* INH 2 puff Q6H PRN Administration SOB/WHEEZING Alprazolam 1 mg 05/15/18 22:00 05/21/18 00:10 Xanax Tab* PO 1 mg TID PRN Administration ANXIETY Apixaban 2.5 mg 05/15/18 21:00 05/21/18 09:46 Eliquis* PO 2.5 mg BID YUE Administration Atorvastatin Calcium 20 mg 05/15/18 17:00 05/20/18 17:00 Lipitor* PO 20 mg 1700 YUE Administration Carisoprodol 350 mg 05/15/18 13:05 05/20/18 20:15 Soma Tab* PO 350 mg Q8H PRN Administration SPASMS Dextrose 12.5 gm 05/15/18 13:00 D50w Syringe 50 Ml* IV PUSH .FOR FS < 60 - SS PRN FS < 60 Docusate Sodium 100 mg 05/16/18 09:44 Colace Cap* PO BID PRN CONSTIPATION Guaifenesin 600 mg 05/15/18 21:00 05/21/18 09:47 Mucinex* PO 600 mg BID YUE Administration Insulin Human Lispro 0 - 15 units 05/15/18 16:30 05/21/18 16:51 Humalog* SUBCUT Not Given ACHS [facility] Protocol Ipratropium [place] 0.5 mg 05/15/18 17:40 Atrovent 0.5 Mg Neb.Rosalie* INH Q4H PRN SOB/WHEEZING Magnesium Hydroxide 30 ml 05/15/18 12:52 Milk Of Magnesia Liq* PO Q6H PRN CONSTIPATION Metformin HCl 500 mg 05/16/18 09:00 05/21/18 09:47 Glucophage* PO 500 mg DAILY YUE Administration Metolazone 5 mg 05/16/18 08:30 05/21/18 09:46 Zaroxolyn Tab* PO 5 mg DAILY@0830 YUE Administration Nebivolol 10 mg 05/15/18 21:00 05/21/18 09:50 Bystolic Tab (Nf) PO 10 mg BID YUE Administration Oxycodone HCl 20 mg 05/15/18 21:00 05/21/18 09:47 Oxycontin(*) PO 20 mg Q12HR YUE Administration Oxycodone HCl 10 mg 05/19/18 11:19 05/21/18 07:26 Roxycodone Tab* PO 10 mg Q4H PRN Administration PAIN - SEVERE Oxycodone/Acetaminophen 2 tab 05/15/18 13:05 05/21/18 12:15 Percocet 5/325 Tab* PO 2 tab Q4H PRN Administration PAIN - SEVERE Pantoprazole Sodium 40 mg 05/16/18 09:00 05/21/18 09:47 Protonix Tab* PO 40 mg DAILY YUE Administration Fluticasone/Salmeterol 1 puff 05/15/18 21:00 05/21/18 09:57 Advair Diskus 250-50* INH 1 puff BID YUE Administration Senna 2 tab 05/16/18 09:44 Senokot Tab* PO BEDTIME PRN CONSTIPATION Umeclidinium [place] 1 inh 05/16/18 09:00 05/21/18 09:59 Incruse Ellipta Mdi (Nf) INH 1 inh DAILY YUE Administration Valsartan 320 mg 05/16/18 09:00 05/21/18 09:46 Diovan Tab* PO 320 mg DAILY YUE Administration Zolpidem Tartrate 10 mg 05/16/18 09:43 05/21/18 02:35 Ambien Tab* PO 10 mg BEDTIME PRN Administration INSOMNIA Vital Signs: Vital Signs Temp Pulse Resp BP Pulse Ox 97.1 F 80 18 122/54 100 05/21/18 16:00 05/21/18 16:00 05/21/18 16:00 05/21/18 16:00 05/21/18 16:00 Lab Results: Laboratory Results - last 24 hr 05/20/18 05/21/18 05/21/18 20:19 07:26 12:15 POC Glucose (mg/dL) 117 H 100 124 H 05/21/18 16:49 POC Glucose (mg/dL) 129 H Exam: GENERAL: no acute distress. alert and appropriate. LUNGS: clear to auscultation bilaterally. HEART: regular rate and rhythm ABDOMEN: + bowel sounds, soft, non-tender, non-distended EXTREMITIES: No edema. Right knee sutures c/d/i. NEUROLOGIC: CN II-XII intact. Motor 5/5 BLE except limited testing right knee and hip due to pain. Sensation intact. Assessment/Plan: 68yo woman s/p right TKR revision. 1. Right TKR revision: PT/OT. Continue pain meds. f/u with Dr. Chu 2. DVT prophylaxis: Eliquis 3. Insomnia: Ambien prn as at home. This is a chronic issue. 4. Anxiety: xanax prn as at home 5. Bowels: bowel meds prn 6. Diabetes mellitus: metformin 7. COPD: continue inhalers and nebs prn 8. Advanced directives: full code 9. Estimated LOS: anticipate d/c around 05/2305/21/18 18:19
[2018-05-21] MEDS: Atorvastatin* 20 MG TAB PO SCH (19:14)
[2018-05-22] MEDS: oxyCODONE/Acetamin 5/325 MG* TAB PO PRN ×4 (01:11→19:43)
[2018-05-22] MEDS: Carisoprodol TAB* 350 MG PO PRN ×2 (01:14→15:46)
[2018-05-22] MEDS: ALPRAZolam TAB* 0.5 MG PO PRN ×2 (05:20→22:07)
[2018-05-22] MEDS: Insulin LISPRO* 1 UNITS UNIT SUBCUT SCH ×2 (09:22→11:30)
[2018-05-22] MEDS: guaiFENesin ER TAB 600 MG PO SCH ×2 (09:31→19:42)
[2018-05-22] MEDS: metFORMIN* 500 MG TAB PO SCH (09:31)
[2018-05-22] MEDS: Metolazone TAB* 5 MG PO SCH (09:31)
[2018-05-22] MEDS: Pantoprazole TAB * 40 MG TAB PO SCH (09:32)
[2018-05-22] MEDS: VALSARTAN 160 MG PO SCH (09:32)
[2018-05-22] MEDS: CMCS: Nebivolol TAB (NF) 2.5 MG TAB PO SCH ×2 (09:32→19:42)
[2018-05-22] MEDS: Apixaban* 2.5 MG TAB PO SCH ×2 (09:32→19:42)
[2018-05-22] MEDS: oxyCODONE TAB* 5 MG TAB PO PRN ×3 (09:34→22:07)
[2018-05-22] MEDS: oxyCODONE SR TAB(*) 20 MG TAB.SR PO SCH ×2 (09:35→19:42)
[2018-05-22] MEDS: Fluticasone-Salmeterol 250-50* DISKUS INH SCH ×2 (09:36→19:46)
[2018-05-22] MEDS: PTO: Umeclidinium 62.5 MDI(NF) MDI INH SCH (09:37)
[2018-05-22] MEDS: Atorvastatin* 20 MG TAB PO SCH (17:26)
--- NOTE | 2018-05-22 19:59 | PN ---
Progress Note Date of Service: 05/22/18 Note: JUAN MAN was visited. Therapy notes read and reviewed. She is not going to be able to return home tomorrow and will need to stay until Saturday. No complaints otherwise Current Medications: Active Medications Generic Name Dose Route Start Last Admin Trade Name Freq PRN Reason Stop Dose Admin Acetaminophen 650 mg 05/15/18 12:52 Tylenol Tab* PO Q6H PRN FEVER/PAIN Albuterol 2 puff 05/15/18 17:11 05/21/18 11:50 Ventolin Hfa Inhaler* INH 2 puff Q6H PRN Administration SOB/WHEEZING Alprazolam 1 mg 05/15/18 22:00 05/22/18 05:20 Xanax Tab* PO 1 mg TID PRN Administration ANXIETY Apixaban 2.5 mg 05/15/18 21:00 05/22/18 19:42 Eliquis* PO 2.5 mg BID YUE Administration Atorvastatin Calcium 20 mg 05/15/18 17:00 05/22/18 17:26 Lipitor* PO 20 mg 1700 YUE Administration Carisoprodol 350 mg 05/15/18 13:05 05/22/18 15:46 Soma Tab* PO 350 mg Q8H PRN Administration SPASMS Dextrose 12.5 gm 05/15/18 13:00 D50w Syringe 50 Ml* IV PUSH .FOR FS < 60 - SS PRN FS < 60 Docusate Sodium 100 mg 05/16/18 09:44 Colace Cap* PO BID PRN CONSTIPATION Guaifenesin 600 mg 05/15/18 21:00 05/22/18 19:42 Mucinex* PO 600 mg BID YUE Administration Ipratropium [place] 0.5 mg 05/15/18 17:40 Atrovent 0.5 Mg Neb.Rosalie* INH Q4H PRN SOB/WHEEZING Magnesium Hydroxide 30 ml 05/15/18 12:52 Milk Of Magnesia Liq* PO Q6H PRN CONSTIPATION Metformin HCl 500 mg 05/16/18 09:00 05/22/18 09:31 Glucophage* PO 500 mg DAILY YUE Administration Metolazone 5 mg 05/16/18 08:30 05/22/18 09:31 Zaroxolyn Tab* PO 5 mg DAILY@0830 YUE Administration Nebivolol 10 mg 05/15/18 21:00 05/22/18 19:42 Bystolic Tab (Nf) PO 10 mg BID YUE Administration Oxycodone HCl 20 mg 05/15/18 21:00 05/22/18 19:42 Oxycontin(*) PO 20 mg Q12HR YUE Administration Oxycodone HCl 10 mg 05/19/18 11:19 05/22/18 15:47 Roxycodone Tab* PO 10 mg Q4H PRN Administration PAIN - SEVERE Oxycodone/Acetaminophen 2 tab 05/15/18 13:05 05/22/18 19:43 Percocet 5/325 Tab* PO 2 tab Q4H PRN Administration PAIN - SEVERE Pantoprazole Sodium 40 mg 05/16/18 09:00 05/22/18 09:32 Protonix Tab* PO 40 mg DAILY YUE Administration Fluticasone/Salmeterol 1 puff 05/15/18 21:00 05/22/18 19:46 Advair Diskus 250-50* INH 1 puff BID YUE Administration Senna 2 tab 05/16/18 09:44 Senokot Tab* PO BEDTIME PRN CONSTIPATION Umeclidinium [place] 1 inh 05/16/18 09:00 05/22/18 09:37 Incruse Ellipta Mdi (Nf) INH 1 inh DAILY YUE Administration Valsartan 320 mg 05/16/18 09:00 05/22/18 09:32 Diovan Tab* PO 320 mg DAILY YUE Administration Zolpidem Tartrate 10 mg 05/16/18 09:43 05/21/18 02:35 Ambien Tab* PO 10 mg BEDTIME PRN Administration INSOMNIA Vital Signs: Vital Signs Temp Pulse Resp BP Pulse Ox 97.7 F 73 18 135/68 98 05/22/18 15:50 05/22/18 15:50 05/22/18 19:43 05/22/18 15:50 05/22/18 15:51 Lab Results: Laboratory Results - last 24 hr 05/21/18 05/22/18 20:39 07:36 POC Glucose (mg/dL) 130 H 120 H Exam: GENERAL: no acute distress. alert and appropriate. LUNGS: clear to auscultation bilaterally. HEART: regular rate and rhythm ABDOMEN: + bowel sounds, soft, non-tender, non-distended EXTREMITIES: No edema. Right knee sutures c/d/i. NEUROLOGIC: CN II-XII intact. Motor 5/5 BLE except limited testing right knee and hip due to pain. Sensation intact. Assessment/Plan: 68yo woman s/p right TKR revision. 1. Right TKR revision: PT/OT. Continue pain meds. f/u with Dr. Chu 2. DVT prophylaxis: Eliquis 3. Insomnia: Ambien prn as at home. This is a chronic issue. 4. Anxiety: xanax prn as at home 5. Bowels: bowel meds prn 6. Diabetes mellitus: metformin 7. COPD: continue inhalers and nebs prn 8. Advanced directives: full code 9. Estimated LOS: anticipate d/c around 05/2605/22/18 19:59
[2018-05-23] MEDS: oxyCODONE/Acetamin 5/325 MG* TAB PO PRN ×4 (00:49→23:17)
[2018-05-23] MEDS: oxyCODONE TAB* 5 MG TAB PO PRN ×2 (04:26→20:09)
[2018-05-23] MEDS: Carisoprodol TAB* 350 MG PO PRN ×2 (04:33→20:09)
[2018-05-23 08:46] LABS: ABS Basophils 0.1 10^3/ul (0-0.2); ABS Eosinophils 0.2 10^3/ul (0-0.6); ABS Lymphocytes 1.6 10^3/ul (1.0-4.8); ABS Monocytes 0.5 10^3/ul (0-0.8); ABS Neutrophils 4.2 10^3/ul (1.5-7.7); ABS Nucleated RBC 0 10^3/ul; Eosinophil % 3.3 %; Hematocrit 34 % (35-47); Lymphocyte % 23.9 %; Mean Corpuscular HGB Conc 32 g/dl (31-36); Mean Corpuscular Hemoglobin 28 pg (27-31); Mean Corpuscular Volume 86 fL (80-97); Nucleated Red Blood Cells % 0.1; Platelet Count 284 10^3/ul (150-450); Red Blood Count 3.93 10^6/ul (4.00-5.40); Red Cell Distribution Width 14 % (10.5-15); White Blood Count 6.5 10^3/ul (3.5-10.8)
[2018-05-23 08:59] LABS: Albumin 3.8 g/dL (3.2-5.2); Albumin/Globulin Ratio 1.2 (1-3); Calcium 9.3 mg/dL (8.6-10.3); EGFR African American 95.6 (>60); Globulin 3.1 g/dL (2-4); Potassium 4.3 mmol/L (3.5-5.0); Total Bilirubin 0.2 mg/dL (0.2-1.0); Total Protein 6.9 g/dL (6.4-8.9)
[2018-05-23] MEDS: Apixaban* 2.5 MG TAB PO SCH ×2 (09:15→20:48)
[2018-05-23] MEDS: Metolazone TAB* 5 MG PO SCH (09:15)
[2018-05-23] MEDS: Fluticasone-Salmeterol 250-50* DISKUS INH SCH ×2 (09:15→20:51)
[2018-05-23] MEDS: CMCS: Nebivolol TAB (NF) 2.5 MG TAB PO SCH ×2 (09:16→20:48)
[2018-05-23] MEDS: guaiFENesin ER TAB 600 MG PO SCH ×2 (09:16→20:48)
[2018-05-23] MEDS: oxyCODONE SR TAB(*) 20 MG TAB.SR PO SCH ×2 (09:16→20:48)
[2018-05-23] MEDS: Pantoprazole TAB * 40 MG TAB PO SCH (09:16)
[2018-05-23] MEDS: metFORMIN* 500 MG TAB PO SCH (09:16)
[2018-05-23] MEDS: VALSARTAN 160 MG PO SCH (09:17)
[2018-05-23] MEDS: PTO: Umeclidinium 62.5 MDI(NF) MDI INH SCH (09:17)
[2018-05-23] MEDS: Atorvastatin* 20 MG TAB PO SCH (16:29)
--- NOTE | 2018-05-23 19:01 | PN ---
Progress Note Date of Service: 05/23/18 Note: JUAN MAN was visited. Therapy notes read and reviewed. Breathing ok. Moving a little better. Otherwise doing ok. Current Medications: Active Medications Generic Name Dose Route Start Last Admin Trade Name Freq PRN Reason Stop Dose Admin Acetaminophen 650 mg 05/15/18 12:52 Tylenol Tab* PO Q6H PRN FEVER/PAIN Albuterol 2 puff 05/15/18 17:11 05/21/18 11:50 Ventolin Hfa Inhaler* INH 2 puff Q6H PRN Administration SOB/WHEEZING Alprazolam 1 mg 05/15/18 22:00 05/22/18 22:07 Xanax Tab* PO 1 mg TID PRN Administration ANXIETY Apixaban 2.5 mg 05/15/18 21:00 05/23/18 09:15 Eliquis* PO 2.5 mg BID YUE Administration Atorvastatin Calcium 20 mg 05/15/18 17:00 05/23/18 16:29 Lipitor* PO 20 mg 1700 YUE Administration Carisoprodol 350 mg 05/15/18 13:05 05/23/18 04:33 Soma Tab* PO 350 mg Q8H PRN Administration SPASMS Dextrose 12.5 gm 05/15/18 13:00 D50w Syringe 50 Ml* IV PUSH .FOR FS < 60 - SS PRN FS < 60 Docusate Sodium 100 mg 05/16/18 09:44 Colace Cap* PO BID PRN CONSTIPATION Guaifenesin 600 mg 05/15/18 21:00 05/23/18 09:16 Mucinex* PO 600 mg BID YUE Administration Ipratropium [place] 0.5 mg 05/15/18 17:40 Atrovent 0.5 Mg Neb.Rosalie* INH Q4H PRN SOB/WHEEZING Magnesium Hydroxide 30 ml 05/15/18 12:52 Milk Of Magnesia Liq* PO Q6H PRN CONSTIPATION Metformin HCl 500 mg 05/16/18 09:00 05/23/18 09:16 Glucophage* PO 500 mg DAILY YUE Administration Metolazone 5 mg 05/16/18 08:30 05/23/18 09:15 Zaroxolyn Tab* PO 5 mg DAILY@0830 YUE Administration Nebivolol 10 mg 05/15/18 21:00 05/23/18 09:16 Bystolic Tab (Nf) PO 10 mg BID YUE Administration Oxycodone HCl 20 mg 05/15/18 21:00 05/23/18 09:16 Oxycontin(*) PO 20 mg Q12HR YUE Administration Oxycodone HCl 10 mg 05/19/18 11:19 05/23/18 04:26 Roxycodone Tab* PO 10 mg Q4H PRN Administration PAIN - SEVERE Oxycodone/Acetaminophen 2 tab 05/15/18 13:05 05/23/18 16:30 Percocet 5/325 Tab* PO 2 tab Q4H PRN Administration PAIN - SEVERE Pantoprazole Sodium 40 mg 05/16/18 09:00 05/23/18 09:16 Protonix Tab* PO 40 mg DAILY YUE Administration Fluticasone/Salmeterol 1 puff 05/15/18 21:00 05/23/18 09:15 Advair Diskus 250-50* INH 1 puff BID YUE Administration Senna 2 tab 05/16/18 09:44 Senokot Tab* PO BEDTIME PRN CONSTIPATION Umeclidinium [place] 1 inh 05/16/18 09:00 05/23/18 09:17 Incruse Ellipta Mdi (Nf) INH 1 inh DAILY YUE Administration Valsartan 320 mg 05/16/18 09:00 05/23/18 09:17 Diovan Tab* PO 320 mg DAILY YUE Administration Zolpidem Tartrate 10 mg 05/16/18 09:43 05/21/18 02:35 Ambien Tab* PO 10 mg BEDTIME PRN Administration INSOMNIA Vital Signs: Vital Signs Temp Pulse Resp BP Pulse Ox 97.9 F 72 18 117/62 98 05/23/18 16:32 05/23/18 16:32 05/23/18 16:32 05/23/18 16:32 05/23/18 17:36 Lab Results: Laboratory Results - last 24 hr 05/23/18 05/23/18 08:25 08:25 WBC 6.5 RBC 3.93 L Hgb 11.0 L Hct 34 L MCV 86 MCH 28 MCHC 32 RDW 14 Plt Count 284 MPV 8.0 Neut % (Auto) 64.1 Lymph % (Auto) 23.9 [place] % (Auto) 7.7 Eos % (Auto) 3.3 Baso % (Auto) 1.0 Absolute Neuts (auto) 4.2 Absolute Lymphs (auto) 1.6 Absolute Monos (auto) 0.5 Absolute Eos (auto) 0.2 Absolute Basos (auto) 0.1 Absolute Nucleated RBC 0 Nucleated RBC % 0.1 Sodium 139 Potassium 4.3 Chloride 104 Carbon Dioxide 29 Anion Gap 6 BUN 19 Creatinine 0.73 Est GFR ( Amer) 95.6 Est GFR (Non-Af Amer) 79.0 BUN/Creatinine Ratio 26.0 H Glucose 129 H Calcium 9.3 Total Bilirubin 0.20 AST 12 L ALT 10 Alkaline Phosphatase 84 Total Protein 6.9 Albumin 3.8 Globulin 3.1 Albumin/Globulin Ratio 1.2 Exam: GENERAL: no acute distress. alert and appropriate. LUNGS: clear to auscultation bilaterally. HEART: regular rate and rhythm ABDOMEN: + bowel sounds, soft, non-tender, non-distended EXTREMITIES: No edema. Right knee sutures c/d/i. NEUROLOGIC: CN II-XII intact. Motor 5/5 BLE except limited testing right knee and hip due to pain. Sensation intact. Assessment/Plan: 68yo woman s/p right TKR revision. 1. Right TKR revision: PT/OT. Continue pain meds. f/u with Dr. Chu 2. DVT prophylaxis: Eliquis 3. Insomnia: Ambien prn 4. Anxiety: xanax prn 5. Bowels: bowel meds prn 6. Diabetes mellitus: metformin 7. COPD: continue inhalers and nebs prn 8. Advanced directives: full code 9. Estimated LOS: anticipate d/c around 05/2605/23/18 19:02
[2018-05-23] MEDS: ALPRAZolam TAB* 0.5 MG PO PRN (20:49)
[2018-05-23] MEDS: Zolpidem TAB* 10 MG PO PRN (23:19)
[2018-05-24] MEDS: Carisoprodol TAB* 350 MG PO PRN ×2 (03:10→15:07)
[2018-05-24] MEDS: oxyCODONE TAB* 5 MG TAB PO PRN ×2 (03:10→20:10)
[2018-05-24] MEDS: Apixaban* 2.5 MG TAB PO SCH ×2 (09:33→20:22)
[2018-05-24] MEDS: Fluticasone-Salmeterol 250-50* DISKUS INH SCH ×2 (09:33→21:55)
[2018-05-24] MEDS: Metolazone TAB* 5 MG PO SCH (09:33)
[2018-05-24] MEDS: guaiFENesin ER TAB 600 MG PO SCH ×2 (09:34→20:22)
[2018-05-24] MEDS: CMCS: Nebivolol TAB (NF) 2.5 MG TAB PO SCH ×2 (09:34→20:22)
[2018-05-24] MEDS: oxyCODONE SR TAB(*) 20 MG TAB.SR PO SCH ×2 (09:34→21:55)
[2018-05-24] MEDS: metFORMIN* 500 MG TAB PO SCH (09:34)
[2018-05-24] MEDS: Pantoprazole TAB * 40 MG TAB PO SCH (09:35)
[2018-05-24] MEDS: PTO: Umeclidinium 62.5 MDI(NF) MDI INH SCH (09:35)
[2018-05-24] MEDS: VALSARTAN 160 MG PO SCH (09:36)
[2018-05-24] MEDS: oxyCODONE/Acetamin 5/325 MG* TAB PO PRN (15:08)
--- NOTE | 2018-05-24 16:18 | PN ---
Progress Note Date of Service: 05/24/18 Note: JUAN MAN was visited. Therapy notes read and reviewed. She complains of constipation, otherwise doing okay. Current Medications: Active Medications Generic Name Dose Route Start Last Admin Trade Name Freq PRN Reason Stop Dose Admin Acetaminophen 650 mg 05/15/18 12:52 Tylenol Tab* PO Q6H PRN FEVER/PAIN Albuterol 2 puff 05/15/18 17:11 05/21/18 11:50 Ventolin Hfa Inhaler* INH 2 puff Q6H PRN Administration SOB/WHEEZING Alprazolam 1 mg 05/15/18 22:00 05/23/18 20:49 Xanax Tab* PO 1 mg TID PRN Administration ANXIETY Apixaban 2.5 mg 05/15/18 21:00 05/24/18 09:33 Eliquis* PO 2.5 mg BID YUE Administration Atorvastatin Calcium 20 mg 05/15/18 17:00 05/23/18 16:29 Lipitor* PO 20 mg 1700 YUE Administration Carisoprodol 350 mg 05/15/18 13:05 05/24/18 15:07 Soma Tab* PO 350 mg Q8H PRN Administration SPASMS Dextrose 12.5 gm 05/15/18 13:00 D50w Syringe 50 Ml* IV PUSH .FOR FS < 60 - SS PRN FS < 60 Docusate Sodium 100 mg 05/16/18 09:44 Colace Cap* PO BID PRN CONSTIPATION Guaifenesin 600 mg 05/15/18 21:00 05/24/18 09:34 Mucinex* PO 600 mg BID YUE Administration Ipratropium [place] 0.5 mg 05/15/18 17:40 Atrovent 0.5 Mg Neb.Rosalie* INH Q4H PRN SOB/WHEEZING Lactulose 30 ml 05/24/18 16:14 Lactulose* PO Q6H PRN CONSTIPATION Magnesium Hydroxide 30 ml 05/15/18 12:52 Milk Of Magnesia Liq* PO Q6H PRN CONSTIPATION Metformin HCl 500 mg 05/16/18 09:00 05/24/18 09:34 Glucophage* PO 500 mg DAILY YUE Administration Metolazone 5 mg 05/16/18 08:30 05/24/18 09:33 Zaroxolyn Tab* PO 5 mg DAILY@0830 YUE Administration Nebivolol 10 mg 05/15/18 21:00 05/24/18 09:34 Bystolic Tab (Nf) PO 10 mg BID YUE Administration Oxycodone HCl 20 mg 05/15/18 21:00 05/24/18 09:34 Oxycontin(*) PO 20 mg Q12HR YUE Administration Oxycodone HCl 10 mg 05/19/18 11:19 05/24/18 03:10 Roxycodone Tab* PO 10 mg Q4H PRN Administration PAIN - SEVERE Oxycodone/Acetaminophen 2 tab 05/15/18 13:05 05/24/18 15:08 Percocet 5/325 Tab* PO 2 tab Q4H PRN Administration PAIN - SEVERE Pantoprazole Sodium 40 mg 05/16/18 09:00 05/24/18 09:35 Protonix Tab* PO 40 mg DAILY YUE Administration Fluticasone/Salmeterol 1 puff 05/15/18 21:00 05/24/18 09:33 Advair Diskus 250-50* INH 1 puff BID YUE Administration Senna 2 tab 05/16/18 09:44 Senokot Tab* PO BEDTIME PRN CONSTIPATION Umeclidinium [place] 1 inh 05/16/18 09:00 05/24/18 09:35 Incruse Ellipta Mdi (Nf) INH 1 inh DAILY YUE Administration Valsartan 320 mg 05/16/18 09:00 05/24/18 09:36 Diovan Tab* PO 320 mg DAILY YUE Administration Zolpidem Tartrate 10 mg 05/16/18 09:43 05/23/18 23:19 Ambien Tab* PO 10 mg BEDTIME PRN Administration INSOMNIA Vital Signs: Vital Signs Temp Pulse Resp BP Pulse Ox 99.3 F 71 24 125/71 99 05/24/18 15:41 05/24/18 15:41 05/24/18 15:41 05/24/18 15:41 05/24/18 15:41 Exam: GENERAL: no acute distress. alert and appropriate. LUNGS: clear to auscultation bilaterally. HEART: regular rate and rhythm ABDOMEN: + bowel sounds, soft, non-tender, non-distended EXTREMITIES: No edema. Right knee sutures c/d/i. NEUROLOGIC: CN II-XII intact. Motor 5/5 BLE except limited testing right knee and hip due to pain. Sensation intact. Assessment/Plan: 68yo woman s/p right TKR revision. 1. Right TKR revision: PT/OT. Continue pain meds. f/u with Dr. Chu 2. DVT prophylaxis: Eliquis 3. Insomnia: Ambien prn 4. Anxiety: xanax prn 5. Constipation: Lactulose prn 6. Diabetes mellitus: metformin 7. COPD: continue inhalers and nebs prn 8. Advanced directives: full code 9. Estimated LOS: anticipate d/c around 05/2605/24/18 16:19
[2018-05-24] MEDS: Atorvastatin* 20 MG TAB PO SCH (18:04)
[2018-05-24] MEDS: ALPRAZolam TAB* 0.5 MG PO PRN (20:10)
[2018-05-25] MEDS: Zolpidem TAB* 10 MG PO PRN ×2 (03:00→23:55)
[2018-05-25] MEDS: oxyCODONE/Acetamin 5/325 MG* TAB PO PRN ×4 (03:00→21:50)
[2018-05-25] MEDS: Metolazone TAB* 5 MG PO SCH (09:29)
[2018-05-25] MEDS: Apixaban* 2.5 MG TAB PO SCH ×2 (09:30→21:49)
[2018-05-25] MEDS: Fluticasone-Salmeterol 250-50* DISKUS INH SCH ×2 (09:30→21:51)
[2018-05-25] MEDS: guaiFENesin ER TAB 600 MG PO SCH ×2 (09:31→21:49)
[2018-05-25] MEDS: metFORMIN* 500 MG TAB PO SCH (09:31)
[2018-05-25] MEDS: Pantoprazole TAB * 40 MG TAB PO SCH (09:32)
[2018-05-25] MEDS: oxyCODONE SR TAB(*) 20 MG TAB.SR PO SCH ×2 (09:32→21:50)
[2018-05-25] MEDS: PTO: Umeclidinium 62.5 MDI(NF) MDI INH SCH (09:32)
[2018-05-25] MEDS: ALPRAZolam TAB* 0.5 MG PO PRN ×2 (09:33→23:55)
[2018-05-25] MEDS: VALSARTAN 160 MG PO SCH (09:33)
[2018-05-25] MEDS: CMCS: Nebivolol TAB (NF) 2.5 MG TAB PO SCH ×2 (09:34→21:48)
--- NOTE | 2018-05-25 15:47 | PN ---
Progress Note Date of Service: 05/25/18 Note: JUAN MAN was visited. Therapy notes read and reviewed. She is doing well. Breathing easy. Moving ok. Current Medications: Active Medications Generic Name Dose Route Start Last Admin Trade Name Freq PRN Reason Stop Dose Admin Acetaminophen 650 mg 05/15/18 12:52 Tylenol Tab* PO Q6H PRN FEVER/PAIN Albuterol 2 puff 05/15/18 17:11 05/21/18 11:50 Ventolin Hfa Inhaler* INH 2 puff Q6H PRN Administration SOB/WHEEZING Alprazolam 1 mg 05/15/18 22:00 05/25/18 09:33 Xanax Tab* PO 1 mg TID PRN Administration ANXIETY Apixaban 2.5 mg 05/15/18 21:00 05/25/18 09:30 Eliquis* PO 2.5 mg BID YUE Administration Atorvastatin Calcium 20 mg 05/15/18 17:00 05/24/18 18:04 Lipitor* PO 20 mg 1700 YUE Administration Carisoprodol 350 mg 05/15/18 13:05 05/24/18 15:07 Soma Tab* PO 350 mg Q8H PRN Administration SPASMS Dextrose 12.5 gm 05/15/18 13:00 D50w Syringe 50 Ml* IV PUSH .FOR FS < 60 - SS PRN FS < 60 Docusate Sodium 100 mg 05/16/18 09:44 Colace Cap* PO BID PRN CONSTIPATION Guaifenesin 600 mg 05/15/18 21:00 05/25/18 09:31 Mucinex* PO 600 mg BID YUE Administration Ipratropium [place] 0.5 mg 05/15/18 17:40 Atrovent 0.5 Mg Neb.Rosalie* INH Q4H PRN SOB/WHEEZING Lactulose 30 ml 05/24/18 16:14 Lactulose* PO Q6H PRN CONSTIPATION Magnesium Hydroxide 30 ml 05/15/18 12:52 Milk Of Magnesia Liq* PO Q6H PRN CONSTIPATION Metformin HCl 500 mg 05/16/18 09:00 05/25/18 09:31 Glucophage* PO 500 mg DAILY YUE Administration Metolazone 5 mg 05/16/18 08:30 05/25/18 09:29 Zaroxolyn Tab* PO 5 mg DAILY@0830 YUE Administration Nebivolol 10 mg 05/15/18 21:00 05/25/18 09:34 Bystolic Tab (Nf) PO 10 mg BID YUE Administration Oxycodone HCl 20 mg 05/15/18 21:00 05/25/18 09:32 Oxycontin(*) PO 20 mg Q12HR YUE Administration Oxycodone HCl 10 mg 05/19/18 11:19 05/24/18 20:10 Roxycodone Tab* PO 10 mg Q4H PRN Administration PAIN - SEVERE Oxycodone/Acetaminophen 2 tab 05/15/18 13:05 05/25/18 09:33 Percocet 5/325 Tab* PO 2 tab Q4H PRN Administration PAIN - SEVERE Pantoprazole Sodium 40 mg 05/16/18 09:00 05/25/18 09:32 Protonix Tab* PO 40 mg DAILY YUE Administration Fluticasone/Salmeterol 1 puff 05/15/18 21:00 05/25/18 09:30 Advair Diskus 250-50* INH 1 puff BID YUE Administration Senna 2 tab 05/16/18 09:44 Senokot Tab* PO BEDTIME PRN CONSTIPATION Umeclidinium [place] 1 inh 05/16/18 09:00 05/25/18 09:32 Incruse Ellipta Mdi (Nf) INH 1 inh DAILY YUE Administration Valsartan 320 mg 05/16/18 09:00 05/25/18 09:33 Diovan Tab* PO 320 mg DAILY YUE Administration Zolpidem Tartrate 10 mg 05/16/18 09:43 05/25/18 03:00 Ambien Tab* PO 10 mg BEDTIME PRN Administration INSOMNIA Vital Signs: Vital Signs Temp Pulse Resp BP Pulse Ox 98.0 F 77 16 132/71 97 05/25/18 05:58 05/25/18 05:58 05/25/18 13:56 05/25/18 05:58 05/25/18 08:00 Exam: GENERAL: no acute distress. alert and appropriate. LUNGS: clear to auscultation bilaterally. HEART: regular rate and rhythm ABDOMEN: + bowel sounds, soft, non-tender, non-distended EXTREMITIES: No edema. Right knee sutures c/d/i. NEUROLOGIC: CN II-XII intact. Motor 5/5 BLE except limited testing right knee and hip due to pain. Sensation intact. Assessment/Plan: 68yo woman s/p right TKR revision. 1. Right TKR revision: PT/OT. Continue pain meds. f/u with Dr. Chu 2. DVT prophylaxis: Eliquis 3. Insomnia: Ambien prn 4. Anxiety: xanax prn 5. Constipation: Lactulose prn 6. Diabetes mellitus: metformin 7. COPD: continue inhalers and nebs prn 8. Advanced directives: full code 9. Estimated LOS: anticipate d/c tomorrow 05/25/18 15:48
[2018-05-25] MEDS: Atorvastatin* 20 MG TAB PO SCH (16:33)
[2018-05-25] MEDS: Carisoprodol TAB* 350 MG PO PRN (21:50)
[2018-05-26 05:08] VITALS: BP 125/68
[2018-05-26] MEDS: oxyCODONE/Acetamin 5/325 MG* TAB PO PRN ×2 (05:55→11:21)
[2018-05-26] MEDS: ALPRAZolam TAB* 0.5 MG PO PRN (05:55)
[2018-05-26] MEDS: Metolazone TAB* 5 MG PO SCH (08:24)
[2018-05-26] MEDS: Apixaban* 2.5 MG TAB PO SCH (08:25)
[2018-05-26] MEDS: Pantoprazole TAB * 40 MG TAB PO SCH (08:26)
[2018-05-26] MEDS: oxyCODONE SR TAB(*) 20 MG TAB.SR PO SCH (08:26)
[2018-05-26] MEDS: guaiFENesin ER TAB 600 MG PO SCH (08:26)
[2018-05-26] MEDS: metFORMIN* 500 MG TAB PO SCH (08:26)
[2018-05-26] MEDS: CMCS: Nebivolol TAB (NF) 2.5 MG TAB PO SCH (08:27)
[2018-05-26] MEDS: VALSARTAN 160 MG PO SCH (08:27)
[2018-05-26] MEDS: Fluticasone-Salmeterol 250-50* DISKUS INH SCH (08:55)
[2018-05-26] MEDS: PTO: Umeclidinium 62.5 MDI(NF) MDI INH SCH (08:55)
--- NOTE | 2018-05-27 11:26 | DS ---
CC: Dr. Donavan Lara * DISCHARGE SUMMARY: DATE OF ADMISSION: 05/15/18 DATE OF DISCHARGE: 05/26/18 DISCHARGE DIAGNOSES: 1. Revision right total knee replacement. 2. Diabetes mellitus. 3. Chronic obstructive pulmonary disease/asthma. 4. Hypertension. 5. Hypercholesterolemia. 6. Osteoarthritis. HISTORY OF PRESENT ILLNESS AND HOSPITAL COURSE: For complete history of the events leading up to her rehab stay, please see the history and physical dictated by me on 05/15/18. While on the rehab unit, the patient was initially having some trouble breathing. Her inhalers were added back in and this swaged the problem. Her knee wound looked good throughout her rehab stay. She, otherwise, was medically stable. She did have some difficulty with pain control. She is a longtime user of narcotics and her narcotic dose had to be adjusted. She was maintained on Eliquis for DVT prophylaxis. Otherwise, she was medically stable. She was seen by both Physical and Occupational Therapy and made good gains with both disciplines. With Physical Therapy at the time of admission, the patient required contact guard to her transfer. She was able to ambulate 60 feet with contact guard. With occupational therapy at the time of admission, the patient required supervision for upper body dressing, moderate amount of assistance for lower body dressing. She with contact guard assistance for toileting, mini assist for toilet transfers. By the time of discharge, the patient was independent in transfers, independent in ambulating 150 feet, independent in toilet transfers, independent in upper body and lower body dressing, and independent in toileting. She was discharged home on . DISCHARGE DIET: Consistent carbohydrate. DISCHARGE MEDICATIONS: 1. Albuterol inhaler 2 puffs every 6 hours as needed. 2. Xanax 1 mg orally 3 times a day as needed. 3. Eliquis 2.5 mg orally twice daily for 17 days. 4. Lipitor 20 mg orally daily. 5. Soma 350 mg orally every 8 hours as needed. 6. Mucinex 600 mg orally twice daily. 7. Metformin 500 mg daily. 8. Zaroxolyn 5 mg daily. 9. Bystolic 10 mg orally twice daily. 10. Protonix 40 mg orally daily. 11. Incruse Ellipta metered dose inhaler 1 inhalation daily. 12. Ambien 10 mg at bedtime as needed. 13. OxyContin 10 mg orally twice daily. 14. Percocet 10/325 one tablet every 4 hours a needed. SERVICES AFTER DISCHARGE: Through visiting nurse service, she will have home nursing, home physical therapy. Follow up with Dr. Arina Chu on 05/28/18 at 11:00 a.m. She will also follow up with her primary care doctor, Dr. Donavan Lara. [id number]/CPS #: [id number] JAY
== END 2018-05-26 13:30 | disposition home health service (06) | DRG 561 ==
LOC: PMRU 11:13
PROVIDERS: ADMIT Physical Medicine & Rehabilitation; ATTEND Physical Medicine & Rehabilitation
PROC: F07Z5ZZ Bed Mobility Treatment (ICD-10-PCS; principal; 2018-05-15)
PROC: F07Z9ZZ Gait Training/Functional Ambulation Treatment (ICD-10-PCS; 2018-05-15)
PROC: F07Z8ZZ Transfer Training Treatment (ICD-10-PCS; 2018-05-15)
PROC: F08Z0ZZ Bathing/Showering Techniques Treatment (ICD-10-PCS; 2018-05-15)
PROC: F08Z1ZZ Dressing Techniques Treatment (ICD-10-PCS; 2018-05-15)
PROC: F08Z3ZZ Feeding/Eating Treatment (ICD-10-PCS; 2018-05-15)
DX: Z47.1 Aftercare following joint replacement surgery (principal); E11.9 Type 2 diabetes mellitus without complications; J44.9 Chronic obstructive pulmonary disease, unspecified; I10 Essential (primary) hypertension; E78.00 Pure hypercholesterolemia, unspecified; M19.90 Unspecified osteoarthritis, unspecified site; Z96.653 Presence of artificial knee joint, bilateral; G47.00 Insomnia, unspecified; K59.00 Constipation, unspecified; F41.9 Anxiety disorder, unspecified; R35.0 Frequency of micturition; Z88.5 Allergy status to narcotic agent; Z88.0 Allergy status to penicillin; Z88.2 Allergy status to sulfonamides; Z88.8 Allergy status to other drugs, medicaments and biological substances; Z79.51 Long term (current) use of inhaled steroids; Z79.899 Other long term (current) drug therapy; Z79.84 Long term (current) use of oral hypoglycemic drugs
CPT/HCPCS: 36415; 80053; 81003; 81015; 84132; 84450; 85025; 87086; 94640; A9270-GY

== ENCOUNTER 2021-12-04 06:27 | Inpatient (IN) ==
[2021-12-04] MEDS ORDERED: Albuterol/Ipratropium NEB.SOL (2.5/0.5 MG) 3 ML NEB.SOLN INH ONE ×2 (06:41→07:03)
[2021-12-04] MEDS ORDERED: methylPREDNISolone SOD SUCC 125 mg 2 ML VIAL IV ONE (06:42)
[2021-12-04] MEDS ORDERED: Magnesium Sulfate 2 gm BAG 2 GM/50 ML BAG IVPB ONE ×2 (07:01→10:31)
[2021-12-04 07:02] LABS: ABS Eosinophils 0.3 10^3/ul (0-0.6); Eosinophil % 4.5 %; Hematocrit 37 % (35-47); Hemoglobin 11.8 g/dL (12.0-16.0); Lymphocyte % 31.7 %; Mean Corpuscular HGB Conc 32 g/dL (31-36); Mean Corpuscular Hemoglobin 28 pg (27-31); Mean Corpuscular Volume 87 fL (80-97); Nucleated Red Blood Cells % 0.1; Platelet Count 253 10^3/uL (150-450); Red Blood Count 4.22 10^6 /uL (3.70-4.87); Red Cell Distribution Width 14 % (10-15); White Blood Count 6.3 10^3/uL (3.5-10.8)
[2021-12-04 07:51] LABS: Albumin 3.9 g/dL (3.2-5.2); Albumin/Globulin Ratio 1.3 (1-3); Calcium 9.2 mg/dL (8.6-10.3); Globulin 3.1 g/dL (2-4); Potassium 3.8 mmol/L (3.5-5.0); Total Bilirubin 0.2 mg/dL (0.2-1.0); eGFR CKD-EPI 92.8 (>60)
[2021-12-04] MEDS ORDERED: Furosemide 40 mg/4 ml IV VIAL IV ONE (07:53)
[2021-12-04 08:09] LABS: PCO2 Arterial 47 mmHg (35-45); PO2 Arterial 75 mmHg (80-100)
[2021-12-04] MEDS ORDERED: Ondansetron 4 mg VIAL 2 MG/ML 2 ml VIAL IV ONE (08:47)
[2021-12-04] MEDS ORDERED: HYDROmorphone 0.5 MG/0.5 ML SYRINGE IV ONE (08:47)
[2021-12-04] MEDS ORDERED: Albuterol/Ipratropium NEB.SOL (2.5/0.5 MG) 3 ML NEB.SOLN INH PRN (09:44)
[2021-12-04] MEDS ORDERED: Dextrose 50% Syringe 50 ml 25 GM/50 ML SYRINGE IV PUSH PRN (09:47)
[2021-12-04] MEDS ORDERED: Azithromycin 500 mg/250 ml NS 500 MG/250 ML BAG IVPB ONE (09:50)
[2021-12-04 09:54] LABS: High Sensitivity Troponin 1 Hr 9 pg/mL (<15)
[2021-12-04] MEDS: cefTRIAXone 1 gm/50 mL D5W 1 GM/50 ML BAG IV SCH (10:42)
[2021-12-04] MEDS: Enoxaparin 40 MG/0.4 ML SYR SUBCUT SCH (10:46)
[2021-12-04] MEDS ORDERED: Senna TAB 8.6 mg TAB PO PRN (12:04)
[2021-12-04] MEDS: Mometasone/Formoter 200/5 MDI INH SCH (21:04)
[2021-12-04] MEDS: CMC:Nebivolol 2.5 mg TAB (NF) PO SCH (21:22)
[2021-12-05] MEDS: guaiFENesin/CODIENE 100mg/10mg 5 ML UDC PO PRN ×2 (05:27→15:42)
[2021-12-05] MEDS: Mometasone/Formoter 200/5 MDI INH SCH ×2 (07:58→23:01)
[2021-12-05] MEDS: Polyethylene Glycol 3350 17 GM PACKET PO SCH (08:43)
[2021-12-05] MEDS: Aspirin EC 81 mg TAB.EC (enteric coated) PO SCH (08:45)
[2021-12-05] MEDS: CMC:Nebivolol 2.5 mg TAB (NF) PO SCH ×2 (08:45→20:06)
[2021-12-05] MEDS ORDERED: Umeclidinium 62.5 MDI(NF) MDI INH SCH (09:00)
[2021-12-05] MEDS: cefTRIAXone 1 gm/50 mL D5W 1 GM/50 ML BAG IV SCH (11:17)
[2021-12-05] MEDS: Enoxaparin 40 MG/0.4 ML SYR SUBCUT SCH (11:17)
[2021-12-05 16:44] LABS: ABS Lymphocytes 0.9 10^3/ul (1.0-4.8); ABS Monocytes 0.4 10^3/ul (0-0.8); ABS Neutrophils 7.4 10^3/ul (1.5-7.7); Hematocrit 37 % (35-47); Hemoglobin 11.8 g/dL (12.0-16.0); Lymphocyte % 9.8 %; Mean Corpuscular HGB Conc 32 g/dL (31-36); Mean Corpuscular Hemoglobin 28 pg (27-31); Mean Corpuscular Volume 87 fL (80-97); Mean Platelet Volume 8.2 fL (7.4-10.4); Nucleated Red Blood Cells % 0.1; Platelet Count 233 10^3/uL (150-450); Red Blood Count 4.19 10^6 /uL (3.70-4.87); Red Cell Distribution Width 14 % (10-15); White Blood Count 8.7 10^3/uL (3.5-10.8)
[2021-12-05] MEDS: Albuterol/Ipratropium NEB.SOL (2.5/0.5 MG) 3 ML NEB.SOLN INH SCH ×4 (17:19→23:02)
[2021-12-05 17:23] LABS: Calcium 8.4 mg/dL (8.6-10.3); Magnesium 1.5 mg/dL (1.9-2.7); Potassium 4.4 mmol/L (3.5-5.0); eGFR CKD-EPI 84.5 (>60)
[2021-12-05] MEDS: methylPREDNISolone SOD SUCC 40 mg/ml 1 ml VIAL IV SCH ×2 (17:51→23:22)
[2021-12-05] MEDS ORDERED: Magnesium Sulf 4 GM/100 ML IV 4,000 MG/100 ML BAG IVPB ONE (18:46)
[2021-12-06 05:58] LABS: ABS Monocytes 0.4 10^3/ul (0-0.8); ABS Neutrophils 5.6 10^3/ul (1.5-7.7); Hematocrit 36 % (35-47); Hemoglobin 11.7 g/dL (12.0-16.0); Lymphocyte % 14.2 %; Mean Corpuscular HGB Conc 33 g/dL (31-36); Mean Corpuscular Hemoglobin 28 pg (27-31); Mean Corpuscular Volume 86 fL (80-97); Mean Platelet Volume 8.1 fL (7.4-10.4); Platelet Count 252 10^3/uL (150-450); Red Blood Count 4.16 10^6 /uL (3.70-4.87); Red Cell Distribution Width 14 % (10-15)
[2021-12-06 06:28] LABS: Calcium 8.6 mg/dL (8.6-10.3); Magnesium 2.4 mg/dL (1.9-2.7); Potassium 4.6 mmol/L (3.5-5.0); eGFR CKD-EPI 67.9 (>60)
[2021-12-06] MEDS: Mometasone/Formoter 200/5 MDI INH SCH ×2 (06:57→19:52)
[2021-12-06] MEDS: Albuterol/Ipratropium NEB.SOL (2.5/0.5 MG) 3 ML NEB.SOLN INH SCH ×3 (07:05→19:56)
[2021-12-06] MEDS: methylPREDNISolone SOD SUCC 40 mg/ml 1 ml VIAL IV SCH ×3 (08:33→23:17)
[2021-12-06] MEDS: CMC:Nebivolol 2.5 mg TAB (NF) PO SCH ×2 (08:34→21:52)
[2021-12-06] MEDS: Aspirin EC 81 mg TAB.EC (enteric coated) PO SCH (08:34)
[2021-12-06] MEDS: Polyethylene Glycol 3350 17 GM PACKET PO SCH (08:42)
[2021-12-06] MEDS: cefTRIAXone 1 gm/50 mL D5W 1 GM/50 ML BAG IV SCH (10:06)
[2021-12-06] MEDS: guaiFENesin/CODIENE 100mg/10mg 5 ML UDC PO PRN ×2 (10:07→23:16)
[2021-12-06] MEDS: Enoxaparin 40 MG/0.4 ML SYR SUBCUT SCH (10:07)
[2021-12-06] MEDS ORDERED: Acetaminophen IV 1 GM/100ML 1,000 MG/100 ML BAG IV SCH (13:00)
[2021-12-06] MEDS: oxyCODONE/Acetamin 5/325 mg TAB PO PRN (20:04)
[2021-12-07] MEDS: Albuterol/Ipratropium NEB.SOL (2.5/0.5 MG) 3 ML NEB.SOLN INH SCH ×4 (01:30→19:07)
[2021-12-07] MEDS: methylPREDNISolone SOD SUCC 40 mg/ml 1 ml VIAL IV SCH ×2 (08:24→15:32)
[2021-12-07] MEDS: oxyCODONE/Acetamin 5/325 mg TAB PO PRN ×2 (08:24→15:32)
[2021-12-07] MEDS: Mometasone/Formoter 200/5 MDI INH SCH ×2 (08:33→19:07)
[2021-12-07] MEDS: Aspirin EC 81 mg TAB.EC (enteric coated) PO SCH (10:23)
[2021-12-07] MEDS: cefTRIAXone 1 gm/50 mL D5W 1 GM/50 ML BAG IV SCH (10:25)
[2021-12-07] MEDS: Enoxaparin 40 MG/0.4 ML SYR SUBCUT SCH (10:26)
[2021-12-07] MEDS: Polyethylene Glycol 3350 17 GM PACKET PO SCH (10:26)
[2021-12-07] MEDS: CMC:Nebivolol 2.5 mg TAB (NF) PO SCH ×2 (13:57→20:46)
[2021-12-07] MEDS: guaiFENesin/CODIENE 100mg/10mg 5 ML UDC PO PRN ×2 (17:09→23:25)
[2021-12-08] MEDS: Albuterol/Ipratropium NEB.SOL (2.5/0.5 MG) 3 ML NEB.SOLN INH SCH ×4 (00:50→19:20)
[2021-12-08] MEDS: Benzocaine/Menthol LOZ MT PRN ×2 (01:04→21:13)
[2021-12-08] MEDS: oxyCODONE/Acetamin 5/325 mg TAB PO PRN ×3 (02:49→21:11)
[2021-12-08] MEDS: methylPREDNISolone SOD SUCC 40 mg/ml 1 ml VIAL IV SCH ×2 (03:44→16:44)
[2021-12-08] MEDS: Mometasone/Formoter 200/5 MDI INH SCH ×2 (07:04→19:22)
[2021-12-08] MEDS: CMC:Nebivolol 2.5 mg TAB (NF) PO SCH ×2 (08:38→20:55)
[2021-12-08] MEDS: Aspirin EC 81 mg TAB.EC (enteric coated) PO SCH (08:38)
[2021-12-08] MEDS: Polyethylene Glycol 3350 17 GM PACKET PO SCH (08:39)
[2021-12-08] MEDS: Enoxaparin 40 MG/0.4 ML SYR SUBCUT SCH (08:41)
[2021-12-08] MEDS: guaiFENesin/CODIENE 100mg/10mg 5 ML UDC PO PRN ×2 (08:41→21:12)
[2021-12-08] MEDS: cefTRIAXone 1 gm/50 mL D5W 1 GM/50 ML BAG IV SCH (08:42)
[2021-12-09] MEDS: Benzocaine/Menthol LOZ MT PRN ×4 (00:01→23:23)
[2021-12-09] MEDS: Albuterol/Ipratropium NEB.SOL (2.5/0.5 MG) 3 ML NEB.SOLN INH SCH ×4 (01:18→19:19)
[2021-12-09] MEDS: oxyCODONE/Acetamin 5/325 mg TAB PO PRN ×3 (05:19→23:24)
[2021-12-09] MEDS: CMC:Nebivolol 2.5 mg TAB (NF) PO SCH ×2 (07:52→20:30)
[2021-12-09] MEDS: Aspirin EC 81 mg TAB.EC (enteric coated) PO SCH (07:57)
[2021-12-09] MEDS: guaiFENesin/CODIENE 100mg/10mg 5 ML UDC PO PRN ×2 (08:00→18:39)
[2021-12-09] MEDS: Mometasone/Formoter 200/5 MDI INH SCH ×2 (08:05→19:20)
[2021-12-09] MEDS: Polyethylene Glycol 3350 17 GM PACKET PO SCH (08:14)
[2021-12-09] MEDS: cefTRIAXone 1 gm/50 mL D5W 1 GM/50 ML BAG IV SCH (10:31)
[2021-12-09] MEDS: Enoxaparin 40 MG/0.4 ML SYR SUBCUT SCH (10:35)
[2021-12-10] MEDS: Albuterol/Ipratropium NEB.SOL (2.5/0.5 MG) 3 ML NEB.SOLN INH SCH ×4 (01:15→19:20)
[2021-12-10] MEDS: guaiFENesin/CODIENE 100mg/10mg 5 ML UDC PO PRN ×3 (04:08→21:15)
[2021-12-10] MEDS: CMC:Nebivolol 2.5 mg TAB (NF) PO SCH ×2 (07:55→21:25)
[2021-12-10] MEDS: Aspirin EC 81 mg TAB.EC (enteric coated) PO SCH (07:59)
[2021-12-10] MEDS: Polyethylene Glycol 3350 17 GM PACKET PO SCH (08:01)
[2021-12-10] MEDS: Mometasone/Formoter 200/5 MDI INH SCH ×2 (08:11→19:34)
[2021-12-10] MEDS: cefTRIAXone 1 gm/50 mL D5W 1 GM/50 ML BAG IV SCH (10:25)
[2021-12-10] MEDS: oxyCODONE/Acetamin 5/325 mg TAB PO PRN ×2 (10:26→21:24)
[2021-12-10] MEDS: Benzocaine/Menthol LOZ MT PRN ×2 (10:26→21:15)
[2021-12-10] MEDS: Enoxaparin 40 MG/0.4 ML SYR SUBCUT SCH (10:26)
[2021-12-11] MEDS: Albuterol/Ipratropium NEB.SOL (2.5/0.5 MG) 3 ML NEB.SOLN INH SCH ×3 (01:31→13:09)
[2021-12-11] MEDS: Mometasone/Formoter 200/5 MDI INH SCH (08:10)
[2021-12-11] MEDS: Aspirin EC 81 mg TAB.EC (enteric coated) PO SCH (08:51)
[2021-12-11] MEDS: CMC:Nebivolol 2.5 mg TAB (NF) PO SCH (08:53)
[2021-12-11] MEDS: Enoxaparin 40 MG/0.4 ML SYR SUBCUT SCH (08:53)
[2021-12-11] MEDS: guaiFENesin/CODIENE 100mg/10mg 5 ML UDC PO PRN (09:02)
[2021-12-11] MEDS: Benzocaine/Menthol LOZ MT PRN ×2 (09:02→11:48)
[2021-12-11] MEDS: Polyethylene Glycol 3350 17 GM PACKET PO SCH (09:07)
[2021-12-11] MEDS: cefTRIAXone 1 gm/50 mL D5W 1 GM/50 ML BAG IV SCH (11:39)
[2021-12-11] MEDS: oxyCODONE/Acetamin 5/325 mg TAB PO PRN (11:48)
[2021-12-11 12:41] VITALS: BP 135/70
== END 2021-12-11 14:25 | disposition home health service (06) | DRG 206 ==
LOC: ED 06:27 → MED 20:31 → INTOOBSV 20:31 → SUATTDRO 20:31
PROVIDERS: ADMIT Internal Medicine; ATTEND Hospitalist

== ENCOUNTER 2022-05-22 16:29 | Inpatient (IN) ==
[2022-05-22] MEDS ORDERED: cefTRIAXone 1 gm/50 mL D5W 1 GM/50 ML BAG IV ONE (16:39)
[2022-05-22] MEDS ORDERED: Albuterol HFA INHALER 8 gm MDI INH ONE ×2 (16:39)
[2022-05-22] MEDS ORDERED: Magnesium Sulfate 2 gm BAG 2 GM/50 ML BAG IVPB ONE (16:39)
[2022-05-22] MEDS ORDERED: Azithromycin 500 mg/250 ml NS 500 MG/250 ML BAG IVPB ONE (16:39)
[2022-05-22] MEDS ORDERED: methylPREDNISolone SOD SUCC 125 mg 2 ML VIAL IV ONE (16:39)
[2022-05-22 18:00] LABS: PCO2 Arterial 44 mmHg (35-45); PO2 Arterial 68 mmHg (80-100)
[2022-05-22 18:30] LABS: ABS Eosinophils 0.2 10^3/ul (0-0.6); ABS Lymphocytes 2.2 10^3/ul (1.0-4.8); ABS Monocytes 0.6 10^3/ul (0-0.8); Eosinophil % 1.8 %; Hematocrit 37 % (35-47); Hemoglobin 11.8 g/dL (12.0-16.0); Lymphocyte % 24.4 %; Mean Corpuscular HGB Conc 32 g/dL (31-36); Mean Corpuscular Hemoglobin 27 pg (27-31); Mean Corpuscular Volume 85 fL (80-97); Mean Platelet Volume 8.3 fL (7.4-10.4); Nucleated Red Blood Cells % 0.1; Platelet Count 250 10^3/uL (150-450); Red Blood Count 4.33 10^6 /uL (3.70-4.87); Red Cell Distribution Width 15 % (10-15); White Blood Count 8.9 10^3/uL (3.5-10.8)
[2022-05-22 18:56] LABS: Albumin 4.1 g/dL (3.2-5.2); Albumin/Globulin Ratio 1.6 (1-3); C Reactive Protein 3.71 mg/L (<8.01); Calcium 9.4 mg/dL (8.6-10.3); Creatinine, Serum 0.88 mg/dL (0.51-0.95); Globulin 2.6 g/dL (2-4); Potassium 3.8 mmol/L (3.5-5.0); Total Bilirubin 0.3 mg/dL (0.2-1.0); Total Protein 6.7 g/dL (6.4-8.9); eGFR CKD-EPI 69.3 (>60)
[2022-05-22] MEDS ORDERED: Albuterol/Ipratropium NEB.SOL (2.5/0.5 MG) 3 ML NEB.SOLN INH ONE (19:14)
[2022-05-22] MEDS ORDERED: Dextrose 50% Syringe 50 ml 25 GM/50 ML SYRINGE IV PUSH PRN (21:03)
[2022-05-22] MEDS: Aspirin EC 81 mg TAB.EC (enteric coated) PO SCH (21:48)
[2022-05-22] MEDS: oxyCODONE/Acetamin 5/325 mg TAB PO PRN (21:48)
[2022-05-22] MEDS: Enoxaparin 40 MG/0.4 ML SYR SUBCUT SCH (21:49)
[2022-05-23] MEDS: CMCS: Nebivolol 2.5 mg TAB (NF) PO SCH ×3 (00:19→20:52)
[2022-05-23] MEDS: Albuterol/Ipratropium NEB.SOL (2.5/0.5 MG) 3 ML NEB.SOLN INH SCH ×4 (01:17→19:49)
[2022-05-23] MEDS ORDERED: methylPREDNISolone SOD SUCC 40 mg/ml 1 ml VIAL IV SCH (06:00)
[2022-05-23] MEDS: Albuterol HFA INHALER 8 gm MDI INH PRN ×3 (06:06→19:49)
[2022-05-23] MEDS: oxyCODONE/Acetamin 5/325 mg TAB PO PRN ×3 (06:07→22:43)
[2022-05-23] MEDS: Aspirin EC 81 mg TAB.EC (enteric coated) PO SCH (09:06)
[2022-05-23] MEDS: CMCS: FLUTICAS/UMECLI/VILANT 200-62.5-25 MDI (NF) INH SCH (10:22)
[2022-05-23] MEDS ORDERED: Albuterol/Ipratropium NEB.SOL (2.5/0.5 MG) 3 ML NEB.SOLN INH ONE (16:56)
[2022-05-23] MEDS: cefTRIAXone 1 gm/50 mL D5W 1 GM/50 ML BAG IV SCH (18:05)
[2022-05-23] MEDS: Azithromycin 500 mg/250 ml NS 500 MG/250 ML BAG IVPB SCH (19:41)
[2022-05-23] MEDS: Enoxaparin 40 MG/0.4 ML SYR SUBCUT SCH (20:52)
[2022-05-24] MEDS: Albuterol/Ipratropium NEB.SOL (2.5/0.5 MG) 3 ML NEB.SOLN INH SCH ×5 (01:20→19:36)
[2022-05-24] MEDS: oxyCODONE/Acetamin 5/325 mg TAB PO PRN ×5 (02:52→22:41)
[2022-05-24] MEDS: CMCS: FLUTICAS/UMECLI/VILANT 200-62.5-25 MDI (NF) INH SCH (07:40)
[2022-05-24] MEDS: Aspirin EC 81 mg TAB.EC (enteric coated) PO SCH (08:02)
[2022-05-24] MEDS: CMCS: Nebivolol 2.5 mg TAB (NF) PO SCH ×2 (08:07→22:35)
[2022-05-24] MEDS: methylPREDNISolone SOD SUCC 40 mg/ml 1 ml VIAL IV SCH (11:40)
[2022-05-24] MEDS: Albuterol HFA INHALER 8 gm MDI INH PRN (13:19)
[2022-05-24] MEDS: Polyethylene Glycol 3350 17 GM PACKET PO PRN (15:32)
[2022-05-24] MEDS: cefTRIAXone 1 gm/50 mL D5W 1 GM/50 ML BAG IV SCH (16:40)
[2022-05-24] MEDS: Azithromycin 500 mg/250 ml NS 500 MG/250 ML BAG IVPB SCH (19:47)
[2022-05-24] MEDS: Enoxaparin 40 MG/0.4 ML SYR SUBCUT SCH (22:36)
[2022-05-25] MEDS: methylPREDNISolone SOD SUCC 40 mg/ml 1 ml VIAL IV SCH ×3 (00:33→23:13)
[2022-05-25] MEDS: Albuterol/Ipratropium NEB.SOL (2.5/0.5 MG) 3 ML NEB.SOLN INH SCH ×4 (01:45→20:00)
[2022-05-25 06:12] LABS: ABS Lymphocytes 1.1 10^3/ul (1.0-4.8); ABS Monocytes 0.5 10^3/ul (0-0.8); ABS Neutrophils 8.9 10^3/ul (1.5-7.7); Hematocrit 34 % (35-47); Hemoglobin 11.2 g/dL (12.0-16.0); Lymphocyte % 10.3 %; Mean Corpuscular HGB Conc 33 g/dL (31-36); Mean Corpuscular Hemoglobin 28 pg (27-31); Mean Corpuscular Volume 84 fL (80-97); Platelet Count 250 10^3/uL (150-450); Red Blood Count 4.02 10^6 /uL (3.70-4.87); Red Cell Distribution Width 15 % (10-15); White Blood Count 10.4 10^3/uL (3.5-10.8)
[2022-05-25 06:39] LABS: Calcium 8.6 mg/dL (8.6-10.3); Creatinine, Serum 0.99 mg/dL (0.51-0.95); Potassium 4.5 mmol/L (3.5-5.0); eGFR CKD-EPI 60.2 (>60)
[2022-05-25] MEDS: CMCS: FLUTICAS/UMECLI/VILANT 200-62.5-25 MDI (NF) INH SCH (08:01)
[2022-05-25] MEDS: CMCS: Nebivolol 2.5 mg TAB (NF) PO SCH ×2 (08:44→20:56)
[2022-05-25] MEDS: Aspirin EC 81 mg TAB.EC (enteric coated) PO SCH (08:44)
[2022-05-25] MEDS: oxyCODONE/Acetamin 5/325 mg TAB PO PRN ×3 (08:44→20:57)
[2022-05-25] MEDS: cefTRIAXone 1 gm/50 mL D5W 1 GM/50 ML BAG IV SCH (17:12)
[2022-05-25] MEDS: Enoxaparin 40 MG/0.4 ML SYR SUBCUT SCH (20:58)
[2022-05-26] MEDS: Albuterol/Ipratropium NEB.SOL (2.5/0.5 MG) 3 ML NEB.SOLN INH SCH ×4 (00:49→19:57)
[2022-05-26] MEDS: oxyCODONE/Acetamin 5/325 mg TAB PO PRN ×5 (02:50→21:55)
[2022-05-26 06:57] LABS: Calcium 8.8 mg/dL (8.6-10.3); Creatinine, Serum 0.8 mg/dL (0.51-0.95); Potassium 4.8 mmol/L (3.5-5.0); eGFR CKD-EPI 77.8 (>60)
[2022-05-26] MEDS: CMCS: FLUTICAS/UMECLI/VILANT 200-62.5-25 MDI (NF) INH SCH (07:38)
[2022-05-26] MEDS: CMCS: Nebivolol 2.5 mg TAB (NF) PO SCH ×2 (08:03→21:55)
[2022-05-26] MEDS: Aspirin EC 81 mg TAB.EC (enteric coated) PO SCH (08:05)
[2022-05-26] MEDS: Albuterol HFA INHALER 8 gm MDI INH PRN (10:51)
[2022-05-26] MEDS: methylPREDNISolone SOD SUCC 40 mg/ml 1 ml VIAL IV SCH ×2 (11:20→21:56)
[2022-05-26] MEDS: Enoxaparin 40 MG/0.4 ML SYR SUBCUT SCH (21:56)
[2022-05-27] MEDS: Albuterol/Ipratropium NEB.SOL (2.5/0.5 MG) 3 ML NEB.SOLN INH SCH ×5 (01:29→19:32)
[2022-05-27] MEDS: oxyCODONE/Acetamin 5/325 mg TAB PO PRN ×5 (01:49→21:44)
[2022-05-27] MEDS: CMCS: FLUTICAS/UMECLI/VILANT 200-62.5-25 MDI (NF) INH SCH ×2 (07:32→07:42)
[2022-05-27] MEDS: Aspirin EC 81 mg TAB.EC (enteric coated) PO SCH (08:02)
[2022-05-27] MEDS: CMCS: Nebivolol 2.5 mg TAB (NF) PO SCH ×2 (08:02→21:43)
[2022-05-27] MEDS: Polyethylene Glycol 3350 17 GM PACKET PO PRN (12:03)
[2022-05-27] MEDS: Enoxaparin 40 MG/0.4 ML SYR SUBCUT SCH (21:45)
[2022-05-28] MEDS: Albuterol/Ipratropium NEB.SOL (2.5/0.5 MG) 3 ML NEB.SOLN INH SCH ×3 (01:55→13:35)
[2022-05-28] MEDS: oxyCODONE/Acetamin 5/325 mg TAB PO PRN ×2 (01:59→08:39)
[2022-05-28] MEDS: CMCS: FLUTICAS/UMECLI/VILANT 200-62.5-25 MDI (NF) INH SCH (07:27)
[2022-05-28] MEDS: CMCS: Nebivolol 2.5 mg TAB (NF) PO SCH (08:38)
[2022-05-28] MEDS: Aspirin EC 81 mg TAB.EC (enteric coated) PO SCH (08:39)
[2022-05-28 10:27] VITALS: BP 127/80
[2022-05-28] MEDS: Albuterol HFA INHALER 8 gm MDI INH PRN (13:34)
== END 2022-05-28 14:05 | disposition home or self-care (01) | DRG 191 ==
LOC: EDHOLD 16:29 → ED 16:29 → SUATTDRO 19:55 → MED 05-23 19:55
PROVIDERS: ADMIT Hospitalist; ATTEND Internal Medicine

== ENCOUNTER 2023-02-21 10:05 | Observation (INO) ==
[2023-02-21] MEDS ORDERED: methylPREDNISolone SOD SUCC 125 mg 2 ML VIAL IV ONE (10:11)
[2023-02-21] MEDS ORDERED: Albuterol/Ipratropium NEB.SOL (2.5/0.5 MG) 3 ML NEB.SOLN INH ONE (10:12)
[2023-02-21 10:34] LABS: ABS Basophils 0.1 10^3/uL (0.0-0.1); ABS Eosinophils 0.2 10^3/uL (0.0-0.5); ABS Lymphocytes 2.2 10^3/uL (1.0-4.8); ABS Monocytes 0.9 10^3/uL (0.0-0.9); ABS Neutrophils 8.8 10^3/uL (1.5-7.6); ABS Nucleated RBC 0.02 10^3/ul; Eosinophil % 1.9 %; Hematocrit 39.6 % (35-45); Hemoglobin 12.8 g/dL (11.5-14.3); Lymphocyte % 17.8 %; Mean Corpuscular Hemoglobin 28.2 pg (27-33); Mean Corpuscular Hgb Conc 32.3 g/dL (31-36); Mean Corpuscular Volume 87.4 fL (80-97); Mean Platelet Volume 8.2 fL (7.5-11.2); Nucleated Red Blood Cells % 0.1 %/100WBC (0.0-0.8); Platelet Count 212 10^3/uL (150-450); Red Blood Count 4.53 10^6/uL (3.63-4.92); Red Cell Distribution Width 14.5 % (12-17); White Blood Count 12.2 10^3/uL (3.8-11.8)
[2023-02-21 10:53] LABS: Albumin 3.9 g/dL (3.2-5.2); Albumin/Globulin Ratio 1.3 (1-3); Calcium 9.9 mg/dL (8.6-10.3); Creatinine, Serum 0.82 mg/dL (0.51-0.95); Globulin 3.1 g/dL (2-4); Potassium 3.6 mmol/L (3.5-5.0); Total Bilirubin 0.4 mg/dL (0.2-1.0)
[2023-02-21] MEDS ORDERED: Albuterol 2.5mg/3 ml (0.083%) NEB.SOLN INH ONE (12:38)
[2023-02-21] MEDS ORDERED: Albuterol 2.5mg/3 ml (0.083%) NEB.SOLN INH PRN (12:43)
[2023-02-21] MEDS ORDERED: Azithromycin 500 mg/250 ml NS 500 MG/250 ML BAG IVPB SCH (13:00)
[2023-02-21] MEDS: methylPREDNISolone SOD SUCC 40 mg/ml 1 ml VIAL IV SCH (13:44)
[2023-02-21] MEDS ORDERED: Albuterol/Ipratropium NEB.SOL (2.5/0.5 MG) 3 ML NEB.SOLN INH PRN (14:48)
[2023-02-21] MEDS ORDERED: Dextrose 50% Syringe 50 ml 25 GM/50 ML SYRINGE IV PUSH PRN (15:43)
[2023-02-21] MEDS ORDERED: Senna TAB 8.6 mg TAB PO PRN (15:50)
[2023-02-21] MEDS ORDERED: Polyethylene Glycol 3350 17 GM PACKET PO PRN (15:50)
[2023-02-21] MEDS ORDERED: oxyCODONE/Acetamin 10/325(NF) TAB PO PRN (17:27)
[2023-02-21] MEDS: Enoxaparin 40 MG/0.4 ML SYR SUBCUT SCH (17:57)
[2023-02-21] MEDS ORDERED: CMC:Nebivolol 2.5 mg TAB (NF) PO SCH (21:00)
[2023-02-21] MEDS: CMC:Nebivolol 2.5 mg TAB (NF) PO SCH (23:41)
[2023-02-21] MEDS ORDERED: Albuterol HFA INHALER 8 gm MDI INH SCH (23:45)
[2023-02-22] MEDS: methylPREDNISolone SOD SUCC 40 mg/ml 1 ml VIAL IV SCH ×2 (01:09→13:40)
[2023-02-22] MEDS: Albuterol HFA INHALER 8 gm MDI INH SCH ×5 (07:34→20:39)
[2023-02-22] MEDS: CMCS:FLUTICAS/UMECLI/VILANT 100-62.5-25 MDI (NF) INH SCH (07:34)
[2023-02-22 08:14] LABS: Hematocrit 37.8 % (35-45); Hemoglobin 12.4 g/dL (11.5-14.3); Mean Corpuscular Hemoglobin 28.8 pg (27-33); Mean Corpuscular Hgb Conc 32.8 g/dL (31-36); Mean Corpuscular Volume 87.9 fL (80-97); Mean Platelet Volume 8.4 fL (7.5-11.2); Platelet Count 193 10^3/uL (150-450); Red Cell Distribution Width 14.3 % (12-17); White Blood Count 11.6 10^3/uL (3.8-11.8)
[2023-02-22 08:45] LABS: Anion Gap 8 mmol/L (2-16); Blood Urea Nitrogen 20 mg/dL (6-24); CO2 Carbon Dioxide 28 mmol/L (22-32); Calcium 8.9 mg/dL (8.6-10.3); Chloride 99 mmol/L (101-111); Creatinine, Serum 0.74 mg/dL (0.51-0.95); Glucose 152 mg/dL (70-100); Sodium 135 mmol/L (135-145); eGFR CKD-EPI 84.8 (>60)
[2023-02-22] MEDS: Aspirin EC 81 mg TAB.EC (enteric coated) PO SCH (09:08)
[2023-02-22] MEDS: CMC:Nebivolol 2.5 mg TAB (NF) PO SCH ×2 (09:09→20:37)
[2023-02-22 12:12] LABS: Potassium, Whole Blood 4.3 mmol/L (3.4-4.5)
[2023-02-22] MEDS ORDERED: Azithromycin 500 mg/250 ml NS 500 MG/250 ML BAG IVPB SCH (13:00)
[2023-02-22] MEDS: Enoxaparin 40 MG/0.4 ML SYR SUBCUT SCH (16:29)
[2023-02-23] MEDS: methylPREDNISolone SOD SUCC 40 mg/ml 1 ml VIAL IV SCH (00:59)
[2023-02-23] MEDS: Albuterol HFA INHALER 8 gm MDI INH SCH ×2 (02:16→07:41)
[2023-02-23 05:48] VITALS: BP 162/110
[2023-02-23] MEDS: CMCS:FLUTICAS/UMECLI/VILANT 100-62.5-25 MDI (NF) INH SCH (07:40)
[2023-02-23] MEDS: CMC:Nebivolol 2.5 mg TAB (NF) PO SCH (08:00)
[2023-02-23] MEDS: Aspirin EC 81 mg TAB.EC (enteric coated) PO SCH (08:03)
== END 2023-02-23 10:51 | disposition home or self-care (01) ==
LOC: EDHOLD 10:05 → ED 10:05 → SUATTDRO 23:05 → MED 23:35
PROVIDERS: ADMIT Student in an Organized Health Care Education/Training Program; ATTEND Hospitalist